=== PATIENT | female | born 1940 | race Caucasian/White ===

== ENCOUNTER → 2016-08-09 | Outpatient (CLI) | payer MEDICARE ==
--- NOTE | 2016-08-09 16:27 | PN ---
DATE OF SERVICE: 08/09/2016 A 76-year-old lady who has been [facility] for treatment of obstructive sleep apnea-hypopnea syndrome. Patient is using her machine every night for the whole night without significant problems. I read her reading from the machine for last 3 months. She used it 100% of the time and 98.9% of the time for more than 4 hours. Average pressure is now 6.1 and peak average pressure around 7.4. She is on automatic regimen between 5 and 11. With that, reading for apnea-hypopnea index is 6.9. No significant sleepiness during the day. Berwind sleepiness scale is 6. Sometimes patient may feel sleepiness in the afternoon. MEDICATIONS: Imdur, Norvasc, Lopressor. PHYSICAL EXAMINATION: GENERAL: During physical exam, the patient is in no distress. VITAL SIGNS: BP 157/65, HR 67, RR 14, height 62, weight 152.8. BMI 27.8. Temperature 97.5. HEENT: PERRLA, EOMI. Evaluation of the oropharynx shows low position of the soft palate. NECK: Supple. No JVD, Thyroid is not palpable. LUNGS: Clear to percussion and to auscultation. Good air exchange. No wheezing or rhonchi. HEART: S1, S2 regular. No murmurs, gallops, or rubs. ABDOMEN: Slightly obese. Soft and nontender. Bowel sounds are present. No organomegaly appreciated. BEAUTY SALES ADVISOR: Awake, alert, and oriented x3. Cranial nerves 2 to 7 intact. There is no fasciculation or atrophy noted. No focal deficits observed. IMPRESSION: 1. Central and obstructive sleep apnea/hypopnea syndrome, mostly on control with auto PAP with pressure in the range between 5 and 11. Most of the time pressure is in the range of 6.1 cm of water. Patient demonstrated about 100% compliance with treatment, benefiting from treatment. 2. Hypertension. 3. Hyperlipidemia. 4. History of allergies. 5. Status post cholecystectomy. PLAN: 1. Continue treatment with the present regimen every night for the whole night. 2. Watching and losing weight. 3. Sleep hygiene with regular time in bed for at least 7-1/2 hours. 4. No driving if feeling any sleepiness. 5. Prescription for all necessary CPAP supplies. Thank you very much for allowing me to participate in the management your patient. Sincerely, Micah Castañeda MD, PhD, FAASM Diplomat of [place] [employer], Sleep Medicine Board by [place] [employer] [place] [employer] Structural Technician of [facility]
== END | disposition home or self-care (01) ==
LOC: SLEEP 13:30
PROVIDERS: ATTEND Internal Medicine
DX: G47.33 Obstructive sleep apnea (adult) (pediatric) (principal); G47.31 Primary central sleep apnea; I10 Essential (primary) hypertension; E78.5 Hyperlipidemia, unspecified; Z91.09 Other allergy status, other than to drugs and biological substances; Z98.890 Other specified postprocedural states; Z79.899 Other long term (current) drug therapy

== ENCOUNTER → 2017-01-16 | Outpatient (CLI) | payer MEDICARE ==
--- NOTE | 2017-01-16 19:48 | WWHP ---
[facility] - HISTORY AND PHYSICAL DATE OF SERVICE: 01/16/2017 CHIEF COMPLAINT: The patient is here for her routine gynecologic exam and mammogram. HPI: This is a 77-year-old, G5, P5, with an LMP of 1991. She is status post vaginal hysterectomy for benign reasons. The patient is without gynecologic complaints. PAST MEDICAL HISTORY: Chronic hypertension, sleep apnea, coronary artery disease. Osteopenia, asthma and irritable bowel syndrome. MEDICATIONS: 1. Imdur 1 daily. 2. Norvasc 1 daily. 3. Lopressor 1 b.i.d. 4. Ventolin inhaler p.r.n. 5. Calcium supplements 1 daily. 6. Magnesium supplement 1 daily. 7. Allergy shots as directed. ALLERGIES: TO CODEINE AND SHELL FISH. ALMONDS AND EGGS. PAST SURGICAL HISTORY: Vaginal hysterectomy in 1991. Mesh sling procedure for urinary incontinence in the past. Cholecystectomy in 1993. Left leg vein stripping in 1990. Laser surgery for varicose veins in 2016, appendectomy in 1994, colonoscopy in 2010 and 2015. 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 She has no history of STDs. SOCIAL HISTORY: She denies tobacco, alcohol, and drug use. She is a and is not sexually active. FAMILY HISTORY: Paternal aunt had colon cancer. Sister had breast cancer. Mother had breast cancer and diabetes and father had leukemia. REVIEW OF SYSTEMS: She has gained about 15 pounds over the last year. She denies respiratory or cardiac problems. GI: Occasional irritable bowel symptoms. She denies maltreatment or falling. : She occasionally has to get up at night to urinate and if she does not get to the bathroom in time she will occasionally leak. She denies any other significant problems with leakage. PHYSICAL EXAM: Blood pressure 135/71, height 5 feet 3 inches, weight 156 pounds. Temperature 97.6, pulse 54, this is a well-developed, well-nourished, white female, who is alert and oriented times three in no acute distress. HEENT: Within normal limits. NECK: Supple without mass or thyromegaly. Chest. LUNGS: Clear to auscultation. HEART: Regular rate, rhythm. Breasts are without mass or discharge. Axillary exam is negative for adenopathy. Back negative for CVA tenderness. ABDOMEN: Soft, nontender, without palpable masses. Pelvic exam external genitalia reveals moderate atrophy without lesions. Vagina reveals moderate atrophy without lesions and there is no evidence of prolapse. Bimanual exam is negative for mass or tenderness. Rectovaginal exam is negative for mass or tenderness and is negative for occult blood. EXTREMITIES: Nontender. IMPRESSION: 1. 77-year-old, menopausal female, status post vaginal hysterectomy with normal gynecologic exam. 2. History of osteopenia. PLAN: 1. Pap smears have been discontinued. 2. Self breast examination was discussed. 3. Mammogram will be done today. 4. The patient will get a flu shot this fall when available. 5. Osteoporosis prevention was discussed. We will plan on repeating bone density testing in 2 years. 6. She will return in one year. MMODL / IJN: [id number] /
--- NOTE | 2017-01-17 08:12 | MM ---
Reason for exam: screening (asymptomatic). Last mammogram was performed 1 year ago. History: Patient is postmenopausal. Family history of breast cancer in sister at age 54 and breast cancer in mother at age 70. Benign excisional biopsy of the left breast, 1989. Physical Findings: A clinical breast exam by your physician is recommended on an annual basis and results should be correlated with mammographic findings. MG 3D Screening Mammo W/Cad Bilateral CC and MLO view(s) were taken. Prior study comparison: January 11, 2016, bilateral MG 3d screening mammo w/cad. January 05, 2015, bilateral MG screening mammo w CAD. There are scattered fibroglandular densities. Benign calcifications. There is no discrete abnormality. No significant changes when compared with prior studies. ASSESSMENT: Benign, BI-RAD 2 RECOMMENDATION: Routine screening mammogram of both breasts in 1 year.
== END ==
LOC: WWCWWP 11:08
PROVIDERS: ATTEND Obstetrics & Gynecology
DX: Z12.31 Encounter for screening mammogram for malignant neoplasm of breast (principal)
CPT/HCPCS: 77063; G0202

== ENCOUNTER 2017-08-16 17:54 | Observation (INO) | payer MEDICARE ==
[2017-08-16] MEDS ORDERED: LABETALOL 5 MG/ML VIAL MDV IVP STA (18:35)
--- NOTE | 2017-08-16 18:37 | ED ---
General Adult HPI - General Chief complaint: Chest Pain Stated complaint: Chest pain Time Seen by Provider: 08/16/17 18:03 Source: patient, RN notes reviewed, old records reviewed Mode of arrival: wheelchair Limitations: no limitations - History of Present Illness Initial comments: 77 yo female presents for evaluation of chest pain. Pain has been intermittent for the past one week, it became constant over the past 3 days. Describes it as a central chest heaviness. She is also had some dyspnea associated with this pain. No vomiting, there was some mild nausea. No diaphoresis. Patient denies any lower extremity pain or swelling. She has no history of heart failure. She does have a history of CAD status post stenting approximately 5 years ago according to her daughter. She has been taking aspirin, Imdur, and beta celeste. She is not currently on any blood thinners. She did take 2 nitroglycerin prior to arrival with minimal relief. She states that with her previous heart attack she had chest tightness and dyspnea as her primary complaint. Denies melena or rectal bleeding. - Related Data Home Medications Medication Instructions Recorded Confirmed Albuterol Inhaler [Ventolin Hfa 1 - 2 puff INHALATION RT-Q6H PRN 04/06/15 Inhaler] Ubidecarenone [Co Q-10] 100 mg PO DAILY 04/06/15 08/16/17 Multivitamins, Thera [Multivitamin 1 tab PO DAILY 01/02/16 08/16/17 (formulary)] Aspirin 325 mg PO ONCE PRN 08/16/17 08/16/17 Metoprolol Tartrate [Lopressor] 25 mg PO BID 08/16/17 08/16/17 Nitroglycerin Sl Tabs [Nitrostat] 0.4 mg SUBLINGUAL Q5M PRN 08/16/17 08/16/17 Olmesartan [Benicar] 5 mg PO DAILY 08/16/17 08/16/17 Previous Rx's Medication Instructions Recorded Aspirin EC [Ecotrin Low Dose] 81 mg PO DAILY #30 tablet. 04/07/15 Isosorbide Mononitrate ER [Imdur] 30 mg PO HS #30 tab.er.24h 01/03/16 Allergies Allergy/AdvReac Type Severity Reaction Status Date / Time codeine Allergy Unknown Verified 08/16/17 19:03 iodine Allergy Rash/Hives Verified 08/16/17 19:03 Iodine and Iodide Containing Allergy Rash/Hives Verified 08/16/17 19:03 Produc shellfish derived Allergy Rash/Hives Verified 08/16/17 19:03 tree nut [Nut] AdvReac Mild Abdominal Verified 08/16/17 19:03 Pain egg AdvReac Nausea & Verified 08/16/17 19:03 Vomiting gluten AdvReac Nausea & Verified 08/16/17 19:03 Vomiting Milk Containing Products AdvReac Nausea & Verified 08/16/17 19:03 [Dairy] Vomiting soy AdvReac Nausea & Verified 08/16/17 19:03 Vomiting Review of Systems ROS Statement: Those systems with pertinent positive or pertinent negative responses have been documented in the HPI. ROS Other: All systems not noted in ROS Statement are negative. 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 HAS A SORE IN MOUTH THAT MAKES IT DIFFICULT TO WEAR BOTTOM DENTURE,GLUTEN ALLERGY,LACTOSE INTOLERANCE AND EGGS CAUSE NAUSEA AND BLOATING BUT ABLE TO TAKE IMMUNIZATIONS. History of Any Multi-Drug Resistant Organisms: None Reported Past Surgical History: Appendectomy, Bladder Surgery, Cholecystectomy, Heart Catheterization With Stent, Hernia Repair, Hysterectomy Additional Past Surgical History / Comment(s): UMBILICAL HERNIA REPAIRE, BLADDER SUSPENSION WITH MESH. JUANJOSE CATARACTS, CYST ON NECK REMOVED, EGD/ COLONOSCOPY HAD FEW SMALL POLYS REMOVED(BENIGN), VEIN STRIPPING, HEMORRHOIDECTOMY Past Anesthesia/Blood Transfusion Reactions: Motion Sickness Date of Last Stent Placement:: 2011 Past Psychological History: No Psychological Hx Reported Smoking Status: Never smoker Past Alcohol Use History: None Reported Past Drug Use History: None Reported - Past Family History Father Family Medical History: Cancer, Osteoarthritis (OA) Additional Family Medical History / Comment(s): LEUKEMIA Mother Family Medical History: Cancer Additional Family Medical History / Comment(s): BREAST CANCER, AND PT'S SISTER AND AUNT HAD BREAST CANCER WELL. General Exam Limitations: no limitations General appearance: alert, in no apparent distress Head exam: Present: atraumatic, normocephalic Eye exam: Present: normal appearance, PERRL, EOMI ENT exam: Present: normal exam Neck exam: Present: normal inspection. Absent: tenderness, meningismus Respiratory exam: Present: normal lung sounds bilaterally. Absent: respiratory distress, wheezes, rales Cardiovascular Exam: Present: regular rate, normal rhythm GI/Abdominal exam: Present: soft. Absent: distended, tenderness, guarding Extremities exam: Present: normal inspection, normal capillary refill. Absent: pedal edema Neurological exam: Present: alert, oriented X3 Psychiatric exam: Present: normal affect, normal mood Skin exam: Present: warm, dry, intact. Absent: cyanosis, diaphoretic Course Vital Signs 08/16/17 08/16/17 08/16/17 17:56 18:44 19:10 Temperature 98.6 F Pulse Rate 101 H 80 Respiratory 20 18 Rate Blood Pressure 208/95 203/97 186/91 O2 Sat by Pulse 92 L 98 Oximetry EKG Findings - EKG Comments: EKG Findings:: EKG shows sinus rhythm with first-degree AV block, and left bundle branch block, ventricular rate of 87, NM interval 224, QRS duration 156, QTC 464, there is no Scarbosa criteria. Medical Decision Making - Medical Decision Making 77 yo female presenting with chest heaviness and dyspnea. Describes symptoms similar to previous heart attack proximally 5 years ago. She did have a stent at that time. I was unable to review these records. EKG shows left bundle branch block with no definitive change compared to previous EKG in December 2015. Chest x-ray shows clearing of previous pulmonary edema, negative for focal pneumonia or acute findings. After studies reveal normal white blood cell count, stable hemoglobin, normal electrolytes. Initial troponin is negative, BNP is negative. Patient is hypertensive, she is given labetalol and hydralazine in the emergency department. She started on heparin for concern of unstable angina. She will be admitted for telemetry, serial cardiac enzymes, and cardiology consultation. Case discussed with Dr. Ryan who will accept admission. - Lab Data Result diagrams: 08/16/17 18:18 08/16/17 18:18 Lab Results 08/16/17 08/16/17 08/16/17 Range/Units 18:18 18:18 18:18 WBC 7.5 (3.8-10.6) k/uL RBC 4.47 (3.80-5.40) m/uL Hgb 13.3 (11.4-16.0) gm/dL Hct 38.8 (34.0-46.0) % MCV 86.9 (80.0-100.0) fL MCH 29.8 (25.0-35.0) pg MCHC 34.3 (31.0-37.0) g/dL RDW 12.7 (11.5-15.5) % Plt Count 345 (150-450) k/uL Neutrophils % 68 % Lymphocytes % 23 % Monocytes % 5 % Eosinophils % 2 % Basophils % 1 % Neutrophils # 5.1 (1.3-7.7) k/uL Lymphocytes # 1.7 (1.0-4.8) k/uL Monocytes # 0.4 (0-1.0) k/uL Eosinophils # 0.2 (0-0.7) k/uL Basophils # 0.1 (0-0.2) k/uL PT (9.0-12.0) sec INR (<1.2) APTT (22.0-30.0) sec Sodium 144 (137-145) mmol/L Potassium 4.0 (3.5-5.1) mmol/L Chloride 106 (98-107) mmol/L Carbon Dioxide 23 (22-30) mmol/L Anion Gap 15 mmol/L BUN 15 (7-17) mg/dL Creatinine 0.80 (0.52-1.04) mg/dL Est GFR (CKD-EPI)AfAm 83 (>60 ml/min/1.73 sqM) Est GFR (CKD-EPI)NonAf 72 (>60 ml/min/1.73 sqM) Glucose 117 H (74-99) mg/dL Calcium 10.1 (8.4-10.2) mg/dL Magnesium 2.0 (1.6-2.3) mg/dL Total Bilirubin 0.4 (0.2-1.3) mg/dL AST 28 (14-36) U/L ALT 26 (9-52) U/L Alkaline Phosphatase 85 (38-126) U/L Total Creatine Kinase 213 H (30-135) U/L CK-MB (CK-2) 2.8 H* (0.0-2.4) ng/mL CK-MB (CK-2) Rel Index 1.3 Troponin I <0.012 (0.000-0.034) ng/mL NT-Pro-B Natriuret Pep pg/mL Total Protein 7.6 (6.3-8.2) g/dL Albumin 4.3 (3.5-5.0) g/dL 08/16/17 08/16/17 Range/Units 18:18 18:18 WBC (3.8-10.6) k/uL RBC (3.80-5.40) m/uL Hgb (11.4-16.0) gm/dL Hct (34.0-46.0) % MCV (80.0-100.0) fL MCH (25.0-35.0) pg MCHC (31.0-37.0) g/dL RDW (11.5-15.5) % Plt Count (150-450) k/uL Neutrophils % % Lymphocytes % % Monocytes % % Eosinophils % % Basophils % % Neutrophils # (1.3-7.7) k/uL Lymphocytes # (1.0-4.8) k/uL Monocytes # (0-1.0) k/uL Eosinophils # (0-0.7) k/uL Basophils # (0-0.2) k/uL PT 9.7 (9.0-12.0) sec INR 1.0 (<1.2) APTT 23.0 (22.0-30.0) sec Sodium (137-145) mmol/L Potassium (3.5-5.1) mmol/L Chloride (98-107) mmol/L Carbon Dioxide (22-30) mmol/L Anion Gap mmol/L BUN (7-17) mg/dL Creatinine (0.52-1.04) mg/dL Est GFR (CKD-EPI)AfAm (>60 ml/min/1.73 sqM) Est GFR (CKD-EPI)NonAf (>60 ml/min/1.73 sqM) Glucose (74-99) mg/dL Calcium (8.4-10.2) mg/dL Magnesium (1.6-2.3) mg/dL Total Bilirubin (0.2-1.3) mg/dL AST (14-36) U/L ALT (9-52) U/L Alkaline Phosphatase (38-126) U/L Total Creatine Kinase (30-135) U/L CK-MB (CK-2) (0.0-2.4) ng/mL CK-MB (CK-2) Rel Index Troponin I (0.000-0.034) ng/mL NT-Pro-B Natriuret Pep 195 pg/mL Total Protein (6.3-8.2) g/dL Albumin (3.5-5.0) g/dL Critical Care Time Critical Care Time: Yes Total Critical Care Time: 35 Disposition Clinical Impression: Unstable angina pectoris Disposition: ADMITTED IP TO THIS [facility] Condition: Stable Referrals: Ryan Pires DO [Primary Care Provider] - 1-2 days Decision to Admit Reason: Admit from EC Decision Date: 08/16/17 Decision Time: 19:46
[2017-08-16 18:44] LABS: Basophils # (A) 0.1 k/uL (0-0.2); Basophils % (A) 1 %; Eosinophils # (A) 0.2 k/uL (0-0.7); Eosinophils % (A) 2 %; HCT 38.8 % (34.0-46.0); HGB 13.3 gm/dL (11.4-16.0); Lymphocytes # (A) 1.7 k/uL (1.0-4.8); Lymphocytes % (A) 23 %; MCH 29.8 pg (25.0-35.0); MCHC 34.3 g/dL (31.0-37.0); MCV 86.9 fL (80.0-100.0); Mean Platelet Volume 6.7; Monocytes # (A) 0.4 k/uL (0-1.0); Monocytes % (A) 5 %; Neutrophils # (A) 5.1 k/uL (1.3-7.7); Neutrophils % (A) 68 %; Platelet Count 345 k/uL (150-450); RBC 4.47 m/uL (3.80-5.40); RDW 12.7 % (11.5-15.5); WBC 7.5 k/uL (3.8-10.6)
[2017-08-16 18:51] LABS: Prothrombin Time 9.7 sec (9.0-12.0)
[2017-08-16 18:58] LABS: Albumin 4.3 g/dL (3.5-5.0); Calcium 10.1 mg/dL (8.4-10.2); Total Bilirubin 0.4 mg/dL (0.2-1.3); Total Protein 7.6 g/dL (6.3-8.2)
--- NOTE | 2017-08-16 19:00 | XR ---
EXAMINATION TYPE: XR chest 2V DATE OF EXAM: 08/16/2017 COMPARISON: 01/02/2016 HISTORY: Chest pain TECHNIQUE: Frontal and lateral views of the chest are obtained. FINDINGS: Heart is normal. Lungs are clear of consolidation. Thoracic aorta is atheromatous. There a re chest leads. There is spurring in the thoracic spine. IMPRESSION: No active cardiopulmonary disease. Atheromatous aorta. There is clearing of the pulmonar y mild congestion compared to old exam.
[2017-08-16 19:10] LABS: Creatine Kinase 213 U/L (30-135)
[2017-08-16 19:24] LABS: Troponin I <0.012 ng/mL (0.000-0.034)
[2017-08-16 19:25] LABS: Creatine Kinase MB 2.8 ng/mL (0.0-2.4)
[2017-08-16] MEDS ORDERED: ASPIRIN 325 MG TAB PO STA (19:40)
[2017-08-16] MEDS ORDERED: HEPARIN SODIUM,PORCINE 5,000 UNIT/ML 1 ML VIAL IV PRN (19:41)
[2017-08-16] MEDS ORDERED: hydrALAZINE HCL 20 MG/ML 1 ML VIAL IVP STA (19:41)
[2017-08-16] MEDS ORDERED: LORazepam 2 MG/ML INJ IV STA (19:41)
[2017-08-16] MEDS ORDERED: HEPARIN SODIUM,PORCINE 5,000 UNIT/ML 1 ML VIAL IV ONE (19:41)
[2017-08-16] MEDS ORDERED: NITROGLYCERIN SL TABS 0.4 MG TAB SUBLINGUAL PRN (19:42)
[2017-08-16] MEDS ORDERED: HEPARIN SOD,PORK IN 0.45% NACL 25,000 UNIT in 0.45% NACL 1 500ML.BAG IV SCH (19:45)
[2017-08-16] MEDS ORDERED: NALOXONE 0.4 MG/ML 1 ML VIAL IV PRN (19:46)
[2017-08-16] MEDS ORDERED: ALBUTEROL NEBULIZED 2.5 MG/3 ML INHALATION PRN (20:39)
[2017-08-16] MEDS ORDERED: ISOSORBIDE MONONITRATE ER 30 MG TAB.ER.24H PO SCH (21:00)
[2017-08-16 21:36] VITALS: BMI 26.4
[2017-08-16] MEDS: METOPROLOL TARTRATE 25 MG TAB PO SCH (21:46)
[2017-08-17 00:39] LABS: Creatine Kinase 167 U/L (30-135)
[2017-08-17 00:52] LABS: Creatine Kinase MB 1.9 ng/mL (0.0-2.4); Troponin I <0.012 ng/mL (0.000-0.034)
[2017-08-17 03:14] VITALS: RESP 16
[2017-08-17 07:52] LABS: ALT 26 U/L (9-52); AST 19 U/L (14-36); Albumin 3.1 g/dL (3.5-5.0); Alkaline Phosphatase 62 U/L (38-126); Anion Gap 12 mmol/L; Blood Urea Nitrogen 14 mg/dL (7-17); Calcium 8.9 mg/dL (8.4-10.2); Carbon Dioxide 23 mmol/L (22-30); Chloride 107 mmol/L (98-107); Glucose 90 mg/dL (74-99); Potassium 3.9 mmol/L (3.5-5.1); Sodium 142 mmol/L (137-145); Total Bilirubin 0.5 mg/dL (0.2-1.3); Total Protein 5.7 g/dL (6.3-8.2)
[2017-08-17 07:59] LABS: Creatine Kinase 131 U/L (30-135)
[2017-08-17 08:05] LABS: Basophils % (A) 0 %; Eosinophils # (A) 0.3 k/uL (0-0.7); Eosinophils % (A) 5 %; HCT 33.9 % (34.0-46.0); HGB 11.4 gm/dL (11.4-16.0); Lymphocytes # (A) 2.7 k/uL (1.0-4.8); Lymphocytes % (A) 42 %; MCH 29.9 pg (25.0-35.0); MCHC 33.5 g/dL (31.0-37.0); Mean Platelet Volume 7.4; Monocytes # (A) 0.4 k/uL (0-1.0); Monocytes % (A) 7 %; Neutrophils # (A) 2.8 k/uL (1.3-7.7); Neutrophils % (A) 44 %; Platelet Count 266 k/uL (150-450); RBC 3.81 m/uL (3.80-5.40); RDW 12.7 % (11.5-15.5); WBC 6.3 k/uL (3.8-10.6)
[2017-08-17 08:13] LABS: Creatine Kinase MB 1.1 ng/mL (0.0-2.4); Troponin I <0.012 ng/mL (0.000-0.034)
[2017-08-17] MEDS ORDERED: ASPIRIN 81 MG PO SCH (09:00)
[2017-08-17] MEDS ORDERED: LOSARTAN 25 MG TAB PO SCH (09:00)
--- NOTE | 2017-08-17 09:32 | CONS ---
CONSULTATION Mrs. Tellez is a 77-year-old female, known history of hypertension, hyperlipidemia, intolerant to statin, history of coronary disease, has been followed by Dr. Elias and underwent prior percutaneous revascularization, who presented with symptoms of chest discomfort. The discomfort has been constant for the last week, has been worse with mental stress. She is not very active physically, but her breathing has been stable. She has no clear exertion pattern. She has no dizziness, palpitation, or syncope. No PND, orthopnea, or peripheral edema. She has underwent myocardial perfusion imaging in the past and there was no evidence of stress-induced ischemia. She has been admitted in the past with symptoms of chest pain and no evidence of myocardial infarction. Her coronary risk factors are remarkable for hypertension hyperlipidemia and intolerant to statins. She is nondiabetic, nonsmoker. MEDICATION: Include aspirin, Imdur 30 mg daily, Lopressor 25 mg twice a day, and Benicar 5 mg daily, CO-enzyme Q10. REVIEW OF SYSTEMS: Respiratory system: She has mild dyspnea on exertion. No recent wheezing or cough. GI system: No recent GI bleeding. No peptic ulcer disease. system no dysuria or hematuria. Nervous system: No stroke or seizure. PHYSICAL EXAMINATION: 77-year-old female, alert, oriented, in no apparent distress. Blood pressure 126/56 with a heart rate in 60s. HEAD: Normocephalic. Eyes: Sclerae anicteric. Neck: Good carotid upstroke. No bruit. No jugular venous distention. LUNGS: Clear to auscultation. HEART: Regular rate and rhythm, S1, S2. No S3. No rub. Chest wall with chest wall tenderness reproducing the pain. ABDOMEN: Soft, nontender. Positive bowel sounds. No megaly. EXTREMITIES: No edema. Intact pulses. LAB DATA: Lab data revealed a BUN and creatinine 14 and 0.7, potassium 3.9. Troponin less than 0.012. Hemoglobin of 11.4. EKG revealed sinus mechanism with left bundle branch block. Chest x-ray, no acute infiltrate. IMPRESSION: 1. Chest discomfort, atypical for ischemic heart disease, appears to be musculoskeletal in etiology. 2. History of coronary artery disease. 3. Hypertension. 4. Hyperlipidemia, intolerant to statin. RECOMMENDATION: I will stop the heparin. Increase her level of activity. If she remains stable, she should be able to be discharged home today and follow up as an outpatient with Dr. Elias as scheduled. Thank you for this consult. We will follow with you. MMODL / IJN: [id number] /
[2017-08-17] MEDS: METOPROLOL TARTRATE 25 MG TAB PO SCH (10:07)
[2017-08-17 13:09] VITALS: TEMP 97.8
[2017-08-17 16:02] VITALS: BP 170/76; PULSE 62
--- NOTE | 2017-08-17 16:34 | P.HPIM ---
History of Present Illness 77 yo female presents for evaluation of chest pain. Pain has been intermittent for the past one week, it became constant over the past 3 days. Describes it as a central chest sharp in nature 7/10 in severity.She is also had some dyspnea associated with this pain. No vomiting, there was some mild nausea. No diaphoresis. Patient denies any lower extremity pain or swelling. She does have a history of CAD status post stenting approximately 5 years ago She is not currently on any blood thinners. She did take 2 nitroglycerin prior to arrival with minimal relief. She states that with her previous heart attack she had chest tightness and dyspnea as her primary complaint. Denies melena or rectal bleeding. was admitted to rule out acute coronary syndromes acute coronary syndromes was ruled out patient has reproducible chest pain was evaluated by cardiology patient chest pain is nonpleuritic in nature nature not associated with food. Review of Systems REVIEW OF SYSTEMS: CONSTITUTIONAL: No fever, no malaise, no fatigue. HEENT: No recent visual problems or hearing problems. Denied any sore throat. CARDIOVASCULAR: No orthopnea, PND, no palpitations, no syncope. PULMONARY: No shortness of breath, no cough, no hemoptysis. GASTROINTESTINAL: No diarrhea, no nausea, no vomiting, no abdominal pain. Normoactive bowel sounds. NEUROLOGICAL: No headaches, no weakness, no numbness. HEMATOLOGICAL: Denies any bleeding or petechiae. GENITOURINARY: Denies any burning micturition, frequency, or urgency. MUSCULOSKELETAL/RHEUMATOLOGICAL: Denies any joint pain, swelling, or any muscle pain. ENDOCRINE: Denies any polyuria or polydipsia. The rest of the 14-point review of systems is negative. 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 GLUTEN ALLERGY, LACTOSE INTOLERANCE AND EGGS CAUSE NAUSEA AND BLOATING BUT ABLE TO TAKE IMMUNIZATIONS. History of Any Multi-Drug Resistant Organisms: None Reported Past Surgical History: Appendectomy, Bladder Surgery, Cholecystectomy, Heart Catheterization With Stent, Hernia Repair, Hysterectomy Additional Past Surgical History / Comment(s): UMBILICAL HERNIA REPAIRE, BLADDER SUSPENSION WITH MESH. JAUNJOSE CATARACTS, CYST ON NECK REMOVED, EGD/ COLONOSCOPY HAD FEW SMALL POLYS REMOVED(BENIGN), VEIN STRIPPING, HEMORRHOIDECTOMY, NASAL SURGERY Past Anesthesia/Blood Transfusion Reactions: Motion Sickness Date of Last Stent Placement:: 2011 Past Psychological History: No Psychological Hx Reported Additional Psychological History / Comment(s): PT LIVES IN OWN HOME WITH HER FAMILY. 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 NO OUTSIDE SERVICES. Smoking Status: Never smoker Past Alcohol Use History: None Reported Past Drug Use History: None Reported - Past Family History Father Family Medical History: Cancer, Osteoarthritis (OA) Additional Family Medical History / Comment(s): LEUKEMIA Mother Family Medical History: Cancer Additional Family Medical History / Comment(s): BREAST CANCER, AND PT'S SISTER AND AUNT HAD BREAST CANCER WELL. Medications and Allergies Home Medications Medication Instructions Recorded Confirmed Type Albuterol Inhaler [Ventolin Hfa 1 - 2 puff INHALATION RT-Q6H PRN 04/06/15 History Inhaler] Ubidecarenone [Co Q-10] 100 mg PO DAILY 04/06/15 08/16/17 History Aspirin EC [Ecotrin Low Dose] 81 mg PO DAILY #30 tablet. 04/07/15 08/16/17 Rx Multivitamins, Thera [Multivitamin 1 tab PO DAILY 01/02/16 08/16/17 History (formulary)] Isosorbide Mononitrate ER [Imdur] 30 mg PO HS #30 tab.er.24h 01/03/16 08/16/17 Rx Aspirin 325 mg PO ONCE PRN 08/16/17 08/16/17 History Metoprolol Tartrate [Lopressor] 25 mg PO BID 08/16/17 08/16/17 History Nitroglycerin Sl Tabs [Nitrostat] 0.4 mg SUBLINGUAL Q5M PRN 08/16/17 08/16/17 History Olmesartan [Benicar] 5 mg PO DAILY 08/16/17 08/16/17 History Allergies Allergy/AdvReac Type Severity Reaction Status Date / Time codeine Allergy Unknown Verified 08/16/17 21:43 iodine Allergy Rash/Hives Verified 08/16/17 21:43 Iodine and Iodide Containing Allergy Rash/Hives Verified 08/16/17 21:43 Produc shellfish derived Allergy Rash/Hives Verified 08/16/17 21:43 tree nut [Nut] AdvReac Mild Abdominal Verified 08/16/17 21:43 Pain egg AdvReac Nausea & Verified 08/16/17 21:43 Vomiting gluten AdvReac Nausea & Verified 08/16/17 21:43 Vomiting Milk Containing Products AdvReac Nausea & Verified 08/16/17 21:43 [Dairy] Vomiting soy AdvReac Nausea & Verified 08/16/17 21:43 Vomiting Sulfa (Sulfonamide AdvReac Rash/Hives Verified 08/16/17 21:43 Antibiotics) Physical Exam Vitals: Vital Signs Temp Pulse Pulse Resp BP BP Pulse Ox 08/17/17 16:00 97.8 F 62 16 170/76 94 L 08/17/17 12:00 97.8 F 65 16 147/67 95 08/17/17 08:00 97.7 F 61 16 131/70 95 08/17/17 07:46 94 L 08/17/17 04:00 64 16 08/17/17 03:14 97.8 F 64 16 126/56 96 08/17/17 00:00 98.1 F 80 18 136/70 96 08/16/17 20:36 93 L 08/16/17 20:29 98 F 86 18 163/77 97 08/16/17 19:10 80 18 186/91 98 08/16/17 18:44 203/97 08/16/17 17:56 98.6 F 101 H 20 208/95 92 L Intake and Output 08/17/17 08/17/17 08/17/17 06:59 14:59 22:59 Intake Total 283 Balance 283 Intake: IV 160 0.9 NS @ KVO 160 Intake, IV Titration 123 Amount Heparin Sod,Pork in 0.45% 123 NaCl 25,000 unit In 0.45 % NaCl 1 500ml.bag @ 12 UNITS/KG/HR 16.32 mls/hr IV .Q24H [facility] Rx#: [id number] Other: Voiding Method Toilet Toilet # Voids 2 PHYSICAL EXAMINATION: GENERAL: The patient is alert and oriented x3, not in any acute distress. Well developed, well nourished. HEENT: Pupils are round and equally reacting to light. EOMI. No scleral icterus. No conjunctival pallor. Normocephalic, atraumatic. No pharyngeal erythema. No thyromegaly. CARDIOVASCULAR: S1 and S2 present. No murmurs, rubs, or gallops. reproducible chest pain PULMONARY: Chest is clear to auscultation, no wheezing or crackles. ABDOMEN: Soft, nontender, nondistended, normoactive bowel sounds. No palpable organomegaly. MUSCULOSKELETAL: No joint swelling or deformity. EXTREMITIES: No cyanosis, clubbing, or pedal edema. NEUROLOGICAL: Gross neurological examination did not reveal any focal deficits. SKIN: No rashes. Results CBC & Chem 7: 08/17/17 06:16 08/17/17 06:16 Labs: Abnormal Lab Results - Last 24 Hours (Table) 08/16/17 08/16/17 08/16/17 Range/Units 18:18 18:18 23:52 Hct (34.0-46.0) % APTT (22.0-30.0) sec Glucose 117 H (74-99) mg/dL Total Creatine Kinase 213 H 167 H (30-135) U/L CK-MB (CK-2) 2.8 H* (0.0-2.4) ng/mL Total Protein (6.3-8.2) g/dL Albumin (3.5-5.0) g/dL 08/17/17 08/17/17 08/17/17 Range/Units 06:16 06:16 06:16 Hct 33.9 L (34.0-46.0) % APTT 60.0 H (22.0-30.0) sec Glucose (74-99) mg/dL Total Creatine Kinase (30-135) U/L CK-MB (CK-2) (0.0-2.4) ng/mL Total Protein 5.7 L (6.3-8.2) g/dL Albumin 3.1 L (3.5-5.0) g/dL Thrombosis Risk Factor Assmnt - Choose All That Apply Each Risk Factor Represents 3 Points: Age 75 years or older Thrombosis Risk Factor Assessment Total Risk Factor Score: 3 Thrombosis Risk Factor Assessment Level: Moderate Risk Assessment and Plan Plan: -Chest pain: Rule out acute medicine syndromes patient's chest pain is reproducible and musculoskeletal in nature patient is cleared for discharge from cardiology perspective patient will be discharged today. -Hypertension patient blood pressure is elevated patient is to be resumed on her home medications. -Coronary artery disease -Gastroesophageal reflux disease patient is not taking any medications for reflux disease patient does have a little hernia is not requiring any medications at this point of time. -Hyperlipidemia -Sleep apnea patient will continue her medications.
--- NOTE | 2017-08-17 16:35 | P.DS ---
Providers Date of admission: 08/16/17 19:46 Attending physician: Carolynn Almanzar Consults: 08/16/17 19:47 Consult Physician Routine Consulting Provider: Maninder Elias Consult Reason/Comments: UA Do you want consulting provider notified?: Yes [facility] Course: refer to my HPI Patient Condition at Discharge: Stable Plan - Discharge Summary Discharge Rx Participant: No New Discharge Prescriptions: No Action Albuterol Inhaler [Ventolin Hfa Inhaler] 1 - 2 puff INHALATION RT-Q6H PRN PRN Reason: Shortness Of Breath Ubidecarenone [Co Q-10] 100 mg PO DAILY Aspirin EC [Ecotrin Low Dose] 81 mg PO DAILY #30 tablet. Multivlenard Thera [Multivitamin (formulary)] 1 tab PO DAILY Isosorbide Mononitrate ER [Imdur] 30 mg PO HS #30 tab.er.24h Nitroglycerin Sl Tabs [Nitrostat] 0.4 mg SUBLINGUAL Q5M PRN PRN Reason: Chest Pain Olmesartan [Benicar] 5 mg PO DAILY Metoprolol Tartrate [Lopressor] 25 mg PO BID Aspirin 325 mg PO ONCE PRN PRN Reason: Chest Pain Discharge Medication List Albuterol Inhaler [Ventolin Hfa Inhaler] 1 - 2 puff INHALATION RT-Q6H PRN [History] Ubidecarenone [Co Q-10] 100 mg PO DAILY 04/06/15 [History] Aspirin EC [Ecotrin Low Dose] 81 mg PO DAILY #30 tablet. 04/07/15 [Rx] Multivitaminlandon, Thera [Multivitamin (formulary)] 1 tab PO DAILY 01/02/16 [History ] Isosorbide Mononitrate ER [Imdur] 30 mg PO HS #30 tab.er.24h 01/03/16 [Rx] Aspirin 325 mg PO ONCE PRN 08/16/17 [History] Metoprolol Tartrate [Lopressor] 25 mg PO BID 08/16/17 [History] Nitroglycerin Sl Tabs [Nitrostat] 0.4 mg SUBLINGUAL Q5M PRN 08/16/17 [History] Olmesartan [Benicar] 5 mg PO DAILY 08/16/17 [History] Follow up Appointment(s)/Referral(s): Maninder Elias MD [STAFF PHYSICIAN] - 1 Week (keep already scheduled appt) Ryan Pires DO [Primary Care Provider] - 3 Days Discharge Disposition: HOME SELF-CARE
== END 2017-08-17 16:48 | disposition home or self-care (01) ==
LOC: EC 17:54 → 3OBS 19:46
PROVIDERS: ADMIT Internal Medicine; ATTEND Internal Medicine
DX: R07.89 Other chest pain (principal); R06.00 Dyspnea, unspecified; R11.0 Nausea; I10 Essential (primary) hypertension; I25.10 Atherosclerotic heart disease of native coronary artery without angina pectoris; K21.9 Gastro-esophageal reflux disease without esophagitis; E78.5 Hyperlipidemia, unspecified; K46.9 Unspecified abdominal hernia without obstruction or gangrene; G47.30 Sleep apnea, unspecified; Z99.89 Dependence on other enabling machines and devices; J45.909 Unspecified asthma, uncomplicated; I25.2 Old myocardial infarction; E73.9 Lactose intolerance, unspecified; Z95.5 Presence of coronary angioplasty implant and graft; Z91.012 Allergy to eggs; Z88.5 Allergy status to narcotic agent; Z91.018 Allergy to other foods; Z91.013 Allergy to seafood; Z88.2 Allergy status to sulfonamides; Z91.048 Other nonmedicinal substance allergy status; Z79.899 Other long term (current) drug therapy; Z79.82 Long term (current) use of aspirin; Z80.3 Family history of malignant neoplasm of breast; Z80.6 Family history of leukemia; Z82.61 Family history of arthritis
CPT/HCPCS: 99291 ×2; 96365 ×2; 96375 ×4; 96376 ×2; 96366 ×2; 36415; 94760 ×2; 93005; 83880; 80053 ×2; 82550 ×2; 82553 ×2; 83735; 84484 ×2; 85025 ×2; 85610; 85730 ×2; 71046; G0378 ×2; J2060; J0360; J1644 ×2

== ENCOUNTER 2017-10-06 11:27 | Observation (INO) | payer MEDICARE ==
[2017-10-06] MEDS ORDERED: ASPIRIN 81 MG PO STA (11:48)
[2017-10-06] MEDS ORDERED: NITROGLYCERIN OINT 1 INCH/GM PACKET TOPICAL STA (11:49)
--- NOTE | 2017-10-06 11:55 | ED ---
General Adult HPI - General Chief complaint: Chest Pain Stated complaint: Chest pain Time Seen by Provider: 10/06/17 11:35 Source: patient, RN notes reviewed Mode of arrival: ambulatory Limitations: no limitations - History of Present Illness Initial comments: This is a 71 citral female who presents emergency Department with a past medical history significant for stents high blood pressure high cholesterol. Patient states she had a stress test on because she was having some chest pain on and off. Patient states ever since a stress test she's had intermittent chest pain which radiates to her jaw on occasion she's also been short of breath diaphoretic and complains of some nausea. Since it is been going on and off and it again happened today in mormonism except she also felt lightheaded and thought she might pass out. Patient's daughter brought her to the emergency department. Patient denies any recent fever chills or cough. Patient denies any abdominal pain patient denies any vomiting or diarrhea. Patient denies any headache patient denies numbness weakness. Patient denies any swelling to her legs or calf tenderness. - Related Data Home Medications Medication Instructions Recorded Confirmed Albuterol Inhaler [Ventolin Hfa 1 - 2 puff INHALATION RT-Q6H PRN 04/06/15 Inhaler] Ubidecarenone [Co Q-10] 100 mg PO DAILY 04/06/15 08/16/17 Multivitamins, Thera [Multivitamin 1 tab PO DAILY 01/02/16 08/16/17 (formulary)] Aspirin 325 mg PO ONCE PRN 08/16/17 08/16/17 Metoprolol Tartrate [Lopressor] 25 mg PO BID 08/16/17 08/16/17 Nitroglycerin Sl Tabs [Nitrostat] 0.4 mg SUBLINGUAL Q5M PRN 08/16/17 08/16/17 Olmesartan [Benicar] 5 mg PO DAILY 08/16/17 08/16/17 Previous Rx's Medication Instructions Recorded Aspirin EC [Ecotrin Low Dose] 81 mg PO DAILY #30 tablet.dr 04/07/15 Isosorbide Mononitrate ER [Imdur] 30 mg PO HS #30 tab.er.24h 01/03/16 Allergies Allergy/AdvReac Type Severity Reaction Status Date / Time codeine Allergy Unknown Verified 10/06/17 11:50 iodine Allergy Rash/Hives Verified 10/06/17 11:50 Iodine and Iodide Containing Allergy Rash/Hives Verified 10/06/17 11:50 Produc shellfish derived Allergy Rash/Hives Verified 10/06/17 11:50 tree nut [Nut] AdvReac Mild Abdominal Verified 10/06/17 11:50 Pain egg AdvReac Nausea & Verified 10/06/17 11:50 Vomiting gluten AdvReac Nausea & Verified 10/06/17 11:50 Vomiting Milk Containing Products AdvReac Nausea & Verified 10/06/17 11:50 [Dairy] Vomiting soy AdvReac Nausea & Verified 10/06/17 11:50 Vomiting Sulfa (Sulfonamide AdvReac Rash/Hives Verified 10/06/17 11:50 Antibiotics) Review of Systems ROS Statement: Those systems with pertinent positive or pertinent negative responses have been documented in the HPI. ROS Other: All systems not noted in ROS Statement are negative. 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 GLUTEN ALLERGY, LACTOSE INTOLERANCE AND EGGS CAUSE NAUSEA AND BLOATING BUT ABLE TO TAKE IMMUNIZATIONS. History of Any Multi-Drug Resistant Organisms: None Reported Past Surgical History: Appendectomy, Bladder Surgery, Cholecystectomy, Heart Catheterization With Stent, Hernia Repair, Hysterectomy Additional Past Surgical History / Comment(s): UMBILICAL HERNIA REPAIRE, BLADDER SUSPENSION WITH MESH. JUANJOSE CATARACTS, CYST ON NECK REMOVED, EGD/ COLONOSCOPY HAD FEW SMALL POLYS REMOVED(BENIGN), VEIN STRIPPING, HEMORRHOIDECTOMY, NASAL SURGERY Past Anesthesia/Blood Transfusion Reactions: Motion Sickness Date of Last Stent Placement:: 2011 Past Psychological History: No Psychological Hx Reported Smoking Status: Never smoker Past Alcohol Use History: None Reported Past Drug Use History: None Reported - Past Family History Father Family Medical History: Cancer, Osteoarthritis (OA) Additional Family Medical History / Comment(s): LEUKEMIA Mother Family Medical History: Cancer Additional Family Medical History / Comment(s): BREAST CANCER, AND PT'S SISTER AND AUNT HAD BREAST CANCER WELL. General Exam - General Exam Comments Initial Comments: GENERAL: Patient is well-developed and well-nourished. Patient is nontoxic and well- hydrated and is in mild distress. ENT: Neck is soft and supple. No significant lymphadenopathy is noted. Oropharynx is clear. Moist mucous membranes. Neck has full range of motion without eliciting any pain. EYES: The sclera were anicteric and conjunctiva were pink and moist. Extraocular movements were intact and pupils were equal round and reactive to light. Eyelids were unremarkable. PULMONARY: Unlabored respirations. Good breath sounds bilaterally. No audible rales rhonchi or wheezing was noted. CARDIOVASCULAR: There is a regular rate and rhythm without any murmurs gallops or rubs. ABDOMEN: Soft and nontender with normal bowel sounds. No palpable organomegaly was noted. There is no palpable pulsatile mass. SKIN: Skin is clear with no lesions or rashes and otherwise unremarkable. NEUROLOGIC: Patient is alert and oriented x3. Cranial nerves II through XII are grossly intact. Motor and sensory are also intact. Normal speech, volume and content. Symmetrical smile. MUSCULOSKELETAL: Normal extremities with adequate strength and full range of motion. LYMPHATICS: No significant lymphadenopathy is noted PSYCHIATRIC: Normal psychiatric evaluation. Normal interpersonal interactions appears functionally intact in deals appropriately with others. No signs of depression. No signs of anxiety. Limitations: no limitations Course Vital Signs 10/06/17 10/06/17 10/06/17 11:40 12:05 12:10 Temperature 98.2 F Pulse Rate 85 75 84 Respiratory 18 18 18 Rate Blood Pressure 223/108 211/88 157/72 O2 Sat by Pulse 99 99 99 Oximetry 10/06/17 12:17 Temperature Pulse Rate 88 Respiratory 18 Rate Blood Pressure 166/70 O2 Sat by Pulse 98 Oximetry Medical Decision Making - Medical Decision Making EKG shows sinus rhythm at 80 bpm NM interval is 210 QRS is 140 QT interval 388 QTC is 469. Patient's EKG shows left bundle branch block which she has had in the past. Patient's chest x-ray showed no acute abnormality. Patient's pain is been intermittent and had associated cardiac like symptoms. Because of this I diagnosed the patient unstable angina started the patient on heparin I called Dr. Ryan he agreed to admit the patient admitted the patient I wrote admitting orders to continue the heparin Nitropaste and aspirin on the floor. And I consult to cardiology. - Lab Data Result diagrams: 10/06/17 12:00 10/06/17 12:00 Lab Results 10/06/17 10/06/17 10/06/17 Range/Units 12:00 12:00 12:00 WBC 7.5 (3.8-10.6) k/uL RBC 4.61 (3.80-5.40) m/uL Hgb 13.8 (11.4-16.0) gm/dL Hct 40.9 (34.0-46.0) % MCV 88.7 (80.0-100.0) fL MCH 29.9 (25.0-35.0) pg MCHC 33.7 (31.0-37.0) g/dL RDW 13.1 (11.5-15.5) % Plt Count 282 (150-450) k/uL Neutrophils % 71 % Lymphocytes % 17 % Monocytes % 5 % Eosinophils % 4 % Basophils % 1 % Neutrophils # 5.4 (1.3-7.7) k/uL Lymphocytes # 1.3 (1.0-4.8) k/uL Monocytes # 0.4 (0-1.0) k/uL Eosinophils # 0.3 (0-0.7) k/uL Basophils # 0.0 (0-0.2) k/uL PT (9.0-12.0) sec INR (<1.2) APTT (22.0-30.0) sec Sodium 143 (137-145) mmol/L Potassium 4.2 (3.5-5.1) mmol/L Chloride 107 (98-107) mmol/L Carbon Dioxide 24 (22-30) mmol/L Anion Gap 12 mmol/L BUN 15 (7-17) mg/dL Creatinine 0.74 (0.52-1.04) mg/dL Est GFR (CKD-EPI)AfAm >90 (>60 ml/min/1.73 sqM) Est GFR (CKD-EPI)NonAf 80 (>60 ml/min/1.73 sqM) Glucose 115 H (74-99) mg/dL Calcium 9.8 (8.4-10.2) mg/dL Magnesium 1.8 (1.6-2.3) mg/dL Total Bilirubin 0.6 (0.2-1.3) mg/dL AST 27 (14-36) U/L ALT 36 (9-52) U/L Alkaline Phosphatase 74 (38-126) U/L Total Creatine Kinase 192 H (30-135) U/L CK-MB (CK-2) 2.6 H* (0.0-2.4) ng/mL CK-MB (CK-2) Rel Index 1.4 Troponin I <0.012 (0.000-0.034) ng/mL Total Protein 7.1 (6.3-8.2) g/dL Albumin 4.2 (3.5-5.0) g/dL 10/06/17 Range/Units 12:00 WBC (3.8-10.6) k/uL RBC (3.80-5.40) m/uL Hgb (11.4-16.0) gm/dL Hct (34.0-46.0) % MCV (80.0-100.0) fL MCH (25.0-35.0) pg MCHC (31.0-37.0) g/dL RDW (11.5-15.5) % Plt Count (150-450) k/uL Neutrophils % % Lymphocytes % % Monocytes % % Eosinophils % % Basophils % % Neutrophils # (1.3-7.7) k/uL Lymphocytes # (1.0-4.8) k/uL Monocytes # (0-1.0) k/uL Eosinophils # (0-0.7) k/uL Basophils # (0-0.2) k/uL PT 9.8 (9.0-12.0) sec INR 1.0 (<1.2) APTT 23.5 (22.0-30.0) sec Sodium (137-145) mmol/L Potassium (3.5-5.1) mmol/L Chloride (98-107) mmol/L Carbon Dioxide (22-30) mmol/L Anion Gap mmol/L BUN (7-17) mg/dL Creatinine (0.52-1.04) mg/dL Est GFR (CKD-EPI)AfAm (>60 ml/min/1.73 sqM) Est GFR (CKD-EPI)NonAf (>60 ml/min/1.73 sqM) Glucose (74-99) mg/dL Calcium (8.4-10.2) mg/dL Magnesium (1.6-2.3) mg/dL Total Bilirubin (0.2-1.3) mg/dL AST (14-36) U/L ALT (9-52) U/L Alkaline Phosphatase (38-126) U/L Total Creatine Kinase (30-135) U/L CK-MB (CK-2) (0.0-2.4) ng/mL CK-MB (CK-2) Rel Index Troponin I (0.000-0.034) ng/mL Total Protein (6.3-8.2) g/dL Albumin (3.5-5.0) g/dL Critical Care Time Critical Care Time: Yes Total Critical Care Time: 35 Disposition Clinical Impression: Unstable angina pectoris Disposition: ADMITTED IP TO THIS HOSP Referrals: Ryan Pires DO [Primary Care Provider] - 1-2 days Time of Disposition: 13:07
[2017-10-06] MEDS: NITROGLYCERIN SL TABS 0.4 MG TAB SUBLINGUAL STA ×2 (12:06→12:12)
[2017-10-06 12:16] LABS: Basophils % (A) 1 %; Eosinophils # (A) 0.3 k/uL (0-0.7); Eosinophils % (A) 4 %; HCT 40.9 % (34.0-46.0); HGB 13.8 gm/dL (11.4-16.0); Lymphocytes # (A) 1.3 k/uL (1.0-4.8); Lymphocytes % (A) 17 %; MCH 29.9 pg (25.0-35.0); MCHC 33.7 g/dL (31.0-37.0); MCV 88.7 fL (80.0-100.0); Mean Platelet Volume 6.9; Monocytes # (A) 0.4 k/uL (0-1.0); Monocytes % (A) 5 %; Neutrophils # (A) 5.4 k/uL (1.3-7.7); Neutrophils % (A) 71 %; Platelet Count 282 k/uL (150-450); RBC 4.61 m/uL (3.80-5.40); RDW 13.1 % (11.5-15.5); WBC 7.5 k/uL (3.8-10.6)
[2017-10-06 12:26] LABS: Creatine Kinase 192 U/L (30-135)
[2017-10-06 12:27] LABS: Partial Thromboplastin Time 23.5 sec (22.0-30.0); Prothrombin Time 9.8 sec (9.0-12.0)
[2017-10-06 12:28] LABS: ALT 36 U/L (9-52); AST 27 U/L (14-36); Albumin 4.2 g/dL (3.5-5.0); Alkaline Phosphatase 74 U/L (38-126); Anion Gap 12 mmol/L; Blood Urea Nitrogen 15 mg/dL (7-17); Calcium 9.8 mg/dL (8.4-10.2); Carbon Dioxide 24 mmol/L (22-30); Chloride 107 mmol/L (98-107); Glucose 115 mg/dL (74-99); Magnesium 1.8 mg/dL (1.6-2.3); Potassium 4.2 mmol/L (3.5-5.1); Sodium 143 mmol/L (137-145); Total Bilirubin 0.6 mg/dL (0.2-1.3); Total Protein 7.1 g/dL (6.3-8.2)
--- NOTE | 2017-10-06 12:35 | XR ---
EXAMINATION TYPE: XR chest 2V DATE OF EXAM: 10/06/2017 COMPARISON: Chest x-ray August 16, 2017 HISTORY: Chest pain TECHNIQUE: Frontal and lateral views of the chest are obtained. FINDINGS: There is background chronic emphysematous change There is no focal air space opacity, pleu ral effusion, or pneumothorax seen. The cardiac silhouette size is upper limits of normal with ather osclerotic aorta. Multilevel spurring in the spine is redemonstrated. Cholecystectomy clips are noted IMPRESSION: Chronic changes without acute pulmonary process.
[2017-10-06 12:40] LABS: Troponin I <0.012 ng/mL (0.000-0.034)
[2017-10-06 12:42] LABS: Creatine Kinase MB 2.6 ng/mL (0.0-2.4)
[2017-10-06] MEDS ORDERED: HEPARIN SODIUM,PORCINE 5,000 UNIT/ML 1 ML VIAL IV ONE (13:04)
[2017-10-06] MEDS ORDERED: NITROGLYCERIN SL TABS 0.4 MG TAB SUBLINGUAL PRN ×2 (13:04→14:07)
[2017-10-06] MEDS ORDERED: METOPROLOL TARTRATE 5 MG/5 ML VIAL IVP STA (13:13)
[2017-10-06] MEDS: HEPARIN SODIUM,PORCINE/D5W PMX 25,000 UNIT in DEXTROSE/WATER 1 500ML.BAG IV SCH (13:19)
[2017-10-06] MEDS: METOPROLOL TARTRATE 5 MG/5 ML VIAL IVP SCH ×3 (13:54→13:56)
[2017-10-06 14:06] VITALS: BMI 26.9
[2017-10-06] MEDS ORDERED: ALBUTEROL NEBULIZED 2.5 MG/3 ML INHALATION PRN (14:07)
[2017-10-06] MEDS: ISOSORBIDE MONONITRATE ER 30 MG TAB.ER.24H PO SCH (15:22)
[2017-10-06] MEDS: LOSARTAN 25 MG TAB PO SCH (15:22)
[2017-10-06] MEDS ORDERED: hydrALAZINE HCL 50 MG TAB PO STA (17:17)
[2017-10-06] MEDS ORDERED: NITROGLYCERIN OINT 1 INCH/GM PACKET TOPICAL SCH (18:00)
[2017-10-06] MEDS: METOPROLOL TARTRATE 25 MG TAB PO SCH (20:26)
[2017-10-06 20:27] LABS: Creatine Kinase 148 U/L (30-135)
[2017-10-06 20:37] LABS: Creatine Kinase MB 1.8 ng/mL (0.0-2.4); Troponin I <0.012 ng/mL (0.000-0.034)
[2017-10-07] MEDS ORDERED: hydrALAZINE HCL 20 MG/ML 1 ML VIAL IVP STA (00:16)
[2017-10-07] MEDS ORDERED: MELATONIN 5 MG TABLET PO PRN (00:16)
[2017-10-07] MEDS: DOCUSATE 100 MG CAP PO SCH ×2 (00:31→09:17)
[2017-10-07 00:32] LABS: Creatine Kinase 146 U/L (30-135)
[2017-10-07 00:44] LABS: Creatine Kinase MB 1.9 ng/mL (0.0-2.4); Troponin I <0.012 ng/mL (0.000-0.034)
[2017-10-07 02:41] LABS: Cholesterol 219 mg/dL (<200); HDL Cholesterol 46 mg/dL (40-60); LDL Cholesterol,Calculated 149 mg/dL (0-99); Triglycerides 119 mg/dL (<150)
[2017-10-07] MEDS ORDERED: ALPRAZolam 0.25 MG TAB PO PRN (06:32)
[2017-10-07] MEDS ORDERED: BISMUTH SUBSALICYLATE 4,192 MG/240 ML BOTTLE PO PRN (06:35)
[2017-10-07] MEDS ORDERED: SODIUM CHLORIDE 0.9% 1,000 ML IV SCH (08:15)
[2017-10-07] MEDS ORDERED: ISOSORBIDE MONONITRATE ER 30 MG TAB.ER.24H PO SCH (09:00)
[2017-10-07] MEDS ORDERED: LOSARTAN 25 MG TAB PO SCH (09:00)
[2017-10-07] MEDS ORDERED: ASPIRIN 325 MG TAB PO SCH (09:00)
[2017-10-07] MEDS: LOSARTAN 25 MG TAB PO SCH (09:17)
[2017-10-07] MEDS: METOPROLOL TARTRATE 25 MG TAB PO SCH (09:17)
[2017-10-07] MEDS: ISOSORBIDE MONONITRATE ER 30 MG TAB.ER.24H PO SCH (09:17)
[2017-10-07 10:06] VITALS: TEMP 97.7
--- NOTE | 2017-10-07 10:33 | P.HPIM ---
History of Present Illness 77-year-old pleasant female came in with the chest pain constant on and off 5/ insulin 10 severity reproducible in the retrosternal area nonradiating. Patient denied any short of breath diaphoresis patient was recently evaluated in the hospital for chest pain at that time patient was discharged home for outpatient stress test patient ended up getting an outpatient stress test on results of which are unknown at this time. Cardiology was consulted will rule out a concurrent syndromes patient still appears to have musculoskeletal chest pain. Review of Systems REVIEW OF SYSTEMS: CONSTITUTIONAL: No fever, no malaise, no fatigue. HEENT: No recent visual problems or hearing problems. Denied any sore throat. CARDIOVASCULAR: No orthopnea, PND, no palpitations, no syncope. PULMONARY: No shortness of breath, no cough, no hemoptysis. GASTROINTESTINAL: No diarrhea, no nausea, no vomiting, no abdominal pain. Normoactive bowel sounds. NEUROLOGICAL: No headaches, no weakness, no numbness. HEMATOLOGICAL: Denies any bleeding or petechiae. GENITOURINARY: Denies any burning micturition, frequency, or urgency. MUSCULOSKELETAL/RHEUMATOLOGICAL: Denies any joint pain, swelling, or any muscle pain. ENDOCRINE: Denies any polyuria or polydipsia. The rest of the 14-point review of systems is negative. 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 GLUTEN ALLERGY, LACTOSE INTOLERANCE AND EGGS CAUSE NAUSEA AND BLOATING BUT ABLE TO TAKE IMMUNIZATIONS. History of Any Multi-Drug Resistant Organisms: None Reported Past Surgical History: Appendectomy, Bladder Surgery, Cholecystectomy, Heart Catheterization With Stent, Hernia Repair, Hysterectomy Additional Past Surgical History / Comment(s): UMBILICAL HERNIA REPAIRE, BLADDER SUSPENSION WITH MESH. JUANJOSE CATARACTS, CYST ON NECK REMOVED, EGD/ COLONOSCOPY HAD FEW SMALL POLYS REMOVED(BENIGN), VEIN STRIPPING, HEMORRHOIDECTOMY, NASAL SURGERY Past Anesthesia/Blood Transfusion Reactions: Motion Sickness Date of Last Stent Placement:: 2011 Past Psychological History: No Psychological Hx Reported Additional Psychological History / Comment(s): PT LIVES IN OWN HOME WITH HER FAMILY. 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 NO OUTSIDE SERVICES. Smoking Status: Never smoker Past Alcohol Use History: None Reported Past Drug Use History: None Reported - Past Family History Father Family Medical History: Cancer, Osteoarthritis (OA) Additional Family Medical History / Comment(s): LEUKEMIA Mother Family Medical History: Cancer Additional Family Medical History / Comment(s): BREAST CANCER, AND PT'S SISTER AND AUNT HAD BREAST CANCER WELL. Medications and Allergies Home Medications Medication Instructions Recorded Confirmed Type Albuterol Inhaler [Ventolin Hfa 1 - 2 puff INHALATION RT-Q6H PRN 04/06/15 History Inhaler] Ubidecarenone [Co Q-10] 100 mg PO DAILY 04/06/15 10/06/17 History Multivitamins, Thera [Multivitamin 1 tab PO DAILY 01/02/16 10/06/17 History (formulary)] Metoprolol Tartrate [Lopressor] 25 mg PO BID 08/16/17 10/06/17 History Nitroglycerin Sl Tabs [Nitrostat] 0.4 mg SUBLINGUAL Q5M PRN 08/16/17 10/06/17 History Olmesartan [Benicar] 5 mg PO DAILY 08/16/17 10/06/17 History Aspirin EC [Ecotrin Low Dose] 81 mg PO Q48H 10/06/17 10/06/17 History Isosorbide Mononitrate ER [Imdur] 30 mg PO DAILY 10/06/17 10/06/17 History Omeprazole [PriLOSEC] 40 mg PO AC-DMITRIYKFST #14 capsule. 10/07/17 Rx Allergies Allergy/AdvReac Type Severity Reaction Status Date / Time codeine Allergy Unknown Verified 10/06/17 14:04 iodine Allergy Rash/Hives Verified 10/06/17 14:04 Iodine and Iodide Containing Allergy Rash/Hives Verified 10/06/17 14:04 Produc shellfish derived Allergy Rash/Hives Verified 10/06/17 14:04 tree nut [Nut] AdvReac Mild Abdominal Verified 10/06/17 14:04 Pain cephalexin [From Keflex] AdvReac Rash/Hives Verified 10/06/17 18:09 egg AdvReac Nausea & Verified 10/06/17 14:04 Vomiting gluten AdvReac Nausea & Verified 10/06/17 14:04 Vomiting Milk Containing Products AdvReac Nausea & Verified 10/06/17 14:04 [Dairy] Vomiting prednisone AdvReac Rash/Hives Verified 10/06/17 18:09 soy AdvReac Nausea & Verified 10/06/17 14:04 Vomiting Sulfa (Sulfonamide AdvReac Rash/Hives Verified 10/06/17 14:04 Antibiotics) sulfamethoxazole AdvReac Rash/Hives Verified 10/06/17 18:09 [From Bactrim] trimethoprim [From Bactrim] AdvReac Rash/Hives Verified 10/06/17 18:09 Physical Exam Vitals: Vital Signs Temp Pulse Pulse Resp BP BP Pulse Ox 10/07/17 08:00 97.7 F 99 18 140/74 97 10/07/17 04:00 79 18 155/67 92 L 10/07/17 00:45 186/83 10/07/17 00:32 188/79 10/07/17 00:00 97.8 F 58 L 18 177/78 92 L 10/06/17 20:00 97.5 F L 67 18 166/72 95 10/06/17 17:17 181/87 10/06/17 16:00 97.0 F L 67 18 194/81 97 10/06/17 13:28 183/81 10/06/17 13:17 83 18 192/88 99 10/06/17 12:17 88 18 166/70 98 10/06/17 12:10 84 18 157/72 99 10/06/17 12:05 75 18 211/88 99 10/06/17 11:40 98.2 F 85 18 223/108 99 Intake and Output 10/06/17 10/07/17 10/07/17 22:59 06:59 14:59 Intake Total 120 0 Balance 120 0 Intake: Oral 120 0 Other: Voiding Method Toilet Toilet Toilet # Voids 2 1 # Bowel Movements 1 Weight 67.1 kg PHYSICAL EXAMINATION: GENERAL: The patient is alert and oriented x3, not in any acute distress. Well developed, well nourished. HEENT: Pupils are round and equally reacting to light. EOMI. No scleral icterus. No conjunctival pallor. Normocephalic, atraumatic. No pharyngeal erythema. No thyromegaly. CARDIOVASCULAR: S1 and S2 present. No murmurs, rubs, or gallops. Reproducible chest pain PULMONARY: Chest is clear to auscultation, no wheezing or crackles. ABDOMEN: Soft, nontender, nondistended, normoactive bowel sounds. No palpable organomegaly. MUSCULOSKELETAL: No joint swelling or deformity. EXTREMITIES: No cyanosis, clubbing, or pedal edema. NEUROLOGICAL: Gross neurological examination did not reveal any focal deficits. SKIN: No rashes. Results CBC & Chem 7: 10/06/17 12:00 10/06/17 12:00 Labs: Abnormal Lab Results - Last 24 Hours (Table) 10/06/17 10/06/17 10/06/17 Range/Units 12:00 12:00 19:06 APTT (22.0-30.0) sec Glucose 115 H (74-99) mg/dL Total Creatine Kinase 192 H 148 H (30-135) U/L CK-MB (CK-2) 2.6 H* (0.0-2.4) ng/mL Cholesterol (<200) mg/dL LDL Cholesterol, Calc (0-99) mg/dL 10/06/17 10/06/17 10/07/17 Range/Units 19:37 23:31 01:30 APTT 49.7 H (22.0-30.0) sec Glucose (74-99) mg/dL Total Creatine Kinase 146 H (30-135) U/L CK-MB (CK-2) (0.0-2.4) ng/mL Cholesterol 219 H (<200) mg/dL LDL Cholesterol, Calc 149 H (0-99) mg/dL Thrombosis Risk Factor Assmnt - Choose All That Apply Each Risk Factor Represents 3 Points: Age 75 years or older Thrombosis Risk Factor Assessment Total Risk Factor Score: 3 Thrombosis Risk Factor Assessment Level: Moderate Risk Assessment and Plan Plan: -Chest pain: We will rule out acute medicine syndromes patient chest pain is atypical in nature and the patient will be evaluated by cardiology will obtain medical records from cardiology clinic about her stress test. -Hypertension -Gastroesophageal reflux disease patient will be discharged on Prilosec upon discharge - hyperlipidemia -Coronary artery disease with previous stents in the past follows up with Dr. Elias as an outpatient -Asthma without any acute exacerbation
--- NOTE | 2017-10-07 11:03 | P.CRDCN ---
History of Present Illness Consult date: 10/07/17 Requesting physician: Chris Ryan Consult reason: chest pain Chief complaint: Chest pain History of present illness: This is a 77-year-old female who follows regularly with Dr. Lou in the office. She has a known history of coronary artery disease with prior LAD stent in 2011, subsequent to that she did have a heart cath performed in 2013 which revealed a patent stented site in the LAD, history also of hyperlipidemia , hypertension, family history of coronary artery disease. Most recently the patient was in the office and underwent a stress test on of last week, this was reviewed by Dr. Henderson in the office and reported to have no evidence of any reversible ischemia. She presents to the hospital on this occasion with symptoms of midsternal chest discomfort which she states started immediately after her stress test. Her troponins have come back to be negative 3. CBC is normal, sodium 143, potassium 4.2, BUN 15, creatinine 0.4, magnesium 1.8. Cholesterol 219, LDL 149, triglycerides 119, HDL 46. EKG shows normal sinus rhythm left bundle branch block pattern with no acute changes. Chest x-ray shows chronic changes without any acute pulmonary process. At the time of my examination this morning patient complains of feeling mild nausea. Denies chest pain. 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 GLUTEN ALLERGY, LACTOSE INTOLERANCE AND EGGS CAUSE NAUSEA AND BLOATING BUT ABLE TO TAKE IMMUNIZATIONS. History of Any Multi-Drug Resistant Organisms: None Reported Past Surgical History: Appendectomy, Bladder Surgery, Cholecystectomy, Heart Catheterization With Stent, Hernia Repair, Hysterectomy Additional Past Surgical History / Comment(s): UMBILICAL HERNIA REPAIRE, BLADDER SUSPENSION WITH MESH. JUANJOSE CATARACTS, CYST ON NECK REMOVED, EGD/ COLONOSCOPY HAD FEW SMALL POLYS REMOVED(BENIGN), VEIN STRIPPING, HEMORRHOIDECTOMY, NASAL SURGERY Past Anesthesia/Blood Transfusion Reactions: Motion Sickness Date of Last Stent Placement:: 2011 Past Psychological History: No Psychological Hx Reported Additional Psychological History / Comment(s): PT LIVES IN OWN HOME WITH HER FAMILY. 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 NO OUTSIDE SERVICES. Smoking Status: Never smoker Past Alcohol Use History: None Reported Past Drug Use History: None Reported - Past Family History Father Family Medical History: Cancer, Osteoarthritis (OA) Additional Family Medical History / Comment(s): LEUKEMIA Mother Family Medical History: Cancer Additional Family Medical History / Comment(s): BREAST CANCER, AND PT'S SISTER AND AUNT HAD BREAST CANCER WELL. Medications and Allergies Home Medications Medication Instructions Recorded Confirmed Type Albuterol Inhaler [Ventolin Hfa 1 - 2 puff INHALATION RT-Q6H PRN 04/06/15 History Inhaler] Ubidecarenone [Co Q-10] 100 mg PO DAILY 04/06/15 10/06/17 History Multivitamins, Thera [Multivitamin 1 tab PO DAILY 01/02/16 10/06/17 History (formulary)] Metoprolol Tartrate [Lopressor] 25 mg PO BID 08/16/17 10/06/17 History Nitroglycerin Sl Tabs [Nitrostat] 0.4 mg SUBLINGUAL Q5M PRN 08/16/17 10/06/17 History Olmesartan [Benicar] 5 mg PO DAILY 08/16/17 10/06/17 History Aspirin EC [Ecotrin Low Dose] 81 mg PO Q48H 10/06/17 10/06/17 History Isosorbide Mononitrate ER [Imdur] 30 mg PO DAILY 10/06/17 10/06/17 History Omeprazole [PriLOSEC] 40 mg PO AC-DMITRIYKFST #14 capsule. 10/07/17 Rx Allergies Allergy/AdvReac Type Severity Reaction Status Date / Time codeine Allergy Unknown Verified 10/06/17 14:04 iodine Allergy Rash/Hives Verified 10/06/17 14:04 Iodine and Iodide Containing Allergy Rash/Hives Verified 10/06/17 14:04 Produc shellfish derived Allergy Rash/Hives Verified 10/06/17 14:04 tree nut [Nut] AdvReac Mild Abdominal Verified 10/06/17 14:04 Pain cephalexin [From Keflex] AdvReac Rash/Hives Verified 10/06/17 18:09 egg AdvReac Nausea & Verified 10/06/17 14:04 Vomiting gluten AdvReac Nausea & Verified 10/06/17 14:04 Vomiting Milk Containing Products AdvReac Nausea & Verified 10/06/17 14:04 [Dairy] Vomiting prednisone AdvReac Rash/Hives Verified 10/06/17 18:09 soy AdvReac Nausea & Verified 10/06/17 14:04 Vomiting Sulfa (Sulfonamide AdvReac Rash/Hives Verified 10/06/17 14:04 Antibiotics) sulfamethoxazole AdvReac Rash/Hives Verified 10/06/17 18:09 [From Bactrim] trimethoprim [From Bactrim] AdvReac Rash/Hives Verified 10/06/17 18:09 Physical Exam Vitals: Vital Signs Temp Pulse Pulse Resp BP BP Pulse Ox 10/07/17 08:00 97.7 F 99 18 140/74 97 10/07/17 04:00 79 18 155/67 92 L 10/07/17 00:45 186/83 10/07/17 00:32 188/79 10/07/17 00:00 97.8 F 58 L 18 177/78 92 L 10/06/17 20:00 97.5 F L 67 18 166/72 95 10/06/17 17:17 181/87 10/06/17 16:00 97.0 F L 67 18 194/81 97 10/06/17 13:28 183/81 10/06/17 13:17 83 18 192/88 99 10/06/17 12:17 88 18 166/70 98 10/06/17 12:10 84 18 157/72 99 10/06/17 12:05 75 18 211/88 99 10/06/17 11:40 98.2 F 85 18 223/108 99 Intake and Output 10/06/17 10/07/17 10/07/17 22:59 06:59 14:59 Intake Total 120 0 Balance 120 0 Intake: Oral 120 0 Other: Voiding Method Toilet Toilet Toilet # Voids 2 1 # Bowel Movements 1 Weight 67.1 kg PHYSICAL EXAMINATION: GENERAL: 77-year-old female complaining of mild nausea at the time of my examination HEENT: Head is atraumatic, normocephalic. Pupils equal, round. Sclera anicteric. Conjunctiva are clear. Mucous membranes of the mouth are moist. Neck is supple. There is no elevated jugular venous pressure.] bruit is heard. HEART EXAMINATION: Heart S1 S2 1 systolic murmur is heard. CHEST EXAMINATION: Lungs are clear to auscultation and precussion. No chest wall tenderness is noted on palpation or with deep breathing. ABDOMEN: Soft, nontender. Bowel sounds are heard. No organomegaly noted. EXTREMITIES: 2+ peripheral pulses with no evidence of peripheral edema and no calf tenderness noted. NEUROLOGIC patient is awake, alert and oriented -3. . Results 10/06/17 12:00 10/06/17 12:00 Cardiac Enzymes 10/06/17 10/06/17 10/06/17 Range/Units 12:00 12:00 19:06 AST 27 (14-36) U/L CK-MB (CK-2) 2.6 H* 1.8 (0.0-2.4) ng/mL Troponin I <0.012 <0.012 (0.000-0.034) ng/mL 10/06/17 Range/Units 23:31 AST (14-36) U/L CK-MB (CK-2) 1.9 (0.0-2.4) ng/mL Troponin I <0.012 (0.000-0.034) ng/mL Coagulation 10/06/17 10/06/17 Range/Units 12:00 19:37 PT 9.8 (9.0-12.0) sec APTT 23.5 49.7 H (22.0-30.0) sec Lipids 10/07/17 Range/Units 01:30 Triglycerides 119 (<150) mg/dL Cholesterol 219 H (<200) mg/dL HDL Cholesterol 46 (40-60) mg/dL CBC 10/06/17 Range/Units 12:00 WBC 7.5 (3.8-10.6) k/uL RBC 4.61 (3.80-5.40) m/uL Hgb 13.8 (11.4-16.0) gm/dL Hct 40.9 (34.0-46.0) % Plt Count 282 (150-450) k/uL Comprehensive Metabolic Panel 10/06/17 Range/Units 12:00 Sodium 143 (137-145) mmol/L Potassium 4.2 (3.5-5.1) mmol/L Chloride 107 (98-107) mmol/L Carbon Dioxide 24 (22-30) mmol/L BUN 15 (7-17) mg/dL Creatinine 0.74 (0.52-1.04) mg/dL Glucose 115 H (74-99) mg/dL Calcium 9.8 (8.4-10.2) mg/dL AST 27 (14-36) U/L ALT 36 (9-52) U/L Alkaline Phosphatase 74 (38-126) U/L Total Protein 7.1 (6.3-8.2) g/dL Albumin 4.2 (3.5-5.0) g/dL Current Medications Generic Name Dose Route Start Last Admin Trade Name Freq PRN Reason Stop Dose Admin Albuterol Sulfate 2.5 mg 10/06/17 14:07 Ventolin Nebulized INHALATION RT-Q6H PRN Shortness Of Breath Alprazolam 0.25 mg 10/07/17 06:32 10/07/17 06:41 Xanax PO 0.125 mg Q8HR PRN Administration Anxiety Aspirin 81 mg 10/08/17 09:00 Aspirin PO Q48H TANIKA Bismuth Subsalicylate 524 mg 10/07/17 06:35 Bismatrol PO Q1HR PRN Diarrhea Docusate Sodium 100 mg 10/07/17 00:30 10/07/17 09:17 Colace PO Not Given BID [facility] Heparin Sodium/Dextrose 25,000 500 mls @ 16.56 mls/hr 10/06/17 13:15 13:19 unit/ IV Solution IV 12 units/kg/hr .Q24H TANIKA 16.56 mls/hr Protocol Administration 12 UNITS/KG/HR Isosorbide Mononitrate 30 mg 10/06/17 15:00 10/07/17 09:17 Imdur PO 30 mg DAILY TANIKA Administration Losartan Potassium 25 mg 10/06/17 14:48 10/07/17 09:17 Cozaar PO 25 mg DAILY TANIKA Administration Melatonin 5 mg 10/07/17 00:16 10/07/17 00:39 Melatonin PO 5 mg HS PRN Administration Insomnia Metoprolol Tartrate 25 mg 10/06/17 21:00 10/07/17 09:17 Lopressor PO 25 mg BID TANIKA Administration Nitroglycerin 0.4 mg 10/06/17 14:07 Nitrostat SUBLINGUAL Q5M PRN Chest Pain Intake and Output 10/06/17 10/07/17 10/07/17 22:59 06:59 14:59 Intake Total 120 0 Balance 120 0 Intake: Oral 120 0 Other: Voiding Method Toilet Toilet Toilet # Voids 2 1 # Bowel Movements 1 Weight 67.1 kg 10/06/17 12:00 10/06/17 12:00 EKG Interpretations (text) EKG shows a normal sinus rhythm with a left bundle-branch block pattern, no acute changes noted Assessment and Plan Plan: Assessment and plan #1 chest pain, atypical for acute coronary syndrome. Troponins negative 3. EKG shows a normal sinus rhythm with a left bundle-branch block pattern no acute changes noted. Stress test performed in the office on negative for any evidence of reversible ischemia. #2 hypertension #3 hyperlipidemia #4 coronary artery disease with history of prior LAD stents #5 family history of premature coronary artery disease Plan We will discontinue the IV heparin, discontinue Nitropaste. From cardiology's perspective, the patient has been advised to be up ambulating in the hallway, plan for possible discharge home around 3 or 4 PM this evening and follow-up with Dr. Lou in the office. DNP note has been reviewed, I agree with a documented findings and plan of care. Patient was seen and examined.
[2017-10-07] MEDS: HEPARIN SODIUM,PORCINE/D5W PMX 25,000 UNIT in DEXTROSE/WATER 1 500ML.BAG IV SCH (11:40)
[2017-10-07 12:32] VITALS: BP 137/64; PULSE 64; RESP 16
[2017-10-08] MEDS ORDERED: ASPIRIN 81 MG PO SCH (09:00)
== END 2017-10-07 13:46 | disposition home or self-care (01) ==
LOC: EC 11:27 → 6SEL 13:04
PROVIDERS: ADMIT Internal Medicine; ATTEND Internal Medicine
DX: R07.89 Other chest pain (principal); I10 Essential (primary) hypertension; E78.5 Hyperlipidemia, unspecified; I25.110 Atherosclerotic heart disease of native coronary artery with unstable angina pectoris; I44.7 Left bundle-branch block, unspecified; Z95.5 Presence of coronary angioplasty implant and graft; K21.9 Gastro-esophageal reflux disease without esophagitis; E73.9 Lactose intolerance, unspecified; K57.90 Diverticulosis of intestine, part unspecified, without perforation or abscess without bleeding; H35.30 Unspecified macular degeneration; G47.30 Sleep apnea, unspecified; Z99.89 Dependence on other enabling machines and devices; M48.00 Spinal stenosis, site unspecified; K44.9 Diaphragmatic hernia without obstruction or gangrene; J45.909 Unspecified asthma, uncomplicated; Z79.82 Long term (current) use of aspirin; Z79.899 Other long term (current) drug therapy; R11.0 Nausea; Z88.1 Allergy status to other antibiotic agents; Z91.012 Allergy to eggs; Z88.5 Allergy status to narcotic agent; Z91.018 Allergy to other foods; Z88.2 Allergy status to sulfonamides; Z88.8 Allergy status to other drugs, medicaments and biological substances; Z91.048 Other nonmedicinal substance allergy status; Z90.49 Acquired absence of other specified parts of digestive tract; Z90.710 Acquired absence of both cervix and uterus; Z86.010 Personal history of colon polyps; Z82.49 Family history of ischemic heart disease and other diseases of the circulatory system; Z80.6 Family history of leukemia; Z80.3 Family history of malignant neoplasm of breast; Z82.61 Family history of arthritis
CPT/HCPCS: 99291 ×2; 96365 ×2; 96375 ×3; 96376 ×2; 96366 ×2; 36415; 93005; 80061; 80053; 82550; 82553; 83735; 84484; 85025; 85610; 85730; 71046; G0378 ×2; J0360; J1644 ×2

== ENCOUNTER 2017-12-31 06:17 | Day surgery (SDC) | payer MEDICARE ==
[2017-12-30 09:48] VITALS: BMI 26.5
[2017-12-31] MEDS ORDERED: ASPIRIN 325 MG TAB PO STA (06:42)
[2017-12-31] MEDS ORDERED: ATORVASTATIN 80 MG TAB PO STA (06:42)
[2017-12-31] MEDS ORDERED: ALPRAZolam 0.25 MG TAB PO PRN (06:42)
[2017-12-31] MEDS ORDERED: NITROGLYCERIN SL TABS 0.4 MG TAB SUBLINGUAL PRN (06:42)
[2017-12-31] MEDS ORDERED: ALPRAZolam 0.5 MG TAB PO PRN (06:42)
[2017-12-31] MEDS ORDERED: SODIUM CHLORIDE 0.9% 1,000 ML in EMPTY BAG 1 BAG IV ONE (06:42)
[2017-12-31 07:11] VITALS: PULSE 70; TEMP 97.8
[2017-12-31] MEDS ORDERED: hydrALAZINE HCL 20 MG/ML 1 ML VIAL IVP STA (07:13)
[2017-12-31] MEDS ORDERED: LIDOCAINE 1% INJ 10MG/ML (20 ML MDV) ONE (07:17)
[2017-12-31] MEDS ORDERED: VERAPAMIL 2.5 MG/ML 2 ML AMP ONE (07:17)
[2017-12-31 07:19] VITALS: RESP 20
[2017-12-31] MEDS ORDERED: SODIUM CHLORIDE 0.9% 1,000 ML IV ONE (07:19)
[2017-12-31] MEDS ORDERED: MIDAZOLAM 2 MG/2 ML VIAL ONE (07:30)
[2017-12-31] MEDS ORDERED: HEPARIN SODIUM 1,000 UN/ML (10ML VL) ONE (07:30)
[2017-12-31] MEDS ORDERED: diphenhydrAMINE 50 MG/ML 1 ML VIAL ONE (07:34)
[2017-12-31] MEDS ORDERED: methylPREDNISolone SOD SUCCI 125 MG/2 ML VIAL ONE (07:34)
[2017-12-31] MEDS ORDERED: methylPREDNISolone SOD SUCCI 125 MG/2 ML VIAL IV ONE (07:40)
[2017-12-31] MEDS ORDERED: diphenhydrAMINE 50 MG/ML 1 ML VIAL IVP ONE (07:40)
[2017-12-31] MEDS ORDERED: MIDAZOLAM 2 MG/2 ML VIAL IVP ONE (07:44)
[2017-12-31] MEDS ORDERED: LIDOCAINE 1% (PF) 10MG/ML VIAL SQ ONE (07:44)
[2017-12-31] MEDS: VERAPAMIL SYRINGE (5 MG/10 ML) INTRAARTER ONE ×2 (07:47→08:02)
[2017-12-31] MEDS ORDERED: IOPAMIDOL-370 125ML BTL INJ ONE (08:01)
[2017-12-31] MEDS ORDERED: RX INFO: IV CONTRAST WAS GIVEN 1 EACH MISC MISCELLANE PRN (08:06)
[2017-12-31] MEDS ORDERED: SODIUM CHLORIDE 0.9% 1,000 ML IV SCH (08:15)
--- NOTE | 2017-12-31 09:17 | CC ---
CARDIAC CATHETERIZATION REPORT DATE OF SERVICE: December 31, 2017 PERFORMING PHYSICIAN: Maninder Elias MD. PROCEDURE PERFORMED: Selective right and left coronary angiogram. INDICATION: This is a pleasant 77-year-old female patient with known history of coronary artery disease and prior stenting of the LAD, was experiencing symptoms of chest discomfort concerning for angina. A heart catheterization was recommended. APPROACH: Right radial artery. COMPLICATION: None. LEVEL OF SEDATION: Moderate with sedation length of 19 minutes. PROCEDURE DESCRIPTION: After obtaining an informed consent, the patient was brought to the cardiac helper animal laboratory. The right radial artery was cannulated using micropuncture technique, the micropuncture wire passed easily then I placed a 6-Monegasque sheath in the right radial artery. I gave the patient 2 mg of verapamil IA and 6000 units of heparin IV. After that, I did perform right and left coronary angiogram using JR4 and JL3.5 catheters. The procedure was completed without any complication. SELECTIVE CORONARY ANGIOGRAM: 1. The right coronary artery is a large caliber vessel and it is a dominant vessel. The RCA has mild disease only in the midportion. Distally, it bifurcates into PDA and PLV branches, both are angiographically normal. 2. The left main is angiographically normal. It bifurcates into left circumflex and left anterior descending artery. 3. The left circumflex is a medium caliber vessel. It is a nondominant vessel. The proximal circumflex gives rise into a large OM branch which appeared to be angiographically normal and the left circumflex continues after that as a medium caliber vessel in the AV groove. 4. The LAD: The proximal LAD is stented and the stent is patent. The mid LAD appeared to have mild disease only. The LAD distally appeared to be angiographically normal. The LAD gives rise into 2 diagonal branches. One originating from the midportion appeared to be angiographically normal and one originating from the mid to distal portion appeared to be angiographically normal as well. CONCLUSION: 1. Mild nonobstructive coronary artery disease. 2. Patent stent in the proximal left anterior descending artery. POSTPROCEDURE MANAGEMENT: 1. Maximize medical treatment. 2. Follow up with the patient. MMODL / IJN: [id number] /
--- NOTE | 2017-12-31 09:17 | LTR ---
December 31, 2017 Re: Bozena Tellez Dear Dr. Pires: Ms. Bozena Tellez underwent a heart catheterization today and that revealed mild nonobstructive coronary artery disease with patent stents in the proximal left anterior descending artery. I want to thank you for allowing me to participate in her care and please do not hesitate to call if you have any question or concern. Sincerely, MD GLENN Hernandez / TIAGO: [id number] /
[2017-12-31 13:02] VITALS: BP 156/74
== END 2017-12-31 13:19 | disposition home or self-care (01) ==
LOC: CATHCVL 06:17
PROVIDERS: ATTEND Internal Medicine Interventional Cardiology
DX: I25.110 Atherosclerotic heart disease of native coronary artery with unstable angina pectoris (principal); I10 Essential (primary) hypertension; E78.5 Hyperlipidemia, unspecified; Z82.49 Family history of ischemic heart disease and other diseases of the circulatory system; Z95.5 Presence of coronary angioplasty implant and graft; Z88.8 Allergy status to other drugs, medicaments and biological substances; Z88.5 Allergy status to narcotic agent; Z91.013 Allergy to seafood; Z79.82 Long term (current) use of aspirin; Z79.899 Other long term (current) drug therapy
CPT/HCPCS: 93454; C1769; J2250; J1200; J2930; J2001; J1644; Q9967

== ENCOUNTER → 2018-02-04 | Outpatient (CLI) | payer MEDICARE ==
[2018-02-04 13:04] VITALS: BP 133/76; PULSE 64; TEMP 97.7
--- NOTE | 2018-02-04 13:34 | P.HPOB ---
History of Present Illness H&P Date: 02/04/18 Chief Complaint: The patient is here for her routine gynecologic exam and mammogram. This is a 78-year-old with an LMP of 1991. The patient is status post vaginal hysterectomy for benign reasons. The patient is without gynecologic complaints. Review of Systems She is lost about 10 pounds over the last year. She denies respiratory, cardiac and G.I. problems. She denies maltreatment or problems with falling. : she denies any significant problems with urinary leakage. 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 GLUTEN ALLERGY, LACTOSE INTOLERANCE AND EGGS CAUSE NAUSEA AND BLOATING BUT ABLE TO TAKE IMMUNIZATIONS. 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 History of Any Multi-Drug Resistant Organisms: None Reported Past Surgical History: Appendectomy, Bladder Surgery, Cholecystectomy, Heart Catheterization With Stent, Hernia Repair (Umbilical), Hysterectomy (Vaginal hysterectomy) Additional Past Surgical History / Comment(s): BLADDER SUSPENSION WITH MESH. JUANJOSE CATARACTS, CYST ON NECK REMOVED, EGD, VEIN STRIPPING, HEMORRHOIDECTOMY, NASAL SURGERY. Colonoscopy 2015. Past Anesthesia/Blood Transfusion Reactions: Motion Sickness Date of Last Stent Placement:: 2011 Past Psychological History: No Psychological Hx Reported Smoking Status: Never smoker Past Alcohol Use History: None Reported Past Drug Use History: None Reported Additional History: She is a and is not sexually active. - Past Family History Father Family Medical History: Cancer, Osteoarthritis (OA) Additional Family Medical History / Comment(s): LEUKEMIA. PaternalAunt had breast cancer Mother Family Medical History: Cancer (Breast) Sister(s) Family Medical History: Cancer (Breast) Medications and Allergies Home Medications Medication Instructions Recorded Confirmed Type Albuterol Inhaler [Ventolin Hfa 1 - 2 puff INHALATION RT-Q6H PRN 04/06/15 History Inhaler] Ubidecarenone [Co Q-10] 100 mg PO DAILY 04/06/15 02/04/18 History Multivitamins, Thera [Multivitamin 1 tab PO DAILY 01/02/16 02/04/18 History (formulary)] Metoprolol Tartrate [Lopressor] 25 mg PO BID 08/16/17 02/04/18 History Nitroglycerin Sl Tabs [Nitrostat] 0.4 mg SUBLINGUAL Q5M PRN 08/16/17 02/04/18 History Aspirin EC [Ecotrin Low Dose] 81 mg PO Q48H 10/06/17 02/04/18 History Isosorbide Mononitrate ER [Imdur] 30 mg PO DAILY 10/06/17 02/04/18 History Lisinopril [Zestril] 5 mg PO HS 12/30/17 02/04/18 History Allergies Allergy/AdvReac Type Severity Reaction Status Date / Time codeine Allergy Unknown Verified 02/04/18 12:57 iodine Allergy Rash/Hives Verified 02/04/18 12:57 Iodine and Iodide Containing Allergy Rash/Hives Verified 02/04/18 12:57 Produc shellfish derived Allergy Rash/Hives Verified 02/04/18 12:57 tree nut [Nut] AdvReac Mild Abdominal Verified 02/04/18 12:57 Pain cephalexin [From Keflex] AdvReac Rash/Hives Verified 02/04/18 12:57 egg AdvReac Nausea & Verified 02/04/18 12:57 Vomiting gluten AdvReac Nausea & Verified 02/04/18 12:57 Vomiting Milk Containing Products AdvReac Nausea & Verified 02/04/18 12:57 [Dairy] Vomiting soy AdvReac Nausea & Verified 02/04/18 12:57 Vomiting Sulfa (Sulfonamide AdvReac Rash/Hives Verified 02/04/18 12:57 Antibiotics) sulfamethoxazole AdvReac Rash/Hives Verified 02/04/18 12:57 [From Bactrim] trimethoprim [From Bactrim] AdvReac Rash/Hives Verified 02/04/18 12:57 Exam Vital Signs Temp Pulse BP 02/04/18 13:00 97.7 F 64 133/76 Height 5'3", weight 146 pounds, BMI 26. This is a well-developed well-nourished white female who is alert and oriented times 3 in no acute distress. HEENT: Within normal limits. NECK: Supple without mass or thyromegaly. CHEST AND LUNGS: Clear to auscultation. HEART: Regular rate and rhythm. BREASTS: Are without mass or discharge. There is minimal left breast tenderness in the area of her previous biopsy site. AXILLARY EXAM: Negative for adenopathy. BACK: Negative for CVA tenderness. ABDOMEN: Soft, nontender, without palpable masses. PELVIC EXAM: External genitalia appears normal with moderate atrophy. Vagina appears normal with mild to moderate atrophy. There is no evidence of prolapse. Bimanual examination is negative for mass or tenderness. RECTAL EXAM: Rectovaginal exam is negative for mass or tenderness and is negative for occult blood. EXTREMITIES: Nontender. IMPRESSION: 1. 78-year-old menopausal female who is status post vaginal hysterectomy for benign reasons with a normal gynecologic exam. 2. History of osteopenia. PLAN: 1. Pap smears have been discontinued. 2. Self breast awareness was discussed with the patient. 3. Screening mammogram will be done today. 4. Osteoporosis prevention was discussed. Bone density screening will be done today. 5. The patient plans on getting her flu shot in the near future. 6. She will return in one year.
--- NOTE | 2018-02-04 15:02 | BD ---
EXAMINATION TYPE: Axial Bone Density DATE OF EXAM: 02/04/2018 COMPARISON: 12.01.2015 CLINICAL HISTORY: 78 YR OLD FEMALE...ICD-10 CODE: Z78.0 POST MENOPAUSAL W/O HRT Height: 61.3 Weight: 143 FRAX RISK QUESTIONS: NOTHING TO NOTE HERE RISK FACTORS HISTORY OF: Diet low in dairy products/other sources of calcium: YES...NO DAIRY Postmenopausal woman: YES, TOTAL HYST. 53 YRS OLD MEDICATIONS: Additional Medications: CALCIUM AND VIT D, BP MEDS, XANAX, REFLUX MEDS Additional History: HYPERTENSION EXAM MEASUREMENTS: Bone mineral densitometry was performed using the [employer] System. Bone mineral density as measured about the Lumbar spine is: ----- L1-L4(G/cm2): 1.218 T Score Values are as follows: ----- L1: 0.8 ----- L2: -0.5 ----- L3: 0.3 ----- L4: 0.4 ----- L1-L4: 0.3 Bone mineral density has: Increased 8.1% since study of: 12.01.2015 Bone mineral density about the R hip (g/cm2): 0.906 Bone mineral density about the L hip (g/cm2): 0.972 T Score values are as follows: -----R Neck: -1.1 -----L Neck: -1.3 -----R Total: -0.8 -----L Total: -0.3 Bone mineral density has: Increased 1.4% since study of: 12.01.2015 FRAX%s: THERE IS A 11.7% CHANCE FOR A MAJOR OSTEOPOROTIC FX AND 2.3% FOR A HIP FX.....PROBABILITY OF FX IN 10 YRS TIME IMPRESSION: Normal (Values between +1 and -1 indicate normal bone mass). Consider repeating this study in 5 year s or sooner if there is some new clinical indication. NOTE: T-SCORE=SD OF THE YOUNG ADULT MEAN.
--- NOTE | 2018-02-06 08:26 | MM ---
Reason for exam: screening (asymptomatic). Last mammogram was performed 1 year and 1 month ago. History: Patient is postmenopausal. Family history of breast cancer in sister at age 54 and breast cancer in mother at age 70. Benign excisional biopsy of the left breast, 1989. Physical Findings: A clinical breast exam by your physician is recommended on an annual basis and results should be correlated with mammographic findings. MG Screening Mammo w CAD Bilateral CC and MLO view(s) were taken. Prior study comparison: January 16, 2017, bilateral MG 3d screening mammo w/cad. January 11, 2016, bilateral MG 3d screening mammo w/cad. There are scattered fibroglandular densities. Medial asymmetric density right breast slightly more defined. Asymmetric density posteriorly and superiorly left MLO view also appear more defined. ASSESSMENT: Incomplete: need additional imaging evaluation, BI-RAD 0 RECOMMENDATION: Special view mammogram of both breasts. If lesion persists on supplemental views, image directed ultrasound is recommended. [facility] will attempt to contact patient to return for supplemental views and ultrasound if indicated.
--- NOTE | 2018-02-12 13:46 | P.PN ---
Progress Note - Text Progress Note Date: 02/12/18 OUTPATIENT FOLLOW-UP NOTE TEST(S)/RESULTS: bone density test done on 02/04/18 shows mild osteopenia T scores of -1.1 and -1.3 in the left femur necks. METHOD OF NOTIFICATION: a message with this result was left on the patient's voicemail. PATIENT COMMENTS: [] DIAGNOSIS: osteopenia DISCUSSION: there is been slight improvement from her previous bone density test done in 2016. The patient also had an abnormal mammogram and left core biopsy was recommended. The patient does have an appointment with Dr. Scott Kirkland for this. PLAN: adequate calcium, vitamin D and regular exercise. We plan a repeating the bone density test in 3 years. She will follow-up with Dr. Scott Kirkland for the abnormal mammogram findings.
== END ==
LOC: WWCWWP 12:35
PROVIDERS: ATTEND Obstetrics & Gynecology
DX: Z12.31 Encounter for screening mammogram for malignant neoplasm of breast (principal); Z78.0 Asymptomatic menopausal state
CPT/HCPCS: 77067; 77080

== ENCOUNTER → 2018-02-07 | Outpatient (CLI) | payer MEDICARE ==
--- NOTE | 2018-02-10 08:26 | MM ---
Reason for exam: additional evaluation requested from abnormal screening. Last mammogram was performed less than 1 month ago. History: Patient is postmenopausal. Family history of breast cancer in sister at age 54 and breast cancer in mother at age 70. Benign excisional biopsy of the left breast, 1989. Physical Findings: Nurse did not find any significant physical abnormalities on exam. MG 3D Work Up W/Cad JUANJOSE Bilateral LM view(s) were taken. Spot compression CC view(s) were taken of the right breast. Spot compression MLO view(s) were taken of the left breast. Prior study comparison: February 04, 2018, bilateral MG screening mammo w CAD. January 16, 2017, bilateral MG 3d screening mammo w/cad. The breast tissue is heterogeneously dense. This may lower the sensitivity of mammography. Persistent irregular 8mm density left upper breast. These results were verbally communicated with the patient and result sheet given to the patient on 02/07/18. ASSESSMENT: Incomplete: need additional imaging evaluation, BI-RAD 0 RECOMMENDATION: Ultrasound of the left breast.
--- NOTE | 2018-02-10 08:29 | USB ---
Reason for exam: additional evaluation requested from abnormal screening. History: Patient is postmenopausal. Family history of breast cancer in sister at age 54 and breast cancer in mother at age 70. Benign excisional biopsy of the left breast, 1989. US Breast Workup Limited LT Left limited breast ultrasound including focal area of concern, retroareolar and axilla demonstrates a 0.5 x 0.4 x 0.5cm oval, hypoechoic lesion at 2 o'clock. These results were verbally communicated with the patient and result sheet given to the patient on 02/07/18. ASSESSMENT: Highly suggestive of malignancy, BI-RAD 5 RECOMMENDATION: Ultrasound core biopsy of the left breast. Called Dr. Walters with mammographic findings and has scheduled an appointment for the patient for 03/07/18 at 12:[address] Ignacio. Biopsy scheduled for 03/10/18 at 12:20. PRELIMINARY REPORT CALLED AND FAXED TO DR. IGNACIO ON 02/10/18.
== END | disposition home or self-care (01) ==
LOC: RADMAMWWP 14:53
PROVIDERS: ATTEND Obstetrics & Gynecology
DX: R92.8 Other abnormal and inconclusive findings on diagnostic imaging of breast (principal)
CPT/HCPCS: 77066; 76642; G0279; 77062

== ENCOUNTER 2018-03-02 00:38 | Emergency (ER) | payer MEDICARE ==
[2018-03-02 00:52] VITALS: TEMP 98.1
--- NOTE | 2018-03-02 00:54 | ED ---
General Adult HPI - General Chief complaint: Weakness Stated complaint: Weakness Time Seen by Provider: 03/02/18 00:43 Source: patient, EMS Limitations: no limitations - History of Present Illness Initial comments: This patient is a 78-year-old woman who presents to be evaluated for 2 complaints that started up today. The patient states she has been having some "dizziness," and on her description gives vertigo feeling, like things are spinning. She states that it had started earlier in the day but really was manifesting this tonight as she was trying sleep. She states that when she would turn in bed she did feel like things are spinning. Finally when she tried to get up tonight to use the bathroom she had more severe symptoms and she was also feeling some generalized weakness. She denies focality to the weakness. Onset/Timin -: days(s) Location: head Consistency: intermittent Improves with: none Worsens with: movement Associated Symptoms: weakness - Related Data Home Medications Medication Instructions Recorded Confirmed Albuterol Inhaler [Ventolin Hfa 1 - 2 puff INHALATION RT-Q6H PRN 04/06/15 Inhaler] Ubidecarenone [Co Q-10] 100 mg PO DAILY 04/06/15 02/21/18 Multivitamins, Thera [Multivitamin 1 tab PO DAILY 01/02/16 02/21/18 (formulary)] Metoprolol Tartrate [Lopressor] 25 mg PO BID 08/16/17 02/21/18 Nitroglycerin Sl Tabs [Nitrostat] 0.4 mg SUBLINGUAL Q5M PRN 08/16/17 02/21/18 Aspirin EC [Ecotrin Low Dose] 81 mg PO Q48H 10/06/17 02/21/18 Lisinopril [Zestril] 5 mg PO HS 12/30/17 02/21/18 Previous Rx's Medication Instructions Recorded Meclizine [Antivert] 25 mg PO TID PRN #15 tab 03/02/18 Allergies Allergy/AdvReac Type Severity Reaction Status Date / Time codeine Allergy Unknown Verified 02/21/18 12:52 iodine Allergy Rash/Hives Verified 02/21/18 12:52 Iodine and Iodide Containing Allergy Rash/Hives Verified 02/21/18 12:52 Produc shellfish derived Allergy Rash/Hives Verified 02/21/18 12:52 tree nut [Nut] AdvReac Mild Abdominal Verified 02/21/18 12:52 Pain cephalexin [From Keflex] AdvReac Rash/Hives Verified 02/21/18 12:52 egg AdvReac Nausea & Verified 02/21/18 12:52 Vomiting gluten AdvReac Nausea & Verified 02/21/18 12:52 Vomiting Milk Containing Products AdvReac Nausea & Verified 02/21/18 12:52 [Dairy] Vomiting soy AdvReac Nausea & Verified 02/21/18 12:52 Vomiting Sulfa (Sulfonamide AdvReac Rash/Hives Verified 02/21/18 12:52 Antibiotics) sulfamethoxazole AdvReac Rash/Hives Verified 02/21/18 12:52 [From Bactrim] trimethoprim [From Bactrim] AdvReac Rash/Hives Verified 02/21/18 12:52 Review of Systems ROS Statement: Those systems with pertinent positive or pertinent negative responses have been documented in the HPI. ROS Other: All systems not noted in ROS Statement are negative. Constitutional: Reports: weakness (Generalized). Denies: fever, chills Eyes: Denies: vision change Respiratory: Denies: cough, dyspnea Cardiovascular: Denies: chest pain, palpitations, orthopnea, syncope Gastrointestinal: Denies: abdominal pain, vomiting, diarrhea Genitourinary: Denies: dysuria, hematuria Musculoskeletal: Denies: back pain Skin: Denies: rash Neurological: Denies: headache, weakness, numbness, paresthesias Past Medical History Past Medical History: Asthma, Coronary Artery Disease (CAD), Chest Pain / Angina , GERD/Reflux, Hyperlipidemia, Hypertension, Sleep Apnea/CPAP/BIPAP Additional Past Medical History / Comment(s): DIVERTICULITS,SINUSITIS,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 GLUTEN ALLERGY, LACTOSE INTOLERANCE AND EGGS CAUSE NAUSEA AND BLOATING BUT ABLE TO TAKE IMMUNIZATIONS. 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 History of Any Multi-Drug Resistant Organisms: None Reported Past Surgical History: Appendectomy, Bladder Surgery, Cholecystectomy, Heart Catheterization With Stent, Hernia Repair, Hysterectomy Additional Past Surgical History / Comment(s): BLADDER SUSPENSION WITH MESH. JUANJOSE CATARACTS, CYST ON NECK REMOVED, EGD, VEIN STRIPPING, HEMORRHOIDECTOMY, NASAL SURGERY. Colonoscopy 2016. Past Anesthesia/Blood Transfusion Reactions: Motion Sickness Date of Last Stent Placement:: 2011 Past Psychological History: No Psychological Hx Reported Smoking Status: Never smoker Past Alcohol Use History: None Reported Past Drug Use History: None Reported - Past Family History Sister(s) Family Medical History: Cancer Father Family Medical History: Cancer, Osteoarthritis (OA) Additional Family Medical History / Comment(s): LEUKEMIA. PaternalAunt had breast cancer Mother Family Medical History: Cancer Additional Family Medical History / Comment(s): BREAST CANCER, AND PT'S SISTER AND AUNT HAD BREAST CANCER WELL. General Exam Limitations: no limitations General appearance: alert, in no apparent distress Head exam: Present: atraumatic, normocephalic Eye exam: Present: normal appearance, PERRL, EOMI, nystagmus. Absent: scleral icterus, conjunctival injection ENT exam: Present: normal oropharynx Neck exam: Present: normal inspection, other (No bruit) Respiratory exam: Present: normal lung sounds bilaterally. Absent: respiratory distress, wheezes, rales, rhonchi, stridor Cardiovascular Exam: Present: regular rate, normal rhythm, normal heart sounds. Absent: systolic murmur, diastolic murmur, rubs, gallop GI/Abdominal exam: Present: soft. Absent: distended, tenderness, guarding, rebound, mass Extremities exam: Present: normal inspection, normal capillary refill. Absent: pedal edema, calf tenderness Neurological exam: Present: alert, oriented X3, CN II-XII intact. Absent: motor sensory deficit Skin exam: Present: warm, dry, intact, normal color. Absent: rash Course Vital Signs 03/02/18 03/02/18 03/02/18 00:45 00:50 01:10 Temperature 98.1 F Pulse Rate 91 87 82 Respiratory 16 15 15 Rate Blood Pressure 170/115 170/115 91/76 O2 Sat by Pulse 98 94 L 96 Oximetry 03/02/18 01:40 Temperature Pulse Rate 80 Respiratory 14 Rate Blood Pressure 188/73 O2 Sat by Pulse 95 Oximetry EKG Findings - EKG Results: EKG: interpreted by ERMD, sinus rhythm (Rate 89 bpm), normal axis - Blocks, [place], Hypertrophy, ST Abn: AV and intraventricular conduction: 1 AV block, left bundle branch block (fixed/ intermittent, complete/incomplete) Medical Decision Making - Lab Data Result diagrams: 03/02/18 01:10 03/02/18 01:10 Lab Results 03/02/18 03/02/18 03/02/18 Range/Units 01:10 01:10 01:10 WBC 8.9 (3.8-10.6) k/uL RBC 4.59 (3.80-5.40) m/uL Hgb 13.5 (11.4-16.0) gm/dL Hct 41.3 (34.0-46.0) % MCV 90.1 (80.0-100.0) fL MCH 29.5 (25.0-35.0) pg MCHC 32.8 (31.0-37.0) g/dL RDW 12.8 (11.5-15.5) % Plt Count 314 (150-450) k/uL Neutrophils % 77 % Lymphocytes % 15 % Monocytes % 4 % Eosinophils % 3 % Basophils % 1 % Neutrophils # 6.8 (1.3-7.7) k/uL Lymphocytes # 1.3 (1.0-4.8) k/uL Monocytes # 0.3 (0-1.0) k/uL Eosinophils # 0.2 (0-0.7) k/uL Basophils # 0.0 (0-0.2) k/uL PT (9.0-12.0) sec INR (<1.2) APTT (22.0-30.0) sec Sodium 139 (137-145) mmol/L Potassium 4.4 (3.5-5.1) mmol/L Chloride 106 (98-107) mmol/L Carbon Dioxide 21 L (22-30) mmol/L Anion Gap 12 mmol/L BUN 13 (7-17) mg/dL Creatinine 0.74 (0.52-1.04) mg/dL Est GFR (CKD-EPI)AfAm >90 (>60 ml/min/1.73 sqM) Est GFR (CKD-EPI)NonAf 79 (>60 ml/min/1.73 sqM) Glucose 151 H (74-99) mg/dL Plasma Lactic Acid Travis (0.7-2.0) mmol/L Calcium 9.5 (8.4-10.2) mg/dL Total Bilirubin 0.5 (0.2-1.3) mg/dL AST 28 (14-36) U/L ALT 30 (9-52) U/L Alkaline Phosphatase 76 (38-126) U/L Total Creatine Kinase 193 H (30-135) U/L CK-MB (CK-2) 2.7 H (0.0-2.4) ng/mL CK-MB (CK-2) Rel Index 1.4 Troponin I <0.012 (0.000-0.034) ng/mL Total Protein 7.6 (6.3-8.2) g/dL Albumin 4.3 (3.5-5.0) g/dL Urine Color Urine Appearance (Clear) Urine pH (5.0-8.0) Ur Specific [place] (1.001-1.035) Urine Protein (Negative) Urine Glucose (UA) (Negative) Urine Ketones (Negative) Urine Blood (Negative) Urine Nitrite (Negative) Urine Bilirubin (Negative) Urine Urobilinogen (<2.0) mg/dL Ur Leukocyte Esterase (Negative) 03/02/18 03/02/18 03/02/18 Range/Units 01:10 01:10 01:10 WBC (3.8-10.6) k/uL RBC (3.80-5.40) m/uL Hgb (11.4-16.0) gm/dL Hct (34.0-46.0) % MCV (80.0-100.0) fL MCH (25.0-35.0) pg MCHC (31.0-37.0) g/dL RDW (11.5-15.5) % Plt Count (150-450) k/uL Neutrophils % % Lymphocytes % % Monocytes % % Eosinophils % % Basophils % % Neutrophils # (1.3-7.7) k/uL Lymphocytes # (1.0-4.8) k/uL Monocytes # (0-1.0) k/uL Eosinophils # (0-0.7) k/uL Basophils # (0-0.2) k/uL PT 9.8 (9.0-12.0) sec INR 1.0 (<1.2) APTT 22.1 (22.0-30.0) sec Sodium (137-145) mmol/L Potassium (3.5-5.1) mmol/L Chloride (98-107) mmol/L Carbon Dioxide (22-30) mmol/L Anion Gap mmol/L BUN (7-17) mg/dL Creatinine (0.52-1.04) mg/dL Est GFR (CKD-EPI)AfAm (>60 ml/min/1.73 sqM) Est GFR (CKD-EPI)NonAf (>60 ml/min/1.73 sqM) Glucose (74-99) mg/dL Plasma Lactic Acid Travis 1.6 (0.7-2.0) mmol/L Calcium (8.4-10.2) mg/dL Total Bilirubin (0.2-1.3) mg/dL AST (14-36) U/L ALT (9-52) U/L Alkaline Phosphatase (38-126) U/L Total Creatine Kinase (30-135) U/L CK-MB (CK-2) (0.0-2.4) ng/mL CK-MB (CK-2) Rel Index Troponin I (0.000-0.034) ng/mL Total Protein (6.3-8.2) g/dL Albumin (3.5-5.0) g/dL Urine Color Colorless Urine Appearance Clear (Clear) Urine pH 7.0 (5.0-8.0) Ur Specific [place] 1.006 (1.001-1.035) Urine Protein Negative (Negative) Urine Glucose (UA) Negative (Negative) Urine Ketones Negative (Negative) Urine Blood Negative (Negative) Urine Nitrite Negative (Negative) Urine Bilirubin Negative (Negative) Urine Urobilinogen <2.0 (<2.0) mg/dL Ur Leukocyte Esterase Negative (Negative) Disposition Clinical Impression: Vertigo Disposition: HOME SELF-CARE Condition: Good Instructions: Vertigo (ED) Prescriptions: Meclizine [Antivert] 25 mg PO TID PRN #15 tab PRN Reason: Vertigo Is patient prescribed a controlled substance at d/c from ED?: No Referrals: Ryan Pires DO [Primary Care Provider] - 1-2 days
--- NOTE | 2018-03-02 01:27 | XR ---
EXAMINATION TYPE: XR chest 1V portable DATE OF EXAM: 03/02/2018 COMPARISON: 10/06/2017 HISTORY: Dizziness TECHNIQUE: Single frontal view of the chest is obtained. FINDINGS: There is no heart failure nor confluent pneumonic infiltrate. Costophrenic angles are elana r. There are chest leads. Bony thorax is intact. IMPRESSION: No active cardiopulmonary disease. Atheromatous aorta. No change.
[2018-03-02 01:28] LABS: Basophils % (A) 1 %; Eosinophils # (A) 0.2 k/uL (0-0.7); Eosinophils % (A) 3 %; HCT 41.3 % (34.0-46.0); HGB 13.5 gm/dL (11.4-16.0); Lymphocytes # (A) 1.3 k/uL (1.0-4.8); Lymphocytes % (A) 15 %; MCH 29.5 pg (25.0-35.0); MCHC 32.8 g/dL (31.0-37.0); MCV 90.1 fL (80.0-100.0); Mean Platelet Volume 6.6; Monocytes # (A) 0.3 k/uL (0-1.0); Monocytes % (A) 4 %; Neutrophils # (A) 6.8 k/uL (1.3-7.7); Neutrophils % (A) 77 %; Platelet Count 314 k/uL (150-450); RBC 4.59 m/uL (3.80-5.40); RDW 12.8 % (11.5-15.5); WBC 8.9 k/uL (3.8-10.6)
[2018-03-02] MEDS ORDERED: MECLIZINE 12.5 MG TAB PO STA (01:28)
[2018-03-02 01:29] LABS: Appearance,Urine Clear (Clear); Bilirubin,Urine Negative (Negative); Blood,Urine Negative (Negative); Color,Urine Colorless; Glucose,Urine (UA) Negative (Negative); Ketones,Urine Negative (Negative); Leukocyte Esterase,Urine Negative (Negative); Nitrite,Urine Negative (Negative); Protein,Urine Negative (Negative); Specific Gravity,Urine 1.006 (1.001-1.035); Urobilinogen,Urine <2.0 mg/dL (<2.0)
[2018-03-02 01:36] LABS: Partial Thromboplastin Time 22.1 sec (22.0-30.0); Prothrombin Time 9.8 sec (9.0-12.0)
[2018-03-02 01:38] LABS: ALT 30 U/L (9-52); AST 28 U/L (14-36); Albumin 4.3 g/dL (3.5-5.0); Alkaline Phosphatase 76 U/L (38-126); Anion Gap 12 mmol/L; Blood Urea Nitrogen 13 mg/dL (7-17); Calcium 9.5 mg/dL (8.4-10.2); Carbon Dioxide 21 mmol/L (22-30); Chloride 106 mmol/L (98-107); Glucose 151 mg/dL (74-99); Potassium 4.4 mmol/L (3.5-5.1); Sodium 139 mmol/L (137-145); Total Bilirubin 0.5 mg/dL (0.2-1.3); Total Protein 7.6 g/dL (6.3-8.2)
[2018-03-02 01:45] VITALS: BP 188/73
[2018-03-02 01:48] LABS: Creatine Kinase 193 U/L (30-135)
--- NOTE | 2018-03-02 01:59 | CT ---
EXAMINATION TYPE: CT brain wo con DATE OF EXAM: 03/02/2018 COMPARISON: 09/03/2011 HISTORY: weakness, dizziness CT DLP: 1364.40 mGycm Automated exposure control for dose reduction was used. FINDINGS: Ventricles of normal size. There is some white matter hypodensity in the left parietal and right post erior frontal lobes. There is no midline shift. There is no sign of intracranial hemorrhage. The calv arium is intact. IMPRESSION: BILATERAL CHRONIC SMALL VESSEL ISCHEMIA. NO ACUTE INTRACRANIAL ABNORMALITY. NO CHANGE.
[2018-03-02 02:01] LABS: Creatine Kinase MB 2.7 ng/mL (0.0-2.4); Troponin I <0.012 ng/mL (0.000-0.034)
[2018-03-02] MEDS ORDERED: ONDANSETRON 4 MG/2 ML VIAL IVP STA (02:20)
[2018-03-02 04:23] VITALS: PULSE 71; RESP 16
== END 2018-03-02 04:19 | disposition home or self-care (01) ==
LOC: EC 00:38
DX: R42 Dizziness and giddiness (principal); R53.1 Weakness; J45.909 Unspecified asthma, uncomplicated; I10 Essential (primary) hypertension; I25.10 Atherosclerotic heart disease of native coronary artery without angina pectoris; G47.30 Sleep apnea, unspecified; Z88.1 Allergy status to other antibiotic agents; Z88.2 Allergy status to sulfonamides; Z88.5 Allergy status to narcotic agent; Z91.011 Allergy to milk products; Z91.012 Allergy to eggs; Z91.013 Allergy to seafood; Z91.018 Allergy to other foods; Z91.048 Other nonmedicinal substance allergy status; Z79.82 Long term (current) use of aspirin; Z79.899 Other long term (current) drug therapy; Z86.79 Personal history of other diseases of the circulatory system; Z87.39 Personal history of other diseases of the musculoskeletal system and connective tissue; Z95.5 Presence of coronary angioplasty implant and graft; Z99.89 Dependence on other enabling machines and devices
CPT/HCPCS: 36415; 80053; 82550; 82553; 83605; 84484; 85025; 85610; 85730; 81003; 71045; 70450; 99285; 96374; J2405

== ENCOUNTER → 2018-03-07 | Outpatient (CLI) | payer MEDICARE ==
[2018-03-07 12:45] VITALS: BP 186/78; PULSE 53; RESP 16; TEMP 97.6; BMI 26.2
--- NOTE | 2018-03-07 13:08 | P.GSHP ---
History of Present Illness H&P Date: 03/07/18 Chief Complaint: abnormal mammogram The patient is a 78-year-old white female who on a routine mammogram was noted to have an 8 mm irregular density in the left breast in the upper outer quadrant area. She subsequently had a ultrasound performed which revealed a 0.5 cm x 0.5 cm lesion at the 2 o'clock position in the left breast. An ultrasound core biopsy of this area was recommended. The patient does not feel anything of concern in her breast. She has no nipple discharge or skin changes of concern. She has not had any recent trauma or infection of the breast. Family history: 1. mother: breast cancer at 70, recurred in chest wall 2. sister: breast cancer at 55 of metastatic disease diagnosed at 50 3. father: leukemia 4. maternal cousin: breast ? age of diagnosis, had a recurrence Hormonal History: menarche: 13 : 5, children 5, first at 27, breast fed: no mneopause: hysterectomy at 40's, fibroids, bleeding left ovaries BCP: no hormones: none Past surgical history: 1. hysterctomy 2. appy 3. varicose veins left side 89 4. laser on varicose veins 5. gallbaldder 6. hernia 7. bladder sling 8. Hemorrhoids 9. Cardiac stent 10. Cataracts 11. Nasal surgery 12. foot bunyon Past Medical History: 1. HTN 2. high cholesterol 3. CPAP/asthma/narrow airway Social History: smoke: none alcohol: none drugs: none - Constitutional Constitutional: Denies chills, Denies fever - EENT Comment: cataract surgery bilateral narrow airway uses CPAP nasal surgery Eyes: denies blurred vision, denies pain Ears: left: tinnitus, deny: decreased hearing Ears, nose, mouth and throat: Denies headache, Denies sore throat - Breasts Breasts: bilateral: as per HPI - Cardiovascular Comment: cardiac stint Cardiovascular: Reports high blood pressure - Respiratory Comment: CPAP - Gastrointestinal Comment: had colonsocopy 3 years ago benign polyp removed Gastrointestinal: Reports constipation, Denies abdominal pain, Denies diarrhea, Denies nausea, Denies vomiting - Genitourinary (Female) Genitourinary: Denies dysuria, Denies hematuria - Musculoskeletal Comment: arthritis back pain - Integumentary Integumentary: Denies pruritus, Denies rash - Neurological Comment: leg right numb/sciatica Neurological: Reports weakness, Denies numbness - Psychiatric Psychiatric: Reports anxiety - Endocrine Endocrine: Denies fatigue, Denies weight change - Hematologic/Lymphatic Comment: aspirin - Allergic/Immunologic Comment: takes allergy shots Allergic/Immunologic: Reports seasonal allergies Past Medical History Past Medical History: Asthma, Coronary Artery Disease (CAD), Chest Pain / Angina , GERD/Reflux, Hyperlipidemia, Hypertension, Sleep Apnea/CPAP/BIPAP Additional Past Medical History / Comment(s): DIVERTICULITS,SINUSITIS,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 GLUTEN ALLERGY, LACTOSE INTOLERANCE AND EGGS CAUSE NAUSEA AND BLOATING BUT ABLE TO TAKE IMMUNIZATIONS. PAST [employer]PER[employer]OR [employer] HISTORY: She has no history of STDs. History of Any Multi-Drug Resistant Organisms: None Reported Past Surgical History: Appendectomy, Bladder Surgery, Cholecystectomy, Heart Catheterization With Stent, Hernia Repair, Hysterectomy Additional Past Surgical History / Comment(s): BLADDER SUSPENSION WITH MESH. JUANJOSE CATARACTS, CYST ON NECK REMOVED, EGD, VEIN STRIPPING, HEMORRHOIDECTOMY, NASAL SURGERY. Colonoscopy 2016. Past Anesthesia/Blood Transfusion Reactions: Motion Sickness Date of Last Stent Placement:: 2011 Past Psychological History: No Psychological Hx Reported Smoking Status: Never smoker Past Alcohol Use History: None Reported Past Drug Use History: None Reported - Past Family History Sister(s) Family Medical History: Cancer Father Family Medical History: Cancer, Osteoarthritis (OA) Additional Family Medical History / Comment(s): LEUKEMIA. PaternalAunt had breast cancer Mother Family Medical History: Cancer Additional Family Medical History / Comment(s): BREAST CANCER, AND PT'S SISTER AND AUNT HAD BREAST CANCER WELL. Medications and Allergies Home Medications Medication Instructions Recorded Confirmed Type Albuterol Inhaler [Ventolin Hfa 1 - 2 puff INHALATION RT-Q6H PRN 04/06/15 History Inhaler] Ubidecarenone [Co Q-10] 100 mg PO QAM 04/06/15 03/07/18 History Multivitamins, Thera [Multivitamin 1 tab PO QAM 01/02/16 03/07/18 History (formulary)] Metoprolol Tartrate [Lopressor] 25 mg PO BID 08/16/17 03/07/18 History Nitroglycerin Sl Tabs [Nitrostat] 0.4 mg SUBLINGUAL Q5M PRN 08/16/17 03/07/18 History Aspirin EC [Ecotrin Low Dose] 81 mg PO Q48H 10/06/17 03/07/18 History Lisinopril [Zestril] 5 mg PO HS 12/30/17 03/07/18 History Meclizine [Antivert] 25 mg PO TID PRN #15 tab 03/02/18 03/07/18 Rx Allergies Allergy/AdvReac Type Severity Reaction Status Date / Time codeine Allergy Unknown Verified 03/07/18 12:30 iodine Allergy Rash/Hives Verified 03/07/18 12:30 Iodine and Iodide Containing Allergy Rash/Hives Verified 03/07/18 12:30 Produc shellfish derived Allergy Rash/Hives Verified 03/07/18 12:30 tree nut [Nut] AdvReac Mild Abdominal Verified 03/07/18 12:30 Pain cat dander AdvReac Wheezing Unverified 03/07/18 12:30 cephalexin [From Keflex] AdvReac Rash/Hives Verified 03/07/18 12:30 dog dander AdvReac Wheezing Unverified 03/07/18 12:30 egg AdvReac Nausea & Verified 03/07/18 12:30 Vomiting gluten AdvReac Nausea & Verified 03/07/18 12:30 Vomiting house dust mite AdvReac Wheezing Unverified 03/07/18 12:30 Milk Containing Products AdvReac Nausea & Verified 03/07/18 12:30 [Dairy] Vomiting soy AdvReac Nausea & Verified 03/07/18 12:30 Vomiting Sulfa (Sulfonamide AdvReac Rash/Hives Verified 03/07/18 12:30 Antibiotics) sulfamethoxazole AdvReac Rash/Hives Verified 03/07/18 12:30 [From Bactrim] trimethoprim [From Bactrim] AdvReac Rash/Hives Verified 03/07/18 12:30 Surgical - Exam - General well developed, well nourished, no distress - Eyes normal ocular movement - ENT no hearing loss, no congestion - Neck no masses, trachea midline - Respiratory normal respiratory effort, clear to auscultation - Cardiovascular Rhythm: regular Heart Sounds: normal: S1, S2 - Abdomen Abdomen: soft - Integumentary no rash, no abnormal pigmentation - Neurologic no disoriented, no combative - Musculoskeletal normal gait - Psychiatric oriented to time, oriented to person, oriented to place, speech is normal, memory intact breast exam: right breast: no dominate masses or nodules of concern on multipositional exam Axilla: No adenopathy of concern Left breast: No dominant masses or nodules of concern on multiple position of exam Left axilla: No adenopathy of concern Results Mammogram and ultrasound reviewed Assessment and Plan Assessment: Impression: 1. Mammographic and ultrasound abnormality left breast upper outer quadrant 2. Hypertension/cardiac stint 3. Back pain 4. Narrowed airway uses CPAP 5. status post hysterectomy 6. Family history of breast cancer mother, sister Plan: 1. Ultrasound-guided core biopsy left breast 2. Consider genetic evaluation secondary to family history 3. follow up 1 week after biopsy In benefits of ultrasound-guided core biopsy been discussed with the patient and she wishes to proceed.
== END | disposition home or self-care (01) ==
LOC: WWCWWP 12:20
PROVIDERS: ATTEND Surgery
DX: Z53.9 Procedure and treatment not carried out, unspecified reason (principal)

== ENCOUNTER → 2018-03-10 | Day surgery (SDC) | payer MEDICARE ==
[2018-03-10 11:29] VITALS: RESP 12
[2018-03-10 13:08] VITALS: BP 156/69; PULSE 53; TEMP 97.8
--- NOTE | 2018-03-10 13:40 | USB ---
EXAMINATION TYPE: US biopsy breast VAD LT, MG diagnostic mammo LT wo CAD DATE OF EXAM: 03/10/2018 CLINICAL HISTORY: R92.8 Abnormal mammogram. TECHNIQUE: Ultrasound guided core biopsy of left 2:00 breast. COMPARISON: NONE FINDINGS: The procedure of ultrasound guided core biopsy was explained to the patient. Benefits, alternatives, and risks were discussed. An informed consent was then obtained. The patient was placed in supine positioning for imaging and for the procedure. The overlying skin was prepped and draped in usual sterile fashion. Lidocaine buffered with bicarbonate was used as anesthetic into the skin and subcutaneous tissue up to area of concern in the left 2:00 breast. A silva was made with surgical scalpel. Under ultrasound guidance, a 12-gauge vacuum assisted biopsy gun device was used to obtain 4 core samples. Following this, a biopsy clip was left in lesion. Postprocedural mammogram demonstrates appropriate clip placement. The patient tolerated the procedure well without any immediate complication. The patient was kept in the radiology department for short stay after the procedure and then discharged home in stable condition. IMPRESSION: Successful, uncomplicated ultrasound guided core biopsy of area of concern in the left 2:00 breast, full pathology results to follow. Pathology Results: Malignant LEFT BREAST, NEEDLE CORE BIOPSIES: Ductal adenocarcinoma, low grade, in association with duct carcinoma in situ. See Surgical Pathology Cancer Case Summary. Recommendation Surgical consult of the left breast. SLOAN
== END | disposition home or self-care (01) ==
LOC: RADUSWWP 11:03
PROVIDERS: ATTEND Surgery
DX: C50.412 Malignant neoplasm of upper-outer quadrant of left female breast (principal); Z88.5 Allergy status to narcotic agent; Z91.013 Allergy to seafood; Z91.018 Allergy to other foods; Z91.048 Other nonmedicinal substance allergy status; Z91.09 Other allergy status, other than to drugs and biological substances
CPT/HCPCS: 88305; 77065; 19083; A4648; J2001; 88341; 88342

== ENCOUNTER → 2018-03-20 | Outpatient (CLI) | payer MEDICARE ==
[2018-03-20 12:34] VITALS: BP 184/82; PULSE 54; RESP 18; TEMP 96.4; BMI 26.2
--- NOTE | 2018-03-20 13:25 | P.GSHP ---
History of Present Illness H&P Date: 03/20/18 Chief Complaint: left breast ultrasound biopsy positive for cancer The patient is a 78-year-old white female who is status post ultrasound-guided core biopsy of the left breast on . The patient's pathology reveals a grade 1 ductal adenocarcinoma with DCIS. This is ER/KS positive and HER-2 negative. The patient has no complaints related to the procedure. She denies any masses in her breasts. No evidence of any infection. The patient has a strong family history of cancer with a sister of metastatic breast cancer at the age of 55 diagnosed at up proximally 50, and a mother diagnosed with breast cancer at approximately 70 had recurrent disease. Additionally she has a maternal cousin that had breast cancer uncertain of the age who developed recurrent disease. The patient is concerned as to whether she should have genetic testing related to her family history. I discussed the case with Dr. Goldsmith and with the patient and after discussion she has chosen not to have genetic testing performed. We have discussed treatment options which would include lumpectomy plus radiation therapy, sentinel node biopsy, possible axillary node dissection versus a mastectomy plus or minus reconstruction. At this time the patient is opting for a needle localization lumpectomy and sentinel node biopsy, possible axillary node dissection. 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 GLUTEN ALLERGY, LACTOSE INTOLERANCE AND EGGS CAUSE NAUSEA AND BLOATING BUT ABLE TO TAKE IMMUNIZATIONS. 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 History of Any Multi-Drug Resistant Organisms: None Reported Past Surgical History: Appendectomy, Bladder Surgery, Cholecystectomy, Heart Catheterization With Stent, Hernia Repair, Hysterectomy Additional Past Surgical History / Comment(s): BLADDER SUSPENSION WITH MESH. JUANJOSE CATARACTS, CYST ON NECK REMOVED, EGD, VEIN STRIPPING, HEMORRHOIDECTOMY, NASAL SURGERY. Colonoscopy 2016. Past Anesthesia/Blood Transfusion Reactions: Motion Sickness Date of Last Stent Placement:: 2011 Past Psychological History: No Psychological Hx Reported Additional Psychological History / Comment(s): PT LIVES IN OWN HOME WITH HER FAMILY. 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 NO OUTSIDE SERVICES. Smoking Status: Never smoker Past Alcohol Use History: None Reported Past Drug Use History: None Reported - Past Family History Sister(s) Family Medical History: Cancer Additional Family Medical History / Comment(s): breast cancer Father Family Medical History: Cancer, Osteoarthritis (OA) Additional Family Medical History / Comment(s): LEUKEMIA. PaternalAunt had breast cancer Mother Family Medical History: Cancer Additional Family Medical History / Comment(s): BREAST CANCER, AND PT'S SISTER AND AUNT HAD BREAST CANCER WELL. Medications and Allergies Home Medications Medication Instructions Recorded Confirmed Type RX: Albuterol Inhaler [Ventolin 1 - 2 puff INHALATION RT-Q6H PRN 04/06/15 History Hfa Inhaler] RX: Ubidecarenone [Co Q-10] 100 mg PO QAM 04/06/15 03/20/18 History RX: Multivitamins, Thera 1 tab PO QAM 01/02/16 03/20/18 History [Multivitamin (formulary)] RX: Metoprolol Tartrate [Lopressor] 25 mg PO BID 08/16/17 03/20/18 History RX: Nitroglycerin Sl Tabs 0.4 mg SUBLINGUAL Q5M PRN 08/16/17 03/20/18 History [Nitrostat] RX: Aspirin EC [Ecotrin Low Dose] 81 mg PO Q48H 10/06/17 03/20/18 History RX: Lisinopril [Zestril] 5 mg PO HS 12/30/17 03/20/18 History Isosorbide Mononitrate ER [Imdur] 30 mg PO DAILY 03/10/18 03/20/18 History Allergies Allergy/AdvReac Type Severity Reaction Status Date / Time codeine Allergy Unknown Verified 03/07/18 12:30 iodine Allergy Rash/Hives Verified 03/07/18 12:30 shellfish derived Allergy Rash/Hives Verified 03/07/18 12:30 tree nut [Nut] AdvReac Mild Abdominal Verified 03/20/18 12:23 Pain cat dander AdvReac Wheezing Unverified 03/20/18 12:23 cephalexin [From Keflex] AdvReac Rash/Hives Verified 03/20/18 12:23 dog dander AdvReac Wheezing Unverified 03/20/18 12:23 egg AdvReac Nausea & Verified 03/20/18 12:23 Vomiting gluten AdvReac Nausea & Verified 03/20/18 12:23 Vomiting house dust mite AdvReac Wheezing Unverified 03/20/18 12:23 Milk Containing Products AdvReac Nausea & Verified 03/20/18 12:23 [Dairy] Vomiting soy AdvReac Nausea & Verified 03/20/18 12:23 Vomiting Sulfa (Sulfonamide AdvReac Rash/Hives Verified 03/20/18 12:23 Antibiotics) sulfamethoxazole AdvReac Rash/Hives Verified 03/20/18 12:23 [From Bactrim] trimethoprim [From Bactrim] AdvReac Rash/Hives Verified 03/20/18 12:23 Surgical - Exam Vital Signs Temp Pulse Resp BP Pulse Ox 96.4 F L 54 L 18 184/82 96 03/20/18 12:30 03/20/18 12:30 03/20/18 12:30 03/20/18 12:30 03/20/18 12:30 BMI 26.2 - General well developed, no distress - Eyes normal ocular movement - ENT no hearing loss, no congestion - Neck no masses, trachea midline - Respiratory normal respiratory effort, clear to auscultation - Cardiovascular Rhythm: regular Heart Sounds: normal: S1, S2 - Abdomen Abdomen: soft - Integumentary Left breast examination at biopsy site: No ecchymosis or hematoma of concern No evidence of any infection - Neurologic no disoriented, no combative - Musculoskeletal normal gait - Psychiatric oriented to time, oriented to person, oriented to place, speech is normal, memory intact Results Pathology results reviewed: Ductal adenocarcinoma low-grade, with ductal carcinoma in situ, grade 1, ER/KS positive, HER-2 negative Assessment and Plan Assessment: Impression: 1. Clinical stage I left breast cancer 2. History of coronary artery disease 3. Family history of breast cancer Plan: 1. Left breast lumpectomy with sentinel node biopsy 2. Cardiac clearance from Dr. Lou, medical clearance from Dr. Pires 3. We have discussed BRCA1 testing at length, the patient wishes to forego this at the present time. Risk and benefits of the procedure were discussed with the patient. She is given the option of BRCA1 testing. She wishes not to have this done at the present time. She was given the option and recommended to undergo needle local with lumpectomy, sentinel node biopsy possible axillary node dissection. She was also given the option of a mastectomy plus or minus reconstruction. The patient has chosen for a NL lumpectomy with sentinel node biopsy and possible axillary node dissection, this will be scheduled in the near future. The patient understands the risks and benefits and wishes to proceed. Cc: Dr. Pires
== END | disposition home or self-care (01) ==
LOC: WWCWWP 12:06
PROVIDERS: ATTEND Surgery
DX: Z53.9 Procedure and treatment not carried out, unspecified reason (principal)

== ENCOUNTER 2018-04-15 10:14 | Day surgery (SDC) | payer MEDICARE ==
[2018-04-11 16:32] VITALS: BMI 26.2
[~2018-04-15 10:14] MED LIST: DEXAMETHASONE SOD PHOSPHATE 10 MG/ML 1 ML VIAL IV ONE; HEPARIN SODIUM,PORCINE 5,000 UNIT/ML 1 ML VIAL SQ ONE; HYDROmorphone 1 MG/ML 1 ML SYRINGE IVP PRN; LACTATED RINGERS 1,000 ML IV SCH; LIDOCAINE 1% 20 ML VIAL (10MG/ML) FOR IV START INTRADERMA PRN; ONDANSETRON 4 MG/2 ML VIAL IVP ONE; Pre Op ABX Message 1 EACH MISC MISCELLANE ONE; fentaNYL (PF) 50 MCG/ML 2 ML AMP IV PRN
[2018-04-15] MEDS ORDERED: ALPRAZolam 0.25 MG TAB PO ONE (11:06)
[2018-04-15 11:40] VITALS: RESP 16
[2018-04-15] MEDS ORDERED: SODIUM BICARB 4% 5 ML VIAL (0.48 MEQ/ML) MISCELLANE ONE (12:08)
[2018-04-15] MEDS ORDERED: LIDOCAINE 1% INJ 10MG/ML (20 ML MDV) SQ ONE (12:08)
--- NOTE | 2018-04-15 13:29 | NM ---
EXAMINATION TYPE: NM sentinel node injection DATE OF EXAM: 04/15/2018 COMPARISON: NONE HISTORY: Left-sided breast cancer TECHNIQUE AND FINDINGS: The procedure of sentinel lymph node injection was explained to the patient. The benefits, alternatives, and risks were discussed. An informed consent was then obtained. Overlying skin is cleaned with sterile alcohol. Following this, 544 uCi [id number] Tilmanocept was inject ed in the upper outer aspect of the left nipple intradermally. The patient tolerated the procedure well without any immediate complication. The patient was kept in the radiology department for short stay after the procedure and then taken to surgery for surgical p rocedure what is presumed intraoperative gamma probe will be used for sentinel lymph node detection. IMPRESSION: Left breast radiotracer injection for sentinel node localization as above.
[2018-04-15] MEDS ORDERED: HEPARIN SODIUM,PORCINE 5,000 UNIT/ML 1 ML VIAL SQ ONE (13:38)
--- NOTE | 2018-04-15 13:39 | P.NAPBC ---
NAPBC Queries - [facility] Queries Was patient's case review presented at [facility] tumor board? If no, comment.: Yes Was patient's pathology reviewed at [facility]? If no, comment.: Yes Was breast conservation surgery offered? If no, comment.: Yes Was sentinel node biopsy offered? If no, comment.: Yes Was diagnosis confirmed by percutaneous core biopsy? If no, comment.: Yes If mastectomy patient, was a preop referral to a reconstructive surgeon offered? : Yes (Patient for a lumpectomy.)
[2018-04-15] MEDS ORDERED: LIDOCAINE 1% INJ 10MG/ML (20 ML MDV) ONE (13:58)
[2018-04-15] MEDS ORDERED: fentaNYL (PF) 50 MCG/ML 2 ML AMP ONE (13:58)
[2018-04-15] MEDS ORDERED: PROPOFOL 10 MG/ML 20 ML VIAL IV ONE (13:58)
[2018-04-15] MEDS ORDERED: ePHEDrine SULFATE/0.9% NACL/PF 50 MG/5 ML SYRINGE IV ONE (13:58)
[2018-04-15] MEDS ORDERED: SUCCINYLCHOLINE CHLORIDE 100 MG/5 ML SYR IV ONE (13:58)
[2018-04-15] MEDS ORDERED: MIDAZOLAM 2 MG/2 ML VIAL ONE (13:58)
--- NOTE | 2018-04-15 16:13 | P.OP ---
Date of Procedure: 04/15/18 Preoperative Diagnosis: Left breast cancer Postoperative Diagnosis: Same Procedure(s) Performed: Left breast needle localization with lumpectomy, titanium clip placement, tissue rearrangement, left sentinel node biopsy Anesthesia: KUNAL Surgeon: Tasia Ignacio Estimated Blood Loss (ml): 10 IV fluids (ml): 550 Pathology: other (Left sentinel node, left breast lumpectomy) Condition: stable Disposition: PACU Indications for Procedure: Left breast cancer Operative Findings: Fatty breast tissue Description of Procedure: The patient was taken to the operating room and following induction of general anesthesia the left breast and axilla were prepped and draped in a sterile fashion. Utilizing the neoprobe the area of greatest radioactivity was identified. An incision was made and carried to the skin and subcutaneous tissue to the axillary contents. Using the neoprobe a sentinel node was identified. The 10 second count on the 1004. Continue surveillance revealed a second sentinel node which had a 10 second count of 5469. Further evaluation and interrogation of the axilla did not reveal any other adenopathy of concern. The 10 second background count was 36. The sentinel nodes removed as well as some fatty tissue were very soft and small in size and non-suspicious for malignancy. No frozen section was obtained. The area of the breast was approached. An incision was made and carried down to the area of the shaft of the needle. This was followed medially to the hook of the needle. The surrounding tissue was excised. The breast tissue was somewhat fatty in this area. Dissection was carried down to the muscles of the chest wall. Wide excision was performed utilizing the electrocautery device as well as the Harmonic scalpel. The specimen was removed and painted for orientation. Following this radiograph the specimen revealed the area of concern had been removed. After assured that hemostasis was attained the tissue was freed to allow it to be brought together using the electrocautery device. Titanium clips were placed to hunter the area where the tumor had been removed. The deep tissues were then closed using a 3-0 Vicryl suture. The subcutaneous tissues were closed using 4-0 Vicryl suture. The skin was closed using 4-0 Monocryl. Steri-Strips were applied. The patient tolerated the procedure in stable condition. All instrument and sponge counts were correct at the end of the case.
--- NOTE | 2018-04-15 16:14 | MM ---
EXAMINATION TYPE: MG pre op needle loc LT, MG surgical specimen LT DATE OF EXAM: 04/15/2018 COMPARISON: Left breast mammogram March 10, 2018 CLINICAL HISTORY: Biopsy-proven ductal adenocarcinoma left breast March 10, 2018 TECHNIQUE: Needle localization with wire placement and surgical excision of area of concern in the le ft breast. Specimen mammogram. FINDINGS: The procedure of needle localization with wire placement and than surgical excision was exp lained to the patient. Benefits, alternatives, and risks were discussed. An informed consent was th en obtained. The shortest pathway for procedure was chosen. Shortest pathway was lateral approach. The overlying skin was prepped and draped in usual sterile fashion. Lidocaine buffered with bicarbonate was used a s anesthetic into the skin and subcutaneous tissue up to the level of area of concern. A 7 cm needle was used. It was placed via a lateral approach under mammographic guidance. Subsequent 90 degrees mammogram show the needle to be in satisfactory position relative to the targeted area. At this poin t, wire was placed and the needle was withdrawn. The wire was fixed to patient's skin. Images were marked for surgeon. The patient tolerated the procedure well without any immediate complication. The patient was kept in the radiology department for short stay after the procedure and then taken to surgery for surgical e xcision. Targeted biopsy clip and wire are identified in specimen mammogram. The patient was kept in hospital for short stay after the procedure and then discharged home in stable condition. IMPRESSION: Successful, uncomplicated needle localization with wire placement and surgical excision o f targeted biopsy clip and wire in the left breast, full pathology results to follow.
--- NOTE | 2018-04-15 16:16 | P.DS ---
Providers Attending physician: Tasia Ignacio Primary care physician: Ryan Pires Plan - Discharge Summary New Discharge Prescriptions: No Action Albuterol Inhaler [Ventolin Hfa Inhaler] 1 - 2 puff INHALATION RT-Q6H PRN PRN Reason: Shortness Of Breath Ubidecarenone [Co Q-10] 100 mg PO QAM Multivitamins, Thera [Multivitamin (formulary)] 1 tab PO QAM Nitroglycerin Sl Tabs [Nitrostat] 0.4 mg SUBLINGUAL Q5M PRN PRN Reason: Chest Pain Metoprolol Tartrate [Lopressor] 25 mg PO BID Aspirin EC [Ecotrin Low Dose] 81 mg PO Q48H Lisinopril [Zestril] 5 mg PO HS Isosorbide Mononitrate ER [Imdur] 30 mg PO DAILY Discharge Medication List Albuterol Inhaler [Ventolin Hfa Inhaler] 1 - 2 puff INHALATION RT-Q6H PRN [History] Ubidecarenone [Co Q-10] 100 mg PO QAM 04/06/15 [History] Multivitamins, Thera [Multivitamin (formulary)] 1 tab PO QAM 01/02/16 [History] Metoprolol Tartrate [Lopressor] 25 mg PO BID 08/16/17 [History] Nitroglycerin Sl Tabs [Nitrostat] 0.4 mg SUBLINGUAL Q5M PRN 08/16/17 [History] Aspirin EC [Ecotrin Low Dose] 81 mg PO Q48H 10/06/17 [History] Lisinopril [Zestril] 5 mg PO HS 12/30/17 [History] Isosorbide Mononitrate ER [Imdur] 30 mg PO DAILY 03/10/18 [History] Follow up Appointment(s)/Referral(s): Tasia Ignacio MD [STAFF PHYSICIAN] - 1 Week Activity/Diet/Wound Care/Special Instructions: may shower after 48 hours teach drain care/drain and record BID and as needed do not drive until seen by Discharge Disposition: HOME SELF-CARE
[2018-04-15 16:25] VITALS: TEMP 97.4
[2018-04-15 17:18] VITALS: BP 170/81; PULSE 84
== END 2018-04-15 17:45 | disposition home or self-care (01) ==
LOC: OR 10:14
PROVIDERS: ATTEND Surgery
DX: C50.912 Malignant neoplasm of unspecified site of left female breast (principal); N60.92 Unspecified benign mammary dysplasia of left breast; Z80.3 Family history of malignant neoplasm of breast; I10 Essential (primary) hypertension; E78.00 Pure hypercholesterolemia, unspecified; J45.909 Unspecified asthma, uncomplicated; I25.119 Atherosclerotic heart disease of native coronary artery with unspecified angina pectoris; K21.9 Gastro-esophageal reflux disease without esophagitis; E78.5 Hyperlipidemia, unspecified; H35.30 Unspecified macular degeneration; I77.1 Stricture of artery; G47.33 Obstructive sleep apnea (adult) (pediatric); K57.92 Diverticulitis of intestine, part unspecified, without perforation or abscess without bleeding; Z95.5 Presence of coronary angioplasty implant and graft; Z99.89 Dependence on other enabling machines and devices; Z79.82 Long term (current) use of aspirin; Z79.899 Other long term (current) drug therapy; Z88.5 Allergy status to narcotic agent; Z91.013 Allergy to seafood; Z91.09 Other allergy status, other than to drugs and biological substances; Z91.018 Allergy to other foods; E73.9 Lactose intolerance, unspecified; Z90.710 Acquired absence of both cervix and uterus
CPT/HCPCS: 76098; 19281; 38792; 38525; 19301; A9520; J2250; J1644; J1100; J2405; J2001; J3010; J0330; J2704; 88307; 88341; 88342

== ENCOUNTER → 2018-04-25 | Outpatient (CLI) | payer MEDICARE ==
[2018-04-25 12:07] VITALS: BP 173/78; PULSE 57; RESP 18; TEMP 97.4; BMI 25.0
--- NOTE | 2018-04-25 12:18 | P.PN ---
Progress Note - Text Progress Note Date: 04/25/18 Bozena is a 78-year-old white female status post left breast lumpectomy and sentinel node biopsy in [id number]. Her pathology revealed a 7 x 5 x 6 mm low- grade adenocarcinoma with negative margins. She did have DCIS closest margin was 4 mm. She had 2 sentinel nodes removed which were negative for cancer. She has no complaints related to the surgery at this time. Physical exam: Incisions clean and dry YOSSI serous drainage minimal output Impression/plan: 1. Stage I T1 N0 M0 left breast cancer 2. Follow-up with medical oncology 3. Follow-up with radiation oncology 4. Follow up here in 4 months CC: Dr. Pires
== END ==
LOC: WWCWWP 11:49
PROVIDERS: ATTEND Surgery
DX: Z53.9 Procedure and treatment not carried out, unspecified reason (principal)

== ENCOUNTER 2018-04-27 12:22 | Emergency (ER) | payer MEDICARE ==
[2018-04-27 12:53] VITALS: RESP 18
[2018-04-27] MEDS ORDERED: CLINDAMYCIN 150 MG CAP PO STA (13:36)
--- NOTE | 2018-04-27 13:38 | ED ---
Skin/Abscess/FB HPI - General Chief complaint: Skin/Abscess/Foreign Body Stated complaint: Infection- Ca Pt Time Seen by Provider: 04/27/18 13:14 Source: patient, family Mode of arrival: ambulatory Limitations: no limitations - History of Present Illness Initial comments: 78-year-old female patient presents to the emergency department today for evaluation of redness and drainage from a drain site. Patient had a lumpectomy from the left breast on April 15. Patient states she did have a YOSSI drain in place which was removed yesterday. Patient states that redness surrounding the insertion site has increased today and she is having some drainage. Patient states she is unable to contact her surgeon for further instructions that she presented here for further evaluation. She denies any fevers or chills with this. She denies any drainage of pus. Denies any nausea or vomiting. Patient denies any recent rash, shortness breath, chest pain, abdominal pain, nausea, vomiting, diarrhea, constipation, back pain, numbness, tingling, dizziness, weakness, hematuria, dysuria, urinary urgency, urinary frequency, headache, visual changes, or any other complaints. - Related Data Home Medications Medication Instructions Recorded Confirmed Albuterol Inhaler [Ventolin Hfa 1 - 2 puff INHALATION RT-Q6H PRN 04/06/15 Inhaler] Ubidecarenone [Co Q-10] 100 mg PO QAM 04/06/15 04/27/18 Multivitamins, Thera [Multivitamin 1 tab PO QAM 01/02/16 04/27/18 (formulary)] Metoprolol Tartrate [Lopressor] 25 mg PO BID 08/16/17 04/27/18 Aspirin EC [Ecotrin Low Dose] 81 mg PO Q48H 10/06/17 04/27/18 Lisinopril [Zestril] 5 mg PO HS 12/30/17 04/27/18 Isosorbide Mononitrate ER [Imdur] 30 mg PO DAILY 03/10/18 04/27/18 Previous Rx's Medication Instructions Recorded Clindamycin HCl 300 mg PO Q6H #40 cap 04/27/18 Allergies Allergy/AdvReac Type Severity Reaction Status Date / Time codeine Allergy Unknown Verified 04/27/18 13:34 iodine Allergy Rash/Hives Verified 04/27/18 13:34 shellfish derived Allergy Rash/Hives Verified 04/27/18 13:34 tree nut [Nut] AdvReac Mild Abdominal Verified 04/27/18 13:34 Pain cat dander AdvReac Wheezing Verified 04/27/18 13:34 cephalexin [From Keflex] AdvReac Rash/Hives Verified 04/27/18 13:34 dog dander AdvReac Wheezing Verified 04/27/18 13:34 egg AdvReac Nausea & Verified 04/27/18 13:34 Vomiting gluten AdvReac Nausea & Verified 04/27/18 13:34 Vomiting house dust mite AdvReac Wheezing Verified 04/27/18 13:34 Milk Containing Products AdvReac Nausea & Verified 04/27/18 13:34 [Dairy] Vomiting soy AdvReac Nausea & Verified 04/27/18 13:34 Vomiting Sulfa (Sulfonamide AdvReac Rash/Hives Verified 04/27/18 13:34 Antibiotics) sulfamethoxazole AdvReac Rash/Hives Verified 04/27/18 13:34 [From Bactrim] trimethoprim [From Bactrim] AdvReac Rash/Hives Verified 04/27/18 13:34 Review of Systems ROS Statement: Those systems with pertinent positive or pertinent negative responses have been documented in the HPI. ROS Other: All systems not noted in ROS Statement are negative. Past Medical History Past Medical History: Asthma, Coronary Artery Disease (CAD), Cancer, Chest Pain / Angina, Eye Disorder, GERD/Reflux, Hyperlipidemia, Hypertension, Sleep Apnea/ CPAP/BIPAP Additional Past Medical History / Comment(s): DIVERTICULITS,SINUSITIS,LT EYE MAC DEGENERATION,SMALL HIATAL HERNIA,DDD,SPINAL STENOSIS,SLEEP APNEA USES A CPAP MACHINE, HAS NARROW ARTERY DISEASE. GLUTEN ALLERGY,LACTOSE INTOLERANCE AND EGGS CAUSE NAUSEA AND BLOATING BUT ABLE TO TAKE IMMUNIZATIONS. LT BREAST CANCER History of Any Multi-Drug Resistant Organisms: None Reported Past Surgical History: Appendectomy, Bladder Surgery, Breast Surgery, Cholecystectomy, Heart Catheterization With Stent, Hernia Repair, Hysterectomy Additional Past Surgical History / Comment(s): BLADDER SUSPENSION WITH MESH. JUANJOSE CATARACTS, CYST ON NECK REMOVED, EGD, VEIN STRIPPING, HEMORRHOIDECTOMY, NASAL SURGERY. Colonoscopy 2016. LT BREAST BIOPSY and lumpectomy Past Anesthesia/Blood Transfusion Reactions: Motion Sickness Date of Last Stent Placement:: 2011 Past Psychological History: No Psychological Hx Reported Smoking Status: Never smoker Past Alcohol Use History: None Reported Past Drug Use History: None Reported - Past Family History Sister(s) Family Medical History: Cancer Additional Family Medical History / Comment(s): breast cancer Father Family Medical History: Cancer, Osteoarthritis (OA) Additional Family Medical History / Comment(s): LEUKEMIA. PaternalAunt had breast cancer Mother Family Medical History: Cancer Additional Family Medical History / Comment(s): BREAST CANCER, AND PT'S SISTER AND AUNT HAD BREAST CANCER WELL. General Exam Limitations: no limitations General appearance: alert, in no apparent distress, other (This is a well- developed, well-nourished elderly female patient in no acute distress. Vital signs upon presentation are temperature 97.7F, pulse 58, respirations 18, blood pressure 161/81, pulse ox 99% on room air.) Eye exam: Present: normal appearance, PERRL, EOMI. Absent: scleral icterus, conjunctival injection, periorbital swelling ENT exam: Present: normal exam, normal oropharynx, mucous membranes moist Respiratory exam: Present: normal lung sounds bilaterally. Absent: respiratory distress, wheezes, rales, rhonchi, stridor Cardiovascular Exam: Present: regular rate, normal rhythm, normal heart sounds. Absent: systolic murmur, diastolic murmur, rubs, gallop, clicks Neurological exam: Present: alert, oriented X3, CN II-XII intact Psychiatric exam: Present: normal affect, normal mood Skin exam: Present: warm, dry, intact, normal color, other (Patient has wound from YOSSI drain site to the left lateral chest beneath the axilla. There is central scabbed area. Surrounding erythema. Warm to touch. ). Absent: rash Course Vital Signs 04/27/18 04/27/18 12:47 14:09 Temperature 97.7 F 97.8 F Pulse Rate 58 L 60 Respiratory 18 18 Rate Blood Pressure 161/81 158/78 O2 Sat by Pulse 99 98 Oximetry Medical Decision Making - Medical Decision Making 78-year-old female patient presents to the emergency department today for evaluation of redness and drainage from a YOSSI drain site. Drain was removed yesterday. Patient is afebrile, vital signs stable. She is reporting mild discomfort only. Given appearance of redness we will treat with clindamycin that she is ALLERGIC to first choice antibiotics. She is instructed to follow- up with her surgeon for recheck as soon as possible. Return parameters were discussed in detail. She verbalizes understanding and agrees with this plan Disposition Clinical Impression: Cellulitis Disposition: HOME SELF-CARE Condition: Good Instructions: Cellulitis (ED) Additional Instructions: Complete antibiotic prescription in full. Follow-up with your surgeon for recheck as soon as possible. Return immediately if he develops any fever or spreading of the redness. Return immediately for any other new, worsening, or concerning symptoms. Prescriptions: Clindamycin HCl 300 mg PO Q6H #40 cap Is patient prescribed a controlled substance at d/c from ED?: No Referrals: Ryan Pires DO [Primary Care Provider] - 1-2 days Time of Disposition: 13:38
[2018-04-27 14:09] VITALS: BP 158/78; PULSE 60; TEMP 97.8
== END 2018-04-27 14:09 | disposition home or self-care (01) ==
LOC: EC 12:22
DX: L03.313 Cellulitis of chest wall (principal); J45.909 Unspecified asthma, uncomplicated; I25.119 Atherosclerotic heart disease of native coronary artery with unspecified angina pectoris; I10 Essential (primary) hypertension; G47.30 Sleep apnea, unspecified; Z88.1 Allergy status to other antibiotic agents; Z88.2 Allergy status to sulfonamides; Z88.5 Allergy status to narcotic agent; Z91.011 Allergy to milk products; Z91.012 Allergy to eggs; Z91.013 Allergy to seafood; Z91.018 Allergy to other foods; Z91.048 Other nonmedicinal substance allergy status; Z79.82 Long term (current) use of aspirin; Z79.899 Other long term (current) drug therapy; Z85.3 Personal history of malignant neoplasm of breast; Z98.890 Other specified postprocedural states; Z95.5 Presence of coronary angioplasty implant and graft; Z99.89 Dependence on other enabling machines and devices
CPT/HCPCS: 99283

== ENCOUNTER → 2018-05-08 | Outpatient (CLI) | payer MEDICARE ==
--- NOTE | 2018-05-08 16:17 | P.PN ---
Subjective Progress Note Date: 05/08/18 Principal diagnosis: Left breast cancer 78-year-old white female status post left breast lumpectomy and sentinel node biopsy on April 15. Following removal of the YOSSI drain she had some mild erythema at the site and was concerned there may be an infection. She denied any fever or chills. She denied any drainage of purulent material at the site. She was seen in the emergency room and started on clindamycin. Since that time there is been complete resolution of any erythema. The patient is no complaints at this time. She is scheduled to follow-up with medical and radiation oncology. Her tumor was a T1 N0 M0 left breast cancer. Objective - Constitutional General appearance: Present: no acute distress - EENT Eyes: Present: EOMI ENT: Present: hearing grossly normal - Respiratory Respiratory: bilateral: CTA - Integumentary Integumentary Comment(s): Left Axillary Drain site clean and dry no evidence of infection - Psychiatric Psychiatric: Present: A&O x's 3, appropriate affect, intact judgment & insight Assessment and Plan Assessment: Impression: 1. Patient status post lumpectomy and sentinel node biopsy for T1 N0 M0 left breast cancer Plan: 1. Follow-up here in 3 months unless any concerns in the follow-up sooner 2. Follow up with medical oncology 3. Follow up with radiation oncology CC: Dr. Pires
[2018-05-08 16:18] VITALS: BP 183/84; PULSE 66; RESP 18; TEMP 97.7; BMI 25.7
== END ==
LOC: WWCWWP 15:44
PROVIDERS: ATTEND Surgery
DX: Z53.9 Procedure and treatment not carried out, unspecified reason (principal)

== ENCOUNTER → 2018-09-18 | Outpatient (CLI) | payer MEDICARE ==
[2018-09-18 14:33] VITALS: BP 197/67; PULSE 61; RESP 18; TEMP 97.4; BMI 24.7
--- NOTE | 2018-09-18 14:50 | P.PN ---
Subjective Progress Note Date: 09/18/18 Principal diagnosis: left breast cancer Bozena is a 78 year old white female status post a left breast lumpectomy and sentinel node biopsy in April 2018. She was seen by radiation oncology and she opted for no radiation therapy. She was also seen by medical oncology and is on Aromasin. The patient had a stage I a T1 the N0 M0 grade1 ER /NC positive and HER-2 negative tumor. She is somewhat concerned that the Aromasin is affecting her blood pressure. She had genetic testing performed and this was negative for BRCA1 and BRCA2. Family history: 1. Mother: Breast cancer 7 daily 2. Sister: Breast cancer at 55 of metastatic disease 3. Father: Leukemia For: Maternal cousin: Breast cancer Hormonal history: Menarche: 13 Pregnancies: 5, 5 children, first born at 27, did not breast-feed Menopause: Hysterectomy in 4 days for fibroids control pills: Negative Hormones: Negative Past surgical history: 1. Hysterectomy 2. Appendectomy 3. Varicose veins left side 4. Laser varicose veins 5. Cholecystectomy 6. Hernia repair 7. Bladder sling 8. Hemorrhoids 9. Cardiac stents 10. Cataracts surgery 11. Nasal surgery 12. Bunion Medical history: 1. Hypertension 2. High cholesterol 3. CPAP/asthma/narrow airway Social history: Smoke: Negative Alcohol: Negative Drugs: Negative Review of systems: Constitutional: Negative HEENT: Cataracts surgery narrow airway and nasal surgery tinnitus decreased hearing Breasts: As per HPI, left breast cancer stage IA Cardiovascular: Cardiac stent Respiratory: CPAP GI: Colonoscopy 3 years ago benign polyp removed : Negative Musculoskeletal: Arthritis in her back Integument: Negative Neurologic: Right leg numbness/sciatica Psychiatric: Anxiety Endocrine: Negative Hematologic: Uses aspirin ALLERGY: Uses aspirin shots Objective - Vital Signs Vital signs: Vital Signs Temp 97.4 F L 09/18/18 14:25 Pulse 61 09/18/18 14:25 Resp 18 09/18/18 14:25 BP 197/67 09/18/18 14:25 Pulse Ox 98 09/18/18 14:25 - Exam BMI 26.2 - Constitutional General appearance: Present: average body habitus, cooperative - EENT Eyes: Present: EOMI ENT: Present: hearing grossly normal - Neck Neck: Present: normal ROM - Respiratory Respiratory: bilateral: CTA - Cardiovascular Rhythm: regular Heart sounds: normal: S1, S2 - Gastrointestinal General gastrointestinal: Present: soft - Integumentary Integumentary: Present: normal turgor - Musculoskeletal Musculoskeletal: Present: gait normal - Psychiatric Psychiatric: Present: A&O x's 3, appropriate affect, intact judgment & insight - Allied health notes Allied Health Notes Comment(s): Breast Exam: right breast: Multi-positional exam no dominant masses or nodules of concern Right axilla: No adenopathy of concern Left breast: Well-healed scar from prior lumpectomy, multiple positional exam no dominant masses or nodules of concern Left axilla: No adenopathy of concern Assessment and Plan Assessment: Impression: 1. Prior history of left breast cancer 2. Fibrocystic breast changes 3. Family history of breast cancer 4. Family history of cancer 5. Arthritis 6. HTN ? Aggravated by Aromasin Plan: 1. Continue surveillance related to breast cancer 2. Continue follow-up with medical oncology, question if Aromasin can be changed 3. medical managment of medical problems 4. Follow-up here in 4 months with a elft breast mammogram CC: Dr. Llanes, [place] Savannah Degroot PAC, [place] Gutierrez [facility]
== END | disposition home or self-care (01) ==
LOC: WWCWWP 14:20
PROVIDERS: ATTEND Surgery
DX: Z53.9 Procedure and treatment not carried out, unspecified reason (principal)

== ENCOUNTER → 2019-01-21 | Outpatient (CLI) | payer MEDICARE ==
--- NOTE | 2019-01-21 14:10 | MM ---
Reason for exam: follow-up at short interval from prior study. Last mammogram was performed 10 months ago. History: Patient is postmenopausal and has history of breast cancer at age 78. Family history of breast cancer in sister at age 54 and breast cancer in mother at age 70. Malignant MG pre op needle loc LT of the left breast, April 15, 2018. Lumpectomy of the left breast, April 15, 2018. Malignant US biopsy breast VAD LT of the left breast, March 10, 2018. Benign excisional biopsy of the left breast, 1989. Physical Findings: Nurse did not find any significant physical abnormalities on exam. MG 3D Diag Mammo W/Cad LT CC and MLO view(s) were taken of the left breast. Prior study comparison: March 10, 2018, left breast MG diagnostic mammo LT wo CAD. February 07, 2018, bilateral MG 3d work up w/cad JUANJOSE. There are scattered fibroglandular densities. Post surgical changes on the left breast. No significant new findings when compared with previous films. These results were verbally communicated with the patient and result sheet given to the patient on 01/21/19. ASSESSMENT: Probably benign, BI-RAD 3 RECOMMENDATION: Return to routine screening mammogram schedule for both breasts. Back on schedule for February 2019.
== END | disposition home or self-care (01) ==
LOC: RADMAMWWP 12:43
PROVIDERS: ATTEND Surgery
DX: Z08 Encounter for follow-up examination after completed treatment for malignant neoplasm (principal); Z85.3 Personal history of malignant neoplasm of breast
CPT/HCPCS: 77065; G0279; 77061

== ENCOUNTER → 2019-01-29 | Outpatient (CLI) | payer MEDICARE ==
[2019-01-29 13:36] VITALS: BP 183/74; PULSE 64; RESP 18; TEMP 98.5; BMI 24.7
--- NOTE | 2019-01-29 13:50 | P.PN ---
Subjective Progress Note Date: 01/29/19 Principal diagnosis: history of breast cancer Bozena is a 79 year old white female status post a left breast lumpectomy and sentinel node biopsy in April 2018. She was seen by radiation oncology and she opted for no radiation therapy. She was also seen by medical oncology and is on Aromasin. The patient had a stage I a T1 the N0 M0 grade1 ER /MO positive and HER-2 negative tumor. She is not concerned about the Aromasin causing any side effects at this time. She had a left breast mammogram on . This was felt to be benign BIRADS 3. She is due for a right breast mammogram in February. She had genetic testing performed and this was negative for BRCA1 and BRCA2. Family history: 1. Mother: Breast cancer 70 years old, this recurred at approximately 74, and she as a result of treatment 2. Sister: Breast cancer at 55 of metastatic disease 3. Father: Leukemia 4. Maternal cousin: Breast cancer Hormonal history: Menarche: 13 Pregnancies: 5, 5 children, first born at 27, did not breast-feed Menopause: Hysterectomy in 4 days for fibroids control pills: Negative Hormones: Negative Past surgical history: 1. Hysterectomy 2. Appendectomy 3. Varicose veins left side 4. Laser varicose veins 5. Cholecystectomy 6. Hernia repair 7. Bladder sling 8. Hemorrhoids 9. Cardiac stents 10. Cataracts surgery 11. Nasal surgery 12. Bunion 13. left breast lumpectomy and sentinel node biopsy Medical history: 1. Hypertension 2. High cholesterol 3. CPAP/asthma/narrow airway Social history: Smoke: Negative Alcohol: Negative Drugs: Negative Review of systems: Constitutional: Negative HEENT: Cataracts surgery narrow airway and nasal surgery tinnitus decreased hearing Breasts: As per HPI, left breast cancer stage IA Cardiovascular: Cardiac stent Respiratory: CPAP GI: Colonoscopy 4 years ago benign polyp removed : Negative Musculoskeletal: Arthritis in her back Integument: Negative Neurologic: Right leg numbness/sciatica Psychiatric: Anxiety Endocrine: Negative Hematologic: Uses aspirin ALLERGY: stopped allergy shots Objective - Vital Signs Vital signs: Vital Signs Temp 98.5 F 01/29/19 13:34 Pulse 64 01/29/19 13:34 Resp 18 01/29/19 13:34 BP 183/74 01/29/19 13:34 Pulse Ox 97 01/29/19 13:34 Intake & Output 01/28/19 01/29/19 01/29/19 18:59 06:59 18:59 Weight 63.503 kg - Exam BMI 24.8 - Constitutional General appearance: Present: average body habitus - EENT Eyes: Present: EOMI ENT: Present: hearing grossly normal - Neck Neck: Present: normal ROM - Respiratory Respiratory: bilateral: CTA - Cardiovascular Rhythm: regular Heart sounds: normal: S1, S2 - Gastrointestinal General gastrointestinal: Present: soft - Integumentary Integumentary: Present: normal turgor - Musculoskeletal Musculoskeletal: Present: gait normal - Psychiatric Psychiatric: Present: A&O x's 3, appropriate affect, intact judgment & insight - Additional findings Additional findings: Breast exam: right breast: Multi-positional exam no dominant masses or nodules of concern, fibrocystic changes Right axilla: No adenopathy of concern Left breast: Well-healed scar from prior surgery, multiple positional exam a dominant masses or nodules of concern Left axilla: No adenopathy of concern Assessment and Plan Assessment: Impression: 1. Left breast stage IA breast cancer treated with lumpectomy patient opted not to have radiation therapy and is presently on aromatase 2. Fibrocystic breast changes 3. Family history of breast cancer 4. Patient had genetic testing done and was negative for BRCA1 and BRCA2 genes 5. Hypertension 6. High cholesterol 7. Asthma/narrow airway uses CPAP 8. Recent left breast mammogram benign BIRADS 3 Plan: 1. Patient has a right breast mammogram in February 04. Secondary to BIRADS 3 status repeat left breast mammogram in 6 months 3. Follow-up. In 6 months after left breast mammogram follow up sooner if any areas of concern in the right breast mammogram 4. Continue Aromasin 5. Continue follow-up with medical oncology 6. Medical management of medical conditions CC: Dr. Llanes
== END | disposition home or self-care (01) ==
LOC: WWCWWP 13:08
PROVIDERS: ATTEND Surgery
DX: Z53.9 Procedure and treatment not carried out, unspecified reason (principal)

== ENCOUNTER 2019-02-05 20:29 | Observation (INO) | payer MEDICARE ==
[2019-02-05 21:09] LABS: Basophils # (A) 0.1 k/uL (0-0.2); Basophils % (A) 1 %; Eosinophils # (A) 0.6 k/uL (0-0.7); Eosinophils % (A) 8 %; HCT 37.6 % (34.0-46.0); HGB 12.4 gm/dL (11.4-16.0); Lymphocytes # (A) 1.4 k/uL (1.0-4.8); Lymphocytes % (A) 19 %; MCH 30.6 pg (25.0-35.0); MCHC 32.9 g/dL (31.0-37.0); MCV 92.9 fL (80.0-100.0); Mean Platelet Volume 6.4; Monocytes # (A) 0.4 k/uL (0-1.0); Monocytes % (A) 5 %; Neutrophils # (A) 4.8 k/uL (1.3-7.7); Neutrophils % (A) 65 %; Platelet Count 280 k/uL (150-450); RBC 4.05 m/uL (3.80-5.40); RDW 12.8 % (11.5-15.5); WBC 7.4 k/uL (3.8-10.6)
[2019-02-05 21:25] LABS: INR 0.9 (<1.2); Prothrombin Time 9.8 sec (9.0-12.0)
[2019-02-05 21:30] LABS: Calcium 9.3 mg/dL (8.4-10.2); Magnesium 1.9 mg/dL (1.6-2.3); Potassium 4.3 mmol/L (3.5-5.1); Total Bilirubin 0.3 mg/dL (0.2-1.3); Total Protein 7.2 g/dL (6.3-8.2)
--- NOTE | 2019-02-05 21:40 | ED ---
Chest Pain HPI - General Chief Complaint: Chest Pain Stated Complaint: Chest Pressure Time Seen by Provider: 02/05/19 20:50 Source: EMS Mode of arrival: EMS Limitations: no limitations - History of Present Illness Initial Comments: Patient is a 79-year-old female presenting to emergency Department with a chief complaint of chest pain. Patient reports she woke up this morning and noticed her blood pressure was elevated. Patient also reports gradual onset of left- sided chest pain without any radiation to her arm, neck or back. Patient denies nausea or diaphoresis. Patient denies shortness of breath or dyspnea on exertion. Patient reports she took 2 sublingual nitro tablets and called the EMS. She was given another dose of nitro on the ambulance. Currently patient reports no chest pain. Patient denies any headaches, lightheadedness, dizziness or visual changes. Patient denies focal neuro deficits. - Related Data Home Medications Medication Instructions Recorded Confirmed Albuterol Inhaler [Ventolin Hfa 2 puff INHALATION RT-Q6H PRN 04/06/15 02/05/19 Inhaler] Ubidecarenone [Co Q-10] 100 mg PO QAM 04/06/15 02/05/19 Multivitamins, Thera [Multivitamin 1 tab PO QAM 01/02/16 02/05/19 (formulary)] Metoprolol Tartrate [Lopressor] 25 mg PO BID 08/16/17 02/05/19 Aspirin EC [Ecotrin Low Dose] 81 mg PO Q48H 10/06/17 02/05/19 Exemestane [Aromasin] 25 mg PO DAILY 09/18/18 02/05/19 Calcium Carbonate [Calcium] 600 mg PO DAILY 02/05/19 02/05/19 Lisinopril [Zestril] 10 mg PO DAILY 02/05/19 02/05/19 Magnesium 200 mg PO DAILY 02/05/19 02/05/19 [place]-3 Fatty Acids/Fish Oil [Fish 1 cap PO DAILY 02/05/19 02/05/19 Oil 1,000 mg Softgel] Allergies Allergy/AdvReac Type Severity Reaction Status Date / Time cephalexin [From Keflex] Allergy Rash/Hives Verified 02/05/19 23:07 codeine Allergy Unknown Verified 02/05/19 23:07 iodine Allergy Rash/Hives Verified 02/05/19 23:07 shellfish derived Allergy Rash/Hives Verified 02/05/19 23:07 Sulfa (Sulfonamide Allergy Rash/Hives Verified 02/05/19 23:07 Antibiotics) sulfamethoxazole Allergy Rash/Hives Verified 02/05/19 23:07 [From Bactrim] trimethoprim [From Bactrim] Allergy Rash/Hives Verified 02/05/19 23:07 tree nut [Nut] AdvReac Mild Abdominal Verified 02/05/19 23:07 Pain cat dander AdvReac Wheezing Verified 02/05/19 23:07 dog dander AdvReac Wheezing Verified 02/05/19 23:07 egg AdvReac Nausea & Verified 02/05/19 23:07 Vomiting gluten AdvReac Nausea & Verified 02/05/19 23:07 Vomiting house dust mite AdvReac Wheezing Verified 02/05/19 23:07 Milk Containing Products AdvReac Nausea & Verified 02/05/19 23:07 [Dairy] Vomiting soy AdvReac Nausea & Verified 02/05/19 23:07 Vomiting Review of Systems ROS Statement: Those systems with pertinent positive or pertinent negative responses have been documented in the HPI. ROS Other: All systems not noted in ROS Statement are negative. EKG Findings - EKG Comments: EKG Findings:: Sinus rhythm with first-degree AV block. Left axis deviation. Ventricular rate 65, CT interval 210, QRS duration 150, QT/QTc 430/455 Past Medical History Past Medical History: Asthma, Coronary Artery Disease (CAD), Cancer, Chest Pain / Angina, Eye Disorder, GERD/Reflux, Hyperlipidemia, Hypertension, Sleep Apnea/ CPAP/BIPAP Additional Past Medical History / Comment(s): DIVERTICULITS,SINUSITIS,LT EYE MAC DEGENERATION,SMALL HIATAL HERNIA,DDD,SPINAL STENOSIS,SLEEP APNEA USES A CPAP MACHINE, HAS NARROW ARTERY DISEASE. GLUTEN ALLERGY,LACTOSE INTOLERANCE AND EGGS CAUSE NAUSEA AND BLOATING BUT ABLE TO TAKE IMMUNIZATIONS. LT BREAST CANCER History of Any Multi-Drug Resistant Organisms: None Reported Past Surgical History: Appendectomy, Bladder Surgery, Breast Surgery, Cholecystectomy, Heart Catheterization With Stent, Hernia Repair, Hysterectomy Additional Past Surgical History / Comment(s): BLADDER SUSPENSION WITH MESH. JUANJOSE CATARACTS, CYST ON NECK REMOVED, EGD, VEIN STRIPPING, HEMORRHOIDECTOMY, NASAL SURGERY. Colonoscopy 2016. LT BREAST BIOPSY and lumpectomy Past Anesthesia/Blood Transfusion Reactions: Motion Sickness Date of Last Stent Placement:: 2011 Past Psychological History: No Psychological Hx Reported Smoking Status: Never smoker Past Alcohol Use History: None Reported Past Drug Use History: None Reported - Past Family History Sister(s) Family Medical History: Cancer Additional Family Medical History / Comment(s): breast cancer Father Family Medical History: Cancer, Osteoarthritis (OA) Additional Family Medical History / Comment(s): LEUKEMIA. PaternalAunt had breast cancer Mother Family Medical History: Cancer Additional Family Medical History / Comment(s): BREAST CANCER, AND PT'S SISTER AND AUNT HAD BREAST CANCER WELL. General Exam Limitations: no limitations General appearance: alert, in no apparent distress Head exam: Present: atraumatic, normocephalic, normal inspection Eye exam: Present: normal appearance, PERRL, EOMI Pupils: Present: normal accommodation ENT exam: Present: normal exam, mucous membranes moist, normal external ear exam Neck exam: Present: normal inspection, full ROM Respiratory exam: Present: normal lung sounds bilaterally. Absent: chest wall tenderness Cardiovascular Exam: Present: regular rate, normal rhythm, normal heart sounds Extremities exam: Present: normal inspection, full ROM, normal capillary refill, other (+2 dorsalis pedis and posterior tibialis bilaterally. +2 ulnar and radial pulses bilaterally.). Absent: tenderness, pedal edema, joint swelling, calf tenderness Back exam: Present: normal inspection. Absent: CVA tenderness (R), CVA tenderness (L) Neurological exam: Present: alert, oriented X3, CN II-XII intact Psychiatric exam: Present: normal affect, normal mood Skin exam: Present: warm, intact, normal color Course Vital Signs 02/05/19 02/05/19 02/06/19 20:45 23:58 00:17 Temperature 98.7 F Pulse Rate 67 62 78 Respiratory 18 16 18 Rate Blood Pressure 198/89 191/90 189/90 O2 Sat by Pulse 98 98 100 Oximetry Chest Pain MDM - Differential Diagnosis ACS - MDM Patient is 79-year-old female presenting to emergency Department with chief complaint of chest pain. Patient woke up this morning with elevated blood pressure. Patient also reports she gradually developed left-sided chest pain without any radiation. Patient has no focal deficits. Patient denies shortness of breath or dyspnea on exertion. Patient has no visual changes. Patient has equilateral pulses in upper and lower extremities. Patient does have a cardiac stent. Patient is currently on 2 antihypertensive medications And states that her blood pressure is typically high. Initial troponins are negative. EKG shows a first-degree AV block with left axis deviation. Chest x-ray is negativ e. Patient will be admitted for serial troponins and observation. Case discussed with Dr. Knight. Admitting physician is Dr. Marlow. Cardiology consulted. Prior to her transfer to the observation unit. Patient did have elevated pressure. Patient was given 10 mg of hydralazine. Her blood pressure decreased and she was transferred. Disposition Clinical Impression: Chest pain Disposition: ADMITTED IP TO THIS HOSP Condition: Good Is patient prescribed a controlled substance at d/c from ED?: No Time of Disposition: 01:07
[2019-02-05] MEDS ORDERED: NALOXONE 0.4 MG/ML 1 ML VIAL IV PRN (23:32)
[2019-02-06] MEDS ORDERED: hydrALAZINE HCL 20 MG/ML 1 ML VIAL IVP STA (00:05)
[2019-02-06 04:17] VITALS: RESP 16
[2019-02-06 07:53] VITALS: BP 173/70; PULSE 64; TEMP 97.6
[2019-02-06 08:39] LABS: HCT 41.1 % (34.0-46.0); HGB 13.4 gm/dL (11.4-16.0); MCH 30.8 pg (25.0-35.0); MCHC 32.5 g/dL (31.0-37.0); MCV 94.5 fL (80.0-100.0); Mean Platelet Volume 6.2; Platelet Count 271 k/uL (150-450); RBC 4.34 m/uL (3.80-5.40); RDW 12.8 % (11.5-15.5); WBC 6.9 k/uL (3.8-10.6)
[2019-02-06 09:01] LABS: Calcium 9.5 mg/dL (8.4-10.2); Potassium 4.1 mmol/L (3.5-5.1)
--- NOTE | 2019-02-06 10:53 | P.HPIM ---
History of Present Illness 73-year-old present female came in with the chest pressure-like sensation started yesterday radiating to the left arm neck and back along with without diaphoresis or nausea. Denied any short of breath associated with that. Patient apparently was anxious has been largely been going on in with her life patient episode appears to be anxiety upon my lengthy discussion with the patient. Patient was a valid by cardiology patient had a stress test 2 years ago they cleared for discharge patient troponins are negative EKG did not show any ST-T wave changes. Patient doesn't have any fever chills cough. She takes her benzodiazepines as needed for anxiety. Patient blood pressure went up during that episode as well. I'm adding the SSRIs for anxiety and patient will be discharged today. No further workup is being recommended by cardiology. Review of Systems REVIEW OF SYSTEMS: CONSTITUTIONAL: No fever, no malaise, no fatigue. HEENT: No recent visual problems or hearing problems. Denied any sore throat. CARDIOVASCULAR: As mentioned in HPI PULMONARY: No shortness of breath, no cough, no hemoptysis. GASTROINTESTINAL: No diarrhea, no nausea, no vomiting, no abdominal pain. NEUROLOGICAL: No headaches, no weakness, no numbness. HEMATOLOGICAL: Denies any bleeding or petechiae. GENITOURINARY: Denies any burning micturition, frequency, or urgency. MUSCULOSKELETAL/RHEUMATOLOGICAL: Denies any joint pain, swelling, or any muscle pain. ENDOCRINE: Denies any polyuria or polydipsia. The rest of the 14-point review of systems is negative. Past Medical History Past Medical History: Asthma, Coronary Artery Disease (CAD), Cancer, Chest Pain / Angina, Eye Disorder, GERD/Reflux, Hyperlipidemia, Hypertension, Sleep Apnea/CPAP/BIPAP Additional Past Medical History / Comment(s): DIVERTICULITS,SINUSITIS,LT EYE MAC DEGENERATION,SMALL HIATAL HERNIA,DDD,SPINAL STENOSIS,SLEEP APNEA USES A CPAP MACHINE, HAS NARROW ARTERY DISEASE. GLUTEN ALLERGY,LACTOSE INTOLERANCE AND EGGS CAUSE NAUSEA AND BLOATING BUT ABLE TO TAKE IMMUNIZATIONS. LT BREAST CANCER History of Any Multi-Drug Resistant Organisms: None Reported Past Surgical History: Appendectomy, Bladder Surgery, Breast Surgery, Cholecystectomy, Heart Catheterization With Stent, Hernia Repair, Hysterectomy Additional Past Surgical History / Comment(s): BLADDER SUSPENSION WITH MESH. JUANJOSE CATARACTS, CYST ON NECK REMOVED, EGD, VEIN STRIPPING, HEMORRHOIDECTOMY, NASAL SURGERY. Colonoscopy 2016. LT BREAST BIOPSY and lumpectomy Past Anesthesia/Blood Transfusion Reactions: Motion Sickness Date of Last Stent Placement:: 2011 Past Psychological History: No Psychological Hx Reported Smoking Status: Never smoker Past Alcohol Use History: None Reported Past Drug Use History: None Reported - Past Family History Sister(s) Family Medical History: Cancer Additional Family Medical History / Comment(s): breast cancer Father Family Medical History: Cancer, Osteoarthritis (OA) Additional Family Medical History / Comment(s): LEUKEMIA. PaternalAunt had breast cancer Mother Family Medical History: Cancer Additional Family Medical History / Comment(s): BREAST CANCER, AND PT'S SISTER AND AUNT HAD BREAST CANCER WELL. Medications and Allergies Home Medications Medication Instructions Recorded Confirmed Type Albuterol Inhaler [Ventolin Hfa 2 puff INHALATION RT-Q6H PRN 04/06/15 02/05/19 History Inhaler] Ubidecarenone [Co Q-10] 100 mg PO QAM 04/06/15 02/05/19 History Multivitamins, Thera [Multivitamin 1 tab PO QAM 01/02/16 02/05/19 History (formulary)] Metoprolol Tartrate [Lopressor] 25 mg PO BID 08/16/17 02/05/19 History Aspirin EC [Ecotrin Low Dose] 81 mg PO Q48H 10/06/17 02/05/19 History Exemestane [Aromasin] 25 mg PO DAILY 09/18/18 02/05/19 History Calcium Carbonate [Calcium] 600 mg PO DAILY 02/05/19 02/05/19 History Lisinopril [Zestril] 10 mg PO DAILY 02/05/19 02/05/19 History Magnesium 200 mg PO DAILY 02/05/19 02/05/19 History [place]-3 Fatty Acids/Fish Oil [Fish 1 cap PO DAILY 02/05/19 02/05/19 History Oil 1,000 mg Softgel] ALPRAZolam [Xanax] 0.5 mg PO HS PRN 02/06/19 02/06/19 History Atorvastatin Calcium [Lipitor] 20 mg PO HS #30 tab 02/06/19 Rx Bismuth Subsalicylate 262 PO PRN 02/06/19 History [Pepto-Bismol] FLUoxetine HCL 10 mg PO DAILY #30 tablet 02/06/19 Rx clonazePAM [KlonoPIN] 0.5 mg PO DAILY PRN #0 02/06/19 02/06/19 Rx Allergies Allergy/AdvReac Type Severity Reaction Status Date / Time cephalexin [From Keflex] Allergy Rash/Hives Verified 02/05/19 23:07 codeine Allergy Unknown Verified 02/05/19 23:07 iodine Allergy Rash/Hives Verified 02/05/19 23:07 shellfish derived Allergy Rash/Hives Verified 02/05/19 23:07 Sulfa (Sulfonamide Allergy Rash/Hives Verified 02/05/19 23:07 Antibiotics) sulfamethoxazole Allergy Rash/Hives Verified 02/05/19 23:07 [From Bactrim] trimethoprim [From Bactrim] Allergy Rash/Hives Verified 02/05/19 23:07 tree nut [Nut] AdvReac Mild Abdominal Verified 02/05/19 23:07 Pain cat dander AdvReac Wheezing Verified 02/05/19 23:07 dog dander AdvReac Wheezing Verified 02/05/19 23:07 egg AdvReac Nausea & Verified 02/05/19 23:07 Vomiting gluten AdvReac Nausea & Verified 02/05/19 23:07 Vomiting house dust mite AdvReac Wheezing Verified 02/05/19 23:07 Milk Containing Products AdvReac Nausea & Verified 02/05/19 23:07 [Dairy] Vomiting soy AdvReac Nausea & Verified 02/05/19 23:07 Vomiting Physical Exam Vitals: Vital Signs Temp Pulse Pulse Resp BP BP Pulse Ox 02/06/19 07:46 97.6 F 64 16 173/70 02/06/19 04:14 16 02/06/19 04:00 98.3 F 78 18 147/78 96 02/06/19 01:07 98.1 F 84 18 204/84 97 02/06/19 00:17 98.4 F 78 18 189/90 100 02/05/19 23:58 62 16 191/90 98 02/05/19 20:45 98.7 F 67 18 198/89 98 Intake and Output 02/05/19 02/06/19 02/06/19 22:59 06:59 14:59 Intake Total 360 Balance 360 Intake: Oral 360 Other: Voiding Method Toilet Toilet # Voids 1 Weight 63.503 kg 62.9 kg PHYSICAL EXAMINATION: GENERAL: The patient is alert and oriented x3, not in any acute distress. Well developed, well nourished. HEENT: Pupils are round and equally reacting to light. EOMI. No scleral icterus. No conjunctival pallor. Normocephalic, atraumatic. No pharyngeal erythema. No thyromegaly. CARDIOVASCULAR: S1 and S2 present. No murmurs, rubs, or gallops. PULMONARY: Chest is clear to auscultation, no wheezing or crackles. ABDOMEN: Soft, nontender, nondistended, normoactive bowel sounds. No palpable organomegaly. MUSCULOSKELETAL: No joint swelling or deformity. EXTREMITIES: No cyanosis, clubbing, or pedal edema. NEUROLOGICAL: Gross neurological examination did not reveal any focal deficits. SKIN: No rashes. Results CBC & Chem 7: 02/06/19 08:16 02/06/19 08:16 Labs: Abnormal Lab Results - Last 24 Hours (Table) 02/05/19 02/06/19 Range/Units 20:55 08:16 BUN 20 H (7-17) mg/dL Glucose 159 H 119 H (74-99) mg/dL Thrombosis Risk Factor Assmnt - Choose All That Apply Each Risk Factor Represents 3 Points: Age 75 years or older Thrombosis Risk Factor Assessment Total Risk Factor Score: 3 Thrombosis Risk Factor Assessment Level: Moderate Risk Assessment and Plan Plan: -chest pain: Atypical appears to be secondary to anxiety episode, we ruled out acute coronary syndromes patient was cleared by cardiology patient will be discharged today was with an SSRI and as needed benzodiazepine and I counseled her at length regarding long-term use of benzodiazepines -Asthma without any acute exacerbation -Coronary artery disease with previous stents in the past -Gastric surgery reflux disease -Hyperlipidemia hypertension
--- NOTE | 2019-02-06 10:54 | P.DS ---
Providers Date of admission: 02/05/19 23:26 Attending physician: Obed Santos Consults: 02/05/19 23:32 Consult Physician Stat Consulting Provider: Isaiah Henderson Consult Reason/Comments: Chest pain Do you want consulting provider notified?: Yes [facility] Course: As mentioned in HPI Patient Condition at Discharge: Good Plan - Discharge Summary Discharge Rx Participant: No New Discharge Prescriptions: New FLUoxetine HCL 10 mg PO DAILY #30 tablet Atorvastatin Calcium [Lipitor] 20 mg PO HS #30 tab Continue Albuterol Inhaler [Ventolin Hfa Inhaler] 2 puff INHALATION RT-Q6H PRN PRN Reason: Shortness Of Breath Ubidecarenone [Co Q-10] 100 mg PO QAM Multivitamins, Thera [Multivitamin (formulary)] 1 tab PO QAM Metoprolol Tartrate [Lopressor] 25 mg PO BID Aspirin EC [Ecotrin Low Dose] 81 mg PO Q48H Exemestane [Aromasin] 25 mg PO DAILY Magnesium 200 mg PO DAILY Lisinopril [Zestril] 10 mg PO DAILY Calcium Carbonate [Calcium] 600 mg PO DAILY [place]-3 Fatty Acids/Fish Oil [Fish Oil 1,000 mg Softgel] 1 cap PO DAILY ALPRAZolam [Xanax] 0.5 mg PO HS PRN PRN Reason: Anxiety Bismuth Subsalicylate [Pepto-Bismol] 262 PO PRN PRN Reason: Indigestion Changed clonazePAM [KlonoPIN] 0.5 mg PO DAILY PRN #0 PRN Reason: Anxiety Discharge Medication List Albuterol Inhaler [Ventolin Hfa Inhaler] 2 puff INHALATION RT-Q6H PRN 04/06/15 [History] Ubidecarenone [Co Q-10] 100 mg PO QAM 04/06/15 [History] Multivitamins, Thera [Multivitamin (formulary)] 1 tab PO QAM 01/02/16 [History] Metoprolol Tartrate [Lopressor] 25 mg PO BID 08/16/17 [History] Aspirin EC [Ecotrin Low Dose] 81 mg PO Q48H 10/06/17 [History] Exemestane [Aromasin] 25 mg PO DAILY 09/18/18 [History] Calcium Carbonate [Calcium] 600 mg PO DAILY 02/05/19 [History] Lisinopril [Zestril] 10 mg PO DAILY 02/05/19 [History] Magnesium 200 mg PO DAILY 02/05/19 [History] [place]-3 Fatty Acids/Fish Oil [Fish Oil 1,000 mg Softgel] 1 cap PO DAILY 02/05/19 [History] ALPRAZolam [Xanax] 0.5 mg PO HS PRN 02/06/19 [History] Atorvastatin Calcium [Lipitor] 20 mg PO HS #30 tab 02/06/19 [Rx] Bismuth Subsalicylate [Pepto-Bismol] 262 PO PRN 02/06/19 [History] FLUoxetine HCL 10 mg PO DAILY #30 tablet 02/06/19 [Rx] clonazePAM [KlonoPIN] 0.5 mg PO DAILY PRN #0 02/06/19 [Rx] Follow up Appointment(s)/Referral(s): Maninder Elias MD [STAFF PHYSICIAN] - 02/17/19 2:45 pm (Saturday with AMBULANCE DISPATCHER) Ryan Pires DO [Primary Care Provider] - 02/11/19 1:20 pm (Saturday at the [facility]) Patient Instructions/Handouts: Chest Pain (DC) Discharge Disposition: HOME SELF-CARE
--- NOTE | 2019-02-06 12:34 | XR ---
EXAMINATION TYPE: XR chest 2V DATE OF EXAM: 02/05/2019 COMPARISON: 02/22/2018 TECHNIQUE: PA and lateral views submitted. HISTORY: Chest pain. Preliminary report provided by radiologist interventional radiology tech. FINDINGS: The lungs are clear and there is no pneumothorax, pleural effusion, or focal pneumonia. Atheroscler otic change aorta. Biapical pleural thickening. Diffuse osteopenia. Hyperinflation noted. Hypertrophi c and degenerative change of the spine. Surgical clips in the upper abdomen. Metallic clips overlying the left breast. IMPRESSION: 1. No acute process. Correlate for COPD.
--- NOTE | 2019-02-06 22:43 | CONS ---
CONSULTATION DATE OF SERVICE: This is a 79-year-old lady with a known history of CAD and LAD stenting performed several years ago. She sees Dr. Elias in the outpatient setting. She came into the hospital because of an episode of sharp pain in the chest that lasted about 15 to 20 seconds. She felt it was an ache but lasted very briefly, felt concerned, and came into the hospital. She has no further chest pain. She wishes to go home. Apparently she had a stress test within the last one year and this was unremarkable. No further discomfort in the chest. The quality of the pain seems atypical. She actually has some tenderness over her chest wall. She is resting comfortably without symptoms at the time of my evaluation. PAST MEDICAL HISTORY: Past medical history is remarkable for: 1. CAD with previous LAD stenting; stable since then. No further angina. Stress test negative about a year ago per patient, not verified. 2. Hypertension. 3. Hyperlipidemia. 4. Gastroesophageal reflux disease. 5. History of sleep apnea syndrome. The patient is status post bladder suspension surgery and also has had some hemorrhoidectomy and left breast biopsy and lumpectomy. MEDICATIONS: Medications at home include: 1. Lisinopril 10 mg daily. 2. Magnesium supplements. 3. Calcium carbonate. 4. Metoprolol tartrate 25 mg b.i.d. 5. Aspirin 81 mg daily. She is not taking any statin medications; indicates to me that she cannot tolerate them. PHYSICAL EXAMINATION: Upon arrival her blood pressure was elevated, but the pressure has stabilized nicely. She is resting comfortably without symptoms. Her last blood pressure here was 147/78, pulse rate 78 per minute. HEENT unremarkable. Fundus was not examined by me. Neck is supple. There is no JVD. I do not hear a carotid bruit. Heart exam reveals S1, S2 heard normally. No significant murmurs. Lungs reveal diminished air entry. Abdomen is soft, nontender. Lower extremities reveal normal pulses. No edema. Central nervous system is normal. EKG revealed sinus mechanism, IVCD, no acute changes, leftward axis. LABORATORY DATA: Laboratory data revealed unremarkable troponins. IMPRESSION: 1. atypical chest pain in a patient with known stable coronary artery disease. 2. Hypertension. 3. Hyperlipidemia. 4. History of previous percutaneous coronary intervention of left anterior descending artery 4 to 5 years ago. RECOMMENDATIONS: I am recommending that we increase activity, and if she has no further symptoms she can be discharged and follow up with Dr. Elias in the office in about 2 weeks or so. I discussed my thoughts in detail with the patient. Thank you very much for the consult. GLENN / TIAGO: [id number] /
== END 2019-02-06 11:00 | disposition home or self-care (01) ==
LOC: EC 20:29 → 3SCARD 23:26
PROVIDERS: ADMIT Hospitalist; ATTEND Hospitalist
DX: R07.89 Other chest pain (principal); I25.10 Atherosclerotic heart disease of native coronary artery without angina pectoris; F41.9 Anxiety disorder, unspecified; I10 Essential (primary) hypertension; J45.909 Unspecified asthma, uncomplicated; K21.9 Gastro-esophageal reflux disease without esophagitis; Z95.5 Presence of coronary angioplasty implant and graft; E78.5 Hyperlipidemia, unspecified; H35.30 Unspecified macular degeneration; E73.9 Lactose intolerance, unspecified; M48.00 Spinal stenosis, site unspecified; K44.9 Diaphragmatic hernia without obstruction or gangrene; K57.90 Diverticulosis of intestine, part unspecified, without perforation or abscess without bleeding; G47.30 Sleep apnea, unspecified; Z79.811 Long term (current) use of aromatase inhibitors; Z79.82 Long term (current) use of aspirin; Z79.899 Other long term (current) drug therapy; Z88.1 Allergy status to other antibiotic agents; Z91.011 Allergy to milk products; Z88.5 Allergy status to narcotic agent; Z91.018 Allergy to other foods; Z91.013 Allergy to seafood; Z88.2 Allergy status to sulfonamides; Z88.8 Allergy status to other drugs, medicaments and biological substances; Z91.048 Other nonmedicinal substance allergy status; Z99.89 Dependence on other enabling machines and devices; Z90.710 Acquired absence of both cervix and uterus; Z85.3 Personal history of malignant neoplasm of breast; Z98.42 Cataract extraction status, left eye; Z98.41 Cataract extraction status, right eye; Z80.3 Family history of malignant neoplasm of breast; Z80.6 Family history of leukemia; Z82.61 Family history of arthritis
CPT/HCPCS: 96374; 99285; 36415; 93005; 80053; 80048; 83735; 84484 ×2; 85025; 85027; 85610; 85730; 71046; G0378 ×2; J0360

== ENCOUNTER → 2019-02-10 | Outpatient (CLI) | payer MEDICARE ==
[2019-02-10 13:17] VITALS: BP 175/73; PULSE 61; RESP 16; TEMP 97.6; BMI 25.1
--- NOTE | 2019-02-10 14:04 | P.HPOB ---
History of Present Illness H&P Date: 02/10/19 Chief Complaint: The patient is here for her routine gynecologic exam and ma mmogram. This is a 79-year-old with an LMP of 1991. The patient is status post vaginal hysterectomy for benign reasons. The patient is without gynecologic complaints. Review of Systems She has lost about 4 pounds over the last year. She denies respiratory, cardiac and G.I. problems. She denies maltreatment or problems with falling. : she denies any significant problems with urinary leakage. Past Medical History Past Medical History: Asthma, Coronary Artery Disease (CAD), Cancer, Chest Pain / Angina, Eye Disorder, GERD/Reflux, Hyperlipidemia, Hypertension, Sleep Apnea/CPAP/BIPAP Additional Past Medical History / Comment(s): DIVERTICULITS,SINUSITIS,LT EYE MAC DEGENERATION,SMALL HIATAL HERNIA,DDD,SPINAL STENOSIS,SLEEP APNEA USES A CPAP MACHINE, HAS NARROW ARTERY DISEASE. GLUTEN ALLERGY,LACTOSE INTOLERANCE AND EGGS CAUSE NAUSEA AND BLOATING BUT ABLE TO TAKE IMMUNIZATIONS. 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 History of Any Multi-Drug Resistant Organisms: None Reported Past Surgical History: Appendectomy, Bladder Surgery, Breast Surgery, Cholecystectomy, Heart Catheterization With Stent, Hernia Repair, Hysterectomy Additional Past Surgical History / Comment(s): Vaginal hysterectomy 1991. BLADDER SUSPENSION WITH MESH. JUANJOSE CATARACTS, CYST ON NECK REMOVED, EGD, VEIN STRIPPING, HEMORRHOIDECTOMY, NASAL SURGERY. Colonoscopy 2016. LT BREAST BIOPSY and lumpectomy 2018. Past Anesthesia/Blood Transfusion Reactions: Motion Sickness Date of Last Stent Placement:: 2011 Past Psychological History: No Psychological Hx Reported Additional Psychological History / Comment(s): PT LIVES IN OWN HOME WITH HER FAMILY. 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 NO OUTSIDE SERVICES. Smoking Status: Never smoker Past Alcohol Use History: None Reported Past Drug Use History: None Reported Additional History: The patient is a and is not sexually active. - Past Family History Sister(s) Family Medical History: Cancer Additional Family Medical History / Comment(s): breast cancer Father Family Medical History: Cancer, Osteoarthritis (OA) Additional Family Medical History / Comment(s): LEUKEMIA. PaternalAunt had breast cancer Mother Family Medical History: Cancer Additional Family Medical History / Comment(s): BREAST CANCER, AND PT'S SISTER AND AUNT HAD BREAST CANCER WELL. Medications and Allergies Home Medications Medication Instructions Recorded Confirmed Type Albuterol Inhaler [Ventolin Hfa 2 puff INHALATION RT-Q6H PRN 04/06/15 02/10/19 History Inhaler] Ubidecarenone [Co Q-10] 100 mg PO QAM 04/06/15 02/10/19 History Multivitamins, Thera [Multivitamin 1 tab PO QAM 01/02/16 02/10/19 History (formulary)] Metoprolol Tartrate [Lopressor] 25 mg PO BID 08/16/17 02/10/19 History Aspirin EC [Ecotrin Low Dose] 81 mg PO Q48H 10/06/17 02/10/19 History Exemestane [Aromasin] 25 mg PO DAILY 09/18/18 02/10/19 History Calcium Carbonate [Calcium] 600 mg PO DAILY 02/05/19 02/10/19 History Lisinopril [Zestril] 10 mg PO DAILY 02/05/19 02/10/19 History Magnesium 200 mg PO DAILY 02/05/19 02/10/19 History [place]-3 Fatty Acids/Fish Oil [Fish 1 cap PO DAILY 02/05/19 02/10/19 History Oil 1,000 mg Softgel] ALPRAZolam [Xanax] 0.5 mg PO HS PRN 02/06/19 02/10/19 History Bismuth Subsalicylate 262 dose PO DIRECTED PRN 02/06/19 02/10/19 History [Pepto-Bismol] Allergies Allergy/AdvReac Type Severity Reaction Status Date / Time cephalexin [From Keflex] Allergy Rash/Hives Verified 02/05/19 23:07 codeine Allergy Unknown Verified 02/05/19 23:07 iodine Allergy Rash/Hives Verified 02/05/19 23:07 shellfish derived Allergy Rash/Hives Verified 02/05/19 23:07 Sulfa (Sulfonamide Allergy Rash/Hives Verified 02/05/19 23:07 Antibiotics) sulfamethoxazole Allergy Rash/Hives Verified 02/05/19 23:07 [From Bactrim] trimethoprim [From Bactrim] Allergy Rash/Hives Verified 02/05/19 23:07 tree nut [Nut] AdvReac Mild Abdominal Verified 02/05/19 23:07 Pain cat dander AdvReac Wheezing Verified 02/05/19 23:07 dog dander AdvReac Wheezing Verified 02/05/19 23:07 egg AdvReac Nausea & Verified 02/05/19 23:07 Vomiting gluten AdvReac Nausea & Verified 02/05/19 23:07 Vomiting house dust mite AdvReac Wheezing Verified 02/05/19 23:07 Milk Containing Products AdvReac Nausea & Verified 02/05/19 23:07 [Dairy] Vomiting soy AdvReac Nausea & Verified 02/05/19 23:07 Vomiting Exam Vital Signs Temp Pulse Resp BP Pulse Ox 02/10/19 13:09 97.6 F 61 16 175/73 98 Intake and Output 02/09/19 02/10/19 02/10/19 22:59 06:59 14:59 Other: Weight 64.41 kg Height 5 feet 3 inches, weight 142 pounds, BMI 25.2. This is a well-developed well-nourished white female who is alert and oriented times 3 in no acute distress. HEENT: Within normal limits. NECK: Supple without mass or thyromegaly. CHEST AND LUNGS: Clear to auscultation. HEART: Regular rate and rhythm. BREASTS: Are without mass or discharge. AXILLARY EXAM: Negative for adenopathy. BACK: Negative for CVA tenderness. ABDOMEN: Soft, nontender, without palpable masses. PELVIC EXAM: External genitalia appears normal with mild to moderate atrophy. Vagina appears normal with mild to moderate atrophy. There is no evidence of prolapse. Bimanual examination is negative for mass or tenderness. RECTAL EXAM: Rectovaginal exam is negative for mass or tenderness and is negative for occult blood. EXTREMITIES: Nontender. IMPRESSION: 1. 79-year-old menopausal female status post vaginal hysterectomy for benign reasons with normal gynecologic exam. 2. History of left breast cancer with no evidence of recurrence on exam. 3. History of osteopenia. PLAN: 1. Pap smears have been discontinued. 2. Self breast awareness was discussed with the patient. She will continue to follow up with Dr. Scott Kirkland on a regular basis. 3. Right Diagnostic mammogram will be done today. Left mammogram was recently done on 01/21/2019. 4. Osteoporosis prevention was discussed. I have stressed the importance of adequate calcium, vitamin D and regular exercise. Recommended amounts of calcium and vitamin D were also discussed. 5. She did receive her flu shot this fall. 6. The patient was advised to return in 1-2 years for her well woman zulma watts
--- NOTE | 2019-02-11 09:17 | MM ---
Reason for exam: follow-up at short interval from prior study. Last mammogram was performed 1 month ago. History: Patient is postmenopausal and has history of breast cancer at age 78. Family history of breast cancer in sister at age 54 and breast cancer in mother at age 70. Malignant MG pre op needle loc LT of the left breast, April 15, 2018. Lumpectomy of the left breast, April 15, 2018. Malignant US biopsy breast VAD LT of the left breast, March 10, 2018. Benign excisional biopsy of the left breast, 1989. Physical Findings: Dr. Walters did breast exam. MG 3D Diag Mammo W/Cad RT CC with magnification, LM with magnification, LM, MLO, and CC view(s) were taken of the right breast. Prior study comparison: January 21, 2019, left breast MG 3d diag mammo w/cad LT. March 10, 2018, left breast MG diagnostic mammo LT wo CAD. The breast tissue is heterogeneously dense. This may lower the sensitivity of mammography. There is a group of 2.4cm calcifications upper outer quadrant on the right at posterior depth. On magnification views these are heterogeneous and have increased from 2017. These measure 3.8cm on magnification views. These results were verbally communicated with the patient and result sheet given to the patient on 02/10/19. ASSESSMENT: Suspicious, BI-RAD 4 RECOMMENDATION: Stereotactic core biopsy of the right breast. Called Dr. Walters with mammographic findings and has scheduled an appointment for the patient for 03/20/19 at 4:[address] Ignacio. Biopsy scheduled for 03/13/19 at 8:00. PRELIMINARY REPORT CALLED AND FAXED TO DR. IGNACIO ON 02/11/19.
== END | disposition home or self-care (01) ==
LOC: WWCWWP 12:44
PROVIDERS: ATTEND Obstetrics & Gynecology
DX: Z08 Encounter for follow-up examination after completed treatment for malignant neoplasm (principal); Z85.3 Personal history of malignant neoplasm of breast
CPT/HCPCS: 77065; G0279; 77061

== ENCOUNTER → 2019-03-13 | Day surgery (SDC) | payer MEDICARE ==
[2019-03-13 07:22] VITALS: RESP 16; TEMP 97.6; BMI 24.7
--- NOTE | 2019-03-13 09:01 | P.PCN ---
Date of Procedure: 03/13/19 Preoperative Diagnosis: Calcifications of concern upper outer quadrant in the right breast Postoperative Diagnosis: same Procedure(s) Performed: Stereotactic core biopsy right breast Anesthesia: local Surgeon: Tasia Ignacio Estimated Blood Loss (ml): 2 Pathology: other (Breast tissue) Condition: stable Disposition: same day Indications for Procedure: Calcifications of concern upper outer quadrant right breast Operative Findings: Calcifications of concern noted in specimen Description of Procedure: The patient is a 79-year-old white female who had a mammogram revealing a group calcifications upper outer quadrant on the right of concern. Stereotactic core biopsy was recommended. Patient understood risks and benefits and wished to proceed. Patient was taken to stay [facility] core biopsy room and positioned on the radiographic table. A scouts film was obtained. The calcifications of concern were identified. A cc from a Kathy was utilized. The area of concern was targeted. The skin was prepped using Betadine. 20 mL of 1% lidocaine half of which had epinephrine were used to anesthetize the area of concern. History of into the correct coordinates. The needle was a 9-gauge rectum assisted core rotating biopsy needle. Post fire films were obtained to assure the needle was in the correct location. 12 core biopsies were obtained. Radiograph of the specimen revealed the calcifications of concern were removed. The biopsy site was lavaged. A Toupet sterile marking clip was left behind. Review of this was in the correct location. The patient tolerated the procedure in stable condition. Specimen was sent to pathology. The patient will follow- up Dr. Chavez next week.
[2019-03-13 09:38] VITALS: BP 167/78; PULSE 50
--- NOTE | 2019-03-13 10:02 | MM ---
EXAMINATION TYPE: MG stereo VAD BX RT DATE OF EXAM: 03/13/2019 COMPARISON: Diagnostic right breast mammogram dated 02/10/2019 CLINICAL HISTORY: Right breast calcifications for which dedicated guided biopsy was recommended. TECHNIQUE: Stereotactic guided core biopsy of right breast. FINDINGS: The procedure of stereotactic guided core biopsy was explained to the patient. Benefits, alternatives, and risks were discussed. An informed consent was then obtained. Preprocedural timeout was performed. The shortness pathway for biopsy was chosen to proximal a region of 3.8 cm loosely grouped calcifications in the upper outer quadrant at posterior depth. Shortness pathway was CC from above approach. I performed the localization, then surgeon, Dr. Scott Kirkalnd performed the remainder of the procedure. A vacuum assisted biopsy gun was used to obtain multiple core samples. The patient tolerated the procedure well without any immediate complication. The patient was kept in the radiology department for short stay after the procedure and then discharged home in stable condition. Targeted calcifications are identified in specimen mammogram. Post biopsy mammogram shows the clip to appear in satisfactory position relative to the targeted area of concern on the preprocedure images. IMPRESSION: SUCCESSFUL, UNCOMPLICATED STEREOTACTIC GUIDED CORE BIOPSY OF LOOSELY GROUPED CALCIFICATIONS IN THE UPPER OUTER QUADRANT OF THE RIGHT BREAST SPANNING 3.8 CM, FULL PATHOLOGY RESULTS TO FOLLOW. 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 Recommendation Follow up mammogram of the right breast in 6 months. DYAND
== END ==
LOC: RADMAMWWP 07:02
PROVIDERS: ATTEND Surgery
DX: D24.1 Benign neoplasm of right breast (principal); N60.11 Diffuse cystic mastopathy of right breast; N62 Hypertrophy of breast; Z85.3 Personal history of malignant neoplasm of breast; Z88.2 Allergy status to sulfonamides; Z88.5 Allergy status to narcotic agent; Z91.048 Other nonmedicinal substance allergy status; Z88.1 Allergy status to other antibiotic agents
CPT/HCPCS: 88305; 19081; A4648; J2001

== ENCOUNTER → 2019-03-20 | Outpatient (CLI) | payer MEDICARE ==
[2019-03-20 13:48] VITALS: BP 179/83; PULSE 60; RESP 18; TEMP 97.5; BMI 25.0
--- NOTE | 2019-03-20 14:44 | P.PN ---
Subjective history of breast cancer Bozena is a 79 year old white female status post a left breast lumpectomy and sentinel node biopsy in April 2018. She was seen by radiation oncology and she opted for no radiation therapy. She was also seen by medical oncology and is on Aromasin. The patient had a stage I a T1 the N0 M0 grade1 ER /AK positive and HER-2 negative tumor. She is not concerned about the Aromasin causing any side effects at this time. She had a left breast mammogram on . This was felt to be benign BIRADS 3. She is due for a right breast mammogram in February. She had genetic testing performed and this was negative for BRCA1 and BRCA2. Right breast mammogram was performed on . This revealed an area which shows suspicious calcifications and she was recommended to undergo stereotactic core biopsy of this area. This was performed on 03-13-19. Her pathology revealed fibroadenoma/fibroadenomatoid hyperplasia with calcifications and the background of fibrocystic changes. Postprocedure the patient developed some mild ecchymosis but has no complaints otherwise related to the procedure. Family history: 1. Mother: Breast cancer 70 years old, this recurred at approximately 74, and she as a result of treatment 2. Sister: Breast cancer at 55 of metastatic disease 3. Father: Leukemia 4. Maternal cousin: Breast cancer Hormonal history: Menarche: 13 Pregnancies: 5, 5 children, first born at 27, did not breast-feed Menopause: Hysterectomy in 4 days for fibroids control pills: Negative Hormones: Negative Past surgical history: 1. Hysterectomy 2. Appendectomy 3. Varicose veins left side 4. Laser varicose veins 5. Cholecystectomy 6. Hernia repair 7. Bladder sling 8. Hemorrhoids 9. Cardiac stents 10. Cataracts surgery 11. Nasal surgery 12. Bunion 13. left breast lumpectomy and sentinel node biopsy Medical history: 1. Hypertension 2. High cholesterol 3. CPAP/asthma/narrow airway Social history: Smoke: Negative Alcohol: Negative Drugs: Negative Review of systems: Constitutional: Negative HEENT: Cataracts surgery narrow airway and nasal surgery tinnitus decreased he aring Breasts: As per HPI, left breast cancer stage IA Cardiovascular: Cardiac stent Respiratory: CPAP GI: Colonoscopy 4 years ago benign polyp removed : Negative Musculoskeletal: Arthritis in her back Integument: Negative Neurologic: Right leg numbness/sciatica Psychiatric: Anxiety Endocrine: Negative Hematologic: Uses aspirin ALLERGY: stopped allergy shots Objective - Vital Signs Vital signs: Vital Signs Temp 97.5 F L 03/20/19 13:45 Pulse 60 03/20/19 13:45 Resp 18 03/20/19 13:45 BP 179/83 03/20/19 13:45 Pulse Ox 96 03/20/19 13:45 Intake & Output 03/19/19 03/20/19 03/20/19 18:59 06:59 18:59 Weight 63.957 kg - Exam BMI 25 - Constitutional General appearance: Present: average body habitus - EENT Eyes: Present: EOMI ENT: Present: hearing grossly normal - Neck Neck: Present: normal ROM - Respiratory Respiratory: bilateral: CTA - Cardiovascular Rhythm: regular Heart sounds: normal: S1, S2 - Genitourinary Genitourinary Comment(s): Mild ecchymosis right breast at core biopsy site, no evidence of infection - Integumentary Integumentary: Present: normal turgor - Musculoskeletal Musculoskeletal: Present: gait normal - Psychiatric Psychiatric: Present: A&O x's 3, appropriate affect - Additional findings Additional findings: Core biopsy site right breast mild ecchymosis, no evidence of infection Assessment and Plan Assessment: Impression: 1. Status post core biopsy right breast, mild ecchymosis, no evidence of infection pathology benign 2. Left breast stage IA breast cancer treated with lumpectomy patient opted not to have radiation is presently on aromatase 3. Fibrocystic breast changes 4. Family history of breast cancer 5. Patient had genetic testing done was negative for BRCA1 and BRCA2 genes 6. High cholesterol 7. Asthma 8. Patient's last left breast mammogram was in January 2019 benign BIRADS 3 Plan: 1. bilateral mammogram in 6 months 2. continue aromisin 3. medical managment of medical conditions 4. continue to follow with medical oncology Results discussed in detail with the patient. Discussed her increased risk secondary to the fact that she had a previous breast cancer and her positive family history of breast cancer. The patient however at this time is not at increased risk related to the pathologic findings in the right breast. We will continue to monitor closely. If she notes anything of concern she will follow up sooner. DR. Llanes
== END ==
LOC: WWCWWP 13:34
PROVIDERS: ATTEND Surgery
DX: Z53.9 Procedure and treatment not carried out, unspecified reason (principal)

== ENCOUNTER → 2020-01-08 | Outpatient (CLI) | payer MEDICARE ==
--- NOTE | 2020-01-12 10:01 | MM ---
Reason for exam: additional evaluation requested from prior study. Last mammogram was performed 11 months ago. History: Patient is postmenopausal and has history of breast cancer at age 78. Family history of breast cancer in sister at age 54 and breast cancer in mother at age 70. Benign MG stereo VAD BX RT of the right breast, March 13, 2019. Malignant MG pre op needle loc LT of the left breast, April 15, 2018. Lumpectomy of the left breast, April 15, 2018. Malignant US biopsy breast VAD LT of the left breast, March 10, 2018. Benign excisional biopsy of the left breast, 1989. Physical Findings: Nurse did not find any significant physical abnormalities on exam. MG 3D Diag Mammo W/Cad JUANJOSE Bilateral CC and MLO view(s) were taken. Prior study comparison: February 10, 2019, right breast MG 3d diag mammo w/cad RT. January 21, 2019, left breast MG 3d diag mammo w/cad LT. There are scattered fibroglandular densities. Previous mammotome biopsy in the right breast. Post surgical and post therapy change left breast. Stable calcifications posterior upper outer quadrant right breast. No significant new findings when compared with previous films. These results were verbally communicated with the patient and result sheet given to the patient on 01/08/20. ASSESSMENT: Benign, BI-RAD 2 RECOMMENDATION: Follow-up diagnostic mammogram of both breasts in 1 year.
== END | disposition home or self-care (01) ==
LOC: RADMAMWWP 14:11
PROVIDERS: ATTEND Surgery
DX: R92.8 Other abnormal and inconclusive findings on diagnostic imaging of breast (principal)
CPT/HCPCS: 77066; G0279; 77062

== ENCOUNTER → 2020-02-04 | Outpatient (CLI) | payer MEDICARE ==
[2020-02-04 15:39] VITALS: BP 146/71; PULSE 61; RESP 18; TEMP 97.9
--- NOTE | 2020-02-04 15:58 | P.PN ---
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 She was seen by radiation oncology and she opted for no radiation therapy. She was also seen by medical oncology and is was on Aromasin. The patient had a stage IA T1N0 M0 G1 ER /NE positive and HER-2 negative tumor. She is not concerned about the Aromasin causing any side effects at this time. She had a left breast mammogram on . This was felt to be benign BIRADS 3. She is due for a right breast mammogram in February. She had genetic testing performed and this was negative for BRCA1 and BRCA2. A right breast mammogram was performed on . This revealed an area which shows suspicious calcifications and she was recommended to undergo stereotactic core biopsy of this area. This was performed on 03-13-19. Her pathology revealed fibroadenoma/fibroadenomatoid hyperplasia with calcifications and the background of fibrocystic changes. She underwent a bilateral mammogram and [id number]. This was felt to be benign BIRADS 2 and bilateral mammogram in 1 year was recommended. She is not complaining of any lumps masses or nodules in either breast. She is not compl aining of any nipple discharge or skin changes. She is currently on Letrazole secondary to hypertension which she was noted to have on Aromasin. Family history: 1. Mother: Breast cancer 70 years old, this recurred at approximately 74, and she as a result of treatment 2. Sister: Breast cancer at 55 of metastatic disease 3. Father: Leukemia 4. Maternal cousin: Breast cancer Hormonal history: Menarche: 13 Pregnancies: 5, 5 children, first born at 27, did not breast-feed Menopause: Hysterectomy in 4 days for fibroids control pills: Negative Hormones: Negative Past surgical history: 1. Hysterectomy 2. Appendectomy 3. Varicose veins left side 4. Laser varicose veins 5. Cholecystectomy 6. Hernia repair 7. Bladder sling 8. Hemorrhoids 9. Cardiac stents 10. Cataracts surgery 11. Nasal surgery 12. Bunion 13. left breast lumpectomy and sentinel node biopsy Medical history: 1. Hypertension 2. High cholesterol 3. CPAP/asthma/narrow airway Social history: Smoke: Negative Alcohol: Negative Drugs: Negative Review of systems: Constitutional: Negative HEENT: Cataracts surgery narrow airway and nasal surgery tinnitus decreased hearing Breasts: As per HPI, left breast cancer stage IA Cardiovascular: Cardiac stent Respiratory: CPAP GI: Colonoscopy 4 years ago benign polyp removed : Negative Musculoskeletal: Arthritis in her back Integument: Negative Neurologic: Right leg numbness/sciatica Psychiatric: Anxiety Endocrine: Negative Hematologic: Uses aspirin ALLERGY: stopped allergy shots Objective - Vital Signs Vital signs: Vital Signs Temp 97.9 F 02/04/20 15:36 Pulse 61 02/04/20 15:36 Resp 18 02/04/20 15:36 BP 146/71 02/04/20 15:36 Pulse Ox 99 02/04/20 15:36 Intake & Output 02/03/20 02/04/20 02/04/20 18:59 06:59 18:59 Weight 63.957 kg - Exam BMI 25.8 - Constitutional General appearance: Present: average body habitus - EENT Eyes: Present: EOMI ENT: Present: hearing grossly normal - Neck Neck: Present: normal ROM - Respiratory Respiratory: bilateral: CTA - Cardiovascular Rhythm: regular Heart sounds: normal: S1, S2 - Gastrointestinal General gastrointestinal: Present: normal bowel sounds, soft - Integumentary Integumentary: Present: normal turgor - Musculoskeletal Musculoskeletal: Present: gait normal - Psychiatric Psychiatric: Present: A&O x's 3, appropriate affect, intact judgment & insight - Additional findings Additional findings: breast exam: BRA 44C inspection: bilateral grade 3 ptosis Palpation: Right breast: Multi-positional exam no dominant masses or nodules of concern, fibrocystic changes, under the right breast there appeared to be some changes of fungal infection Right axilla: No adenopathy of concern Left breast: Multi-positional exam no dominant masses or nodules of concern, well-healed scar from prior lumpectomy fibrocystic changes Left axilla: No adenopathy of concern Assessment and Plan Assessment: Impression: 1. Patient status post left breast lumpectomy sentinel node biopsy for stage I a left breast cancer, patient presently on the left resolve no evidence of recurrent cancer 2. Fungal infection and a right breast 3. Recent bilateral mammogram benign Plan: 1. Continue at resolved 2. Nystatin for fungal infection under right breast 3. Continue follow-up with medical oncology 4. Bilateral mammogram in 1 year 5. Follow-up here in 6 months Cc: encounter 20 minutes, > 50% of time in planning and counselling
== END | disposition home or self-care (01) ==
LOC: WWCWWP 15:23
PROVIDERS: ATTEND Surgery
DX: Z53.9 Procedure and treatment not carried out, unspecified reason (principal)

== ENCOUNTER → 2020-02-23 | Outpatient (CLI) | payer MEDICARE ==
[2020-02-23 12:53] VITALS: BP 165/68; PULSE 55; RESP 18; TEMP 97.8
--- NOTE | 2020-02-23 13:28 | P.HPOB ---
History of Present Illness H&P Date: 02/23/20 Chief Complaint: The patient is here for her routine gynecologic exam. This is a 80-year-old with an LMP of 1991. The patient is without gynecologic complaints. She is status post vaginal hysterectomy for benign reasons. Review of Systems Her weight has been stable. She denies respiratory, cardiac and G.I. problems. She denies maltreatment or problems with falling. : she denies any significant problems with urinary leakage. Past Medical History Past Medical History: Asthma, Coronary Artery Disease (CAD), Cancer, Chest Pain / Angina, Eye Disorder, GERD/Reflux, Hyperlipidemia, Hypertension, Sleep Apnea/CPAP/BIPAP Additional Past Medical History / Comment(s): DIVERTICULITS,SINUSITIS,LT EYE MAC DEGENERATION,SMALL HIATAL HERNIA,DDD,SPINAL STENOSIS,SLEEP APNEA USES A CPAP MACHINE, HAS NARROW ARTERY DISEASE. GLUTEN ALLERGY,LACTOSE INTOLERANCE AND EGGS CAUSE NAUSEA AND BLOATING BUT ABLE TO TAKE IMMUNIZATIONS. 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 History of Any Multi-Drug Resistant Organisms: None Reported Past Surgical History: Appendectomy, Bladder Surgery, Breast Surgery, Cholecystectomy, Heart Catheterization With Stent, Hernia Repair, Hysterectomy Additional Past Surgical History / Comment(s): Vaginal hysterectomy 1991. BL ADDER SUSPENSION WITH MESH. JUANJOSE CATARACTS, CYST ON NECK REMOVED, EGD, VEIN STRIPPING, HEMORRHOIDECTOMY, NASAL SURGERY. Colonoscopy 2016. LT BREAST BIOPSY and lumpectomy 2018. bunionectomy left foot Past Anesthesia/Blood Transfusion Reactions: Motion Sickness Date of Last Stent Placement:: 2011 Past Psychological History: Anxiety Additional Psychological History / Comment(s): PT LIVES IN OWN HOME WITH HER FAMILY. 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 NO OUTSIDE SERVICES. Smoking Status: Never smoker Past Alcohol Use History: None Reported Past Drug Use History: None Reported - Past Family History Sister(s) Family Medical History: Cancer Additional Family Medical History / Comment(s): breast cancer Father Family Medical History: Cancer, Osteoarthritis (OA) Additional Family Medical History / Comment(s): LEUKEMIA. PaternalAunt had breast cancer Mother Family Medical History: Cancer Additional Family Medical History / Comment(s): BREAST CANCER, AND PT'S SISTER AND AUNT HAD BREAST CANCER WELL. Medications and Allergies Home Medications Medication Instructions Recorded Confirmed Type Albuterol Inhaler (Mhu) [Ventolin 2 puff INHALATION RT-Q6H PRN 04/06/15 02/23/20 History Hfa Inhaler (Mhu)] Ubidecarenone [Co Q-10] 100 mg PO QAM 04/06/15 02/23/20 History Multivitamins, Thera [Multivitamin 1 tab PO QAM 01/02/16 02/23/20 History (formulary)] Metoprolol Tartrate [Lopressor] 25 mg PO BID 08/16/17 02/23/20 History Aspirin EC [Ecotrin Low Dose] 81 mg PO Q48H 10/06/17 02/23/20 History Calcium Carbonate [Calcium] 600 mg PO DAILY 02/05/19 02/23/20 History Magnesium 200 mg PO DAILY 02/05/19 02/23/20 History Outlook-3 Fatty Acids/Fish Oil [Fish 1 cap PO DAILY 02/05/19 02/23/20 History Oil 1,000 mg Softgel] lisinopriL [Zestril] 10 mg PO DAILY 02/05/19 02/23/20 History ALPRAZolam [Xanax] 0.5 mg PO HS PRN 02/06/19 02/23/20 History Bismuth Subsalicylate 262 dose PO DIRECTED PRN 02/06/19 02/23/20 History [Pepto-Bismol] Isosorbide Mononitrate ER [Imdur] 15 mg PO DAILY 02/27/19 02/23/20 History Letrozole 2.5 mg PO DAILY 02/27/19 02/23/20 History amLODIPine [Norvasc] 5 mg PO DAILY 02/04/20 02/23/20 History Allergies Allergy/AdvReac Type Severity Reaction Status Date / Time cephalexin [From Keflex] Allergy Rash/Hives Verified 02/23/20 12:46 codeine Allergy Unknown Verified 02/23/20 12:46 iodine Allergy Rash/Hives Verified 02/23/20 12:46 shellfish derived Allergy Rash/Hives Verified 02/23/20 12:46 Sulfa (Sulfonamide Allergy Rash/Hives Verified 02/23/20 12:46 Antibiotics) sulfamethoxazole Allergy Rash/Hives Verified 02/23/20 12:46 [From Bactrim] trimethoprim [From Bactrim] Allergy Rash/Hives Verified 02/23/20 12:46 tree nut [Nut] AdvReac Mild Abdominal Verified 02/23/20 12:46 Pain cat dander AdvReac Wheezing Verified 02/23/20 12:46 dog dander AdvReac Wheezing Verified 02/23/20 12:46 egg AdvReac Nausea & Verified 02/23/20 12:46 Vomiting gluten AdvReac Nausea & Verified 02/23/20 12:46 Vomiting house dust mite AdvReac Wheezing Verified 02/23/20 12:46 Milk Containing Products AdvReac Nausea & Verified 02/23/20 12:46 [Dairy] Vomiting peanut AdvReac Nausea & Verified 02/23/20 12:46 Vomiting soy AdvReac Nausea & Verified 02/23/20 12:46 Vomiting Exam Vital Signs Temp Pulse Resp BP Pulse Ox 02/23/20 12:47 97.8 F 55 L 18 165/68 99 Intake and Output 02/22/20 02/23/20 02/23/20 22:59 06:59 14:59 Other: Weight 64.41 kg Height 5 feet 2 inches, weight 142 pounds, BMI 26.0. This is a well-developed well-nourished white female who is alert and oriented times 3 in no acute distress. HEENT: Within normal limits. NECK: Supple without mass or thyromegaly. CHEST AND LUNGS: Clear to auscultation. HEART: Regular rate and rhythm. BREASTS: Are without mass or discharge. AXILLARY EXAM: Negative for adenopathy. BACK: Negative for CVA tenderness. ABDOMEN: Soft, nontender, without palpable masses. PELVIC EXAM: External genitalia appears normal with mild to moderate atrophy. Vagina appears normal mild to moderate atrophy. There is no evidence of prolapse. Bimanual examination is negative for mass or tenderness. RECTAL EXAM: Rectovaginal exam is negative for mass or tenderness and is negati ve for occult blood. EXTREMITIES: Nontender. IMPRESSION: 1. 80-year-old menopausal female status post vaginal hysterectomy with normal gynecologic exam. 2. History of left breast cancer with no evidence of recurrence on today's exam. 3. History of osteopenia. PLAN: 1. Pap smears have been discontinued. 2. Self breast awareness was discussed with the patient. 3. She will continue to follow up with Dr. Scott Kirkland because of her history of breast cancer. Diagnostic mammogram done on 01/08/2020 was benign. She is to repeat the diagnostic bilateral mammogram in 1 year. 4. Osteoporosis prevention was discussed. I have stressed the importance of adequate calcium, vitamin D and regular exercise. Recommended amounts of calcium and vitamin D were also discussed. Bone density testing will be due in 1 year. 5. She plans to get a flu shot in the near future. 6. The patient was advised to return in 1-2 years for her well woman examination.
== END | disposition home or self-care (01) ==
LOC: WWCWWP 12:37
PROVIDERS: ATTEND Obstetrics & Gynecology
DX: Z53.9 Procedure and treatment not carried out, unspecified reason (principal)

== ENCOUNTER 2020-05-20 13:33 | Observation (INO) | payer MEDICARE ==
[2020-05-20 14:42] LABS: Basophils # (A) 0.1 k/uL (0-0.2); Basophils % (A) 1 %; Eosinophils # (A) 0.2 k/uL (0-0.7); Eosinophils % (A) 3 %; HCT 37.7 % (34.0-46.0); HGB 13.1 gm/dL (11.4-16.0); Lymphocytes # (A) 1.6 k/uL (1.0-4.8); Lymphocytes % (A) 24 %; MCHC 34.7 g/dL (31.0-37.0); MCV 89.2 fL (80.0-100.0); Mean Platelet Volume 6.8; Monocytes # (A) 0.4 k/uL (0-1.0); Monocytes % (A) 6 %; Neutrophils # (A) 4.2 k/uL (1.3-7.7); Neutrophils % (A) 65 %; Platelet Count 312 k/uL (150-450); RBC 4.23 m/uL (3.80-5.40); RDW 12.3 % (11.5-15.5); WBC 6.4 k/uL (3.8-10.6)
[2020-05-20 14:44] LABS: Albumin 4.3 g/dL (3.5-5.0); Calcium 9.8 mg/dL (8.4-10.2); Potassium 4.5 mmol/L (3.5-5.1); Total Bilirubin 0.7 mg/dL (0.2-1.3); Total Protein 7.6 g/dL (6.3-8.2)
[2020-05-20 14:50] LABS: Partial Thromboplastin Time 22.8 sec (22.0-30.0); Prothrombin Time 10.3 sec (9.0-12.0)
--- NOTE | 2020-05-20 15:13 | XR ---
EXAMINATION TYPE: XR chest 2V DATE OF EXAM: 05/20/2020 COMPARISON: 02/05/2019 HISTORY: 80-year-old female with pain and chest tightness TECHNIQUE: PA and lateral views FINDINGS: Heart normal size. Atherosclerotic arch calcifications. Slight increased retrosternal clear space sug gesting underlying emphysema. No consolidation or pleural effusion. Surgical clips projecting of the left breast. IMPRESSION: There may be underlying COPD. No acute process seen.
[2020-05-20] MEDS ORDERED: TEMAZEPAM 15 MG CAP PO PRN (17:52)
[2020-05-20] MEDS ORDERED: NALOXONE 0.4 MG/ML 1 ML VIAL IV PRN (17:52)
[2020-05-20] MEDS ORDERED: HYDROcodone/APAP 5-325MG 1 EACH TAB PO PRN (17:52)
[2020-05-20] MEDS ORDERED: MORPHINE SULFATE 4 MG/ML SYRINGE IV PRN (17:52)
[2020-05-20] MEDS ORDERED: MAG HYDROX/AL HYDROX/SIMETH 30 ML CUP PO PRN (17:52)
[2020-05-20] MEDS ORDERED: traMADol 50 MG TAB PO PRN (17:52)
[2020-05-20] MEDS ORDERED: ONDANSETRON 4 MG/2 ML VIAL IVP PRN (17:52)
--- NOTE | 2020-05-20 17:52 | ED ---
Chest Pain HPI - General Chief Complaint: Chest Pain Stated Complaint: Chest Pain Time Seen by Provider: 05/20/20 14:14 Source: patient Mode of arrival: wheelchair Limitations: no limitations - History of Present Illness Initial Comments: Patient complains of chest pain. Pain is in the middle of the chest. The pain doesn't radiate anywhere. Nothing really makes it better or worse. She has no nausea or vomiting or diaphoresis. She has no focal weakness. She has no light headedness. She has no dizziness. She has no swelling in the arms or legs. She has no palpitations. She has no headache. She wasn't doing anything when the pain began. She took no medicine for this. - Related Data Home Medications Medication Instructions Recorded Confirmed Ubidecarenone [Co Q-10] 100 mg PO QAM 04/06/15 05/20/20 Multivitamins, Thera [Multivitamin 1 tab PO QAM 01/02/16 05/20/20 (formulary)] Metoprolol Tartrate [Lopressor] 25 mg PO BID 08/16/17 05/20/20 Aspirin EC [Ecotrin Low Dose] 81 mg PO Q48H 10/06/17 05/20/20 Calcium Carbonate [Calcium] 600 mg PO DAILY 02/05/19 05/20/20 Letrozole 2.5 mg PO HS 02/27/19 05/20/20 amLODIPine [Norvasc] 5 mg PO DAILY 02/04/20 05/20/20 ALPRAZolam [Xanax] 0.25 mg PO DAILY PRN 05/20/20 05/20/20 Albuterol Sulfate [Ventolin HFA] 2 puff INHALATION RT-Q6H PRN 05/20/20 05/20/20 Aspirin EC [Ecotrin] 325 mg PO DAILY PRN 05/20/20 05/20/20 Azithromycin [Zithromax Z-pack (6 See Taper PO DIRECTED 05/20/20 05/20/20 tabs)] Fluticasone Nasal [place] [Flonase 1 spray EA NOSTRIL DAILY PRN 05/20/20 05/20/20 Nasal [place]] Isosorbide Mononitrate ER [Imdur] 30 mg PO DAILY 05/20/20 05/20/20 Magnesium Oxide 400 mg PO DAILY 05/20/20 05/20/20 Nitroglycerin Sl Tabs [Nitrostat] 0.4 mg PO Q5M PRN 05/20/20 05/20/20 lisinopriL 20 mg PO HS 05/20/20 05/20/20 Allergies Allergy/AdvReac Type Severity Reaction Status Date / Time cephalexin [From Keflex] Allergy Rash/Hives Verified 05/20/20 15:17 codeine Allergy Unknown Verified 05/20/20 15:17 iodine Allergy Rash/Hives Verified 05/20/20 15:17 shellfish derived Allergy Rash/Hives Verified 05/20/20 15:17 Sulfa (Sulfonamide Allergy Rash/Hives Verified 05/20/20 15:17 Antibiotics) sulfamethoxazole Allergy Rash/Hives Verified 05/20/20 15:17 [From Bactrim] trimethoprim [From Bactrim] Allergy Rash/Hives Verified 05/20/20 15:17 tree nut [Nut] AdvReac Mild Abdominal Verified 05/20/20 15:17 Pain cat dander AdvReac Wheezing Verified 05/20/20 15:17 dog dander AdvReac Wheezing Verified 05/20/20 15:17 egg AdvReac Nausea & Verified 05/20/20 15:17 Vomiting gluten AdvReac Nausea & Verified 05/20/20 15:17 Vomiting house dust mite AdvReac Wheezing Verified 05/20/20 15:17 Milk Containing Products AdvReac Nausea & Verified 05/20/20 15:17 [Dairy] Vomiting peanut AdvReac Nausea & Verified 05/20/20 15:17 Vomiting soy AdvReac Nausea & Verified 05/20/20 15:17 Vomiting Review of Systems ROS Statement: Those systems with pertinent positive or pertinent negative responses have been documented in the HPI. ROS Other: All systems not noted in ROS Statement are negative. EKG Findings - EKG Comments: EKG Findings:: Twelve-lead EKG shows normal ventricular rate, no ST elevation or depression, normal ND interval Joel complexes, interpreted by me as normal s inus rhythm. Past Medical History Past Medical History: Asthma, Coronary Artery Disease (CAD), Cancer, Chest Pain / Angina, Eye Disorder, GERD/Reflux, Hyperlipidemia, Hypertension, Sleep Apnea/CPAP/BIPAP Additional Past Medical History / Comment(s): DIVERTICULITS,SINUSITIS,LT EYE MAC DEGENERATION,SMALL HIATAL HERNIA,DDD,SPINAL STENOSIS,SLEEP APNEA USES A CPAP MACHINE, HAS NARROW ARTERY DISEASE. GLUTEN ALLERGY,LACTOSE INTOLERANCE AND EGGS CAUSE NAUSEA AND BLOATING BUT ABLE TO TAKE IMMUNIZATIONS. 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 History of Any Multi-Drug Resistant Organisms: None Reported Past Surgical History: Appendectomy, Bladder Surgery, Breast Surgery, Cholecystectomy, Heart Catheterization With Stent, Hernia Repair, Hysterectomy Additional Past Surgical History / Comment(s): Vaginal hysterectomy 1991. BLADDER SUSPENSION WITH MESH. JUANJOSE CATARACTS, CYST ON NECK REMOVED, EGD, VEIN STRIPPING, HEMORRHOIDECTOMY, NASAL SURGERY. Colonoscopy 2016. LT BREAST BIOPSY and lumpectomy 2018. bunionectomy left foot Past Anesthesia/Blood Transfusion Reactions: Motion Sickness Date of Last Stent Placement:: 2011 Past Psychological History: Anxiety Smoking Status: Never smoker Past Alcohol Use History: None Reported Past Drug Use History: None Reported - Past Family History Sister(s) Family Medical History: Cancer Additional Family Medical History / Comment(s): breast cancer Father Family Medical History: Cancer, Osteoarthritis (OA) Additional Family Medical History / Comment(s): LEUKEMIA. PaternalAunt had breast cancer Mother Family Medical History: Cancer Additional Family Medical History / Comment(s): BREAST CANCER, AND PT'S SISTER AND AUNT HAD BREAST CANCER WELL. General Exam Limitations: no limitations General appearance: alert, in no apparent distress Head exam: Present: atraumatic, normocephalic, normal inspection Eye exam: Present: normal appearance, PERRL, EOMI. Absent: scleral icterus, conjunctival injection, periorbital swelling ENT exam: Present: normal exam, mucous membranes moist Neck exam: Present: normal inspection. Absent: tenderness, meningismus, lymphadenopathy Respiratory exam: Present: normal lung sounds bilaterally. Absent: respiratory distress, wheezes, rales, rhonchi, stridor Cardiovascular Exam: Present: regular rate, normal rhythm, normal heart sounds. Absent: systolic murmur, diastolic murmur, rubs, gallop, clicks GI/Abdominal exam: Present: soft, normal bowel sounds. Absent: distended, tenderness, guarding, rebound, rigid Extremities exam: Present: normal inspection, full ROM, normal capillary refill. Absent: tenderness, pedal edema, joint swelling, calf tenderness Back exam: Present: normal inspection Neurological exam: Present: alert, oriented X3, CN II-XII intact Psychiatric exam: Present: normal affect, normal mood Skin exam: Present: warm, dry, intact, normal color. Absent: rash Course Vital Signs 05/20/20 05/20/20 05/20/20 13:39 15:16 16:36 Temperature 98.6 F Pulse Rate 81 71 78 Respiratory 16 18 18 Rate Blood Pressure 184/81 156/81 169/77 O2 Sat by Pulse 99 98 98 Oximetry Chest Pain MDM - MDM Patient presents with chest pain. She has a significant past medical history. She will be admitted to the hospital. Disposition Clinical Impression: Chest pain Disposition: ADMITTED IP TO THIS HOSP Condition: Fair Is patient prescribed a controlled substance at d/c from ED?: No Referrals: Ryan Pires DO [Primary Care Provider] - 1-2 days
[2020-05-20] MEDS ORDERED: ALBUTEROL NEBULIZED 2.5 MG/3 ML INHALATION PRN (17:55)
[2020-05-20] MEDS ORDERED: FLUTICASONE 50MCG/SPRAY NASAL 16GM EA NOSTRIL PRN (17:55)
[2020-05-20] MEDS ORDERED: ASPIRIN 325 MG TAB PO PRN (17:55)
[2020-05-20] MEDS ORDERED: ALPRAZolam 0.25 MG TAB PO PRN (17:55)
--- NOTE | 2020-05-20 18:02 | P.HPIM ---
History of Present Illness 71-year-old female came in with complaints of retrosternal chest pain and she is unable to characterize the pain unable to explain the severity of her chest pain either patient denied the chest pain radiates patient was also comparing of shortness of breath denied any orthopnea proximal nocturnal dyspnea patient denied any nausea vomiting diaphoresis patient does have history of coronary artery disease patient had a stent about 8 years ago and the patient had a cardiac catheterization 4 years ago which did not show any occlusive disease at that time. Patient denied any lightheadedness patient chest pain is not associated with the food nonpleuritic in nature. Patient took blood pressure medication after her chest pain without any significant adjustment lasted for few hours. Review of Systems REVIEW OF SYSTEMS: CONSTITUTIONAL: No fever, no malaise, no fatigue. HEENT: No recent visual problems or hearing problems. Denied any sore throat. CARDIOVASCULAR: No orthopnea, PND, no palpitations, no syncope. PULMONARY: no cough, no hemoptysis. GASTROINTESTINAL: No diarrhea, no nausea, no vomiting, no abdominal pain. NEUROLOGICAL: No headaches, no weakness, no numbness. HEMATOLOGICAL: Denies any bleeding or petechiae. GENITOURINARY: Denies any burning micturition, frequency, or urgency. MUSCULOSKELETAL/RHEUMATOLOGICAL: Denies any joint pain, swelling, or any muscle pain. ENDOCRINE: Denies any polyuria or polydipsia. The rest of the 14-point review of systems is negative. Past Medical History Past Medical History: Asthma, Coronary Artery Disease (CAD), Cancer, Chest Pain / Angina, Eye Disorder, GERD/Reflux, Hyperlipidemia, Hypertension, Sleep Apnea/CPAP/BIPAP Additional Past Medical History / Comment(s): DIVERTICULITS,SINUSITIS,LT EYE MAC DEGENERATION,SMALL HIATAL HERNIA,DDD,SPINAL STENOSIS,SLEEP APNEA USES A CPAP MACHINE, HAS NARROW ARTERY DISEASE. GLUTEN ALLERGY,LACTOSE INTOLERANCE AND EGGS CAUSE NAUSEA AND BLOATING BUT ABLE TO TAKE IMMUNIZATIONS. 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 History of Any Multi-Drug Resistant Organisms: None Reported Past Surgical History: Appendectomy, Bladder Surgery, Breast Surgery, Cholecystectomy, Heart Catheterization With Stent, Hernia Repair, Hysterectomy Additional Past Surgical History / Comment(s): Vaginal hysterectomy 1991. BLADDER SUSPENSION WITH MESH. JUANJOSE CATARACTS, CYST ON NECK REMOVED, EGD, VEIN STRIPPING, HEMORRHOIDECTOMY, NASAL SURGERY. Colonoscopy 2016. LT BREAST BIOPSY and lumpectomy 2018. bunionectomy left foot Past Anesthesia/Blood Transfusion Reactions: Motion Sickness Date of Last Stent Placement:: 2011 Past Psychological History: Anxiety Smoking Status: Never smoker Past Alcohol Use History: None Reported Past Drug Use History: None Reported - Past Family History Sister(s) Family Medical History: Cancer Additional Family Medical History / Comment(s): breast cancer Father Family Medical History: Cancer, Osteoarthritis (OA) Additional Family Medical History / Comment(s): LEUKEMIA. PaternalAunt had breast cancer Mother Family Medical History: Cancer Additional Family Medical History / Comment(s): BREAST CANCER, AND PT'S SISTER AND AUNT HAD BREAST CANCER WELL. Medications and Allergies Home Medications Medication Instructions Recorded Confirmed Type Ubidecarenone [Co Q-10] 100 mg PO QAM 04/06/15 05/20/20 History Multivitamins, Thera [Multivitamin 1 tab PO QAM 01/02/16 05/20/20 History (formulary)] Metoprolol Tartrate [Lopressor] 25 mg PO BID 08/16/17 05/20/20 History Aspirin EC [Ecotrin Low Dose] 81 mg PO Q48H 10/06/17 05/20/20 History Calcium Carbonate [Calcium] 600 mg PO DAILY 02/05/19 05/20/20 History Letrozole 2.5 mg PO HS 02/27/19 05/20/20 History amLODIPine [Norvasc] 5 mg PO DAILY 02/04/20 05/20/20 History ALPRAZolam [Xanax] 0.25 mg PO DAILY PRN 05/20/20 05/20/20 History Albuterol Sulfate [Ventolin HFA] 2 puff INHALATION RT-Q6H PRN 05/20/20 05/20/20 History Aspirin EC [Ecotrin] 325 mg PO DAILY PRN 05/20/20 05/20/20 History Azithromycin [Zithromax Z-pack (6 See Taper PO DIRECTED 05/20/20 05/20/20 History tabs)] Fluticasone Nasal [place] [Flonase 1 spray EA NOSTRIL DAILY PRN 05/20/20 05/20/20 History Nasal [place]] Isosorbide Mononitrate ER [Imdur] 30 mg PO DAILY 05/20/20 05/20/20 History Magnesium Oxide 400 mg PO DAILY 05/20/20 05/20/20 History Nitroglycerin Sl Tabs [Nitrostat] 0.4 mg PO Q5M PRN 05/20/20 05/20/20 History lisinopriL 20 mg PO HS 05/20/20 05/20/20 History Allergies Allergy/AdvReac Type Severity Reaction Status Date / Time cephalexin [From Keflex] Allergy Rash/Hives Verified 05/20/20 15:17 codeine Allergy Unknown Verified 05/20/20 15:17 iodine Allergy Rash/Hives Verified 05/20/20 15:17 shellfish derived Allergy Rash/Hives Verified 05/20/20 15:17 Sulfa (Sulfonamide Allergy Rash/Hives Verified 05/20/20 15:17 Antibiotics) sulfamethoxazole Allergy Rash/Hives Verified 05/20/20 15:17 [From Bactrim] trimethoprim [From Bactrim] Allergy Rash/Hives Verified 05/20/20 15:17 tree nut [Nut] AdvReac Mild Abdominal Verified 05/20/20 15:17 Pain cat dander AdvReac Wheezing Verified 05/20/20 15:17 dog dander AdvReac Wheezing Verified 05/20/20 15:17 egg AdvReac Nausea & Verified 05/20/20 15:17 Vomiting gluten AdvReac Nausea & Verified 05/20/20 15:17 Vomiting house dust mite AdvReac Wheezing Verified 05/20/20 15:17 Milk Containing Products AdvReac Nausea & Verified 05/20/20 15:17 [Dairy] Vomiting peanut AdvReac Nausea & Verified 05/20/20 15:17 Vomiting soy AdvReac Nausea & Verified 05/20/20 15:17 Vomiting Physical Exam Vitals: Vital Signs Temp Pulse Resp BP Pulse Ox 05/20/20 16:36 78 18 169/77 98 05/20/20 15:16 71 18 156/81 98 05/20/20 13:39 98.6 F 81 16 184/81 99 Intake and Output 05/20/20 05/20/20 05/20/20 06:59 14:59 22:59 Other: Weight 63.503 kg PHYSICAL EXAMINATION: GENERAL: The patient is alert and oriented x3, not in any acute distress. Well developed, well nourished. HEENT: Pupils are round and equally reacting to light. EOMI. No scleral icterus. No conjunctival pallor. Normocephalic, atraumatic. No pharyngeal erythema. No thyromegaly. CARDIOVASCULAR: S1 and S2 present. No murmurs, rubs, or gallops. PULMONARY: Chest is clear to auscultation, no wheezing or crackles. ABDOMEN: Soft, nontender, nondistended, normoactive bowel sounds. No palpable organomegaly. MUSCULOSKELETAL: No joint swelling or deformity. EXTREMITIES: No cyanosis, clubbing, or pedal edema. NEUROLOGICAL: Gross neurological examination did not reveal any focal deficits. SKIN: No rashes. Results CBC & Chem 7: 05/20/20 14:03 05/20/20 14:03 Labs: Abnormal Lab Results - Last 24 Hours (Table) 05/20/20 Range/Units 14:03 BUN 18 H (7-17) mg/dL Glucose 111 H (74-99) mg/dL Assessment and Plan Plan: 1 chest pain: We will rule out acute coronary syndromes, cardiology will evaluate the patient. EKG is not available in the MRI at EKG will be reviewed chest x-ray did not show any pneumonia -History of coronary artery disease stents in the past -History of COPD without any acute exacerbation -History of anxiety disorder -Gastroesophageal reflux disease -Hyperlipidemia -Hypertension -Sleep apnea
[2020-05-20] MEDS: lisinopriL 20 MG TAB PO SCH (21:13)
[2020-05-20] MEDS: METOPROLOL TARTRATE 25 MG TAB PO SCH (21:13)
[2020-05-20] MEDS: LETROZOLE 2.5 MG TAB PO SCH (21:14)
[2020-05-21] MEDS ORDERED: ASPIRIN 81 MG PO SCH (09:00)
[2020-05-21] MEDS: MAGNESIUM OXIDE 400 MG TAB PO SCH (09:43)
[2020-05-21] MEDS: ISOSORBIDE MONONITRATE ER 30 MG TAB.ER.24H PO SCH (09:43)
[2020-05-21] MEDS: amLODIPine 5 MG TAB PO SCH (09:43)
[2020-05-21] MEDS: CALCIUM CARBONATE 500 MG CHEWABLE PO SCH (09:43)
[2020-05-21] MEDS: METOPROLOL TARTRATE 25 MG TAB PO SCH ×2 (09:43→21:40)
[2020-05-21] MEDS ORDERED: HEPARIN SODIUM,PORCINE 5,000 UNIT/ML 1 ML VIAL IV ONE (14:51)
[2020-05-21] MEDS ORDERED: HEPARIN SODIUM,PORCINE 5,000 UNIT/ML 1 ML VIAL IV PRN (14:51)
--- NOTE | 2020-05-21 14:53 | P.CRDCN ---
History of Present Illness History of present illness: HISTORY OF PRESENTING ILLNESS This is a pleasant 80-year-old female past medical history significant for coronary artery disease status post PCI to the LAD, hypertension, dyslipide effie, mitral regurgitation and history of breast cancer status post lumpectomy. She follows in the office with Dr. Elias. We have been asked to see in consultation for chest pain. She states for the previous one week she has been experiencing shortness of breath and chest tightness. The symptoms happen at rest and with activity. She states at times that the simple is doing her dishes and she feels increasingly short of breath. The discomfort is more at rest. There is no radiation to the arm, back, neck or jaw. She denies nausea, vomiting, diaphoresis or palpitations. Her symptoms feels similar to how she felt in 2010 when she got her stent placed. She underwent cardiac catheterization first in 2010 revealing moderate disease in the LAD requiring PCI. She had a repeat catheterization in 2013 revealing a patent stent. Most recent echocardiogram obtained in 2018 revealed preserved LV systolic function with ejection fraction 55%, moderately dilated left atrium, mild to moderate mitral regurgitation. Most recent stress test performed in the office in 2018 was a Lexiscan stress test that was negative for stress-induced ischemia with hyperdynamic LV. DIAGNOSTICS EKG reveals left bundle branch block. Telemetry tracings indicate persistent sinus mechanism with no acute arrhythmia. Chest xray underlying COPD with no acute cardiopulmonary process. Laboratory reviewed, CBC unremarkable, sodium 139, potassium 4.5, creatinine 0.87, troponin negative 3, and T proBNP 259. Current cardiac medications include aspirin 81 mg every other day, amlodipine 5 mg daily, Lopressor 25 mg twice a day, lisinopril 20 mg daily and Imdur 30 mg daily. REVIEW OF SYSTEMS At the time of my exam: CONSTITUTIONAL: Denies fever or chills. CARDIOVASCULAR: Denies chest pain, shortness of breath, orthopnea, PND or palpitations. RESPIRATORY: Denies cough. GASTROINTESTINAL: Denies abdominal pain, diarrhea, constipation, nausea or vomiting. MUSCULOSKELETAL: Denies myalgias. NEUROLOGIC: Denies numbness, tingling, headacbe or weakness. ENDOCRINE: Denies fatigue, weight change, polydipsia or polyurina. GENITOURINARY: Denies burning, hematuria or urgency with micturation. HEMATOLOGIC: Denies history of anemia or bleeding. PHYSICAL EXAMINATION Blood pressure 140/69 heart rate 65 afebrile and maintaining oxygen saturation on room air. CONSTITUTIONAL: No apparent distress. HEENT: Head is normocephalic. Pupils are equal, round. Sclerae anicteric. Mucous membranes of the mouth are moist. No JVD. No carotid bruit. CHEST EXAMINATION: Lungs are clear to auscultation. No chest wall tenderness is noted on palpation or with deep breathing. HEART EXAMINATION: Regular rate and rhythm. S1, S2 heard. Systolic ejection murmur at the left sternal border, no gallops or rub. ABDOMEN: Soft, nontender. Positive bowel sounds. EXTREMITIES: 2+ peripheral pulses, no lower extremity edema and no calf te nderness. NEUROLOGIC EXAMINATION: Patient is awake, alert and oriented x3. ASSESSMENT Chest pain and shortness of breath Unstable angina History of coronary artery disease status post PCI of the LAD Hypertension Dyslipidemia Mitral regurgitation History of breast cancer status post lumpectomy PLAN An acute coronary event has been ruled out. Obtain 2-D echocardiogram and Doppler study to assess cardiac structure and function. Clinically the patient is euvolemic and not in acute heart failure. Recommend cardiac catheterization Saturday with Dr. Elias. Initiate low intensity heparin infusion. Add atorvastatin to her daily regimen and increase aspirin to daily dosing. Thank you kindly for this consultation. Nurse Practitioner note has been reviewed, I agree with a documented findings and plan of care. Patient was seen and examined. Past Medical History Past Medical History: Asthma, Coronary Artery Disease (CAD), Cancer, Chest Pain / Angina, Eye Disorder, GERD/Reflux, Hyperlipidemia, Hypertension, Sleep Apnea/CPAP/BIPAP Additional Past Medical History / Comment(s): DIVERTICULITS,SINUSITIS,LT EYE MAC DEGENERATION,SMALL HIATAL HERNIA,DDD,SPINAL STENOSIS,SLEEP APNEA USES A CPAP MACHINE, HAS NARROW ARTERY DISEASE. GLUTEN ALLERGY,LACTOSE INTOLERANCE AND EGGS CAUSE NAUSEA AND BLOATING BUT ABLE TO TAKE IMMUNIZATIONS. 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 History of Any Multi-Drug Resistant Organisms: None Reported Past Surgical History: Appendectomy, Bladder Surgery, Breast Surgery, Cholecystectomy, Heart Catheterization With Stent, Hernia Repair, Hysterectomy Additional Past Surgical History / Comment(s): Vaginal hysterectomy 1991. BLADDER SUSPENSION WITH MESH. JUANJOSE CATARACTS, CYST ON NECK REMOVED, EGD, VEIN STRIPPING, HEMORRHOIDECTOMY, NASAL SURGERY. Colonoscopy 2016. LT BREAST BIOPSY and lumpectomy 2018. bunionectomy left foot Past Anesthesia/Blood Transfusion Reactions: Motion Sickness Date of Last Stent Placement:: 2011 Past Psychological History: Anxiety Additional Psychological History / Comment(s): PT LIVES IN OWN HOME WITH HER FAMILY. 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 NO OUTSIDE SERVICES. Smoking Status: Never smoker Past Alcohol Use History: None Reported Past Drug Use History: None Reported - Past Family History Sister(s) Family Medical History: Cancer Additional Family Medical History / Comment(s): breast cancer Father Family Medical History: Cancer, Osteoarthritis (OA) Additional Family Medical History / Comment(s): LEUKEMIA. PaternalAunt had mignon ast cancer Mother Family Medical History: Cancer Additional Family Medical History / Comment(s): BREAST CANCER, AND PT'S SISTER AND AUNT HAD BREAST CANCER WELL. Medications and Allergies Home Medications Medication Instructions Recorded Confirmed Type Ubidecarenone [Co Q-10] 100 mg PO QAM 04/06/15 05/20/20 History Multivitamins, Thera [Multivitamin 1 tab PO QAM 01/02/16 05/20/20 History (formulary)] Metoprolol Tartrate [Lopressor] 25 mg PO BID 08/16/17 05/20/20 History Aspirin EC [Ecotrin Low Dose] 81 mg PO Q48H 10/06/17 05/20/20 History Calcium Carbonate [Calcium] 600 mg PO DAILY 02/05/19 05/20/20 History Letrozole 2.5 mg PO HS 02/27/19 05/20/20 History amLODIPine [Norvasc] 5 mg PO DAILY 02/04/20 05/20/20 History ALPRAZolam [Xanax] 0.25 mg PO DAILY PRN 05/20/20 05/20/20 History Albuterol Sulfate [Ventolin HFA] 2 puff INHALATION RT-Q6H PRN 05/20/20 05/20/20 History Aspirin EC [Ecotrin] 325 mg PO DAILY PRN 05/20/20 05/20/20 History Azithromycin [Zithromax Z-pack (6 See Taper PO DIRECTED 05/20/20 05/20/20 History tabs)] Fluticasone Nasal [place] [Flonase 1 spray EA NOSTRIL DAILY PRN 05/20/20 05/20/20 History Nasal [place]] Isosorbide Mononitrate ER [Imdur] 30 mg PO DAILY 05/20/20 05/20/20 History Magnesium Oxide 400 mg PO DAILY 05/20/20 05/20/20 History Nitroglycerin Sl Tabs [Nitrostat] 0.4 mg PO Q5M PRN 05/20/20 05/20/20 History lisinopriL 20 mg PO HS 05/20/20 05/20/20 History Allergies Allergy/AdvReac Type Severity Reaction Status Date / Time cephalexin [From Keflex] Allergy Rash/Hives Verified 05/20/20 15:17 codeine Allergy Unknown Verified 05/20/20 15:17 iodine Allergy Rash/Hives Verified 05/20/20 15:17 shellfish derived Allergy Rash/Hives Verified 05/20/20 15:17 Sulfa (Sulfonamide Allergy Rash/Hives Verified 05/20/20 15:17 Antibiotics) sulfamethoxazole Allergy Rash/Hives Verified 05/20/20 15:17 [From Bactrim] trimethoprim [From Bactrim] Allergy Rash/Hives Verified 05/20/20 15:17 tree nut [Nut] AdvReac Mild Abdominal Verified 05/20/20 15:17 Pain cat dander AdvReac Wheezing Verified 05/20/20 15:17 dog dander AdvReac Wheezing Verified 05/20/20 15:17 egg AdvReac Nausea & Verified 05/20/20 15:17 Vomiting gluten AdvReac Nausea & Verified 05/20/20 15:17 Vomiting house dust mite AdvReac Wheezing Verified 05/20/20 15:17 Milk Containing Products AdvReac Nausea & Verified 05/20/20 15:17 [Dairy] Vomiting peanut AdvReac Nausea & Verified 05/20/20 15:17 Vomiting soy AdvReac Nausea & Verified 05/20/20 15:17 Vomiting Physical Exam Vitals: Vital Signs Temp Pulse Pulse Resp BP BP Pulse Ox 05/21/20 09:00 98.1 F 65 16 140/69 97 05/21/20 07:35 60 05/21/20 07:26 54 L 05/21/20 03:35 98.1 F 56 L 138/72 97 05/20/20 23:23 98.2 F 61 162/74 96 05/20/20 22:45 67 17 146/85 97 05/20/20 21:29 98.1 F 83 16 158/74 99 05/20/20 19:55 16 05/20/20 19:13 71 18 153/76 98 05/20/20 16:36 78 18 169/77 98 05/20/20 15:16 71 18 156/81 98 05/20/20 13:39 98.6 F 81 16 184/81 99 Intake and Output 05/20/20 05/21/20 05/21/20 22:59 06:59 14:59 Intake Total 50 Balance 50 Intake: Oral 50 Other: Voiding Method Toilet Toilet Weight 63.503 kg Results 05/20/20 14:03 05/20/20 14:03 Cardiac Enzymes 05/20/20 05/20/20 05/20/20 Range/Units 14:03 14:03 18:19 AST 27 (14-36) U/L Troponin I <0.012 <0.012 (0.000-0.034) ng/mL 05/20/20 Range/Units 21:26 AST (14-36) U/L Troponin I <0.012 (0.000-0.034) ng/mL Coagulation 05/20/20 Range/Units 14:03 PT 10.3 (9.0-12.0) sec APTT 22.8 (22.0-30.0) sec CBC 05/20/20 Range/Units 14:03 WBC 6.4 (3.8-10.6) k/uL RBC 4.23 (3.80-5.40) m/uL Hgb 13.1 (11.4-16.0) gm/dL Hct 37.7 (34.0-46.0) % Plt Count 312 (150-450) k/uL Comprehensive Metabolic Panel 05/20/20 Range/Units 14:03 Sodium 139 (137-145) mmol/L Potassium 4.5 (3.5-5.1) mmol/L Chloride 106 (98-107) mmol/L Carbon Dioxide 24 (22-30) mmol/L BUN 18 H (7-17) mg/dL Creatinine 0.87 (0.52-1.04) mg/dL Glucose 111 H (74-99) mg/dL Calcium 9.8 (8.4-10.2) mg/dL AST 27 (14-36) U/L ALT 21 (4-34) U/L Alkaline Phosphatase 78 (38-126) U/L Total Protein 7.6 (6.3-8.2) g/dL Albumin 4.3 (3.5-5.0) g/dL Current Medications Generic Name Dose Route Start Last Admin Trade Name Freq PRN Reason Stop Dose Admin Hydrocodone Bitart/Acetaminophen 1 each 05/20/20 17:52 Hydrocodone/Apap 5-325mg 1 Each Tab PO Q4HR PRN Moderate Pain Al Hydroxide/Mg Hydroxide 15 ml 05/20/20 17:52 05/20/20 19:17 Mag Hydrox/Al Hydrox/Simeth 30 Ml Cup PO 15 ml Q6HR PRN Administration Indigestion Albuterol Sulfate 2.5 mg 05/20/20 17:55 05/21/20 07:25 Albuterol Nebulized 2.5 Mg/3 Ml INHALATION 2.5 mg RT-Q6H PRN Administration Shortness Of Breath Alprazolam 0.25 mg 05/20/20 17:55 05/20/20 23:20 Alprazolam 0.25 Mg Tab PO 0.25 mg DAILY PRN Administration Anxiety Amlodipine Besylate 5 mg 05/21/20 09:00 05/21/20 09:43 Amlodipine 5 Mg Tab PO 5 mg DAILY TANIKA Administration Aspirin 81 mg 05/21/20 09:00 05/21/20 09:43 Aspirin 81 Mg PO 81 mg Q48H TANIKA Administration Aspirin 325 mg 05/20/20 17:55 Aspirin 325 Mg Tab PO DAILY PRN Mild Pain Calcium Carbonate/Glycine 500 mg 05/21/20 09:00 05/21/20 09:43 Calcium Carbonate 500 Mg Chewable PO 500 mg DAILY TANIKA Administration Fluticasone Propionate 1 spray 05/20/20 17:55 Fluticasone 50mcg/[place] Nasal 16gm EA NOSTRIL DAILY PRN Allergy Symptoms Isosorbide Mononitrate 30 mg 05/21/20 09:00 05/21/20 09:43 Isosorbide Mononitrate Er 30 Mg Tab.Er.24h PO 30 mg DAILY TANIKA Administration Letrozole 2.5 mg 05/20/20 21:00 05/20/20 21:14 Letrozole 2.5 Mg Tab PO 2.5 mg HS TANIKA Administration Lisinopril 20 mg 05/20/20 21:00 05/20/20 21:13 Lisinopril 20 Mg Tab PO 20 mg HS TANIKA Administration Magnesium Oxide 400 mg 05/21/20 09:00 05/21/20 09:43 Magnesium Oxide 400 Mg Tab PO 400 mg DAILY TANIKA Administration Metoprolol Tartrate 25 mg 05/20/20 21:00 05/21/20 09:43 Metoprolol Tartrate 25 Mg Tab PO 25 mg BID TANIKA Administration Naloxone HCl 0.2 mg 05/20/20 17:52 Naloxone 0.4 Mg/Ml 1 Ml Vial IV Q2M PRN Opioid Reversal Ondansetron HCl 4 mg 05/20/20 17:52 Ondansetron 4 Mg/2 Ml Vial IVP Q8HR PRN Nausea And Vomiting Temazepam 15 mg 05/20/20 17:52 Temazepam 15 Mg Cap PO HS PRN Insomnia Tramadol HCl 50 mg 05/20/20 17:52 Tramadol 50 Mg Tab PO Q6H PRN Moderate Pain Intake and Output 05/20/20 05/21/20 05/21/20 22:59 06:59 14:59 Intake Total 50 Balance 50 Intake: Oral 50 Other: Voiding Method Toilet Toilet Weight 63.503 kg 05/20/20 14:03 05/20/20 14:03
--- NOTE | 2020-05-21 15:33 | P.PN ---
Subjective Patient given a chest pain still having some shortness of breath exertional. Patient's troponins were negative cardiology evaluated the patient and they're recommending cardiac catheterization on Saturday. Constitutional: Denied any fatigue denied any fever. Cardio vascular: denied any chest pain, palpitations Gastrointestinal denied any nausea vomiting Pulmonary: Was still complaining of exertional shortness of breath Neurologic denied any new focal deficits All inpatient medications were reviewed and appropriate changes in these medications as dictated in the interval history and assessment and plan. Objective - Vital Signs Vital signs: Vital Signs Temp 98.1 F 05/21/20 09:00 Pulse 65 05/21/20 09:00 Resp 16 05/21/20 09:00 BP 140/69 05/21/20 09:00 Pulse Ox 97 05/21/20 09:00 Intake & Output 05/20/20 05/21/20 05/21/20 18:59 06:59 18:59 Intake Total 50 Balance 50 Weight 63.503 kg 63.503 kg Intake: Oral 50 Other: Voiding Method Toilet Toilet - Exam PHYSICAL EXAMINATION: GENERAL: The patient is alert and oriented x3, not in any acute distress. Well developed, well nourished. HEENT: Pupils are round and equally reacting to light. EOMI. No scleral icterus. No conjunctival pallor. Normocephalic, atraumatic. No pharyngeal erythema. No thyromegaly. CARDIOVASCULAR: S1 and S2 present. No murmurs, rubs, or gallops. PULMONARY: Chest is clear to auscultation, no wheezing or crackles. ABDOMEN: Soft, nontender, nondistended, normoactive bowel sounds. No palpable organomegaly. MUSCULOSKELETAL: No joint swelling or deformity. EXTREMITIES: No cyanosis, clubbing, or pedal edema. NEUROLOGICAL: Gross neurological examination did not reveal any focal deficits. SKIN: No rashes. - Labs CBC & Chem 7: 05/20/20 14:03 05/20/20 14:03 Assessment and Plan Plan: 1 chest pain: Rule out acute coronary syndromes patient is a having continued exertional shortness of breath because of which daily analgesia recommending cardiac catheterization on Saturday -History of coronary artery disease stents in the past -History of COPD without any acute exacerbation -History of anxiety disorder -Gastroesophageal reflux disease -Hyperlipidemia -Hypertension -Sleep apnea
[2020-05-21 15:59] LABS: Prothrombin Time 10.7 sec (9.0-12.0)
--- NOTE | 2020-05-21 16:33 | ECHOF ---
Referral Reason:cp, sob MEASUREMENTS -------- HEIGHT: 160.0 cm WEIGHT: 63.5 kg BP: 140/69 RVIDd: 3.0 cm (< 3.3) IVSd: 1.1 cm (0.6 - 1.1) LVIDd: 4.5 cm (3.9 - 5.3) LVPWd: 1.0 cm (0.6 - 1.1) IVSs: 1.6 cm LVIDs: 3.0 cm LVPWs: 1.6 cm LA Diam: 3.2 cm (2.7 - 3.8) LAESV Index (A-L): 27.34 ml/m Ao Diam: 3.1 cm (2.0 - 3.7) AV Cusp: 2.0 cm (1.5 - 2.6) MV EXCURSION: 10.933 mm (> 18.000) MV EF SLOPE: 47 mm/s (70 - 150) EPSS: 0.9 cm MV E Amauri: 0.87 m/s MV DecT: 246 ms MV A Amauri: 0.95 m/s MV E/A Ratio: 0.91 RAP: 5.00 mmHg RVSP: 29.38 mmHg FINDINGS -------- Resting bradycardia (HR<60bpm). This was a technically adequate study. The left ventricular size is normal. Left ventricular wall thickness is normal. Overall left vent ricular systolic function is low-normal with, an EF between 50 - 55 %. The right ventricle is normal in size. Normal LA size by volume 22+/-6 ml/m2. The right atrium is normal in size. There is mild aortic valve sclerosis. The mitral valve leaflets are mildly thickened. Mild mitral annular calcification present. Mild tricuspid regurgitation present. Right ventricular systolic pressure is normal at < 35 mmHg. The pulmonic valve was not well visualized. The aortic root size is normal. IVC Not well visulized. There is no pericardial effusion. CONCLUSIONS -------- 1. The left ventricular size is normal. 2. Left ventricular wall thickness is normal. 3. Overall left ventricular systolic function is low-normal with, an EF between 50 - 55 %. 4. There is mild aortic valve sclerosis. 5. The mitral valve leaflets are mildly thickened. 6. Mild mitral annular calcification present. 7. Mild tricuspid regurgitation present. 8. There is no pericardial effusion. LIFE CLAIMS EXAMINER: Anayeli Arango RDCS
[2020-05-21] MEDS: HEPARIN SOD,PORK IN 0.45% NACL 25,000 UNIT in 0.45% NACL 1 250ML.BAG IV SCH (17:24)
[2020-05-21] MEDS ORDERED: SENNOSIDES 8.6 MG TAB PO PRN (21:11)
[2020-05-21] MEDS: LETROZOLE 2.5 MG TAB PO SCH (21:40)
[2020-05-21] MEDS: ATORVASTATIN 40 MG TAB PO SCH (21:40)
[2020-05-21] MEDS: lisinopriL 20 MG TAB PO SCH (21:40)
[2020-05-22 09:53] LABS: Basophils # (A) 0.1 k/uL (0-0.2); Basophils % (A) 1 %; Eosinophils # (A) 0.5 k/uL (0-0.7); Eosinophils % (A) 7 %; HCT 38.4 % (34.0-46.0); HGB 13.4 gm/dL (11.4-16.0); Lymphocytes # (A) 2.5 k/uL (1.0-4.8); Lymphocytes % (A) 35 %; MCHC 34.8 g/dL (31.0-37.0); Mean Platelet Volume 6.6; Monocytes # (A) 0.5 k/uL (0-1.0); Monocytes % (A) 7 %; Neutrophils # (A) 3.4 k/uL (1.3-7.7); Neutrophils % (A) 48 %; Platelet Count 284 k/uL (150-450); RBC 4.32 m/uL (3.80-5.40); RDW 12.1 % (11.5-15.5); WBC 7.1 k/uL (3.8-10.6)
[2020-05-22] MEDS: amLODIPine 5 MG TAB PO SCH (10:19)
[2020-05-22] MEDS: METOPROLOL TARTRATE 25 MG TAB PO SCH ×2 (10:20→22:08)
[2020-05-22] MEDS: ISOSORBIDE MONONITRATE ER 30 MG TAB.ER.24H PO SCH (10:20)
[2020-05-22] MEDS: CALCIUM CARBONATE 500 MG CHEWABLE PO SCH (10:20)
[2020-05-22] MEDS: MAGNESIUM OXIDE 400 MG TAB PO SCH (10:20)
[2020-05-22] MEDS: ASPIRIN 81 MG PO SCH (10:20)
--- NOTE | 2020-05-22 14:28 | P.PN ---
Subjective Patient given a chest pain still having some shortness of breath exertional. Patient's troponins were negative cardiology evaluated the patient and they're recommending cardiac catheterization on Saturday. 05/22/2020 Patient was having episodes of chest pain last night. Constitutional: Denied any fatigue denied any fever. Cardio vascular: As mentioned in HPI Gastrointestinal denied any nausea vomiting Pulmonary: Was still complaining of exertional shortness of breath Neurologic denied any new focal deficits All inpatient medications were reviewed and appropriate changes in these medications as dictated in the interval history and assessment and plan. Objective - Vital Signs Vital signs: Vital Signs Temp 97.6 F 05/22/20 09:00 Pulse 69 05/22/20 09:00 Resp 16 05/22/20 09:00 BP 128/65 05/22/20 09:00 Pulse Ox 98 05/22/20 09:00 Intake & Output 05/21/20 05/22/20 05/22/20 18:59 06:59 18:59 Intake Total 53.975 Balance 53.975 Intake: Intake, IV Titration 53.975 Amount Heparin Sod,Pork in 0.45% 53.975 NaCl 25,000 unit In 0.45 % NaCl 1 250ml.bag @ 12 UNITS/KG/HR 7.62 mls/hr IV .Q24H [facility] Rx#: [id number] Other: Voiding Method Toilet Toilet Toilet # Voids 2 1 1 - Exam PHYSICAL EXAMINATION: GENERAL: The patient is alert and oriented x3, not in any acute distress. Well developed, well nourished. HEENT: Pupils are round and equally reacting to light. EOMI. No scleral icterus. No conjunctival pallor. Normocephalic, atraumatic. No pharyngeal erythema. No thyromegaly. CARDIOVASCULAR: S1 and S2 present. No murmurs, rubs, or gallops. PULMONARY: Chest is clear to auscultation, no wheezing or crackles. ABDOMEN: Soft, nontender, nondistended, normoactive bowel sounds. No palpable organomegaly. MUSCULOSKELETAL: No joint swelling or deformity. EXTREMITIES: No cyanosis, clubbing, or pedal edema. NEUROLOGICAL: Gross neurological examination did not reveal any focal deficits. SKIN: No rashes. - Labs CBC & Chem 7: 05/22/20 09:33 05/20/20 14:03 Labs: Abnormal Lab Results - Last 24 Hours (Table) 05/21/20 05/22/20 Range/Units 23:33 09:33 APTT 39.2 H 89.0 H (22.0-30.0) sec Assessment and Plan Plan: 1 chest pain: Rule out acute coronary syndromes patient is a having continued exertional shortness of breath because of which daily analgesia recommending cardiac catheterization on Saturday -History of coronary artery disease stents in the past -History of COPD without any acute exacerbation -History of anxiety disorder -Gastroesophageal reflux disease -Hyperlipidemia -Hypertension -Sleep apnea
--- NOTE | 2020-05-22 16:48 | P.PN ---
Subjective HISTORY OF PRESENTING ILLNESS This is a pleasant 80-year-old female past medical history significant for coronary artery disease status post PCI to the LAD, hypertension, dyslipidemia, mitral regurgitation and history of breast cancer status post lumpectomy. She follows in the office with Dr. Elias. We have been asked to see in consultation for chest pain. She states for the previous one week she has been experiencing shortness of breath and chest tightness. The symptoms happen at rest and with activity. She states at times that the simple is doing her dishes and she feels increasingly short of breath. The discomfort is more at rest. There is no radiation to the arm, back, neck or jaw. She denies nausea, vomiting, diaphoresis or palpitations. Her symptoms feels similar to how she felt in 2010 when she got her stent placed. She underwent cardiac catheterization first in 2010 revealing moderate disease in the LAD requiring PCI. She had a repeat catheterization in 2013 revealing a patent stent. Most recent echocardiogram obtained in 2018 revealed preserved LV systolic function with ejection fraction 55%, moderately dilated left atrium, mild to moderate mitral regurgitation. Most recent stress test performed in the office in 2018 was a Lexiscan stress test that was negative for stress-induced ischemia with hyperdynamic LV. 05/22/20 Patient seen and examined. Patient still has some chest discomfort when she g ets up to walk. No persistent chest pain at rest however. Denies any shortness breath. Patient remains on heparin drip for likely heart catheterization tomorrow. REVIEW OF SYSTEMS At the time of my exam: CONSTITUTIONAL: Denies fever or chills. CARDIOVASCULAR: Denies chest pain, shortness of breath, orthopnea, PND or palpitations. RESPIRATORY: Denies cough. GASTROINTESTINAL: Denies abdominal pain, diarrhea, constipation, nausea or vomiting. MUSCULOSKELETAL: Denies myalgias. NEUROLOGIC: Denies numbness, tingling, headacbe or weakness. ENDOCRINE: Denies fatigue, weight change, polydipsia or polyurina. GENITOURINARY: Denies burning, hematuria or urgency with micturation. HEMATOLOGIC: Denies history of anemia or bleeding. PHYSICAL EXAMINATION Blood pressure 128/65 heart rate 69 afebrile and maintaining oxygen saturation on room air. CONSTITUTIONAL: No apparent distress. HEENT: Head is normocephalic. Pupils are equal, round. Sclerae anicteric. Mucous membranes of the mouth are moist. No JVD. No carotid bruit. CHEST EXAMINATION: Lungs are clear to auscultation. No chest wall tenderness is noted on palpation or with deep breathing. HEART EXAMINATION: Regular rate and rhythm. S1, S2 heard. Systolic ejection murmur at the left sternal border, no gallops or rub. ABDOMEN: Soft, nontender. Positive bowel sounds. EXTREMITIES: 2+ peripheral pulses, no lower extremity edema and no calf tenderness. NEUROLOGIC EXAMINATION: Patient is awake, alert and oriented x3. ASSESSMENT Chest pain and shortness of breath Unstable angina History of coronary artery disease status post PCI of the LAD Hypertension Dyslipidemia Mitral regurgitation History of breast cancer status post lumpectomy PLAN Echocardiogram reviewed and shows ejection fraction 50-55%. Patient's chest pain appears similar to her prior PCI and concerning for unstable angina. Chest pain is worse with exertion. Therefore patient is agreeable to left heart catheterization to be performed tomorrow. Keep patient nothing by mouth after midnight. Continue aspirin, heparin drip. Objective - Vital Signs Vital signs: Vital Signs Temp 97.6 F 05/22/20 09:00 Pulse 69 05/22/20 09:00 Resp 16 05/22/20 09:00 BP 128/65 05/22/20 09:00 Pulse Ox 98 05/22/20 09:00 Intake & Output 05/21/20 05/22/20 05/22/20 18:59 06:59 18:59 Intake Total 53.975 124.164 Balance 53.975 124.164 Intake: Intake, IV Titration 53.975 124.164 Amount Heparin Sod,Pork in 0.45% 53.975 124.164 NaCl 25,000 unit In 0.45 % NaCl 1 250ml.bag @ 12 UNITS/KG/HR 7.62 mls/hr IV .Q24H [facility] Rx#: [id number] Other: Voiding Method Toilet Toilet Toilet # Voids 2 1 1 - Labs CBC & Chem 7: 05/22/20 09:33 05/20/20 14:03 Labs: Abnormal Lab Results - Last 24 Hours (Table) 05/21/20 05/22/20 Range/Units 23:33 09:33 APTT 39.2 H 89.0 H (22.0-30.0) sec
[2020-05-22] MEDS: HEPARIN SOD,PORK IN 0.45% NACL 25,000 UNIT in 0.45% NACL 1 250ML.BAG IV SCH (21:45)
[2020-05-22] MEDS: lisinopriL 20 MG TAB PO SCH (22:08)
[2020-05-22] MEDS: ATORVASTATIN 40 MG TAB PO SCH (22:08)
[2020-05-22] MEDS: LETROZOLE 2.5 MG TAB PO SCH (22:09)
[2020-05-23] MEDS ORDERED: ALPRAZolam 0.25 MG TAB PO PRN (01:47)
[2020-05-23] MEDS ORDERED: ATORVASTATIN 80 MG TAB PO STA (01:47)
[2020-05-23] MEDS ORDERED: NITROGLYCERIN SL TABS 0.4 MG TAB SUBLINGUAL PRN (01:47)
[2020-05-23] MEDS ORDERED: SODIUM CHLORIDE 0.9% 1,000 ML in EMPTY BAG 1 BAG IV ONE (01:47)
[2020-05-23] MEDS ORDERED: ASPIRIN 325 MG TAB PO STA (01:47)
[2020-05-23] MEDS ORDERED: ALPRAZolam 0.5 MG TAB PO PRN (01:47)
[2020-05-23 05:32] LABS: Basophils # (A) 0.1 k/uL (0-0.2); Basophils % (A) 1 %; Eosinophils # (A) 0.4 k/uL (0-0.7); Eosinophils % (A) 6 %; HCT 37.1 % (34.0-46.0); HGB 12.2 gm/dL (11.4-16.0); Lymphocytes # (A) 2.7 k/uL (1.0-4.8); Lymphocytes % (A) 38 %; MCH 29.8 pg (25.0-35.0); MCHC 32.9 g/dL (31.0-37.0); MCV 90.6 fL (80.0-100.0); Mean Platelet Volume 7.2; Monocytes # (A) 0.4 k/uL (0-1.0); Monocytes % (A) 6 %; Neutrophils # (A) 3.5 k/uL (1.3-7.7); Neutrophils % (A) 49 %; Platelet Count 285 k/uL (150-450); RDW 12.5 % (11.5-15.5); WBC 7.2 k/uL (3.8-10.6)
[2020-05-23 06:30] LABS: Glucose,Whole Blood 96 mg/dL (75-99)
[2020-05-23] MEDS: amLODIPine 5 MG TAB PO SCH (06:46)
[2020-05-23] MEDS: METOPROLOL TARTRATE 25 MG TAB PO SCH (06:46)
[2020-05-23] MEDS: MAGNESIUM OXIDE 400 MG TAB PO SCH (06:46)
[2020-05-23] MEDS: CALCIUM CARBONATE 500 MG CHEWABLE PO SCH (06:46)
[2020-05-23] MEDS: ISOSORBIDE MONONITRATE ER 30 MG TAB.ER.24H PO SCH (06:46)
[2020-05-23] MEDS: ASPIRIN 81 MG PO SCH (08:12)
[2020-05-23] MEDS ORDERED: MIDAZOLAM 2 MG/2 ML VIAL IVP ONE (08:46)
[2020-05-23] MEDS ORDERED: diphenhydrAMINE 50 MG/ML 1 ML VIAL IVP ONE (08:47)
[2020-05-23] MEDS ORDERED: LIDOCAINE 1% INJ 10MG/ML (20 ML MDV) SQ ONE (08:47)
[2020-05-23] MEDS: VERAPAMIL SYRINGE (5 MG/10 ML) INTRAARTER ONE ×2 (08:48→08:58)
[2020-05-23] MEDS ORDERED: IV FLUID CONTINUATION 1,000 ML IV ONE (08:52)
[2020-05-23] MEDS ORDERED: HEPARIN SODIUM 1,000 UN/ML (10ML VL) IV ONE (08:57)
[2020-05-23] MEDS ORDERED: IOPAMIDOL-370 125ML BTL INJ ONE (08:58)
[2020-05-23] MEDS ORDERED: RX INFO: IV CONTRAST WAS GIVEN 1 EACH MISC MISCELLANE PRN (09:05)
[2020-05-23] MEDS ORDERED: SODIUM CHLORIDE 0.9% 1,000 ML IV SCH (09:15)
[2020-05-23 09:25] VITALS: TEMP 98.1
--- NOTE | 2020-05-23 10:02 | CC ---
CARDIAC CATHETERIZATION REPORT DATE OF SERVICE: May 23, 2020. PERFORMING PHYSICIAN: Maninder Elias MD. PROCEDURE PERFORMED: Selective right and left coronary angiogram. INDICATION: This is a 80-year-old female patient with coronary artery disease and prior stenting of the LAD as well as hypertension and dyslipidemia who was admitted to the hospital with chest discomfort concerning for angina. She was seen by Dr. Vu who recommended proceeding with coronary angiogram. APPROACH: Right radial artery. COMPLICATION: None. LEVEL OF SEDATION: Moderate with a sedation length of 13 minutes. PROCEDURE DESCRIPTION: After obtaining an informed consent, the patient was brought to the cardiac laboratory geneticist. The right radial artery was cannulated using micropuncture technique, the micropuncture wire passed easily then I placed a 6-Kazakh sheath at the right radial artery. There were 2 mg of verapamil IA and 5000 units of heparin IV given. Selective right and left coronary angiogram performed with JR4 and JL3.5 catheters. The procedure was completed without any complication. SELECTIVE CORONARY ANGIOGRAM: 1. The RCA is a large caliber vessel and it is a dominant vessel. The RCA has mild disease in the midportion. Distally, it bifurcates into PDA and PLV branches, both appeared to have mild disease only. 2. The left main is angiographically normal. It bifurcates into LCX and LAD. 3. The LCX is a medium caliber vessel. It is a nondominant vessel. The LCX proximally gives rise into a very high takeoff first obtuse marginal branch which appeared to be angiographically normal. The circumflex distally gives rise into a second obtuse marginal branch which appeared to be angiographically normal as well. 4. The LAD: The proximal LAD is stented and the stent is patent. The mid LAD just by the takeoff of a large diagonal branch has a lesion appeared to be in the range of 60% to 70%. was most appreciated on the HEBREW cranial view. Otherwise, the proximal LAD gives rise into a first diagonal branch which appeared to be angiographically normal. CONCLUSION: 1. Mild disease involving the right coronary artery which is a dominant system. 2. Patent stent in the proximal LAD. Intermediate to severe disease involving the mid LAD just by the takeoff of a large diagonal branch. That was most appreciated in the HEBREW cranial view. 3. Mild disease involving the left circumflex coronary system. POSTPROCEDURE MANAGEMENT: 1. I would advise maximized medical treatment at this point of time. 2. Follow up with the patient. MMJUAN R / IJN: [id number] /
--- NOTE | 2020-05-23 10:08 | LTR ---
May 23, 2020 RE: Bozena Tellez Dear Dr. Pires: Ms. Bozena Tellez was admitted to [facility] with chest discomfort and underwent a heart catheterization and that revealed intermediate to severe disease involving the mid LAD which I would advise maximized medical treatment at this point of time given the location of the disease which is by the takeoff of a large diagonal branch. Thank you for allowing us to participate in her care and please do not hesitate to call if any question or concern. Sincerely, Maninder Elias MD MMELEL / IJN: [id number] /
[2020-05-23 10:51] VITALS: PULSE 54
[2020-05-23 12:30] VITALS: BP 94/55; RESP 18
--- NOTE | 2020-05-23 15:02 | P.DS ---
Providers Date of admission: 05/20/20 17:55 Attending physician: Chris Ryan Consults: 05/20/20 17:54 Consult Physician Routine Consulting Provider: Maninder Elias Consult Reason/Comments: chest pain Do you want consulting provider notified?: Yes Primary care physician: [facility] Course: Patient came in with chest pain still having some shortness of breath exertional. Patient's troponins were negative cardiology evaluated the patient and they're recommending cardiac catheterization on Saturday. 05/22/2020 Patient was having episodes of chest pain last night. 05/23/2020 Patient had a cardiac catheterization which showed mild disease in RCA and circumflex, patent stent in LAD but severe disease in mid LAD and audiology is recommending maximization of medical therapy and patient will be discharged after that. PHYSICAL EXAMINATION: GENERAL: The patient is alert and oriented x3, not in any acute distress. Well developed, well nourished. HEENT: Pupils are round and equally reacting to light. EOMI. No scleral icterus. No conjunctival pallor. Normocephalic, atraumatic. No pharyngeal erythema. No thyromegaly. CARDIOVASCULAR: S1 and S2 present. No murmurs, rubs, or gallops. PULMONARY: Chest is clear to auscultation, no wheezing or crackles. ABDOMEN: Soft, nontender, nondistended, normoactive bowel sounds. No palpable organomegaly. MUSCULOSKELETAL: No joint swelling or deformity. EXTREMITIES: No cyanosis, clubbing, or pedal edema. NEUROLOGICAL: Gross neurological examination did not reveal any focal deficits. SKIN: No rashes. Assessment and Plan Plan: 1 chest pain: Patient underwent cardiac catheterization and results of cardiac catheterization as mentioned above medical to be was recommended by cardiology -History of coronary artery disease stents in the past -History of COPD without any acute exacerbation -History of anxiety disorder -Gastroesophageal reflux disease -Hyperlipidemia -Hypertension -Sleep apnea Patient Condition at Discharge: Fair Plan - Discharge Summary New Discharge Prescriptions: New Isosorbide Mononitrate ER [Imdur] 60 mg PO DAILY #90 tab.er.24h Continue Ubidecarenone [Co Q-10] 100 mg PO QAM Multivitamins, Thera [Multivitamin (formulary)] 1 tab PO QAM Metoprolol Tartrate [Lopressor] 25 mg PO BID Aspirin EC [Ecotrin Low Dose] 81 mg PO Q48H Calcium Carbonate [Calcium] 600 mg PO DAILY Letrozole 2.5 mg PO HS Fluticasone Nasal [place] [Flonase Nasal [place]] 1 spray EA NOSTRIL DAILY PRN PRN Reason: Allergy Symptoms Azithromycin [Zithromax Z-pack (6 tabs)] See Taper PO DIRECTED Nitroglycerin Sl Tabs [Nitrostat] 0.4 mg PO Q5M PRN PRN Reason: Chest Pain lisinopriL 20 mg PO HS Magnesium Oxide 400 mg PO DAILY Aspirin EC [Ecotrin] 325 mg PO DAILY PRN PRN Reason: Pain ALPRAZolam [Xanax] 0.25 mg PO DAILY PRN PRN Reason: Anxiety Albuterol Sulfate [Ventolin HFA] 2 puff INHALATION RT-Q6H PRN PRN Reason: Shortness Of Breath Discontinued amLODIPine [Norvasc] 5 mg PO DAILY Isosorbide Mononitrate ER [Imdur] 30 mg PO DAILY Discharge Medication List Ubidecarenone [Co Q-10] 100 mg PO QAM 04/06/15 [History] Multivitamins, Thera [Multivitamin (formulary)] 1 tab PO QAM 01/02/16 [History] Metoprolol Tartrate [Lopressor] 25 mg PO BID 08/16/17 [History] Aspirin EC [Ecotrin Low Dose] 81 mg PO Q48H 10/06/17 [History] Calcium Carbonate [Calcium] 600 mg PO DAILY 02/05/19 [History] Letrozole 2.5 mg PO HS 02/27/19 [History] ALPRAZolam [Xanax] 0.25 mg PO DAILY PRN 05/20/20 [History] Albuterol Sulfate [Ventolin HFA] 2 puff INHALATION RT-Q6H PRN 05/20/20 [History] Aspirin EC [Ecotrin] 325 mg PO DAILY PRN 05/20/20 [History] Azithromycin [Zithromax Z-pack (6 tabs)] See Taper PO DIRECTED 05/20/20 [History] Fluticasone Nasal [place] [Flonase Nasal [place]] 1 spray EA NOSTRIL DAILY PRN 05/20/20 [History] Magnesium Oxide 400 mg PO DAILY 05/20/20 [History] Nitroglycerin Sl Tabs [Nitrostat] 0.4 mg PO Q5M PRN 05/20/20 [History] lisinopriL 20 mg PO HS 05/20/20 [History] Isosorbide Mononitrate ER [Imdur] 60 mg PO DAILY #90 tab.er.24h 05/23/20 [Rx] Follow up Appointment(s)/Referral(s): Maninder Elias MD [STAFF PHYSICIAN] - 05/30/20 9:45 am (will see ALFREDA Michaud) Ryan Pires DO [Primary Care Provider] - 05/27/20 10:00 am (to be seen by Johanna GANT at [facility]) Patient Instructions/Handouts: Coronary Artery Disease (GEN), Heart Catheterization (DC) Discharge Disposition: HOME SELF-CARE
[2020-05-24] MEDS ORDERED: HEPARIN SODIUM,PORCINE 10,000 UNIT in SODIUM CHLORIDE 0.9% 1,000 ML IRRIGATION PRN (07:00)
[2020-05-24] MEDS ORDERED: HEPARIN SODIUM,PORCINE 2,500 UNIT in SODIUM CHLORIDE 0.9% 250 ML IRRIGATION PRN (07:00)
[2020-05-24] MEDS ORDERED: ISOSORBIDE MONONITRATE ER 60 MG TAB.ER.24H PO SCH (09:00)
== END 2020-05-23 15:00 | disposition home or self-care (01) ==
LOC: EC 13:33 → 1SOBS 17:55
PROVIDERS: ADMIT Internal Medicine; ATTEND Internal Medicine
DX: I25.110 Atherosclerotic heart disease of native coronary artery with unstable angina pectoris (principal); R07.89 Other chest pain; R06.02 Shortness of breath; J44.9 Chronic obstructive pulmonary disease, unspecified; F41.9 Anxiety disorder, unspecified; K21.9 Gastro-esophageal reflux disease without esophagitis; E78.5 Hyperlipidemia, unspecified; I10 Essential (primary) hypertension; G47.30 Sleep apnea, unspecified; C50.912 Malignant neoplasm of unspecified site of left female breast; H35.30 Unspecified macular degeneration; K57.90 Diverticulosis of intestine, part unspecified, without perforation or abscess without bleeding; M51.9 Unspecified thoracic, thoracolumbar and lumbosacral intervertebral disc disorder; M48.00 Spinal stenosis, site unspecified; I77.1 Stricture of artery; E73.9 Lactose intolerance, unspecified; I34.0 Nonrheumatic mitral (valve) insufficiency; I44.7 Left bundle-branch block, unspecified; E78.00 Pure hypercholesterolemia, unspecified; Z79.899 Other long term (current) drug therapy; Z79.82 Long term (current) use of aspirin; Z79.811 Long term (current) use of aromatase inhibitors; Z88.1 Allergy status to other antibiotic agents; Z88.5 Allergy status to narcotic agent; Z91.048 Other nonmedicinal substance allergy status; Z91.013 Allergy to seafood; Z88.2 Allergy status to sulfonamides; Z91.018 Allergy to other foods; Z91.09 Other allergy status, other than to drugs and biological substances; Z91.012 Allergy to eggs; Z91.011 Allergy to milk products; Z91.010 Allergy to peanuts; Z99.89 Dependence on other enabling machines and devices; Z87.09 Personal history of other diseases of the respiratory system; Z87.19 Personal history of other diseases of the digestive system; Z90.49 Acquired absence of other specified parts of digestive tract; Z98.890 Other specified postprocedural states; Z95.5 Presence of coronary angioplasty implant and graft; Z90.710 Acquired absence of both cervix and uterus; Z98.41 Cataract extraction status, right eye; Z98.42 Cataract extraction status, left eye; Z87.898 Personal history of other specified conditions; Z80.3 Family history of malignant neoplasm of breast; Z80.6 Family history of leukemia; Z82.61 Family history of arthritis
CPT/HCPCS: 93005 ×2; 96365; 96366 ×3; 96376 ×2; 99285; 36415; 94640; 93306; 93454; 83880; 80053; 84484; 85025 ×3; 85610 ×2; 85730 ×4; 71046; G0378 ×4; C1769; C1894; J2250; J1200; J1644 ×4; J2001; Q9967

== ENCOUNTER → 2020-08-08 | Outpatient (CLI) | payer MEDICARE ==
--- NOTE | 2020-08-08 14:36 | BD ---
EXAMINATION TYPE: Axial Bone Density DATE OF EXAM: 08/08/2020 COMPARISON: 02/04/2018 CLINICAL HISTORY: 80-year-old female postmenopausal screening Height: 5 FT 2 IN Weight: 138 FRAX RISK QUESTIONS: Alcohol (3 or more units per day): NO Family History (Parent hip fracture): NO Glucocorticoids (More than 3mos): NO (Ex: prednisone, prednisolone, methylprednisolone, dexamethasone, and hydrocortisone). History of Fracture in Adulthood: NO Secondary Osteoporosis: 1. Type 1 Diabetes: NO 2. Hyperthyroidism: NO 3. Menopause before 45: NO 4. Malnutrition: NO 5. Chronic liver disease: NO Rheumatoid Arthritis: NO Current Tobacco Use: NO RISK FACTORS HISTORY OF: Surgery to Spine/Hip(right/left)/Wrist (right/left): NO Family History of Osteoporosis: NO Active: YES Diet low in dairy products/other sources of calcium: NO Postmenopausal woman: AGE 53 Take estrogen and/or progesterone medications: NO Lost more than 2 inches in height since high school: YES MEDICATIONS: Additional Medications: HORMONE NANDO,CALCIUM, LOPRESSOR, IMDUR, LISINOPRIL, XANAX, Additional History: EXAM MEASUREMENTS: Bone mineral densitometry was performed using the Clipmarks System. Bone mineral density as measured about the Lumbar spine is: ----- L1-L4(G/cm2): 1.129 T Score Values are as follows: ----- L2: -0.7 ----- L3: -0.8 ----- L4: 0.1 ----- L1-L4: -0.4 Bone mineral density has: DECREASED -5.7 % since study of: 2017 Bone mineral density about the R hip (g/cm2): 0.770 Bone mineral density about the L hip (g/cm2): 0.823 T Score values are as follows: -----R Neck: -1.9 -----L Neck: -1.5 -----R Total: -1.5 -----L Total: -0.8 Bone mineral density has: DECREASED -8.3 % since study of: 2017 IMPRESSION: Osteopenia (T Score between -2.5 and -1). There is slightly increased risk of fracture and the patient may be considered for treatment. Re-Screen 2-5 years. NOTE: T-SCORE=SD OF THE YOUNG ADULT MEAN.
== END | disposition home or self-care (01) ==
LOC: RADBDWWP 13:42
PROVIDERS: ATTEND Internal Medicine Hematology & Oncology
DX: M85.89 Other specified disorders of bone density and structure, multiple sites (principal); Z78.0 Asymptomatic menopausal state
CPT/HCPCS: 77080

== ENCOUNTER → 2020-08-18 | Outpatient (CLI) | payer MEDICARE ==
[2020-08-18 14:38] VITALS: BP 155/73; PULSE 60; RESP 16; TEMP 97.4
--- NOTE | 2020-08-18 14:43 | P.PN ---
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 She was seen by radiation oncology and she opted for no radiation therapy. She was also seen by medical oncology and is was on letrazole. The patient had a stage IA T1N0 M0 G1 ER /NJ positive and HER-2 negative tumor. She is not concerned about the letrazole causing any side effects at this time. She had genetic testing performed and this was negative for BRCA1 and BRCA2. [place] [address]. This revealed an area which shows suspicious calcifications and she was recommended to undergo stereotactic core biopsy of this area. This was performed on 03-13-19. Her pathology revealed fibroadenoma/fibroadenomatoid hyperplasia with calcifications and the background of fibrocystic changes. She underwent a bilateral mammogram on 9420. This was felt to be benign BIRADS 2 and bilateral mammogram in 1 year was recommended. She is not complaining of any lumps masses or nodules in either breast. She is not complaining of any nipple discharge or skin changes. She is currently on Letrazole secondary to hypertension which she was noted to have on Aromasin. [place] Dr[place]án[place] [id number]. His note is reviewed and at this time she appears to be stable from a medical oncology standpoint. She had a bone density study performed on 4521, she is following with medical oncology regarding this. Family history: 1. Mother: Breast cancer 70 years old, this recurred at approximately 74, and she as a result of treatment 2. Sister: Breast cancer at 55 of metastatic disease 3. Father: Leukemia 4. Maternal cousin: Breast cancer Hormonal history: Menarche: 13 Pregnancies: 5, 5 children, first born at 27, did not breast-feed Menopause: Hysterectomy in 4 days for fibroids control pills: Negative Hormones: Negative Past surgical history: 1. Hysterectomy 2. Appendectomy 3. Varicose veins left side 4. Laser varicose veins 5. Cholecystectomy 6. Hernia repair 7. Bladder sling 8. Hemorrhoids 9. Cardiac stents 10. Cataracts surgery 11. Nasal surgery 12. Bunion 13. left breast lumpectomy and sentinel node biopsy Medical history: 1. Hypertension 2. High cholesterol 3. CPAP/asthma/narrow airway Social history: Smoke: Negative Alcohol: Negative Drugs: Negative Review of systems: Constitutional: Negative HEENT: Cataracts surgery narrow airway and nasal surgery tinnitus decreased hearing Breasts: As per HPI, left breast cancer stage IA Cardiovascular: Cardiac stent Respiratory: CPAP GI: Colonoscopy 4 years ago benign polyp removed : Negative Musculoskeletal: Arthritis in her back Integument: Negative Neurologic: Right leg numbness/sciatica Psychiatric: Anxiety Endocrine: Negative Hematologic: Uses aspirin ALLERGY: stopped allergy shots Objective - Exam BMI 25.6 - Constitutional General appearance: Present: average body habitus, cooperative - EENT Eyes: Present: EOMI ENT: Present: hearing grossly normal - Neck Neck: Present: normal ROM - Respiratory Respiratory: bilateral: CTA - Cardiovascular Rhythm: regular Heart sounds: normal: S1, S2 - Gastrointestinal General gastrointestinal: Present: soft - Integumentary Integumentary: Present: normal turgor - Musculoskeletal Musculoskeletal: Present: gait normal - Psychiatric Psychiatric: Present: A&O x's 3, appropriate affect, intact judgment & insight - Additional findings Additional findings: Breast exam: BRA: 44C inspection: Bilateral grade 3 ptosis, right breast larger than left breast Palpation: Right breast: Multi-positional exam fibrocystic changes no dominant masses or no dules of concern Right axilla: No adenopathy of concern Left breast: Positional exam well-healed scar from prior surgery, fibrocystic changes, no dominant masses or nodules of concern Left axilla: No adenopathy of concern Assessment and Plan Assessment: Impression/Plan: 1. Patient status post left breast lumpectomy and sentinel node biopsy 2018 for stage IA left breast cancer no evidence of recurrent cancer 2. Patient is presently on letrazol, she had a recent bone then density performed which did reveal some osteopenia she is following with medical oncology with respect to this 3. Patient's last bilateral mammogram was 01-08-20 and repeat in one year recommended CC: Dr. Rizzo
== END ==
LOC: WWCWWP 14:15
PROVIDERS: ATTEND Surgery
DX: M85.80 Other specified disorders of bone density and structure, unspecified site (principal); Z98.890 Other specified postprocedural states; I10 Essential (primary) hypertension

== ENCOUNTER → 2021-01-11 | Outpatient (CLI) | payer MEDICARE ==
--- NOTE | 2021-01-11 15:03 | MM ---
Reason for exam: additional evaluation requested from prior study. Last mammogram was performed 1 year ago. History: Patient is postmenopausal and has history of breast cancer at age 78. Family history of breast cancer in sister at age 54 and breast cancer in mother at age 70. Benign MG stereo VAD BX RT of the right breast, March 13, 2019. Malignant MG pre op needle loc LT of the left breast, April 15, 2018. Lumpectomy of the left breast, April 15, 2018. Malignant US biopsy breast VAD LT of the left breast, March 10, 2018. Benign excisional biopsy of the left breast, 1989. Taking antineoplastic beginning at age 78. Physical Findings: Nurse did not find any significant physical abnormalities on exam. MG 3D Diag Mammo W/Cad JUANJOSE Bilateral CC and MLO view(s) were taken. Prior study comparison: January 08, 2020, bilateral MG 3d diag mammo w/cad JUANJOSE. February 10, 2019, right breast MG 3d diag mammo w/cad RT. The breast tissue is heterogeneously dense. This may lower the sensitivity of mammography. Stable benign calcifications. Stable post operative changes left breast. No significant new findings when compared with previous films. These results were verbally communicated with the patient and result sheet given to the patient on 01/11/21. ASSESSMENT: Benign, BI-RAD 2 RECOMMENDATION: Routine screening mammogram of both breasts in 1 year.
== END | disposition home or self-care (01) ==
LOC: RADMAMWWP 14:16
PROVIDERS: ATTEND Surgery
DX: Z08 Encounter for follow-up examination after completed treatment for malignant neoplasm (principal); Z85.3 Personal history of malignant neoplasm of breast
CPT/HCPCS: 77066; G0279; 77062

== ENCOUNTER → 2021-01-19 | Outpatient (CLI) | payer MEDICARE ==
[2021-01-19 14:04] VITALS: BP 126/67; PULSE 52; RESP 12; TEMP 97.7
--- NOTE | 2021-01-19 14:09 | P.PN ---
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 She was seen by radiation oncology and she opted for no radiation therapy. She was also seen by medical oncology and is on letrazole. The patient had a stage IA T1N0 M0 G1 ER /HI positive and HER-2 negative tumor. She is not concerned about the letrazole causing any side effects at this time. She had genetic testing performed and this was negative for BRCA1 and BRCA2. A right breast mammogram was performed on . This revealed an area which shows suspicious calcifications and she was recommended to undergo stereotactic core biopsy of this area. This was performed on 03-13-19. Her pathology revealed fibroadenoma/fibroadenomatoid hyperplasia with calcifications and the background of fibrocystic changes. She underwent a bilateral mammogram on 9820. This was felt to be benign BIRADS 2 and bilateral mammogram in 1 year was recommended. She is not complaining of any lumps masses or nodules in either breast. She is not complaining of any nipple discharge or skin changes. She is currently on Letrazole secondary to hypertension which she was noted to have on Aromasin. [place] was seen [place] Dr. [place]án[place] [id number]. His note was reviewed and at this time she appears to be stable from a medical oncology standpoint. She had a bone density study performed on 45, she is following with medical oncology regarding this area revealed osteopenia. He is going to discuss this with Dr. Fernández. She has another appointment with him in February 2021. Family history: 1. Mother: Breast cancer 70 years old, this recurred at approximately 74, and she as a result of treatment 2. Sister: Breast cancer at 55 of metastatic disease 3. Father: Leukemia 4. Maternal cousin: Breast cancer Hormonal history: Menarche: 13 Pregnancies: 5, 5 children, first born at 27, did not breast-feed Menopause: Hysterectomy in 4 days for fibroids control pills: Negative Hormones: Negative Past surgical history: 1. Hysterectomy 2. Appendectomy 3. Varicose veins left side 4. Laser varicose veins 5. Cholecystectomy 6. Hernia repair 7. Bladder sling 8. Hemorrhoids 9. Cardiac stents 10. Cataracts surgery 11. Nasal surgery 12. Bunion 13. left breast lumpectomy and sentinel node biopsy Medical history: 1. Hypertension 2. High cholesterol 3. CPAP/asthma/narrow airway Social history: Smoke: Negative Alcohol: Negative Drugs: Negative Review of systems: Constitutional: Negative HEENT: Cataracts surgery narrow airway and nasal surgery tinnitus decreased hearing Breasts: As per HPI, left breast cancer stage IA Cardiovascular: Cardiac stent Respiratory: CPAP GI: Colonoscopy 4 years ago benign polyp removed : Negative Musculoskeletal: Arthritis in her back Integument: Negative Neurologic: Right leg numbness/sciatica Psychiatric: Anxiety Endocrine: Negative Hematologic: Uses aspirin ALLERGY: stopped allergy shots Objective - Constitutional General appearance: Present: average body habitus - EENT Eyes: Present: EOMI ENT: Present: hearing grossly normal - Respiratory Respiratory: bilateral: CTA - Cardiovascular Heart sounds: normal: S1, S2 - Gastrointestinal General gastrointestinal: Present: soft - Integumentary Integumentary: Present: normal turgor - Musculoskeletal Musculoskeletal: Present: gait normal - Psychiatric Psychiatric: Present: A&O x's 3, appropriate affect, intact judgment & insight - Additional findings Additional findings: Breast exam: BRA: 44C inspection: grade 3 ptosis bilateral palpation: right breast: fibrocystic changes no dominate masses or nodules of concern right axilla: no adenopathy of concern left breast: fibrocystic changes, no dominate masses or nodules of concern left axilla: no adenopathy of concern Assessment and Plan Assessment: Impression: stage Ia left breast cancer 2018, no evidence of recurrence Plan: 1. continue letrazole 2. follow up here in 6 months 3. appointment with Dr. Fernández next week CC: Dr. Llanes
== END | disposition home or self-care (01) ==
LOC: WWCWWP 13:38
PROVIDERS: ATTEND Surgery
DX: Z53.9 Procedure and treatment not carried out, unspecified reason (principal)

== ENCOUNTER 2021-03-18 16:30 | Inpatient (IN) | payer MEDICARE ==
[2021-03-18 17:02] LABS: Basophils # (A) 0.1 k/uL (0-0.2); Basophils % (A) 1 %; Eosinophils # (A) 0.3 k/uL (0-0.7); Eosinophils % (A) 3 %; HCT 38.6 % (34.0-46.0); HGB 12.8 gm/dL (11.4-16.0); Lymphocytes # (A) 2.2 k/uL (1.0-4.8); Lymphocytes % (A) 27 %; MCH 30.3 pg (25.0-35.0); MCHC 33.1 g/dL (31.0-37.0); MCV 91.6 fL (80.0-100.0); Mean Platelet Volume 6.9; Monocytes # (A) 0.5 k/uL (0-1.0); Monocytes % (A) 6 %; Neutrophils # (A) 5.1 k/uL (1.3-7.7); Neutrophils % (A) 61 %; Platelet Count 312 k/uL (150-450); RBC 4.21 m/uL (3.80-5.40); RDW 12.4 % (11.5-15.5); WBC 8.4 k/uL (3.8-10.6)
--- NOTE | 2021-03-18 17:13 | ED ---
General Adult HPI - General Chief complaint: Chest Pain Stated complaint: Chest Pain Time Seen by Provider: 03/18/21 16:41 Source: patient, RN notes reviewed, old records reviewed Mode of arrival: ambulatory Limitations: no limitations - History of Present Illness Initial comments: 81-year-old female presenting for evaluation of chest pain. Patient has known coronary artery disease. She had followed with her professional poker player with planned on doing a heart catheterization in the next month or so. She has had persistent pain which is become more constant, central chest. It is not relieved by nitroglycerin. Her Imdur dose had been doubled without relief. She denies associated diaphoresis. Pain is constant and nonradiating. She is on Eliquis - Related Data Home Medications Medication Instructions Recorded Confirmed Letrozole 2.5 mg PO DAILY 02/27/19 03/18/21 ALPRAZolam [Xanax] 0.25 mg PO DAILY PRN 05/20/20 03/18/21 Nitroglycerin Sl Tabs [Nitrostat] 0.4 mg SL Q5M PRN 05/20/20 03/18/21 Isosorbide Mononitrate ER [Imdur] 120 mg PO DAILY 08/18/20 03/18/21 Apixaban [Eliquis] 5 mg PO BID 03/18/21 03/18/21 Metoprolol Tartrate [Lopressor] 50 mg PO BID 03/18/21 03/18/21 amLODIPine [Norvasc] 5 mg PO DAILY 03/18/21 03/18/21 Allergies Allergy/AdvReac Type Severity Reaction Status Date / Time cephalexin [From Keflex] Allergy Rash/Hives Verified 03/18/21 17:41 codeine Allergy Unknown Verified 03/18/21 17:41 iodine Allergy Rash/Hives Verified 03/18/21 17:41 shellfish derived Allergy Rash/Hives Verified 03/18/21 17:41 Sulfa (Sulfonamide Allergy Rash/Hives Verified 03/18/21 17:41 Antibiotics) sulfamethoxazole Allergy Rash/Hives Verified 03/18/21 17:41 [From Bactrim] trimethoprim [From Bactrim] Allergy Rash/Hives Verified 03/18/21 17:41 tree nut [Nut] AdvReac Mild Abdominal Verified 03/18/21 17:41 Pain cat dander AdvReac Wheezing Verified 03/18/21 17:41 dog dander AdvReac Wheezing Verified 03/18/21 17:41 egg AdvReac Nausea & Verified 03/18/21 17:41 Vomiting gluten AdvReac Nausea & Verified 03/18/21 17:41 Vomiting house dust mite AdvReac Wheezing Verified 03/18/21 17:41 Milk Containing Products AdvReac Nausea & Verified 03/18/21 17:41 [Dairy] Vomiting peanut AdvReac Nausea & Verified 03/18/21 17:41 Vomiting soy AdvReac Nausea & Verified 03/18/21 17:41 Vomiting Review of Systems ROS Statement: Those systems with pertinent positive or pertinent negative responses have been documented in the HPI. ROS Other: All systems not noted in ROS Statement are negative. Past Medical History Past Medical History: Asthma, Coronary Artery Disease (CAD), Cancer, Chest Pain / Angina, Eye Disorder, GERD/Reflux, Hyperlipidemia, Hypertension, Sleep Apnea/CPAP/BIPAP Additional Past Medical History / Comment(s): DIVERTICULITS,SINUSITIS,LT EYE MAC DEGENERATION,SMALL HIATAL HERNIA,DDD,SPINAL STENOSIS,SLEEP APNEA USES A CPAP MACHINE, HAS NARROW ARTERY DISEASE. GLUTEN ALLERGY,LACTOSE INTOLERANCE AND EGGS CAUSE NAUSEA AND BLOATING BUT ABLE TO TAKE IMMUNIZATIONS. 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 PAST [employer] HISTORY: She has no history of STDs. History of Any Multi-Drug Resistant Organisms: None Reported Past Surgical History: Appendectomy, Bladder Surgery, Breast Surgery, Chol ecystectomy, Heart Catheterization With Stent, Hernia Repair, Hysterectomy Additional Past Surgical History / Comment(s): Vaginal hysterectomy 1991. BLADDER SUSPENSION WITH MESH. JUANJOSE CATARACTS, CYST ON NECK REMOVED, EGD, VEIN STRIPPING, HEMORRHOIDECTOMY, NASAL SURGERY. Colonoscopy 2016. LT BREAST BIOPSY and lumpectomy 2018. bunionectomy left foot Past Anesthesia/Blood Transfusion Reactions: Motion Sickness Date of Last Stent Placement:: 2011 Past Psychological History: Anxiety Smoking Status: Never smoker Past Alcohol Use History: None Reported Past Drug Use History: None Reported - Past Family History Sister(s) Family Medical History: Cancer Additional Family Medical History / Comment(s): breast cancer Father Family Medical History: Cancer, Osteoarthritis (OA) Additional Family Medical History / Comment(s): LEUKEMIA. PaternalAunt had breast cancer Mother Family Medical History: Cancer Additional Family Medical History / Comment(s): BREAST CANCER, AND PT'S SISTER AND AUNT HAD BREAST CANCER WELL. General Exam Limitations: no limitations General appearance: alert, in no apparent distress Head exam: Present: atraumatic, normocephalic Eye exam: Present: normal appearance, PERRL ENT exam: Present: normal exam Neck exam: Present: normal inspection. Absent: tenderness, meningismus Respiratory exam: Present: normal lung sounds bilaterally. Absent: respiratory distress, wheezes Cardiovascular Exam: Present: regular rate, normal rhythm GI/Abdominal exam: Present: soft. Absent: distended, tenderness Extremities exam: Present: normal inspection, normal capillary refill. Absent: pedal edema Neurological exam: Present: alert, oriented X3, CN II-XII intact. Absent: motor sensory deficit Psychiatric exam: Present: normal affect, normal mood Course Vital Signs 03/18/21 03/18/21 16:33 17:20 Temperature 97.9 F Pulse Rate 87 68 Respiratory 19 18 Rate Blood Pressure 184/79 147/86 O2 Sat by Pulse 98 99 Oximetry EKG Findings - EKG Comments: EKG Findings:: EKG: Sinus rhythm with PAC, left axis, left bundle branch block, rate of 85, AK interval 202, QRS duration 150, QTC 499, history of left bundle Medical Decision Making - Medical Decision Making 81-year-old female with worsening chest pain. She has been recently evaluated by her professional poker player and was scheduled for heart catheterization. However her pain is worsened and become more persistent. Central chest pain nonradiating. Was some mild dyspnea. No vomiting. EKG showing a left bundle with history of left bundle branch block. Chest x-ray is clear. Normal CBC, normal CMP, negative initial troponin. Patient is anticoagulated and already took nitroglycerin and aspirin at home prior to arrival. She will be admitted to internal medicine with cardiology on consultation. Serial cardiac enzymes will be obtained. Case discussed with Asad smith for [facility] - Lab Data Result diagrams: 03/18/21 16:55 03/18/21 16:55 Lab Results 03/18/21 03/18/21 03/18/21 Range/Units 16:55 16:55 16:55 WBC 8.4 (3.8-10.6) k/uL RBC 4.21 (3.80-5.40) m/uL Hgb 12.8 (11.4-16.0) gm/dL Hct 38.6 (34.0-46.0) % MCV 91.6 (80.0-100.0) fL MCH 30.3 (25.0-35.0) pg MCHC 33.1 (31.0-37.0) g/dL RDW 12.4 (11.5-15.5) % Plt Count 312 (150-450) k/uL MPV 6.9 Neutrophils % 61 % Lymphocytes % 27 % Monocytes % 6 % Eosinophils % 3 % Basophils % 1 % Neutrophils # 5.1 (1.3-7.7) k/uL Lymphocytes # 2.2 (1.0-4.8) k/uL Monocytes # 0.5 (0-1.0) k/uL Eosinophils # 0.3 (0-0.7) k/uL Basophils # 0.1 (0-0.2) k/uL PT 10.1 (9.0-12.0) sec INR 0.9 (<1.2) APTT 25.4 (22.0-30.0) sec Sodium 139 (137-145) mmol/L Potassium 4.1 (3.5-5.1) mmol/L Chloride 105 (98-107) mmol/L Carbon Dioxide 25 (22-30) mmol/L Anion Gap 9 mmol/L BUN 20 H (7-17) mg/dL Creatinine 0.94 (0.52-1.04) mg/dL Est GFR (CKD-EPI)AfAm 66 (>60 ml/min/1.73 sqM) Est GFR (CKD-EPI)NonAf 58 (>60 ml/min/1.73 sqM) Glucose 120 H (74-99) mg/dL Calcium 9.9 (8.4-10.2) mg/dL Magnesium 2.2 (1.6-2.3) mg/dL Total Bilirubin 0.5 (0.2-1.3) mg/dL AST 28 (14-36) U/L ALT 20 (4-34) U/L Alkaline Phosphatase 90 (38-126) U/L Troponin I (0.000-0.034) ng/mL NT-Pro-B Natriuret Pep pg/mL Total Protein 7.9 (6.3-8.2) g/dL Albumin 4.5 (3.5-5.0) g/dL 03/18/21 03/18/21 Range/Units 16:55 16:55 WBC (3.8-10.6) k/uL RBC (3.80-5.40) m/uL Hgb (11.4-16.0) gm/dL Hct (34.0-46.0) % MCV (80.0-100.0) fL MCH (25.0-35.0) pg MCHC (31.0-37.0) g/dL RDW (11.5-15.5) % Plt Count (150-450) k/uL MPV Neutrophils % % Lymphocytes % % Monocytes % % Eosinophils % % Basophils % % Neutrophils # (1.3-7.7) k/uL Lymphocytes # (1.0-4.8) k/uL Monocytes # (0-1.0) k/uL Eosinophils # (0-0.7) k/uL Basophils # (0-0.2) k/uL PT (9.0-12.0) sec INR (<1.2) APTT (22.0-30.0) sec Sodium (137-145) mmol/L Potassium (3.5-5.1) mmol/L Chloride (98-107) mmol/L Carbon Dioxide (22-30) mmol/L Anion Gap mmol/L BUN (7-17) mg/dL Creatinine (0.52-1.04) mg/dL Est GFR (CKD-EPI)AfAm (>60 ml/min/1.73 sqM) Est GFR (CKD-EPI)NonAf (>60 ml/min/1.73 sqM) Glucose (74-99) mg/dL Calcium (8.4-10.2) mg/dL Magnesium (1.6-2.3) mg/dL Total Bilirubin (0.2-1.3) mg/dL AST (14-36) U/L ALT (4-34) U/L Alkaline Phosphatase (38-126) U/L Troponin I <0.012 (0.000-0.034) ng/mL NT-Pro-B Natriuret Pep 383 pg/mL Total Protein (6.3-8.2) g/dL Albumin (3.5-5.0) g/dL Disposition Clinical Impression: Chest pain Disposition: ADMITTED IP TO THIS HOSP Condition: Stable Is patient prescribed a controlled substance at d/c from ED?: No Referrals: Ryan Pires DO [Primary Care Provider] - 1-2 days Decision to Admit Reason: Admit from EC Decision Date: 03/18/21 Decision Time: 18:15
[2021-03-18 17:15] LABS: Albumin 4.5 g/dL (3.5-5.0); Calcium 9.9 mg/dL (8.4-10.2); Magnesium 2.2 mg/dL (1.6-2.3); Potassium 4.1 mmol/L (3.5-5.1); Total Bilirubin 0.5 mg/dL (0.2-1.3); Total Protein 7.9 g/dL (6.3-8.2)
--- NOTE | 2021-03-18 17:39 | XR ---
EXAMINATION TYPE: XR chest 2V DATE OF EXAM: 03/18/2021 COMPARISON: 05/20/2020 HISTORY: Chest pain TECHNIQUE: Frontal and lateral views of the chest are obtained. FINDINGS: There is no focal air space opacity, pleural effusion, or pneumothorax seen. The cardiac silhouette size is within normal limits. The osseous structures are intact. IMPRESSION: No acute cardiopulmonary process.
[2021-03-18 17:53] LABS: INR 0.9 (<1.2); Partial Thromboplastin Time 25.4 sec (22.0-30.0); Prothrombin Time 10.1 sec (9.0-12.0)
[2021-03-18] MEDS ORDERED: HYDROmorphone 0.5 MG/0.5 ML SYRINGE IVP STA (17:56)
[2021-03-18] MEDS ORDERED: ACETAMINOPHEN TAB 325 MG TAB PO PRN (18:11)
[2021-03-18] MEDS ORDERED: NALOXONE 0.4 MG/ML 1 ML VIAL IV PRN (18:11)
[2021-03-18] MEDS ORDERED: HYDROmorphone 0.5 MG/0.5 ML SYRINGE IVP PRN (18:12)
[2021-03-18] MEDS ORDERED: ALPRAZolam 0.25 MG TAB PO PRN (18:13)
[2021-03-18] MEDS ORDERED: NITROGLYCERIN SL TABS 0.4 MG TAB SUBLINGUAL PRN (18:13)
[2021-03-18] MEDS: METOPROLOL TARTRATE 50 MG TAB PO SCH (22:14)
[2021-03-18] MEDS: APIXABAN 5 MG TAB PO SCH (22:14)
[2021-03-19] MEDS: amLODIPine 5 MG TAB PO SCH (09:07)
[2021-03-19] MEDS: METOPROLOL TARTRATE 50 MG TAB PO SCH ×2 (09:07→20:20)
[2021-03-19] MEDS: APIXABAN 5 MG TAB PO SCH (09:07)
[2021-03-19] MEDS ORDERED: ONDANSETRON 4 MG/2 ML VIAL IVP PRN (09:54)
[2021-03-19] MEDS ORDERED: ALPRAZolam 0.25 MG TAB PO PRN (10:01)
[2021-03-19] MEDS ORDERED: ALPRAZolam 0.5 MG TAB PO PRN (10:01)
[2021-03-19] MEDS ORDERED: ATORVASTATIN 80 MG TAB PO STA (10:01)
[2021-03-19] MEDS ORDERED: NITROGLYCERIN SL TABS 0.4 MG TAB SUBLINGUAL PRN (10:01)
[2021-03-19] MEDS ORDERED: ASPIRIN 325 MG TAB PO STA (10:01)
[2021-03-19] MEDS: PANTOPRAZOLE 40 MG/10 ML VIAL IVP SCH (10:13)
--- NOTE | 2021-03-19 14:30 | P.CRDCN ---
History of Present Illness Consult date: 03/19/21 History of present illness: HISTORY OF PRESENTING ILLNESS This is a pleasant 81-year-old female patient of Dr. Elias with past medical history of coronary artery disease status post PCI to the LAD, hypertension, dyslipidemia, mitral regurgitation and history of breast cancer status post lumpectomy. She underwent a heart catheterization in May 2020 that found a mild disease involving the right coronary artery which is a dominant system. Patent stent in the proximal LAD. Intermediate to severe disease involving the mid LAD by the takeoff of the large diagonal branch. Mild disease involving the left circumflex. Patient gives history that she has had chest pain that's been going on for more than 2 weeks. She had appointment with Dr. Elias 2 weeks ago and plan was to undergo heart catheterization in the next month. She states she only had a little chest pain at that time and pressure but it became more severe. She called the office and Imdur was doubled to 120 mg daily which helped her symptoms somewhat but unfortunately chest pain and pressure continued to worsen, increase with activity. EKG sinus rhythm with left bundle branch block Chest x-rayreveals no acute cardiopulmonary process. CBC unremarkable. Electrolytes normal. BUN 20 creatinine 0.94. Blood sugar 120. Troponins negative on 3 draws. Coronavirus PCR not detected. ProBNP 383. Echocardiogram 05/21/2020: EF 50-55%, mild aortic valve sclerosis, mild tricuspid regurgitation. REVIEW OF SYSTEMS At the time of my exam: CONSTITUTIONAL: Denies fever or chills. CARDIOVASCULAR: Reports chest pain, reports exertional dyspnea, reports shortness of breath, reports orthopnea, no PND no palpitations. RESPIRATORY: Denies cough. GASTROINTESTINAL: Denies abdominal pain, diarrhea, constipation, nausea or vomiting. MUSCULOSKELETAL: Denies myalgias. NEUROLOGIC: Denies numbness, tingling, headacbe or weakness. ENDOCRINE: Denies fatigue, weight change, polydipsia or polyurina. GENITOURINARY: Denies burning, hematuria or urgency with micturation. HEMATOLOGIC: Denies history of anemia or bleeding. PHYSICAL EXAMINATION Blood pressure 135/65, heart rate in the 50s, afebrile, pulse ox 98% on room air CONSTITUTIONAL: No apparent distress. HEENT: Head is normocephalic. Pupils are equal, round. Sclerae anicteric. Mucous membranes of the mouth are moist. No JVD. No carotid bruit. CHEST EXAMINATION: Lungs are clear to auscultation. No chest wall tenderness is noted on palpation or with deep breathing. HEART EXAMINATION: Regular rate and rhythm. S1, S2 heard. Systolic ejection murmur at the left sternal border, no gallops or rub. ABDOMEN: Soft, nontender. Positive bowel sounds. EXTREMITIES: 2+ peripheral pulses, no lower extremity edema and no calf tenderness. NEUROLOGIC EXAMINATION: Patient is awake, alert and oriented x3. ASSESSMENT Chest pain and shortness of breath with normal troponins Unstable angina History of coronary artery disease status post PCI of the LAD Hypertension Dyslipidemia Mitral regurgitation History of breast cancer status post lumpectomy PLAN An acute coronary event has been ruled out. No need to repeat echocardiogram. Recommend cardiac catheterization Saturday with Dr. Elias. Initiate low intensity heparin infusion and hold eliquis. Continue Lopressor 50 mg twice daily, amlodipine 5 mg daily, Imdur 120 mg daily. Thank you kindly for this consultation. Nurse Practitioner note has been reviewed, I agree with a documented findings and plan of care. Patient was seen and examined. Past Medical History Past Medical History: Asthma, Coronary Artery Disease (CAD), Cancer, Chest Pain / Angina, Eye Disorder, GERD/Reflux, Hyperlipidemia, Hypertension, Sleep Apnea/CPAP/BIPAP Additional Past Medical History / Comment(s): DIVERTICULITS,SINUSITIS,LT EYE MAC DEGENERATION,SMALL HIATAL HERNIA,DDD,SPINAL STENOSIS,SLEEP APNEA USES A CPAP MACHINE, HAS NARROW ARTERY DISEASE. GLUTEN ALLERGY,LACTOSE INTOLERANCE AND EGGS CAUSE NAUSEA AND BLOATING BUT ABLE TO TAKE IMMUNIZATIONS. 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 PAST [employer] HISTORY: She has no history of STDs. History of Any Multi-Drug Resistant Organisms: None Reported Past Surgical History: Appendectomy, Bladder Surgery, Breast Surgery, Cholecystectomy, Heart Catheterization With Stent, Hernia Repair, Hysterectomy Additional Past Surgical History / Comment(s): Vaginal hysterectomy 1991. BLADDER SUSPENSION WITH MESH. JUANJOSE CATARACTS, CYST ON NECK REMOVED, EGD, VEIN STRIPPING, HEMORRHOIDECTOMY, NASAL SURGERY. Colonoscopy 2016. LT BREAST BIOPSY and lumpectomy 2018. bunionectomy left foot Past Anesthesia/Blood Transfusion Reactions: Motion Sickness Date of Last Stent Placement:: 2011 Past Psychological History: Anxiety Additional Psychological History / Comment(s): PT LIVES IN OWN HOME WITH HER FAMILY. 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 NO OUTSIDE SERVICES. Smoking Status: Never smoker Past Alcohol Use History: None Reported Past Drug Use History: None Reported - Past Family History Sister(s) Family Medical History: Cancer Additional Family Medical History / Comment(s): breast cancer Father Family Medical History: Cancer, Osteoarthritis (OA) Additional Family Medical History / Comment(s): LEUKEMIA. PaternalAunt had br east cancer Mother Family Medical History: Cancer Additional Family Medical History / Comment(s): BREAST CANCER, AND PT'S SISTER AND AUNT HAD BREAST CANCER WELL. Medications and Allergies Home Medications Medication Instructions Recorded Confirmed Type Letrozole 2.5 mg PO DAILY 02/27/19 03/18/21 History ALPRAZolam [Xanax] 0.25 mg PO DAILY PRN 05/20/20 03/18/21 History Nitroglycerin Sl Tabs [Nitrostat] 0.4 mg SL Q5M PRN 05/20/20 03/18/21 History Isosorbide Mononitrate ER [Imdur] 120 mg PO DAILY 08/18/20 03/18/21 History Apixaban [Eliquis] 5 mg PO BID 03/18/21 03/18/21 History Metoprolol Tartrate [Lopressor] 50 mg PO BID 03/18/21 03/18/21 History amLODIPine [Norvasc] 5 mg PO DAILY 03/18/21 03/18/21 History Allergies Allergy/AdvReac Type Severity Reaction Status Date / Time cephalexin [From Keflex] Allergy Rash/Hives Verified 03/18/21 17:41 codeine Allergy Unknown Verified 03/18/21 17:41 iodine Allergy Rash/Hives Verified 03/18/21 17:41 shellfish derived Allergy Rash/Hives Verified 03/18/21 17:41 Sulfa (Sulfonamide Allergy Rash/Hives Verified 03/18/21 17:41 Antibiotics) sulfamethoxazole Allergy Rash/Hives Verified 03/18/21 17:41 [From Bactrim] trimethoprim [From Bactrim] Allergy Rash/Hives Verified 03/18/21 17:41 tree nut [Nut] AdvReac Mild Abdominal Verified 03/18/21 17:41 Pain cat dander AdvReac Wheezing Verified 03/18/21 17:41 dog dander AdvReac Wheezing Verified 03/18/21 17:41 egg AdvReac Nausea & Verified 03/18/21 17:41 Vomiting gluten AdvReac Nausea & Verified 03/18/21 17:41 Vomiting house dust mite AdvReac Wheezing Verified 03/18/21 17:41 Milk Containing Products AdvReac Nausea & Verified 03/18/21 17:41 [Dairy] Vomiting peanut AdvReac Nausea & Verified 03/18/21 17:41 Vomiting soy AdvReac Nausea & Verified 03/18/21 17:41 Vomiting Physical Exam Vitals: Vital Signs Temp Pulse Pulse Resp BP BP BP 03/19/21 07:00 97.5 F L 56 L 16 135/65 03/19/21 02:00 58 L 16 03/19/21 01:56 97.6 F 58 L 16 136/71 03/18/21 23:48 18 03/18/21 23:43 97.5 F L 58 L 16 160/72 03/18/21 23:10 97.4 F L 60 18 128/71 03/18/21 22:07 79 18 152/89 03/18/21 20:00 98.0 F 80 18 150/83 03/18/21 18:30 74 18 159/75 03/18/21 17:20 68 18 147/86 03/18/21 16:33 97.9 F 87 19 184/79 Pulse Ox 03/19/21 07:00 98 03/19/21 02:00 03/19/21 01:56 99 03/18/21 23:48 03/18/21 23:43 99 03/18/21 23:10 96 03/18/21 22:07 96 03/18/21 20:00 94 L 03/18/21 18:30 96 03/18/21 17:20 99 03/18/21 16:33 98 Intake and Output 03/18/21 03/19/21 03/19/21 22:59 06:59 14:59 Intake Total 0 Balance 0 Intake: Oral 0 Other: # Voids 2 Weight 56.699 kg 56.699 kg Results 03/18/21 16:55 03/18/21 16:55 Cardiac Enzymes 03/18/21 03/18/21 03/18/21 Range/Units 16:55 16:55 20:55 AST 28 (14-36) U/L Troponin I <0.012 <0.012 (0.000-0.034) ng/mL 03/19/21 Range/Units 00:30 AST (14-36) U/L Troponin I <0.012 (0.000-0.034) ng/mL Coagulation 03/18/21 Range/Units 16:55 PT 10.1 (9.0-12.0) sec APTT 25.4 (22.0-30.0) sec CBC 03/18/21 Range/Units 16:55 WBC 8.4 (3.8-10.6) k/uL RBC 4.21 (3.80-5.40) m/uL Hgb 12.8 (11.4-16.0) gm/dL Hct 38.6 (34.0-46.0) % Plt Count 312 (150-450) k/uL Comprehensive Metabolic Panel 03/18/21 Range/Units 16:55 Sodium 139 (137-145) mmol/L Potassium 4.1 (3.5-5.1) mmol/L Chloride 105 (98-107) mmol/L Carbon Dioxide 25 (22-30) mmol/L BUN 20 H (7-17) mg/dL Creatinine 0.94 (0.52-1.04) mg/dL Glucose 120 H (74-99) mg/dL Calcium 9.9 (8.4-10.2) mg/dL AST 28 (14-36) U/L ALT 20 (4-34) U/L Alkaline Phosphatase 90 (38-126) U/L Total Protein 7.9 (6.3-8.2) g/dL Albumin 4.5 (3.5-5.0) g/dL Current Medications Generic Name Dose Route Start Last Admin Trade Name Freq PRN Reason Stop Dose Admin Acetaminophen 650 mg 03/18/21 18:11 Acetaminophen Tab 325 Mg Tab PO Q6HR PRN Mild Pain or Fever > 100.5 Alprazolam 0.25 mg 03/18/21 18:13 Alprazolam 0.25 Mg Tab PO DAILY PRN Anxiety Amlodipine Besylate 5 mg 03/19/21 09:00 03/19/21 09:07 Amlodipine 5 Mg Tab PO 5 mg DAILY TANIKA Administration Apixaban 5 mg 03/18/21 21:00 03/19/21 09:07 Apixaban 5 Mg Tab PO 5 mg BID TANIKA Administration Protocol Hydromorphone HCl 0.5 mg 03/18/21 18:12 03/18/21 22:18 Hydromorphone 0.5 Mg/0.5 Ml Syringe IVP 0.5 mg Q3HR PRN Administration Pain Metoprolol Tartrate 50 mg 03/18/21 21:00 03/19/21 09:07 Metoprolol Tartrate 50 Mg Tab PO 50 mg BID TANIKA Administration Naloxone HCl 0.2 mg 03/18/21 18:11 Naloxone 0.4 Mg/Ml 1 Ml Vial IV Q2M PRN Opioid Reversal Nitroglycerin 0.4 mg 03/18/21 18:13 Nitroglycerin Sl Tabs 0.4 Mg Tab SUBLINGUAL Q5M PRN Chest Pain Intake and Output 03/18/21 03/19/21 03/19/21 22:59 06:59 14:59 Intake Total 0 Balance 0 Intake: Oral 0 Other: # Voids 2 Weight 56.699 kg 56.699 kg 03/18/21 16:55 03/18/21 16:55
[2021-03-19 17:21] LABS: Glucose,Whole Blood 97 mg/dL (75-99)
--- NOTE | 2021-03-19 17:51 | P.HPIM ---
History of Present Illness H&P Date: 03/19/21 Chief Complaint: Chest pain 81-year-old female with history of CAD, asthma, hypertension, hyperlipidemia, sleep apnea, presenting for evaluation of chest pain. Patient has known coronary artery disease. 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 She has had persistent pain which is become more constant, central chest. It is not relieved by nitroglycerin. Her Imdur dose had been doubled without relief. She denies associated diaphoresis. Pain is constant and nonradiating. She is on Eliquis She underwent a heart catheterization in May 2020 that found a mild disease involving the right coronary artery which is a dominant system. Patent stent in the proximal LAD. Intermediate to severe disease involving the mid LAD by the takeoff of the large diagonal branch. Mild disease involving the left circumflex. EKG Findings:: EKG: Sinus rhythm with PAC, left axis, left bundle branch block, rate of 85, FL interval 202, QRS duration 150, QTC 499, history of left bundle Chest x-ray is clear. Normal CBC, normal CMP, negative initial troponin. Patient is anticoagulated and already took nitroglycerin and aspirin at home prior to arrival. She will be admitted to internal medicine with cardiology on consultation. Serial cardiac enzymes will be obtained. Review of Systems REVIEW OF SYSTEMS: CONSTITUTIONAL: No fever, no malaise, no fatigue. HEENT: No recent visual problems or hearing problems. Denied any sore throat. CARDIOVASCULAR: Complaints of chest pain, orthopnea, PND, no palpitations, no syncope. PULMONARY: No shortness of breath, no cough, no hemoptysis. GASTROINTESTINAL: No diarrhea, no nausea, no vomiting, no abdominal pain. NEUROLOGICAL: No headaches, no weakness, no numbness. HEMATOLOGICAL: Denies any bleeding or petechiae. GENITOURINARY: Denies any burning micturition, frequency, or urgency. MUSCULOSKELETAL/RHEUMATOLOGICAL: Denies any joint pain, swelling, or any muscle pain. ENDOCRINE: Denies any polyuria or polydipsia. The rest of the 14-point review of systems is negative. Past Medical History Past Medical History: Asthma, Coronary Artery Disease (CAD), Cancer, Chest Pain / Angina, Eye Disorder, GERD/Reflux, Hyperlipidemia, Hypertension, Sleep Apnea/CPAP/BIPAP Additional Past Medical History / Comment(s): DIVERTICULITS,SINUSITIS,LT EYE MAC DEGENERATION,SMALL HIATAL HERNIA,DDD,SPINAL STENOSIS,SLEEP APNEA USES A CPAP MACHINE, HAS NARROW ARTERY DISEASE. GLUTEN ALLERGY,LACTOSE INTOLERANCE AND EGGS CAUSE NAUSEA AND BLOATING BUT ABLE TO TAKE IMMUNIZATIONS. 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 History of Any Multi-Drug Resistant Organisms: None Reported Past Surgical History: Appendectomy, Bladder Surgery, Breast Surgery, Cholecystectomy, Heart Catheterization With Stent, Hernia Repair, Hysterectomy Additional Past Surgical History / Comment(s): Vaginal hysterectomy 1991. BLADDER SUSPENSION WITH MESH. JUANJOSE CATARACTS, CYST ON NECK REMOVED, EGD, VEIN ST RIPPING, HEMORRHOIDECTOMY, NASAL SURGERY. Colonoscopy 2016. LT BREAST BIOPSY and lumpectomy 2018. bunionectomy left foot Past Anesthesia/Blood Transfusion Reactions: Motion Sickness Date of Last Stent Placement:: 2011 Past Psychological History: Anxiety Additional Psychological History / Comment(s): PT LIVES IN OWN HOME WITH HER FAMILY. 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 NO OUTSIDE SERVICES. Smoking Status: Never smoker Past Alcohol Use History: None Reported Past Drug Use History: None Reported - Past Family History Sister(s) Family Medical History: Cancer Additional Family Medical History / Comment(s): breast cancer Father Family Medical History: Cancer, Osteoarthritis (OA) Additional Family Medical History / Comment(s): LEUKEMIA. PaternalAunt had breast cancer Mother Family Medical History: Cancer Additional Family Medical History / Comment(s): BREAST CANCER, AND PT'S SISTER AND AUNT HAD BREAST CANCER WELL. Medications and Allergies Home Medications Medication Instructions Recorded Confirmed Type Letrozole 2.5 mg PO DAILY 02/27/19 03/18/21 History ALPRAZolam [Xanax] 0.25 mg PO DAILY PRN 05/20/20 03/18/21 History Nitroglycerin Sl Tabs [Nitrostat] 0.4 mg SL Q5M PRN 05/20/20 03/18/21 History Isosorbide Mononitrate ER [Imdur] 120 mg PO DAILY 08/18/20 03/18/21 History Apixaban [Eliquis] 5 mg PO BID 03/18/21 03/18/21 History Metoprolol Tartrate [Lopressor] 50 mg PO BID 03/18/21 03/18/21 History amLODIPine [Norvasc] 5 mg PO DAILY 03/18/21 03/18/21 History Allergies Allergy/AdvReac Type Severity Reaction Status Date / Time cephalexin [From Keflex] Allergy Rash/Hives Verified 03/18/21 17:41 codeine Allergy Unknown Verified 03/18/21 17:41 iodine Allergy Rash/Hives Verified 03/18/21 17:41 shellfish derived Allergy Rash/Hives Verified 03/18/21 17:41 Sulfa (Sulfonamide Allergy Rash/Hives Verified 03/18/21 17:41 Antibiotics) sulfamethoxazole Allergy Rash/Hives Verified 03/18/21 17:41 [From Bactrim] trimethoprim [From Bactrim] Allergy Rash/Hives Verified 03/18/21 17:41 tree nut [Nut] AdvReac Mild Abdominal Verified 03/18/21 17:41 Pain cat dander AdvReac Wheezing Verified 03/18/21 17:41 dog dander AdvReac Wheezing Verified 03/18/21 17:41 egg AdvReac Nausea & Verified 03/18/21 17:41 Vomiting gluten AdvReac Nausea & Verified 03/18/21 17:41 Vomiting house dust mite AdvReac Wheezing Verified 03/18/21 17:41 Milk Containing Products AdvReac Nausea & Verified 03/18/21 17:41 [Dairy] Vomiting peanut AdvReac Nausea & Verified 03/18/21 17:41 Vomiting soy AdvReac Nausea & Verified 03/18/21 17:41 Vomiting Physical Exam Vitals: Vital Signs Temp Pulse Pulse Resp BP BP BP 03/19/21 07:00 97.5 F L 56 L 16 135/65 03/19/21 02:00 58 L 16 03/19/21 01:56 97.6 F 58 L 16 136/71 03/18/21 23:48 18 03/18/21 23:43 97.5 F L 58 L 16 160/72 03/18/21 23:10 97.4 F L 60 18 128/71 03/18/21 22:07 79 18 152/89 03/18/21 20:00 98.0 F 80 18 150/83 03/18/21 18:30 74 18 159/75 03/18/21 17:20 68 18 147/86 03/18/21 16:33 97.9 F 87 19 184/79 Pulse Ox 03/19/21 07:00 98 03/19/21 02:00 03/19/21 01:56 99 03/18/21 23:48 03/18/21 23:43 99 03/18/21 23:10 96 03/18/21 22:07 96 03/18/21 20:00 94 L 03/18/21 18:30 96 03/18/21 17:20 99 03/18/21 16:33 98 Intake and Output 03/18/21 03/19/21 03/19/21 22:59 06:59 14:59 Intake Total 0 Balance 0 Intake: Oral 0 Other: # Voids 2 Weight 56.699 kg 56.699 kg - Constitutional General appearance: Present: average body habitus, cooperative, no acute distress - EENT Eyes: Present: anicteric sclerae, EOMI, PERRLA, normal appearance ENT: Present: hearing grossly normal, normal oropharynx Ears: bilateral: normal - Neck Neck: Present: normal ROM. Absent: lymphadenopathy, rigidity, thyromegaly Carotids: negative: bruit present Thyroid: bilateral: normal size, negative: enlarged, nodule - Respiratory Respiratory: bilateral: CTA, negative: rales, rhonchi, wheezing - Cardiovascular Rhythm: regular Heart sounds: normal: S1, S2 Abnormal Heart Sounds: Absent: systolic murmur, diastolic murmur - Gastrointestinal General gastrointestinal: Present: normal bowel sounds, soft. Absent: distended, organomegaly, tenderness - Genitourinary Genitourinary Comment(s): deferred - Integumentary Integumentary: Present: normal turgor. Absent: jaundiced, rash, ulcer - Neurologic Neurologic: Present: CNII-XII intact. Absent: focal deficits - Musculoskeletal Musculoskeletal: Present: gait normal, strength equal bilaterally - Psychiatric Psychiatric: Present: A&O x's 3, appropriate affect, intact judgment & insight Results CBC & Chem 7: 03/18/21 16:55 03/18/21 16:55 Labs: Abnormal Lab Results - Last 24 Hours (Table) 03/18/21 Range/Units 16:55 BUN 20 H (7-17) mg/dL Glucose 120 H (74-99) mg/dL Assessment and Plan Assessment: 1. Chest pain rule out acute coronary syndrome - We will admit patient to telemetry and monitor EKG; trend troponin; recommend 2-D echo; cardiology on consult; likely plan would be heart catheterization - Patient has been placed on aspirin, continue statins and beta blockers; Imdur 120 mg daily 2. Mild renal injury; slowly fluid hydration with normal saline at a rate of 75 mL an hour; monitor renal function and electrolytes; avoid nephrotoxins 3. Hypertension; reorder home dose of Norvasc 5 mg daily, metoprolol 50 mg twice a day 4. Hyperlipidemia; Lipitor 80 mg by mouth daily at bedtime 5. History of CAD; continue with aspirin, statins and beta blockers 6. Gastroesophageal reflux disease; Protonix 40 mg daily DVT prophylaxis; SCDs/systemic anticoagulation CODE STATUS; full code
[2021-03-19] MEDS: SODIUM CHLORIDE 0.9% 1,000 ML in EMPTY BAG 1 BAG IV SCH ×2 (20:21→23:31)
[2021-03-20] MEDS ORDERED: HEPARIN SODIUM,PORCINE 10,000 UNIT in SODIUM CHLORIDE 0.9% 1,000 ML IRRIGATION PRN (07:00)
[2021-03-20] MEDS ORDERED: HEPARIN SODIUM,PORCINE 2,500 UNIT in SODIUM CHLORIDE 0.9% 250 ML IRRIGATION PRN (07:00)
[2021-03-20] MEDS ORDERED: diphenhydrAMINE 50 MG/ML 1 ML VIAL ONE (07:38)
[2021-03-20] MEDS ORDERED: methylPREDNISolone SOD SUCCI 125 MG/2 ML VIAL ONE (07:38)
[2021-03-20] MEDS ORDERED: HEPARIN SODIUM 1,000 UN/ML (10ML VL) ONE (07:38)
[2021-03-20] MEDS ORDERED: ASPIRIN 325 MG TAB ONE (07:39)
[2021-03-20] MEDS ORDERED: methylPREDNISolone SOD SUCCI 125 MG/2 ML VIAL IVP ONE (07:45)
[2021-03-20] MEDS ORDERED: ASPIRIN 325 MG TAB PO ONE (07:45)
[2021-03-20] MEDS ORDERED: diphenhydrAMINE 50 MG/ML 1 ML VIAL IVP ONE (07:45)
[2021-03-20] MEDS ORDERED: IV FLUID CONTINUATION 300 ML IV ONE (07:47)
[2021-03-20] MEDS ORDERED: LIDOCAINE 1% INJ 10MG/ML (20 ML MDV) SQ ONE (07:58)
[2021-03-20] MEDS: VERAPAMIL SYRINGE (5 MG/10 ML) INTRAARTER ONE ×2 (07:59→08:09)
[2021-03-20] MEDS ORDERED: HEPARIN SODIUM 1,000 UN/ML (10ML VL) IV ONE (08:02)
[2021-03-20] MEDS ORDERED: IOPAMIDOL-370 125ML BTL INJ ONE (08:08)
[2021-03-20] MEDS ORDERED: RX INFO: IV CONTRAST WAS GIVEN 1 EACH MISC MISCELLANE PRN (08:16)
[2021-03-20] MEDS ORDERED: SODIUM CHLORIDE 0.9% 1,000 ML IV SCH (08:30)
[2021-03-20] MEDS: amLODIPine 5 MG TAB PO SCH (08:54)
[2021-03-20] MEDS: METOPROLOL TARTRATE 50 MG TAB PO SCH (08:54)
[2021-03-20] MEDS: PANTOPRAZOLE 40 MG/10 ML VIAL IVP SCH (08:54)
--- NOTE | 2021-03-20 08:54 | CC ---
CARDIAC CATHETERIZATION REPORT DATE OF SERVICE: March 20, 2021. PERFORMING PHYSICIAN: Maninder Elias MD. PROCEDURE PERFORMED: 1. Selective right and left coronary angiogram. 2. Left heart catheterization. INDICATION: This is an 81-year-old female patient with CAD and prior stenting of the LAD who was experiencing symptoms of chest discomfort concerning for angina. APPROACH: Right radial artery. COMPLICATION: None. LEVEL OF SEDATION: Moderate with sedation length of 16 minutes. 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 The right radial artery was cannulated using micropuncture technique and a micropuncture wire passed easily. Then I placed a 6-Guatemalan sheath at the right radial artery. I gave the patient 2 mg of verapamil IA and 5000 units of heparin IV. Selective right and left coronary angiogram performed with JR4 and JL3.5 catheters. Left heart catheterization was performed using 5-Guatemalan pigtail catheter. The procedure was completed without any complication. SELECTIVE CORONARY ANGIOGRAM: 1. The right coronary artery is a large caliber vessel. It is a dominant vessel. The RCA has mild disease only. Distally it bifurcates into PDA and PLV branches both appeared to be angiographically normal. 2. The left main is angiographically normal. It bifurcates into left circumflex and left anterior descending artery. 3. The left circumflex is a large caliber vessel. It is a nondominant vessel. The left circumflex system is angiographically normal. It gives rise is proximally into a ramus intermedius which has a high takeoff worked as ramus and seems to be angiographically normal. 4. The LAD: The proximal LAD is stented. The mid LAD appeared to have a lesion by the bifurcation of a large diagonal branch seems to be in the range of 50% and seems to be unchanged compared to before. HEMODYNAMICS: The LVEDP was 12 mmHg without significant gradient across aortic valve. CONCLUSION: 1. Patent stent in the proximal LAD. 2. Intermediate disease involving the mid LAD. 3. Normal left-sided filling pressure. POSTPROCEDURE MANAGEMENT: 1. Medical treatment. 2. Aggressive cholesterol control. 3. Follow up with the patient. MMODL / IJN: [id number] /
[2021-03-20] MEDS ORDERED: ISOSORBIDE MONONITRATE ER 60 MG TAB.ER.24H PO SCH (09:00)
[2021-03-20 14:58] VITALS: BP 149/80; PULSE 65; RESP 18; TEMP 98
--- NOTE | 2021-03-20 22:12 | DS ---
DISCHARGE SUMMARY DATE OF SERVICE: 03/20/2021 FINAL DIAGNOSES: 1. Chest pain, possible unstable angina, status post cardiac catheterization showing patent stent of the proximal LAD, intermediate disease involving the mid LAD and normal left-sided filling pressures. 2. Mild renal injury, which improved. 3. Hypertension. 4. Hyperlipidemia. 5. History of coronary artery disease. 6. History of gastroesophageal reflux disease. DISCHARGE DISPOSITION: The patient will be discharged in stable condition with guarded prognosis. HISTORY OF PRESENT ILLNESS: This 81-year-old woman with a past medical history of multiple medical problems, as mentioned earlier, being followed by Dr. Pires in the outpatient setting, was admitted with chest pain. Troponins were negative. The patient underwent a cardiac catheterization by Dr. Elias with the findings as above. Medical treatment was recommended. On exam, vitals are stable. Cardiovascular: S1, S2 muffled. Abdomen soft. Nervous system: No focal deficit. The patient will be discharged in stable condition with guarded prognosis with the following advice and medications: 1. Cardiac diet. 2. Activity limited until followup. 3. Follow up with Dr. Pires in 2-3 days. 4. Follow up with Dr. Elias as recommended. 5. Eliquis 5 mg p.o. b.i.d. 6. Imdur ER 120 mg p.o. daily. 7. Letrozole 2.5 mg daily. 8. Lopressor 50 mg p.o. b.i.d. 9. Nitrostat 0.4 sublingually p.r.n. 10.Norvasc 5 mg p.o. daily. 11.Xanax 0.25 mg daily. 12.Lipitor 10 mg at bedtime. Once again, the patient will be discharged in stable condition with guarded prognosis. MMODL / IJN: [id number] /
[2021-03-21] MEDS ORDERED: PANTOPRAZOLE 40 MG TABLET PO SCH (07:30)
== END 2021-03-20 16:12 | disposition home or self-care (01) | DRG 287 ==
LOC: EC 16:30 → 6NMEDSUR 18:12 → OBSVTOIN 03-20 08:04
PROVIDERS: ADMIT Hospitalist; ATTEND Hospitalist
PROC: B2111ZZ Fluoroscopy of Multiple Coronary Arteries using Low Osmolar Contrast (ICD-10-PCS; 2021-03-20)
PROC: 4A023N7 Measurement of Cardiac Sampling and Pressure, Left Heart, Percutaneous Approach (ICD-10-PCS; principal; 2021-03-20 07:30)
DX: I25.110 Atherosclerotic heart disease of native coronary artery with unstable angina pectoris (principal); E78.5 Hyperlipidemia, unspecified; F41.9 Anxiety disorder, unspecified; I08.0 Rheumatic disorders of both mitral and aortic valves; I10 Essential (primary) hypertension; I44.7 Left bundle-branch block, unspecified; J45.909 Unspecified asthma, uncomplicated; K21.9 Gastro-esophageal reflux disease without esophagitis; Z20.822 Contact with and (suspected) exposure to COVID-19; Z79.01 Long term (current) use of anticoagulants; Z79.811 Long term (current) use of aromatase inhibitors; Z79.899 Other long term (current) drug therapy; Z80.3 Family history of malignant neoplasm of breast; Z80.6 Family history of leukemia; Z85.3 Personal history of malignant neoplasm of breast; Z90.710 Acquired absence of both cervix and uterus; Z95.5 Presence of coronary angioplasty implant and graft; Z88.2 Allergy status to sulfonamides; Z88.1 Allergy status to other antibiotic agents; Z91.011 Allergy to milk products; Z88.5 Allergy status to narcotic agent; Z91.013 Allergy to seafood; Z88.8 Allergy status to other drugs, medicaments and biological substances
CPT/HCPCS: 36415; 71046; 80053; 83735; 83880; 84484; 85025; 85610; 85730; 87635; 93005; 93458; 96374; 96376; 99285

== ENCOUNTER → 2021-05-04 | Outpatient (CLI) | payer MEDICARE ==
--- NOTE | 2021-05-05 08:40 | XR ---
EXAMINATION TYPE: XR knee complete 3 views RT, XR tibia fibula 2 views RT DATE OF EXAM: 05/04/2021 COMPARISON: NONE HISTORY: 81-year-old female [id number] RT KNEE PAIN, RT LOWER LEG PAIN FINDINGS: Right knee: Degenerative spurring medial and patellofemoral compartments. At least mild joint space n arrowing the medial compartment. Extensor mechanism is intact. Vascular calcifications. No acute frac ture, subluxation, or dislocation seen. Right tibia/fibula: Ankle joint grossly intact. Small posterior and plantar heel spurs. No acute frac ture identified. IMPRESSION: 1. Right knee: Degenerative spurring the medial and patellofemoral compartments. At least mild overal l osteoarthrosis of the medial compartment. No acute osseous abnormality seen. 2. Right tibia/fibula: No acute osseous abnormality seen.
== END | disposition home or self-care (01) ==
LOC: RADXRYALE 16:17
PROVIDERS: ATTEND Physician Assistant
DX: M25.561 Pain in right knee (principal); M79.661 Pain in right lower leg

== ENCOUNTER → 2021-08-18 | Outpatient (CLI) | payer MEDICARE ==
[2021-08-18 12:59] VITALS: BP 148/66; PULSE 50; RESP 18; TEMP 97.7
--- NOTE | 2021-08-18 14:07 | P.PN ---
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 She was seen by radiation oncology and she opted for no radiation therapy. She was also seen by medical oncology and is on letrazole. The patient had a stage IA T1N0 M0 G1 ER /ME positive and HER-2 negative tumor. She is not concerned about the letrazole causing any side effects at this time. She had genetic testing performed and this was negative for BRCA1 and BRCA2. A right breast mammogram was performed on . This revealed an area which shows suspicious calcifications and she was recommended to undergo stereotactic core biopsy of this area. This was performed on 03-13-19. Her pathology reveal ed fibroadenoma/fibroadenomatoid hyperplasia with calcifications and the background of fibrocystic changes. She underwent a bilateral mammogram on 9820. This was felt to be benign BIRADS 2 and bilateral mammogram in 1 year was recommended. She is not complaining of any lumps masses or nodules in either breast. She is not complaining of any nipple discharge or skin changes. She is currently on Letrazole secondary to hypertension which she was noted to have on Aromasin. She was seen by Dr. Fernández on . His note was reviewed and at this time she appears to be stable from a medical oncology standpoint. She had a bone density study performed on 4520, she is following with medical oncology regarding this area revealed osteopenia. She is going to discuss this with Dr. Fernández. She has another appointment with him in February 2021. 08-18-[address] Fernández 07-28-21 reviewed. 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 She is tolerating Femora. She did not have radiation therapy. Last bilateral mammogram on 01-11-21 Benign BIRAD 2 She is not complaining of any lumps masses or nodules in either breast. She is not complaining of any nipple discharge or skin changes. Family history: 1. Mother: Breast cancer 70 years old, this recurred at approximately 74, and she as a result of treatment 2. Sister: Breast cancer at 55 of metastatic disease 3. Father: Leukemia 4. Maternal cousin: Breast cancer Hormonal history: Menarche: 13 Pregnancies: 5, 5 children, first born at 27, did not breast-feed Menopause: Hysterectomy in 4 days for fibroids control pills: Negative Hormones: Negative Past surgical history: 1. Hysterectomy 2. Appendectomy 3. Varicose veins left side 4. Laser varicose veins 5. Cholecystectomy 6. Hernia repair 7. Bladder sling 8. Hemorrhoids 9. Cardiac stents 10. Cataracts surgery 11. Nasal surgery 12. Bunion 13. left breast lumpectomy and sentinel node biopsy Medical history: 1. Hypertension 2. High cholesterol 3. CPAP/asthma/narrow airway Social history: Smoke: Negative Alcohol: Negative Drugs: Negative Review of systems: Constitutional: Negative HEENT: Cataracts surgery narrow airway and nasal surgery tinnitus decreased hearing Breasts: As per HPI, left breast cancer stage IA Cardiovascular: Cardiac stent Respiratory: CPAP GI: Colonoscopy 4 years ago benign polyp removed : Negative Musculoskeletal: Arthritis in her back Integument: Negative Neurologic: Right leg numbness/sciatica Psychiatric: Anxiety Endocrine: Negative Hematologic: Uses aspirin ALLERGY: stopped allergy shots Objective - Vital Signs Vital signs: Vital Signs Temp 97.7 F 08/18/21 12:57 Pulse 50 L 08/18/21 12:57 Resp 18 08/18/21 12:57 BP 148/66 08/18/21 12:57 Pulse Ox 98 08/18/21 12:57 Intake & Output 08/17/21 08/18/21 08/18/21 18:59 06:59 18:59 Weight 61.235 kg - Exam BMI 23.9 - Constitutional General appearance: Present: cooperative - EENT Eyes: Present: EOMI ENT: Present: hearing grossly normal - Neck Neck: Present: normal ROM - Respiratory Respiratory: bilateral: CTA - Cardiovascular Heart sounds: normal: S1, S2 - Integumentary Integumentary: Present: normal turgor - Musculoskeletal Musculoskeletal: Present: gait normal - Psychiatric Psychiatric: Present: A&O x's 3, appropriate affect, intact judgment & insight - Additional findings Additional findings: Breast Exam: Bra: sports bra large or X large inspection: bilateral grade 3 ptosis; right breast larger than left breast palpation: right breast: Ultimate positional exam fibrocystic changes no dominant masses or nodules of concern Right axilla: No adenopathy of concern Left breast: Well-healed scar from prior surgery no dominant mass or notches of concern Left axilla: No adenopathy of concern Assessment and Plan Assessment: Impression: No evidence of recurrent invasive ductal carcinoma left breast Plan: repeat left breast mammogram and Janie physician exam at that time. Continue Femara Continue follow-up with medical oncology CC: Dr. Llanes
== END | disposition home or self-care (01) ==
LOC: WWCWWP 12:27
PROVIDERS: ATTEND Surgery
DX: Z85.3 Personal history of malignant neoplasm of breast (principal)

== ENCOUNTER → 2022-01-12 | Outpatient (CLI) | payer MEDICARE ==
--- NOTE | 2022-01-19 18:05 | MM ---
Reason for Exam: Screening (asymptomatic). Last screening mammogram was performed 12 month(s) ago. Patient History: Menarche at age 13. First Full-Term at age 28. Hysterectomy at age 51. Postmenopausal. Breast cancer, age 78. 04/15/2018, Lumpectomy on the Left side. 1989, Benign Excisional Biopsy on the left side. 03/13/2019, Benign Core Biopsy on the right side. 04/15/2018, Malignant Core Biopsy on the left side. 03/10/2018, Malignant Core Biopsy on the left side. Sister had breast cancer, age 54. Mother had breast cancer, age 70. Prior Study Comparison: 02/10/2019 Right Diagnostic Mammogram, [facility]. 01/08/2020 Bilateral Diagnostic Mammogram, [facility]. 01/11/2021 Bilateral Diagnostic Mammogram, [facility]. Tissue Density: There are scattered fibroglandular densities. Findings: Analyzed By CAD. There is no suspicious group of microcalcifications or new suspicious mass in either breast. Overall Assessment: Negative, BI-RAD 1 Management: Screening Mammogram of both breasts in 1 year. A clinical breast exam by your physician is recommended on an annual basis and results should be correlated with mammographic findings. Electronically signed and approved by: Arnie Newton DO
== END | disposition home or self-care (01) ==
LOC: RADMAMWWP 12:46
PROVIDERS: ATTEND Internal Medicine Hematology & Oncology
DX: Z12.31 Encounter for screening mammogram for malignant neoplasm of breast (principal)
CPT/HCPCS: 77063; 77067

== ENCOUNTER → 2022-01-18 | Outpatient (CLI) | payer MEDICARE ==
[2022-01-18 14:41] VITALS: BP 173/84; PULSE 65; RESP 17; TEMP 97.6
--- NOTE | 2022-01-18 14:54 | P.PN ---
Subjective Progress Note Date: 01/18/22 Principal diagnosis: stage IA left breast cancer [id number]+[id number]-G1; dx. 2018 left breast stage IA cancer [id number]-G1 Bozena is an 81 year old white female status post a left breast lumpectomy and sentinel node biopsy in April 2018. She was seen by radiation oncology and she opted for no radiation therapy. She was also seen by medical oncology and is on Letrazole. The patient had a stage IA T1N0 M0 G1 ER /[place] positive and HER-2 negative tumor. She had genetic testing performed and this was negative for BRCA1 and BRCA2. A right breast mammogram was performed on . This revealed an area which shows suspicious calcifications and she was recommended to undergo stereotactic core biopsy of this area. This was performed on 03-13-19. Her pathology revealed fibroadenoma/fibroadenomatoid hyperplasia with calcifications and the background of fibrocystic changes. Note Dr. Fernández 07-28-21 reviewed She underwent a bilateral mammogram on 01-12-22 results are pending. Has not noted any lumps masses or nodules of concern in either breast. Family history: 1. Mother: Breast cancer 70 years old, this recurred at approximately 74, and she as a result of treatment 2. Sister: Breast cancer at 55 of metastatic disease 3. Father: Leukemia 4. Maternal cousin: Breast cancer Hormonal history: Menarche: 13 Pregnancies: 5, 5 children, first born at 27, did not breast-feed Menopause: Hysterectomy in 4 days for fibroids control pills: Negative Hormones: Negative Past surgical history: 1. Hysterectomy 2. Appendectomy 3. Varicose veins left side 4. Laser varicose veins 5. Cholecystectomy 6. Hernia repair 7. Bladder sling 8. Hemorrhoids 9. Cardiac stents 10. Cataracts surgery 11. Nasal surgery 12. Bunion 13. left breast lumpectomy and sentinel node biopsy Medical history: 1. Hypertension 2. High cholesterol 3. CPAP/asthma/narrow airway Social history: Smoke: Negative Alcohol: Negative Drugs: Negative Review of systems: Constitutional: Negative HEENT: Cataracts surgery narrow airway and nasal surgery tinnitus decreased hearing Breasts: As per HPI, left breast cancer stage IA Cardiovascular: Cardiac stent Respiratory: CPAP GI: Colonoscopy 4 years ago benign polyp removed : Negative Musculoskeletal: Arthritis in her back Integument: Negative Neurologic: Right leg numbness/sciatica Psychiatric: Anxiety Endocrine: Negative Hematologic: Uses aspirin ALLERGY: stopped allergy shots Objective - Vital Signs Vital signs: Vital Signs Temp 97.6 F 01/18/22 14:38 Pulse 65 01/18/22 14:38 Resp 17 01/18/22 14:38 BP 173/84 01/18/22 14:38 Pulse Ox 97 01/18/22 14:38 FiO2 Intake & Output 01/17/22 01/18/22 01/18/22 18:59 06:59 18:59 Weight 99.79 kg - Constitutional General appearance: Present: cooperative - EENT Eyes: Present: EOMI ENT: Present: hearing grossly normal - Neck Neck: Present: normal ROM - Respiratory Respiratory: bilateral: CTA - Cardiovascular Rhythm: regular Heart sounds: normal: S1, S2 - Gastrointestinal General gastrointestinal: Present: soft - Integumentary Integumentary: Present: normal turgor - Musculoskeletal Musculoskeletal: Present: gait normal - Psychiatric Psychiatric: Present: A&O x's 3, appropriate affect, intact judgment & insight - Additional findings Additional findings: Breast Exam: BRA: XL sports inspection: Bilateral grade 3 ptosis, well healed scars left breast from prior surgery Palpation: Right breast: Multi-positional exam fibrocystic changes no dominant masses or nodules of concern Right axilla: No adenopathy of concern Left breast: Well-healed scars from prior surgery, no dominant masses or nodules of concern Left axilla: No adenopathy of concern Assessment and Plan Assessment: Impression: Patient with stage Ia invasive ductal carcinoma left breast status post lumpectomy, patient has not had radiation she is presently on left resolved No evidence of recurrent cancer Hypertension High cholesterol CPAP/asthma/narrow airway Plan: Continue letrazole Bilateral mammogram in 1 year depending on the report of this mammogram Follow-up exam in 6 months CC: Dr. Llanes
== END | disposition home or self-care (01) ==
LOC: WWCWWP 14:23
PROVIDERS: ATTEND Surgery
DX: Z53.9 Procedure and treatment not carried out, unspecified reason (principal)

== ENCOUNTER → 2022-01-23 | Outpatient (CLI) | payer MEDICARE ==
[2022-01-23 14:02] VITALS: BP 147/66; PULSE 57; RESP 17; TEMP 98.4
--- NOTE | 2022-01-23 14:45 | P.HPOB ---
History of Present Illness H&P Date: 01/23/22 Chief Complaint: The patient is here for her routine gynecologic exam. This is an 82-year-old with an LMP of 1991. The patient is without gynecologic complaints and is status post vaginal hysterectomy for benign reasons. Review of Systems She has lost about 14 pounds over the past 2 years. Respiratory: Occasional shortness of breath. She denies cardiac problems. GI: Occasional constipation. Past Medical History Past Medical History: Asthma, Coronary Artery Disease (CAD), Cancer, Chest Pain / Angina, Eye Disorder, GERD/Reflux, Hyperlipidemia, Hypertension, Sleep Apnea/CPAP/BIPAP Additional Past Medical History / Comment(s): DIVERTICULITS,SINUSITIS,LT EYE MAC DEGENERATION,SMALL HIATAL HERNIA,DDD,SPINAL STENOSIS,SLEEP APNEA USES A CPAP MACHINE, HAS NARROW ARTERY DISEASE. GLUTEN ALLERGY,LACTOSE INTOLERANCE AND EGGS CAUSE NAUSEA AND BLOATING BUT ABLE TO TAKE IMMUNIZATIONS. 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 History of Any Multi-Drug Resistant Organisms: None Reported Past Surgical History: Appendectomy, Bladder Surgery, Breast Surgery, Cholecystectomy, Heart Catheterization With Stent, Hernia Repair, Hysterectomy Additional Past Surgical History / Comment(s): Vaginal hysterectomy 1991. BLADDER SUSPENSION WITH MESH. JUANJOSE CATARACTS, CYST ON NECK REMOVED, EGD, VEIN STRIPPING, HEMORRHOIDECTOMY, NASAL SURGERY. Colonoscopy 2020(next after 5yr). LT BREAST BIOPSY and lumpectomy 2018. bunionectomy left foot Past Anesthesia/Blood Transfusion Reactions: Motion Sickness Date of Last Stent Placement:: 2011 Past Psychological History: Anxiety Additional Psychological History / Comment(s): PT LIVES IN OWN HOME WITH HER FAMILY. 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 NO OUTSIDE SERVICES. Smoking Status: Never smoker Past Alcohol Use History: None Reported Past Drug Use History: None Reported Additional History: She is a and is not sexually active. - Past Family History Sister(s) Family Medical History: Cancer Additional Family Medical History / Comment(s): breast cancer Father Family Medical History: Cancer, Osteoarthritis (OA) Additional Family Medical History / Comment(s): LEUKEMIA. PaternalAunt had breast cancer Mother Family Medical History: Cancer Additional Family Medical History / Comment(s): BREAST CANCER, AND PT'S SISTER AND AUNT HAD BREAST CANCER WELL. Medications and Allergies Home Medications Medication Instructions Recorded Confirmed Type Letrozole 2.5 mg PO DAILY 02/27/19 01/23/22 History ALPRAZolam [Xanax] 0.25 mg PO DAILY PRN 05/20/20 01/23/22 History Nitroglycerin Sl Tabs [Nitrostat] 0.4 mg SL Q5M PRN 05/20/20 01/23/22 History Isosorbide Mononitrate ER [Imdur] 120 mg PO DAILY 08/18/20 01/23/22 History Apixaban [Eliquis] 5 mg PO BID 03/18/21 01/23/22 History Metoprolol Tartrate [Lopressor] 50 mg PO BID 03/18/21 01/23/22 History amLODIPine [Norvasc] 5 mg PO DAILY 03/18/21 01/23/22 History Allergies Allergy/AdvReac Type Severity Reaction Status Date / Time cephalexin [From Keflex] Allergy Rash/Hives Verified 01/23/22 13:56 codeine Allergy Unknown Verified 01/23/22 13:56 iodine Allergy Rash/Hives Verified 01/23/22 13:56 shellfish derived Allergy Rash/Hives Verified 01/23/22 13:56 Sulfa (Sulfonamide Allergy Rash/Hives Verified 01/23/22 13:56 Antibiotics) sulfamethoxazole Allergy Rash/Hives Verified 01/23/22 13:56 [From Bactrim] trimethoprim [From Bactrim] Allergy Rash/Hives Verified 01/23/22 13:56 tree nut [Nut] AdvReac Mild Abdominal Verified 01/23/22 13:56 Pain cat dander AdvReac Wheezing Verified 01/23/22 13:56 dog dander AdvReac Wheezing Verified 01/23/22 13:56 egg AdvReac Nausea & Verified 01/23/22 13:56 Vomiting gluten AdvReac Nausea & Verified 01/23/22 13:56 Vomiting house dust mite AdvReac Wheezing Verified 01/23/22 13:56 Milk Containing Products AdvReac Nausea & Verified 01/23/22 13:56 [Dairy] Vomiting peanut AdvReac Nausea & Verified 01/23/22 13:56 Vomiting soy AdvReac Nausea & Verified 01/23/22 13:56 Vomiting Exam Vital Signs Temp Pulse Resp BP Pulse Ox 01/23/22 13:58 98.4 F 57 L 17 147/66 97 Intake and Output 01/22/22 01/23/22 01/23/22 22:59 06:59 14:59 Other: Weight 58.06 kg Height 5 feet 3 inches, weight 128 pounds, BMI 22.7. This is a well-developed well-nourished white female who is alert and oriented times 3 in no acute distress. HEENT: Within normal limits. NECK: Supple without mass or thyromegaly. CHEST AND LUNGS: Clear to auscultation. HEART: Regular rate and rhythm. BREASTS: Are without mass or discharge. AXILLARY EXAM: Negative for adenopathy. BACK: Negative for CVA tenderness. ABDOMEN: Soft, nontender, without palpable masses. PELVIC EXAM: External genitalia appears normal with moderate atrophy. Vagina appears normal moderate atrophy. There is no evidence of prolapse. Bimanual examination is negative for mass or tenderness. RECTAL EXAM: Rectovaginal exam is negative for mass or tenderness and is negative for occult blood. EXTREMITIES: Nontender. IMPRESSION: 1. 82-year-old menopausal female status post vaginal hysterectomy for benign reasons, with normal gynecologic exam. 2. History of left breast cancer status post lumpectomy on Femara, with no evidence of recurrence on the exam today. 3. History of osteopenia. PLAN: 1. Pap smears have been discontinued. 2. Self breast awareness was discussed with the patient. We have also discussed symptoms associated with inflammatory breast cancer. 3. Mammogram was done on 01/12/2022 and this was negative. She she will repeat this after 1 year. She will continue to see Dr. Scott Kirkland because of her history of breast cancer. 4. Osteoporosis prevention was discussed. I have stressed the importance of adequate calcium, vitamin D and regular exercise. Recommended amounts of calcium and vitamin D were also discussed. She did have a bone density test done through Dr. Fernández on 08/08/2020. 5. She has completed her Covid vaccination series and did receive a booster. I have recommended that she look into getting her second booster. 6. The patient was advised to return in 1-2 years for her well woman examination.
== END ==
LOC: WWCWWP 13:41
PROVIDERS: ATTEND Obstetrics & Gynecology
DX: Z01.419 Encounter for gynecological examination (general) (routine) without abnormal findings (principal); Z90.710 Acquired absence of both cervix and uterus; Z78.0 Asymptomatic menopausal state; Z85.3 Personal history of malignant neoplasm of breast; Z79.811 Long term (current) use of aromatase inhibitors; Z87.39 Personal history of other diseases of the musculoskeletal system and connective tissue; J45.909 Unspecified asthma, uncomplicated; I25.10 Atherosclerotic heart disease of native coronary artery without angina pectoris; E78.5 Hyperlipidemia, unspecified; I10 Essential (primary) hypertension; F41.9 Anxiety disorder, unspecified; Z88.1 Allergy status to other antibiotic agents; Z88.5 Allergy status to narcotic agent; Z91.041 Radiographic dye allergy status; Z88.2 Allergy status to sulfonamides; Z91.011 Allergy to milk products; Z91.010 Allergy to peanuts; Z91.018 Allergy to other foods; Z91.09 Other allergy status, other than to drugs and biological substances; Z91.013 Allergy to seafood

== ENCOUNTER 2022-02-02 00:29 | Observation (INO) | payer MEDICARE ==
--- NOTE | 2022-02-02 00:42 | ED ---
Chest Pain HPI - General Stated Complaint: Chest Pain Time Seen by Provider: 02/02/22 00:41 Source: RN notes reviewed, old records reviewed Mode of arrival: EMS Limitations: no limitations - History of Present Illness Initial Comments: This is an 82-year-old female to the emergency department for evaluation of chest pain. Patient has had chest pain lasting for the past week. Patient again has chest pain here today in the emergency department although she is still mildly improved. No shortness of breath. No modifying factors. She does have history of prior stent MD Complaint: chest pain -: hour(s) Onset: during rest, during exertion Pain Location: left chest Pain Radiation: LUE, back Severity: moderate Severity scale (1-10): 6 Quality: sharp Consistency: constant Improves With: nothing Worsens With: nothing Anginal Symptoms: dyspnea Other Symptoms: palpitations Treatments Prior to Arrival: none - Related Data Home Medications Medication Instructions Recorded Confirmed Letrozole 2.5 mg PO HS 02/27/19 02/02/22 ALPRAZolam [Xanax] 0.25 mg PO HS 05/20/20 02/02/22 Nitroglycerin Sl Tabs [Nitrostat] 0.4 mg SL Q5M PRN 05/20/20 02/02/22 Isosorbide Mononitrate ER [Imdur] 60 mg PO DAILY 08/18/20 02/02/22 Apixaban [Eliquis] 2.5 mg PO BID 03/18/21 02/02/22 Metoprolol Tartrate [Lopressor] 25 mg PO BID 03/18/21 02/02/22 amLODIPine [Norvasc] 5 mg PO HS 03/18/21 02/02/22 Allergies Allergy/AdvReac Type Severity Reaction Status Date / Time cephalexin [From Keflex] Allergy Rash/Hives Verified 02/02/22 08:19 codeine Allergy Unknown Verified 02/02/22 08:19 iodine Allergy Rash/Hives Verified 02/02/22 08:19 shellfish derived Allergy Rash/Hives Verified 02/02/22 08:19 Sulfa (Sulfonamide Allergy Rash/Hives Verified 02/02/22 08:19 Antibiotics) sulfamethoxazole Allergy Rash/Hives Verified 02/02/22 08:19 [From Bactrim] trimethoprim [From Bactrim] Allergy Rash/Hives Verified 02/02/22 08:19 tree nut [Nut] AdvReac Mild Abdominal Verified 02/02/22 08:19 Pain cat dander AdvReac Wheezing Verified 02/02/22 08:19 dog dander AdvReac Wheezing Verified 02/02/22 08:19 egg AdvReac Nausea & Verified 02/02/22 08:19 Vomiting house dust mite AdvReac Wheezing Verified 02/02/22 08:19 Milk Containing Products AdvReac Nausea & Verified 02/02/22 08:19 [Dairy] Vomiting peanut AdvReac Nausea & Verified 02/02/22 08:19 Vomiting soy AdvReac Nausea & Verified 02/02/22 08:19 Vomiting Review of Systems ROS Statement: Those systems with pertinent positive or pertinent negative responses have been documented in the HPI. ROS Other: All systems not noted in ROS Statement are negative. EKG Findings - EKG Comments: EKG Findings:: EKG sinus 78. ID [id number] through S1 [id number] QTC 450 Past Medical History Past Medical History: Asthma, Coronary Artery Disease (CAD), Cancer, Chest Pain / Angina, Eye Disorder, GERD/Reflux, Hyperlipidemia, Hypertension, Sleep Apnea/CPAP/BIPAP Additional Past Medical History / Comment(s): DIVERTICULITS,SINUSITIS,LT EYE MAC DEGENERATION,SMALL HIATAL HERNIA,DDD,SPINAL STENOSIS,SLEEP APNEA USES A CPAP MACHINE, HAS NARROW ARTERY DISEASE. GLUTEN ALLERGY,LACTOSE INTOLERANCE AND EGGS CAUSE NAUSEA AND BLOATING BUT ABLE TO TAKE IMMUNIZATIONS. 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 History of Any Multi-Drug Resistant Organisms: None Reported Past Surgical History: Appendectomy, Bladder Surgery, Breast Surgery, Cholecystectomy, Heart Catheterization With Stent, Hernia Repair, Hysterectomy Additional Past Surgical History / Comment(s): Vaginal hysterectomy 1991. BLADDER SUSPENSION WITH MESH. JUANJOSE CATARACTS, CYST ON NECK REMOVED, EGD, VEIN STRIPPING, HEMORRHOIDECTOMY, NASAL SURGERY. Colonoscopy 2020(next after 5yr). LT BREAST BIOPSY and lumpectomy 2018. bunionectomy left foot Past Anesthesia/Blood Transfusion Reactions: Motion Sickness Date of Last Stent Placement:: 2011 Past Psychological History: Anxiety Additional Psychological History / Comment(s): PT LIVES IN OWN HOME WITH HER FAMILY. 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 NO OUTSIDE SERVICES. Smoking Status: Never smoker Past Alcohol Use History: None Reported Past Drug Use History: None Reported - Past Family History Sister(s) Family Medical History: Cancer Additional Family Medical History / Comment(s): breast cancer Father Family Medical History: Cancer, Osteoarthritis (OA) Additional Family Medical History / Comment(s): LEUKEMIA. PaternalAunt had breast cancer Mother Family Medical History: Cancer Additional Family Medical History / Comment(s): BREAST CANCER, AND PT'S SISTER AND AUNT HAD BREAST CANCER WELL. General Exam General appearance: alert, in no apparent distress Head exam: Present: atraumatic, normocephalic, normal inspection Eye exam: Present: normal appearance, PERRL, EOMI. Absent: scleral icterus, conjunctival injection, periorbital swelling ENT exam: Present: normal exam, mucous membranes moist Neck exam: Present: normal inspection. Absent: tenderness, meningismus, lymphadenopathy Respiratory exam: Present: normal lung sounds bilaterally. Absent: respiratory distress, wheezes, rales, rhonchi, stridor Cardiovascular Exam: Present: regular rate, normal rhythm, normal heart sounds. Absent: systolic murmur, diastolic murmur, rubs, gallop, clicks GI/Abdominal exam: Present: soft, normal bowel sounds. Absent: distended, tenderness, guarding, rebound, rigid Extremities exam: Present: normal inspection, full ROM, normal capillary refill. Absent: tenderness, pedal edema, joint swelling, calf tenderness Back exam: Present: normal inspection Neurological exam: Present: alert, oriented X3, CN II-XII intact Psychiatric exam: Present: normal affect, normal mood Skin exam: Present: warm, dry, intact, normal color. Absent: rash Course Vital Signs 02/02/22 02/02/22 02/02/22 00:45 06:16 10:18 Temperature 97.2 F L 98.4 F 97.6 F Pulse Rate 88 133 H 67 Respiratory 18 19 18 Rate Blood Pressure 149/87 119/92 133/74 O2 Sat by Pulse 99 96 98 Oximetry - Reevaluation(s) Reevaluation #1: 02/02/22 medical record is reviewed patient symptoms improved here in the ER patient informed of results and questions answered Chest Pain MDM - MDM 82 female with history of prior stent placement coming in for chest pain today. Patient be admitted for cardiac observation Disposition Clinical Impression: Chest pain, Atypical chest pain Disposition: ADMITTED IP TO THIS HOSP Condition: Good Time of Disposition: 03:30
--- NOTE | 2022-02-02 01:32 | XR ---
EXAMINATION TYPE: XR chest 2V DATE OF EXAM: 02/02/2022 COMPARISON: 03/18/2021 HISTORY: Chest pain TECHNIQUE: FINDINGS: Heart is normal. Lungs are clear of consolidation. There are no hilar masses. Thoracic aort a is atheromatous. Bony thorax is intact. Trachea is midline. There are chest leads. IMPRESSION: No active cardiopulmonary disease. No change.
[2022-02-02 01:34] LABS: Basophils % (A) 0 %; Eosinophils # (A) 0.1 k/uL (0-0.7); Eosinophils % (A) 2 %; HCT 38.6 % (34.0-46.0); HGB 12.9 gm/dL (11.4-16.0); Lymphocytes # (A) 1.5 k/uL (1.0-4.8); Lymphocytes % (A) 22 %; MCH 30.3 pg (25.0-35.0); MCHC 33.5 g/dL (31.0-37.0); MCV 90.3 fL (80.0-100.0); Mean Platelet Volume 7.9; Monocytes # (A) 0.5 k/uL (0-1.0); Monocytes % (A) 7 %; Neutrophils # (A) 4.4 k/uL (1.3-7.7); Neutrophils % (A) 66 %; Platelet Count 243 k/uL (150-450); RBC 4.28 m/uL (3.80-5.40); RDW 12.8 % (11.5-15.5); WBC 6.7 k/uL (3.8-10.6)
[2022-02-02 01:44] LABS: Albumin 4.2 g/dL (3.5-5.0); Calcium 9.2 mg/dL (8.4-10.2); Magnesium 1.9 mg/dL (1.6-2.3); Total Bilirubin 0.7 mg/dL (0.2-1.3); Total Protein 7.2 g/dL (6.3-8.2)
[2022-02-02 01:59] LABS: INR 0.9 (<1.2)
[2022-02-02 02:41] LABS: Potassium 4.9 mmol/L (3.5-5.1)
[2022-02-02] MEDS ORDERED: NITROGLYCERIN SL TABS 0.4 MG TAB SUBLINGUAL PRN (03:24)
--- NOTE | 2022-02-02 05:42 | P.HPIM ---
History of Present Illness H&P Date: 02/02/22 Chief Complaint: chest pain The patient is an 82 y.o female with a history of CAD, stent in 2011. The patient states that over the last week, she has had chest pain rated 5/10 associated with chest pain. The patient states that this pain has been waxing and waning over the week. The patient stated that today she had pain while lying flat. The patient states that her last catherization was 2 years ago. 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 In the emergency room the patient had a T 97.2, P 88, R 18, BP 149/87. The labs showed NA 136, BUN 21, Cr 0.78, Glu 156, WBC 6.7, HB 12.9 The patient was hospitalized for further work-up and management. Review of Systems complete review of systems was done and negative other than as stated above Past Medical History Past Medical History: Asthma, Coronary Artery Disease (CAD), Cancer, Chest Pain / Angina, Eye Disorder, GERD/Reflux, Hyperlipidemia, Hypertension, Sleep Apnea/CPAP/BIPAP Additional Past Medical History / Comment(s): DIVERTICULITS,SINUSITIS,LT EYE MAC DEGENERATION,SMALL HIATAL HERNIA,DDD,SPINAL STENOSIS,SLEEP APNEA USES A CPAP MACHINE, HAS NARROW ARTERY DISEASE. GLUTEN ALLERGY,LACTOSE INTOLERANCE AND EGGS CAUSE NAUSEA AND BLOATING BUT ABLE TO TAKE IMMUNIZATIONS. 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 History of Any Multi-Drug Resistant Organisms: None Reported Past Surgical History: Appendectomy, Bladder Surgery, Breast Surgery, Cholecystectomy, Heart Catheterization With Stent, Hernia Repair, Hysterectomy Additional Past Surgical History / Comment(s): Vaginal hysterectomy 1991. BLADDER SUSPENSION WITH MESH. JUANJOSE CATARACTS, CYST ON NECK REMOVED, EGD, VEIN S TRIPPING, HEMORRHOIDECTOMY, NASAL SURGERY. Colonoscopy 2020(next after 5yr). LT BREAST BIOPSY and lumpectomy 2018. bunionectomy left foot Past Anesthesia/Blood Transfusion Reactions: Motion Sickness Date of Last Stent Placement:: 2011 Past Psychological History: Anxiety Additional Psychological History / Comment(s): PT LIVES IN OWN HOME WITH HER FAMILY. 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 NO OUTSIDE SERVICES. Smoking Status: Never smoker Past Alcohol Use History: None Reported Past Drug Use History: None Reported - Past Family History Sister(s) Family Medical History: Cancer Additional Family Medical History / Comment(s): breast cancer Father Family Medical History: Cancer, Osteoarthritis (OA) Additional Family Medical History / Comment(s): LEUKEMIA. PaternalAunt had breast cancer Mother Family Medical History: Cancer Additional Family Medical History / Comment(s): BREAST CANCER, AND PT'S SISTER AND AUNT HAD BREAST CANCER WELL. Medications and Allergies Home Medications Medication Instructions Recorded Confirmed Type Letrozole 2.5 mg PO DAILY 02/27/19 01/23/22 History ALPRAZolam [Xanax] 0.25 mg PO DAILY PRN 05/20/20 01/23/22 History Nitroglycerin Sl Tabs [Nitrostat] 0.4 mg SL Q5M PRN 05/20/20 01/23/22 History Isosorbide Mononitrate ER [Imdur] 120 mg PO DAILY 08/18/20 01/23/22 History Apixaban [Eliquis] 5 mg PO BID 03/18/21 01/23/22 History Metoprolol Tartrate [Lopressor] 50 mg PO BID 03/18/21 01/23/22 History amLODIPine [Norvasc] 5 mg PO DAILY 03/18/21 01/23/22 History Allergies Allergy/AdvReac Type Severity Reaction Status Date / Time cephalexin [From Keflex] Allergy Rash/Hives Verified 02/02/22 00:49 codeine Allergy Unknown Verified 02/02/22 00:49 iodine Allergy Rash/Hives Verified 02/02/22 00:49 shellfish derived Allergy Rash/Hives Verified 02/02/22 00:49 Sulfa (Sulfonamide Allergy Rash/Hives Verified 02/02/22 00:49 Antibiotics) sulfamethoxazole Allergy Rash/Hives Verified 02/02/22 00:49 [From Bactrim] trimethoprim [From Bactrim] Allergy Rash/Hives Verified 02/02/22 00:49 tree nut [Nut] AdvReac Mild Abdominal Verified 02/02/22 00:49 Pain cat dander AdvReac Wheezing Verified 02/02/22 00:49 dog dander AdvReac Wheezing Verified 02/02/22 00:49 egg AdvReac Nausea & Verified 02/02/22 00:49 Vomiting house dust mite AdvReac Wheezing Verified 02/02/22 00:49 Milk Containing Products AdvReac Nausea & Verified 02/02/22 00:49 [Dairy] Vomiting peanut AdvReac Nausea & Verified 02/02/22 00:49 Vomiting soy AdvReac Nausea & Verified 02/02/22 00:49 Vomiting Physical Exam Vitals: Vital Signs Temp Pulse Resp BP Pulse Ox 02/02/22 00:45 97.2 F L 88 18 149/87 99 Intake and Output 02/01/22 02/01/22 02/02/22 14:59 22:59 06:59 Other: Weight 58.06 kg - Constitutional General appearance: cooperative, no acute distress - EENT Eyes: PERRLA - Respiratory Respiratory: bilateral: CTA - Cardiovascular Rhythm: regular - Gastrointestinal General gastrointestinal: normal bowel sounds - Integumentary Integumentary: normal turgor - Neurologic Neurologic: CNII-XII intact - Musculoskeletal Musculoskeletal: strength equal bilaterally - Psychiatric Psychiatric: A&O x's 3, appropriate affect Results CBC & Chem 7: 02/02/22 01:02 02/02/22 01:02 Labs: Abnormal Lab Results - Last 24 Hours (Table) 02/02/22 Range/Units 01:02 Sodium 136 L (137-145) mmol/L Carbon Dioxide 21 L (22-30) mmol/L BUN 21 H (7-17) mg/dL Glucose 156 H (74-99) mg/dL AST 45 H (14-36) U/L Chest x-ray: report reviewed Assessment and Plan (1) Chest pain Narrative/Plan: serial cardiac enzymes, telemetry, cardiology consult Current Visit: Yes Status: Acute Code(s): R07.9 - CHEST PAIN, UNSPECIFIED SNOMED Code(s): 28511633 (2) HTN (hypertension) Narrative/Plan: continue outpatient regimen and titrate as needed Current Visit: Yes Status: Acute Code(s): I10 - ESSENTIAL (PRIMARY) HYPERTENSION SNOMED Code(s): 02566053 Plan: Monitor in observation, telemetry, STEVEN, trend enzymes
[2022-02-02 06:29] LABS: Appearance,Urine Clear (Clear); Bilirubin,Urine Negative (Negative); Blood,Urine Negative (Negative); Color,Urine Colorless; Glucose,Urine (UA) Negative (Negative); Ketones,Urine Negative (Negative); Leukocyte Esterase,Urine Negative (Negative); Nitrite,Urine Negative (Negative); Protein,Urine Negative (Negative); Specific Gravity,Urine 1.004 (1.001-1.035); Urobilinogen,Urine <2.0 mg/dL (<2.0)
[2022-02-02] MEDS ORDERED: ALPRAZolam 0.25 MG TAB PO PRN (06:35)
[2022-02-02] MEDS ORDERED: DILTIAZEM 5 MG/ML 5 ML VIAL IVP STA (06:35)
[2022-02-02] MEDS ORDERED: METOPROLOL TARTRATE 50 MG TAB PO SCH (09:00)
[2022-02-02] MEDS ORDERED: amLODIPine 5 MG TAB PO SCH (09:00)
[2022-02-02] MEDS ORDERED: APIXABAN 2.5 MG TABLET PO SCH (09:00)
[2022-02-02] MEDS ORDERED: APIXABAN 5 MG TAB PO SCH (09:00)
[2022-02-02] MEDS ORDERED: LETROZOLE 2.5 MG TAB PO SCH (09:00)
[2022-02-02] MEDS ORDERED: ISOSORBIDE MONONITRATE ER 60 MG TAB.ER.24H PO SCH (09:00)
--- NOTE | 2022-02-02 09:31 | P.CRDCN ---
History of Present Illness Consult date: 02/02/22 History of present illness: HISTORY OF PRESENT ILLNESS: This is a 82-year-old female with a past medical history significant for coronary artery disease with previous stenting of the LAD, paroxysmal atrial fibrillation, hypertension, and hyperlipidemia with statin intolerance. Patient follows in the office with Dr. Elias. We have been asked to see the patient in consultation for chest pain. Patient examined at the bedside. patient states she had chest pain yesterday that was in the middle of her chest. She also reports having some shortness of breath. She states the pain has since resolved and she feels better this morning. She denies any dizziness or lightheadedness. The patient was found to be in A. fib with RVR. She has since converted to sinus mechanism. * EKG reveals sinus mechanism with left bundle-branch block, similar to previous EKG * Chest xray negative for acute process * Laboratory data: WBC 6.7. Hemoglobin 12.9. Platelet count 243. Sodium 136. Potassium 4.9. BUN 21. Creatinine 0.78. Troponin negative 2. ProBNP 212. * Current home cardiac medications include amlodipine 5 mg daily, metoprolol tartrate 50 mg twice a day, Imdur 120 mg daily, Eliquis 5mg BID * Most recent echocardiogram obtained in May 2020 revealed ejection fraction 50-55%, mild tricuspid regurgitation * Cardiac catheterization history: March 2021 revealing patent stent in the proximal LAD. Intermediate disease involving the mid LAD. Normal left-sided filling pressures. Medical management was recommended. REVIEW OF SYSTEMS: At the time of my exam: CONSTITUTIONAL: Denies fever or chills. HEENT: Denies blurred vision, vision changes, or eye pain. Denies hemoptysis CARDIOVASCULAR: Denies chest pain. Denies orthopnea. Denies PND. Denies palpitations RESPIRATORY: Denies shortness of breath. GASTROINTESTINAL: Denies abdominal pain. Denies nausea or vomiting. HEMATOLOGIC: Denies bleeding disorders. GENITOURINARY: Denies any blood in urine. SKIN: Denies pruitis. Denies rash. PHYSICAL EXAM: VITAL SIGNS: Reviewed. GENERAL: Well-developed in no acute distress. HEENT: Head is normocephalic. Pupils are equal, round. Sclerae anicteric. Mucous membranes of the mouth are moist. Neck supple. No JVD or thyromegaly LUNGS: Respirations even and unlabored. Lungs essentially clear to auscultation bilaterally. HEART: Regular rate and rhythm. S1 and S2 heard. Systolic murmur noted ABDOMEN: Soft. Nondistended. Nontender. EXTREMITIES: Normal range of motion. No clubbing or cyanosis. Peripheral pulses intact. No lower extremity edema NEUROLOGIC: Awake and alert. Oriented x 3. ASSESSMENT: Chest pain, troponin negative 2. Coronary artery disease with previous stenting of the LAD Paroxysmal atrial fibrillation with RVR, currently maintaining sinus mechanism Hypertension Hyperlipidemia with statin intolerance and also intolerance to Zetia PLAN: An acute coronary event has been ruled out Resume home cardiac medications Decrease Eliquis to 2.5mg BID due to patient's age and weight Obtain 2-D echo to assess cardiac structure and function patient is stable for discharge home this afternoon from a cardiac standpoint with close outpatient follow-up with Dr. Elias Nurse practitioner note has been reviewed by physician. Signing provider agrees with the documented findings, assessment, and plan of care. Past Medical History Past Medical History: Asthma, Coronary Artery Disease (CAD), Cancer, Chest Pain / Angina, Eye Disorder, GERD/Reflux, Hyperlipidemia, Hypertension, Sleep Apnea/CPAP/BIPAP Additional Past Medical History / Comment(s): DIVERTICULITS,SINUSITIS,LT EYE MAC DEGENERATION,SMALL HIATAL HERNIA,DDD,SPINAL STENOSIS,SLEEP APNEA USES A CPAP MACHINE, HAS NARROW ARTERY DISEASE. GLUTEN ALLERGY,LACTOSE INTOLERANCE AND EGGS CAUSE NAUSEA AND BLOATING BUT ABLE TO TAKE IMMUNIZATIONS. 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 History of Any Multi-Drug Resistant Organisms: None Reported Past Surgical History: Appendectomy, Bladder Surgery, Breast Surgery, Cholecystectomy, Heart Catheterization With Stent, Hernia Repair, Hysterectomy Additional Past Surgical History / Comment(s): Vaginal hysterectomy 1991. BLADDER SUSPENSION WITH MESH. JUANJOSE CATARACTS, CYST ON NECK REMOVED, EGD, VEIN STRIPPING, HEMORRHOIDECTOMY, NASAL SURGERY. Colonoscopy 2020(next after 5yr). LT BREAST BIOPSY and lumpectomy 2018. bunionectomy left foot Past Anesthesia/Blood Transfusion Reactions: Motion Sickness Date of Last Stent Placement:: 2011 Past Psychological History: Anxiety Additional Psychological History / Comment(s): PT LIVES IN OWN HOME WITH HER FAMILY. 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 NO OUTSIDE SERVICES. Smoking Status: Never smoker Past Alcohol Use History: None Reported Past Drug Use History: None Reported - Past Family History Sister(s) Family Medical History: Cancer Additional Family Medical History / Comment(s): breast cancer Father Family Medical History: Cancer, Osteoarthritis (OA) Additional Family Medical History / Comment(s): LEUKEMIA. PaternalAunt had breast cancer Mother Family Medical History: Cancer Additional Family Medical History / Comment(s): BREAST CANCER, AND PT'S SISTER AND AUNT HAD BREAST CANCER WELL. Medications and Allergies Home Medications Medication Instructions Recorded Confirmed Type Letrozole 2.5 mg PO HS 02/27/19 02/02/22 History ALPRAZolam [Xanax] 0.25 mg PO HS 05/20/20 02/02/22 History Nitroglycerin Sl Tabs [Nitrostat] 0.4 mg SL Q5M PRN 05/20/20 02/02/22 History Isosorbide Mononitrate ER [Imdur] 60 mg PO DAILY 08/18/20 02/02/22 History Apixaban [Eliquis] 2.5 mg PO BID 03/18/21 02/02/22 History Metoprolol Tartrate [Lopressor] 25 mg PO BID 03/18/21 02/02/22 History amLODIPine [Norvasc] 5 mg PO HS 03/18/21 02/02/22 History Allergies Allergy/AdvReac Type Severity Reaction Status Date / Time cephalexin [From Keflex] Allergy Rash/Hives Verified 02/02/22 08:19 codeine Allergy Unknown Verified 02/02/22 08:19 iodine Allergy Rash/Hives Verified 02/02/22 08:19 shellfish derived Allergy Rash/Hives Verified 02/02/22 08:19 Sulfa (Sulfonamide Allergy Rash/Hives Verified 02/02/22 08:19 Antibiotics) sulfamethoxazole Allergy Rash/Hives Verified 02/02/22 08:19 [From Bactrim] trimethoprim [From Bactrim] Allergy Rash/Hives Verified 02/02/22 08:19 tree nut [Nut] AdvReac Mild Abdominal Verified 02/02/22 08:19 Pain cat dander AdvReac Wheezing Verified 02/02/22 08:19 dog dander AdvReac Wheezing Verified 02/02/22 08:19 egg AdvReac Nausea & Verified 02/02/22 08:19 Vomiting house dust mite AdvReac Wheezing Verified 02/02/22 08:19 Milk Containing Products AdvReac Nausea & Verified 02/02/22 08:19 [Dairy] Vomiting peanut AdvReac Nausea & Verified 02/02/22 08:19 Vomiting soy AdvReac Nausea & Verified 02/02/22 08:19 Vomiting Physical Exam Vitals: Vital Signs Temp Pulse Resp BP Pulse Ox 02/02/22 06:16 98.4 F 133 H 19 119/92 96 02/02/22 00:45 97.2 F L 88 18 149/87 99 Intake and Output 02/01/22 02/02/22 02/02/22 22:59 06:59 14:59 Other: Weight 58.06 kg Results 02/02/22 01:02 02/02/22 01:02 Cardiac Enzymes 02/02/22 02/02/22 02/02/22 Range/Units 01:02 01:02 06:13 AST 45 H (14-36) U/L Troponin I <0.012 0.013 (0.000-0.034) ng/mL Coagulation 02/02/22 Range/Units 01:02 PT 10.0 (9.0-12.0) sec APTT 23.0 (22.0-30.0) sec CBC 02/02/22 Range/Units 01:02 WBC 6.7 (3.8-10.6) k/uL RBC 4.28 (3.80-5.40) m/uL Hgb 12.9 (11.4-16.0) gm/dL Hct 38.6 (34.0-46.0) % Plt Count 243 (150-450) k/uL Comprehensive Metabolic Panel 02/02/22 Range/Units 01:02 Sodium 136 L (137-145) mmol/L Potassium 4.9 (3.5-5.1) mmol/L Chloride 104 (98-107) mmol/L Carbon Dioxide 21 L (22-30) mmol/L BUN 21 H (7-17) mg/dL Creatinine 0.78 (0.52-1.04) mg/dL Glucose 156 H (74-99) mg/dL Calcium 9.2 (8.4-10.2) mg/dL AST 45 H (14-36) U/L ALT 28 (4-34) U/L Alkaline Phosphatase 59 (38-126) U/L Total Protein 7.2 (6.3-8.2) g/dL Albumin 4.2 (3.5-5.0) g/dL Current Medications Generic Name Dose Route Start Last Admin Trade Name Freq PRN Reason Stop Dose Admin Alprazolam 0.25 mg 02/02/22 06:35 Alprazolam 0.25 Mg Tab PO DAILY PRN Anxiety Amlodipine Besylate 5 mg 02/02/22 09:00 Amlodipine 5 Mg Tab PO DAILY [facility] Aspirin 325 mg 02/03/22 09:00 Aspirin 325 Mg Tab PO DAILY [facility] Isosorbide Mononitrate 120 mg 02/02/22 09:00 Isosorbide Mononitrate Er 60 Mg Tab.Er.24h PO DAILY [facility] Letrozole 2.5 mg 02/02/22 09:00 Letrozole 2.5 Mg Tab PO DAILY [facility] Metoprolol Tartrate 50 mg 02/02/22 09:00 Metoprolol Tartrate 50 Mg Tab PO BID [facility] Nitroglycerin 0.4 mg 02/02/22 03:24 Nitroglycerin Sl Tabs 0.4 Mg Tab SUBLINGUAL Q5M PRN Chest Pain Intake and Output 02/01/22 02/02/22 02/02/22 22:59 06:59 14:59 Other: Weight 58.06 kg 02/02/22 01:02 02/02/22 01:02
[2022-02-02 10:21] VITALS: BP 133/74; PULSE 67; RESP 18; TEMP 97.6
--- NOTE | 2022-02-02 13:02 | CA ---
Transthoracic Echo Report Name: Bozena Tellez Age: 82 Gender: F : 1940 Exam Date: 02/02/2022 08:14 Exam Location: [place] Ht (in): 63 Wt (lb): 128 Ordering Physician: Hayley Guaman Attending/Referring Phys: [id number], Rowena Quality Controller iEleen Farr RDCS Procedure CPT: Indications: LV function Cardiac Hx: Technical Quality: Contrast 1: Total Dose (mL): Contrast 2: Total Dose (mL): MEASUREMENTS (Male / Female) Normal Values 2D ECHO LV Diastolic Diameter PLAX 2.1 cm 4.2 - 5.9 / 3.9 - 5.3 cm LV Systolic Diameter PLAX 1.5 cm IVS Diastolic Thickness 1.2 cm 0.6 - 1.0 / 0.6 - 0.9 cm LVPW Diastolic Thickness 1.0 cm 0.6 - 1.0 / 0.6 - 0.9 cm LV Relative Wall Thickness 1.0 RV Internal Dim ED PLAX 2.9 cm LA Volume 41.4 cm??? 18 - 58 / 22 - 52 cm??? M-MODE Aortic Root Diameter MM 3.5 cm LA Systolic Diameter MM 4.0 cm LA Ao Ratio MM 1.1 AV Cusp Separation MM 1.9 cm DOPPLER AV Peak Velocity 98.1 cm/s AV Peak Gradient 3.8 mmHg LVOT Peak Velocity 78.1 cm/s LVOT Peak Gradient 2.4 mmHg MV Area PHT 1.7 cm??? Mitral E Point Velocity 57.0 cm/s Mitral A Point Velocity 119.6 cm/s Mitral E to A Ratio 0.5 MV Deceleration Time 434.6 ms MV E' Velocity 5.9 cm/s Mitral E to MV E' Ratio 9.6 TR Peak Velocity 217.6 cm/s TR Peak Gradient 18.9 mmHg Right Ventricular Systolic Press 23.5 mmHg FINDINGS Left Ventricle Mildly increased left ventricular wall thickness. Normal left ventricular systolic function with no obvious regional wall motion abnormalities. Left ventricular ejection fraction is estimated at 55-60 %. Right Ventricle Normal right ventricular size and function. Right Atrium Normal right atrial size. Left Atrium Normal left atrial size. Mitral Valve Structurally normal mitral valve. No mitral stenosis. Mitral valve thickened. Mild mitral annular calcification. Mild mitral regurgitation. Aortic Valve Trileaflet aortic valve. Aortic valve sclerosis. No aortic valve stenosis or regurgitation. Tricuspid Valve Structurally normal tricuspid valve. Mild tricuspid regurgitation. Pulmonic Valve Trace pulmonic regurgitation. Pericardium No pericardial effusion. Aorta Normal size aortic root and proximal ascending aorta. CONCLUSIONS Normal left ventricular dimension and systolic function Previewed by: Dr. Maninder Elias MD (Electronically Signed) Final Date: 02 February 2022 13:01
--- NOTE | 2022-02-02 16:39 | P.DS ---
Providers Date of admission: 02/02/22 03:24 Expected date of discharge: 02/02/22 Attending physician: Ronald Mishra MD Consults: 02/02/22 03:24 Consult Physician Urgent Consulting Provider: Isaiah Henderson Consult Reason/Comments: cp Do you want consulting provider notified?: Yes Primary care physician: [facility] Course: Chest pain Hypertension Hyperlipidemia CAD status post PCI REAL The patient is an 82 y.o female with a history of CAD, stent in 2011. The patient states that over the last week, she has had chest pain rated 5/10 associated with chest pain. In the emergency room the patient had a T 97.2, P 88, R 18, BP 149/87. The labs showed NA 136, BUN 21, Cr 0.78, Glu 156, WBC 6.7, HB 12.9 The patient was hospitalized for further work-up and management. Pt was seen and evaluated by cardiology after chest pain spontaneously resolved. She expressed wish to go home. Trops were negative. Echo showed preserved EF of 55-60%, no WMA. EKG did not demonstrate ischemia. Pt has follow up in 2 weeks arranged with cardiology, she will be discharged. Gen: awake, alert HEENT: normocephalic, atraumatic, good hearing acuity, moist mucous membranes Resp: good air exchange, breathing comfortably with no accessory muscle use CVS: good distal perfusion x 4, GI: soft, NTTP, ND : no SPT, no CVAT, infante catheter not present MSK: no pitting edema, no clubbing Neuro: non-focal, moving all extremities Psych: cooperative, euthymic mood Patient Condition at Discharge: Good Plan - Discharge Summary New Discharge Prescriptions: Continue Letrozole 2.5 mg PO HS Nitroglycerin Sl Tabs [Nitrostat] 0.4 mg SL Q5M PRN PRN Reason: Chest Pain ALPRAZolam [Xanax] 0.25 mg PO HS amLODIPine [Norvasc] 5 mg PO HS Apixaban [Eliquis] 2.5 mg PO BID Metoprolol Tartrate [Lopressor] 25 mg PO BID Isosorbide Mononitrate ER [Imdur] 60 mg PO DAILY Discharge Medication List Letrozole 2.5 mg PO HS 02/27/19 [History] ALPRAZolam [Xanax] 0.25 mg PO HS 05/20/20 [History] Nitroglycerin Sl Tabs [Nitrostat] 0.4 mg SL Q5M PRN 05/20/20 [History] Isosorbide Mononitrate ER [Imdur] 60 mg PO DAILY 08/18/20 [History] Apixaban [Eliquis] 2.5 mg PO BID 03/18/21 [History] Metoprolol Tartrate [Lopressor] 25 mg PO BID 03/18/21 [History] amLODIPine [Norvasc] 5 mg PO HS 03/18/21 [History] Follow up Appointment(s)/Referral(s): Maninder Elias MD [STAFF PHYSICIAN] - 1 Week Ryan Pires DO [Primary Care Provider] - 1-2 days Patient Instructions/Handouts: Chest Pain (ED) Discharge Disposition: HOME SELF-CARE
[2022-02-03] MEDS ORDERED: ASPIRIN 325 MG TAB PO SCH (09:00)
== END 2022-02-02 10:26 | disposition home or self-care (01) ==
LOC: EC 00:29 → 6NMEDSUR 03:24
PROVIDERS: ADMIT Internal Medicine; ATTEND Internal Medicine
DX: R07.89 Other chest pain (principal); I10 Essential (primary) hypertension; E78.5 Hyperlipidemia, unspecified; I25.10 Atherosclerotic heart disease of native coronary artery without angina pectoris; I48.0 Paroxysmal atrial fibrillation; G47.33 Obstructive sleep apnea (adult) (pediatric); Z95.5 Presence of coronary angioplasty implant and graft; J45.909 Unspecified asthma, uncomplicated; H35.30 Unspecified macular degeneration; Z87.19 Personal history of other diseases of the digestive system; I77.1 Stricture of artery; Z91.012 Allergy to eggs; Z91.011 Allergy to milk products; Z85.3 Personal history of malignant neoplasm of breast; Z90.49 Acquired absence of other specified parts of digestive tract; Z90.710 Acquired absence of both cervix and uterus; Z98.42 Cataract extraction status, left eye; Z98.41 Cataract extraction status, right eye; Z98.890 Other specified postprocedural states; Z80.3 Family history of malignant neoplasm of breast; Z82.61 Family history of arthritis; Z80.6 Family history of leukemia; Z79.01 Long term (current) use of anticoagulants; Z79.811 Long term (current) use of aromatase inhibitors; Z79.899 Other long term (current) drug therapy; Z88.1 Allergy status to other antibiotic agents; Z88.5 Allergy status to narcotic agent; Z91.013 Allergy to seafood; Z88.2 Allergy status to sulfonamides; Z88.8 Allergy status to other drugs, medicaments and biological substances; Z91.048 Other nonmedicinal substance allergy status; Z91.010 Allergy to peanuts
CPT/HCPCS: 96374; 99285; 36415; 93005; 93306; 83880; 80053; 83690; 83735; 84484; 85025; 85610; 85730; 81003; 71046; G0378

== ENCOUNTER 2022-02-05 16:47 | Observation (INO) | payer MEDICARE ==
[2022-02-05] MEDS ORDERED: NALOXONE 0.4 MG/ML 1 ML VIAL IVP PRN (17:19)
[2022-02-05] MEDS ORDERED: ASPIRIN 81 MG PO STA (17:35)
[2022-02-05] MEDS ORDERED: NITROGLYCERIN OINT 1 INCH/GM PACKET TOPICAL STA (17:35)
--- NOTE | 2022-02-05 17:50 | ED ---
General Adult HPI - General Chief complaint: Chest Pain Stated complaint: Chest Pain Time Seen by Provider: 02/05/22 17:10 Source: patient, family, RN notes reviewed, old records reviewed Mode of arrival: wheelchair Limitations: no limitations - History of Present Illness Initial comments: This is an 82-year-old female presents emergency Department complaining of chest pain on and off all week. Patient states it's a pressure sensation. Patient states it radiates to her back. And if she exerts herself and gets worse and she has shortness of breath. Patient states she has a previous stenting was recently in the hospital they did blood work but they did not do a catheterization. Patient states she has a known blockage that they said at some point time we need to start and she believes at this time is now. Patient denies any fever chills or cough per patient denies lightheadedness or dizziness. Patient has abdominal pain patient denies nausea vomiting or diarrhea. Patient denies swelling to the legs or any calf tenderness. - Related Data Home Medications Medication Instructions Recorded Confirmed Letrozole 2.5 mg PO HS 02/27/19 02/05/22 ALPRAZolam [Xanax] 0.25 mg PO HS 05/20/20 02/05/22 Nitroglycerin Sl Tabs [Nitrostat] 0.4 mg SL Q5M PRN 05/20/20 02/05/22 Isosorbide Mononitrate ER [Imdur] 60 mg PO DAILY 08/18/20 02/05/22 Apixaban [Eliquis] 2.5 mg PO BID 03/18/21 02/05/22 Metoprolol Tartrate [Lopressor] 25 mg PO BID 03/18/21 02/05/22 amLODIPine [Norvasc] 5 mg PO HS 03/18/21 02/05/22 Albuterol Sulfate [Proair Hfa] 1 - 2 puff INHALATION RT-QID PRN 02/05/22 02/05/22 Allergies Allergy/AdvReac Type Severity Reaction Status Date / Time cephalexin [From Keflex] Allergy Rash/Hives Verified 02/05/22 18:15 codeine Allergy Unknown Verified 02/05/22 18:15 iodine Allergy Rash/Hives Verified 02/05/22 18:15 shellfish derived Allergy Rash/Hives Verified 02/05/22 18:15 Sulfa (Sulfonamide Allergy Rash/Hives Verified 02/05/22 18:15 Antibiotics) sulfamethoxazole Allergy Rash/Hives Verified 02/05/22 18:15 [From Bactrim] trimethoprim [From Bactrim] Allergy Rash/Hives Verified 02/05/22 18:15 tree nut [Nut] AdvReac Mild Abdominal Verified 02/05/22 18:15 Pain cat dander AdvReac Wheezing Verified 02/05/22 18:15 dog dander AdvReac Wheezing Verified 02/05/22 18:15 egg AdvReac Nausea & Verified 02/05/22 18:15 Vomiting house dust mite AdvReac Wheezing Verified 02/05/22 18:15 Milk Containing Products AdvReac Nausea & Verified 02/05/22 18:15 [Dairy] Vomiting peanut AdvReac Nausea & Verified 02/05/22 18:15 Vomiting soy AdvReac Nausea & Verified 02/05/22 18:15 Vomiting Review of Systems ROS Statement: Those systems with pertinent positive or pertinent negative responses have been documented in the HPI. ROS Other: All systems not noted in ROS Statement are negative. Past Medical History Past Medical History: Asthma, Coronary Artery Disease (CAD), Cancer, Chest Pain / Angina, Eye Disorder, GERD/Reflux, Hyperlipidemia, Hypertension, Sleep Apnea/CPAP/BIPAP Additional Past Medical History / Comment(s): DIVERTICULITS,SINUSITIS,LT EYE MAC DEGENERATION,SMALL HIATAL HERNIA,DDD,SPINAL STENOSIS,SLEEP APNEA USES A CPAP MACHINE, HAS NARROW ARTERY DISEASE. GLUTEN ALLERGY,LACTOSE INTOLERANCE AND EGGS CAUSE NAUSEA AND BLOATING BUT ABLE TO TAKE IMMUNIZATIONS. 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 History of Any Multi-Drug Resistant Organisms: None Reported Past Surgical History: Appendectomy, Bladder Surgery, Breast Surgery, Cholecy stectomy, Heart Catheterization With Stent, Hernia Repair, Hysterectomy Additional Past Surgical History / Comment(s): Vaginal hysterectomy 1991. BLADDER SUSPENSION WITH MESH. JUANJOSE CATARACTS, CYST ON NECK REMOVED, EGD, VEIN STRIPPING, HEMORRHOIDECTOMY, NASAL SURGERY. Colonoscopy 2020(next after 5yr). LT BREAST BIOPSY and lumpectomy 2018. bunionectomy left foot Past Anesthesia/Blood Transfusion Reactions: Motion Sickness Date of Last Stent Placement:: 2011 Past Psychological History: Anxiety Smoking Status: Never smoker Past Alcohol Use History: None Reported Past Drug Use History: None Reported - Past Family History Sister(s) Family Medical History: Cancer Additional Family Medical History / Comment(s): breast cancer Father Family Medical History: Cancer, Osteoarthritis (OA) Additional Family Medical History / Comment(s): LEUKEMIA. PaternalAunt had breast cancer Mother Family Medical History: Cancer Additional Family Medical History / Comment(s): BREAST CANCER, AND PT'S SISTER AND AUNT HAD BREAST CANCER WELL. General Exam - General Exam Comments Initial Comments: GENERAL: Patient is well-developed and well-nourished. Patient is nontoxic and well- hydrated and is in mild distress. ENT: Neck is soft and supple. No significant lymphadenopathy is noted. Oropharynx is clear. Moist mucous membranes. Neck has full range of motion without e liciting any pain. EYES: The sclera were anicteric and conjunctiva were pink and moist. Extraocular movements were intact and pupils were equal round and reactive to light. Eyelids were unremarkable. PULMONARY: Unlabored respirations. Good breath sounds bilaterally. No audible rales rhonchi or wheezing was noted. CARDIOVASCULAR: There is a regular rate and rhythm without any murmurs gallops or rubs. ABDOMEN: Soft and nontender with normal bowel sounds. SKIN: Skin is clear with no lesions or rashes and otherwise unremarkable. NEUROLOGIC: Patient is alert and oriented x3. Cranial nerves II through XII are grossly intact. Motor and sensory are also intact. Normal speech, volume and content. Symmetrical smile. MUSCULOSKELETAL: Normal extremities with adequate strength and full range of motion. No lower extremity swelling or edema. No calf tenderness. LYMPHATICS: No significant lymphadenopathy is noted PSYCHIATRIC: Normal psychiatric evaluation. Limitations: no limitations Course Vital Signs 02/05/22 02/05/22 02/05/22 17:02 17:28 17:45 Temperature 98.1 F Pulse Rate 97 79 89 Respiratory 16 18 18 Rate Blood Pressure 118/67 122/78 O2 Sat by Pulse 98 97 96 Oximetry 02/05/22 18:26 Temperature Pulse Rate 68 Respiratory 15 Rate Blood Pressure 150/84 O2 Sat by Pulse 97 Oximetry Medical Decision Making - Medical Decision Making EKG shows sinus rhythm at 75 bpm. [place] interval is 213 QRS is 149 QT intervals 408 QTC is 437. Patient has a left bundle branch block which is old. Chest x-ray shows no acute abnormality. Patient stated the Nitropaste seem to almost eliminate her pain. I spoke with sounds physician's agreed to admit the patient admitted the patient wrote admitting orders. - Lab Data Result diagrams: 02/05/22 17:29 02/05/22 17:29 Lab Results 02/05/22 02/05/22 02/05/22 Range/Units 17:29 17:29 17:29 WBC 7.3 (3.8-10.6) k/uL RBC 4.37 (3.80-5.40) m/uL Hgb 13.2 (11.4-16.0) gm/dL Hct 39.7 (34.0-46.0) % MCV 90.7 (80.0-100.0) fL MCH 30.3 (25.0-35.0) pg MCHC 33.4 (31.0-37.0) g/dL RDW 12.8 (11.5-15.5) % Plt Count 340 (150-450) k/uL MPV 7.6 Neutrophils % 70 % Lymphocytes % 18 % Monocytes % 7 % Eosinophils % 2 % Basophils % 0 % Neutrophils # 5.1 (1.3-7.7) k/uL Lymphocytes # 1.3 (1.0-4.8) k/uL Monocytes # 0.5 (0-1.0) k/uL Eosinophils # 0.2 (0-0.7) k/uL Basophils # 0.0 (0-0.2) k/uL PT 10.2 (9.0-12.0) sec INR 0.9 (<1.2) APTT 24.2 (22.0-30.0) sec Sodium 140 (137-145) mmol/L Potassium 4.2 (3.5-5.1) mmol/L Chloride 103 (98-107) mmol/L Carbon Dioxide 25 (22-30) mmol/L Anion Gap 12 mmol/L BUN 22 H (7-17) mg/dL Creatinine 0.88 (0.52-1.04) mg/dL Est GFR (CKD-EPI)AfAm 72 (>60 ml/min/1.73 sqM) Est GFR (CKD-EPI)NonAf 62 (>60 ml/min/1.73 sqM) Glucose 194 H (74-99) mg/dL Calcium 9.5 (8.4-10.2) mg/dL Magnesium 2.1 (1.6-2.3) mg/dL Total Bilirubin 0.6 (0.2-1.3) mg/dL AST 32 (14-36) U/L ALT 29 (4-34) U/L Alkaline Phosphatase 66 (38-126) U/L Troponin I (0.000-0.034) ng/mL Total Protein 7.1 (6.3-8.2) g/dL Albumin 4.2 (3.5-5.0) g/dL 02/05/22 Range/Units 17:29 WBC (3.8-10.6) k/uL RBC (3.80-5.40) m/uL Hgb (11.4-16.0) gm/dL Hct (34.0-46.0) % MCV (80.0-100.0) fL MCH (25.0-35.0) pg MCHC (31.0-37.0) g/dL RDW (11.5-15.5) % Plt Count (150-450) k/uL MPV Neutrophils % % Lymphocytes % % Monocytes % % Eosinophils % % Basophils % % Neutrophils # (1.3-7.7) k/uL Lymphocytes # (1.0-4.8) k/uL Monocytes # (0-1.0) k/uL Eosinophils # (0-0.7) k/uL Basophils # (0-0.2) k/uL PT (9.0-12.0) sec INR (<1.2) APTT (22.0-30.0) sec Sodium (137-145) mmol/L Potassium (3.5-5.1) mmol/L Chloride (98-107) mmol/L Carbon Dioxide (22-30) mmol/L Anion Gap mmol/L BUN (7-17) mg/dL Creatinine (0.52-1.04) mg/dL Est GFR (CKD-EPI)AfAm (>60 ml/min/1.73 sqM) Est GFR (CKD-EPI)NonAf (>60 ml/min/1.73 sqM) Glucose (74-99) mg/dL Calcium (8.4-10.2) mg/dL Magnesium (1.6-2.3) mg/dL Total Bilirubin (0.2-1.3) mg/dL AST (14-36) U/L ALT (4-34) U/L Alkaline Phosphatase (38-126) U/L Troponin I <0.012 (0.000-0.034) ng/mL Total Protein (6.3-8.2) g/dL Albumin (3.5-5.0) g/dL Disposition Clinical Impression: Chest pain Disposition: ADMITTED IP TO THIS HOSP Referrals: Ryan Pires DO [Primary Care Provider] - 1-2 days Time of Disposition: 18:48
[2022-02-05 17:58] LABS: Basophils % (A) 0 %; Eosinophils # (A) 0.2 k/uL (0-0.7); Eosinophils % (A) 2 %; HCT 39.7 % (34.0-46.0); HGB 13.2 gm/dL (11.4-16.0); Lymphocytes # (A) 1.3 k/uL (1.0-4.8); Lymphocytes % (A) 18 %; MCH 30.3 pg (25.0-35.0); MCHC 33.4 g/dL (31.0-37.0); MCV 90.7 fL (80.0-100.0); Mean Platelet Volume 7.6; Monocytes # (A) 0.5 k/uL (0-1.0); Monocytes % (A) 7 %; Neutrophils # (A) 5.1 k/uL (1.3-7.7); Neutrophils % (A) 70 %; Platelet Count 340 k/uL (150-450); RBC 4.37 m/uL (3.80-5.40); RDW 12.8 % (11.5-15.5); WBC 7.3 k/uL (3.8-10.6)
[2022-02-05] MEDS ORDERED: methylPREDNISolone SOD SUCCI 125 MG/2 ML VIAL IV SCH (18:00)
[2022-02-05 18:08] LABS: INR 0.9 (<1.2); Partial Thromboplastin Time 24.2 sec (22.0-30.0); Prothrombin Time 10.2 sec (9.0-12.0)
[2022-02-05 18:15] LABS: Albumin 4.2 g/dL (3.5-5.0); Calcium 9.5 mg/dL (8.4-10.2); Total Bilirubin 0.6 mg/dL (0.2-1.3); Total Protein 7.1 g/dL (6.3-8.2)
--- NOTE | 2022-02-05 18:21 | XR ---
EXAMINATION TYPE: XR chest 2V DATE OF EXAM: 02/05/2022 5:57 PM COMPARISON: Chest radiographs from 02/02/2022 TECHNIQUE: XR chest 2V Frontal and lateral views of the chest. CLINICAL INDICATION:Female, 82 years old with history of Chest Pain; FINDINGS: Lungs/Pleura: There is flattening of the diaphragm with increased lucency of the lungs. No evidence o f pneumothorax, pleural effusion or focal consolidation. Pulmonary vascularity: Unremarkable. Heart/mediastinum: Cardiomediastinal silhouette is unremarkable. Atherosclerotic calcifications are seen in the aorta. Musculoskeletal: No acute osseous pathology. IMPRESSION: 1. No acute cardiopulmonary disease process. 2. COPD changes.
[2022-02-05 18:36] LABS: Magnesium 2.1 mg/dL (1.6-2.3); Potassium 4.2 mmol/L (3.5-5.1)
[2022-02-05] MEDS ORDERED: NITROGLYCERIN SL TABS 0.4 MG TAB SUBLINGUAL PRN (18:48)
[2022-02-05] MEDS ORDERED: ALPRAZolam 0.5 MG TAB PO PRN (23:11)
[2022-02-06] MEDS ORDERED: NITROGLYCERIN OINT 1 INCH/GM PACKET TOPICAL SCH
--- NOTE | 2022-02-06 03:11 | P.HPIM ---
History of Present Illness H&P Date: 02/05/22 Chief Complaint: chest pain 82 year old female with h/o CAD, s/p stents 2011, hyperlipidemia , hypertension patient comes in with complaint of repeated episodes of chest pain, felt pressure like centrally radiating to the back , worse with exertion, associated with difficulty in breathing, palpitations and feeling warm, denies any nausea or vomting, or profuse sweating, theses episodes lasts minutes to an hour. she denies any fever, chills, cough, sore throat, GI bleeding, abd pain , changes in bowel or urinary habits. she was hospitalized few days ago, for similar problems, but elected to be discharged and follow up OP with cardiology . Echocardiogram was done during that admission with LVEF 55-60%. workup in the ED unremarkable , trops negative , vital signs stable , labs unremarkable Review of Systems Pertinent positives as noted in HPI. All other systems were reviewed and are negative Past Medical History Past Medical History: Asthma, Coronary Artery Disease (CAD), Cancer, Chest Pain / Angina, Eye Disorder, GERD/Reflux, Hyperlipidemia, Hypertension, Sleep Apnea/CPAP/BIPAP Additional Past Medical History / Comment(s): DIVERTICULITS,SINUSITIS,LT EYE MAC DEGENERATION,SMALL HIATAL HERNIA,DDD,SPINAL STENOSIS,SLEEP APNEA USES A CPAP MACHINE, HAS NARROW ARTERY DISEASE. GLUTEN ALLERGY,LACTOSE INTOLERANCE AND EGGS CAUSE NAUSEA AND BLOATING BUT ABLE TO TAKE IMMUNIZATIONS. 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 History of Any Multi-Drug Resistant Organisms: None Reported Past Surgical History: Appendectomy, Bladder Surgery, Breast Surgery, Cholecyst ectomy, Heart Catheterization With Stent, Hernia Repair, Hysterectomy Additional Past Surgical History / Comment(s): Vaginal hysterectomy 1991. BLADDER SUSPENSION WITH MESH. JUANJOSE CATARACTS, CYST ON NECK REMOVED, EGD, VEIN STRIPPING, HEMORRHOIDECTOMY, NASAL SURGERY. Colonoscopy 2020(next after 5yr). LT BREAST BIOPSY and lumpectomy 2018. bunionectomy left foot Past Anesthesia/Blood Transfusion Reactions: Motion Sickness Date of Last Stent Placement:: 2011 Past Psychological History: Anxiety Additional Psychological History / Comment(s): PT LIVES IN OWN HOME WITH HER FAM SUSY. 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 NO OUTSIDE SERVICES. Smoking Status: Never smoker Past Alcohol Use History: None Reported Past Drug Use History: None Reported - Past Family History Sister(s) Family Medical History: Cancer Additional Family Medical History / Comment(s): breast cancer Father Family Medical History: Cancer, Osteoarthritis (OA) Additional Family Medical History / Comment(s): LEUKEMIA. PaternalAunt had breast cancer Mother Family Medical History: Cancer Additional Family Medical History / Comment(s): BREAST CANCER, AND PT'S SISTER AND AUNT HAD BREAST CANCER WELL. Medications and Allergies Home Medications Medication Instructions Recorded Confirmed Type Letrozole 2.5 mg PO HS 02/27/19 02/05/22 History ALPRAZolam [Xanax] 0.25 mg PO HS 05/20/20 02/05/22 History Nitroglycerin Sl Tabs [Nitrostat] 0.4 mg SL Q5M PRN 05/20/20 02/05/22 History Isosorbide Mononitrate ER [Imdur] 60 mg PO DAILY 08/18/20 02/05/22 History Apixaban [Eliquis] 2.5 mg PO BID 03/18/21 02/05/22 History Metoprolol Tartrate [Lopressor] 25 mg PO BID 03/18/21 02/05/22 History amLODIPine [Norvasc] 5 mg PO HS 03/18/21 02/05/22 History Albuterol Sulfate [Proair Hfa] 1 - 2 puff INHALATION RT-QID PRN 02/05/22 02/05/22 History Allergies Allergy/AdvReac Type Severity Reaction Status Date / Time cephalexin [From Keflex] Allergy Rash/Hives Verified 02/05/22 18:15 codeine Allergy Unknown Verified 02/05/22 18:15 iodine Allergy Rash/Hives Verified 02/05/22 18:15 shellfish derived Allergy Rash/Hives Verified 02/05/22 18:15 Sulfa (Sulfonamide Allergy Rash/Hives Verified 02/05/22 18:15 Antibiotics) sulfamethoxazole Allergy Rash/Hives Verified 02/05/22 18:15 [From Bactrim] trimethoprim [From Bactrim] Allergy Rash/Hives Verified 02/05/22 18:15 tree nut [Nut] AdvReac Mild Abdominal Verified 02/05/22 18:15 Pain cat dander AdvReac Wheezing Verified 02/05/22 18:15 dog dander AdvReac Wheezing Verified 02/05/22 18:15 egg AdvReac Nausea & Verified 02/05/22 18:15 Vomiting house dust mite AdvReac Wheezing Verified 02/05/22 18:15 Milk Containing Products AdvReac Nausea & Verified 02/05/22 18:15 [Dairy] Vomiting peanut AdvReac Nausea & Verified 02/05/22 18:15 Vomiting soy AdvReac Nausea & Verified 02/05/22 18:15 Vomiting Physical Exam Vitals: Vital Signs Temp Pulse Resp BP Pulse Ox 02/05/22 19:42 72 16 148/93 98 02/05/22 18:26 68 15 150/84 97 02/05/22 17:45 89 18 96 02/05/22 17:28 79 18 122/78 97 02/05/22 17:02 98.1 F 97 16 118/67 98 Intake and Output 02/05/22 02/05/22 02/06/22 14:59 22:59 06:59 Other: # Voids 1 Weight 58.06 kg Constitutional: No acute distress, conversant, pleasant Eyes: Anicteric sclerae, moist conjunctiva, Pupils equal round reactive to light ENMT: NC/AT Oropharynx clear, no erythema, or exudates Neck: Supple , no masses, or JVD No carotid bruits No thyromegaly Lungs: Clear to auscultation Clear to percussion Normal respiratory effort, no accessory muscle use Cardiovascular: Heart regular in rate and rhythm, No murmurs, gallops, or rubs No peripheral edema Abdominal: Soft Nontender, no guarding, rebound or rigidity Abdomen moving with respiration Normoactive bowel sounds No hepatomegaly, No splenomegaly No palpable mass No abdominal wall hernia noted Skin: Normal temperature, tone, texture, turgor No induration No subcutaneous nodules No rash, lesions No ulcers Extremities: No digital cyanosis No clubbing Pedal pulses intact and symmetrical Radial pulses intact and symmetrical No calf tenderness Psychiatric: Alert and oriented to person, place and time Appropriate affect fair judgement Neuro Muscles Strength 5/5 in all 4 extremities Sensation to light touch grossly present throughout Cranial nerves II-XII grossly intact No focal sensory deficits Lymphatics: no palpable cervical or supraclavicular , or inguinal lymph nodes Results CBC & Chem 7: 02/05/22 17:29 02/05/22 17:29 Labs: Abnormal Lab Results - Last 24 Hours (Table) 02/05/22 Range/Units 17:29 BUN 22 H (7-17) mg/dL Glucose 194 H (74-99) mg/dL Assessment and Plan Assessment: atypical chest pain rule out ACS EKG no acute changes CXR no acute pathology trops negative 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
[2022-02-06 05:35] VITALS: RESP 16; TEMP 97.8
[2022-02-06] MEDS ORDERED: REGADENOSON 0.4 MG/5 ML SYRINGE IV PRN (08:02)
[2022-02-06] MEDS ORDERED: AMINOPHYLLINE 500 MG/20 ML VIAL IV PRN (08:02)
[2022-02-06] MEDS ORDERED: CAFFEINE CITRATE 60 MG/3 ML VIAL IV PRN (08:02)
[2022-02-06 08:18] VITALS: BP 157/72; PULSE 63
[2022-02-06] MEDS ORDERED: ASPIRIN 325 MG TAB PO SCH (09:00)
[2022-02-06] MEDS ORDERED: APIXABAN 2.5 MG TABLET PO SCH (09:00)
[2022-02-06] MEDS ORDERED: ISOSORBIDE MONONITRATE ER 60 MG TAB.ER.24H PO SCH (09:00)
[2022-02-06] MEDS ORDERED: METOPROLOL TARTRATE 25 MG TAB PO SCH (09:00)
--- NOTE | 2022-02-06 09:06 | P.CRDCN ---
History of Present Illness History of present illness: This is a 82-year-old female with a past medical history significant for coronary artery disease with previous stenting of the LAD, paroxysmal atrial fibrillation on Eliquis, hypertension, and hyperlipidemia with statin intolerance. Patient follows in the office with Dr. Elias. We have been asked to see the patient in consultation for chest pain. Patient presents to the ER with complaints of palpitations and chest discomfort. She states yesterday, she was doing her daily activities and resting, she had acute onset palpitations, felt her heart racing. She had associated shortness of breath. Some radiation to her back. She was concerned that this was similar to her prior stent placement and presented to the ER for further evaluation. She denied any nausea, vomiting, diaphoresis, lightheadedness, dizziness, syncope or near syncope. She did have some discomfort in her chest. She denies any exertional chest discomfort. Her symptoms have resolved and she is feeling much better. DIAGNOSTICS * EKG reveals sinus rhythm with first-degree AV block, heart rate 75, left bundle branch block. Prior EKG with similar findings * Chest xray negative for acute process * Laboratory data: Troponin negative 3, CBC unremarkable, sodium 140, potassium 4.2, BUN 22, serum current 0.8, magnesium 2.1 * Current home cardiac medications include amlodipine 5 mg daily, metoprolol tartrate 25 mg twice a day, Imdur 60 mg daily, Eliquis 2.5mg BID * Recent echocardiogram 02/02/2022 revealed an EF 5560 percent, mild mitral regurgitation, mild tricuspid regurgitation * Cardiac catheterization history: March 2021 revealing patent stent in the proximal LAD. Intermediate disease involving the mid LAD. Normal left-sided filling pressures. Medical management was recommended. REVIEW OF SYSTEMS: CONSTITUTIONAL: Denies fever or chills. HEENT: Denies blurred vision, vision changes, or eye pain. Denies hemoptysis CARDIOVASCULAR: Denies chest pain. Denies orthopnea. Denies PND. Reports palpitations RESPIRATORY: +shortness of breath. GASTROINTESTINAL: Denies abdominal pain. Denies nausea or vomiting. HEMATOLOGIC: Denies bleeding disorders. GENITOURINARY: Denies any blood in urine. SKIN: Denies pruitis. Denies rash. PHYSICAL EXAM: VITAL SIGNS: Reviewed. GENERAL: Well-developed in no acute distress. HEENT: Head is normocephalic. Pupils are equal, round. Sclerae anicteric. Mucous membranes of the mouth are moist. Neck supple. No JVD LUNGS: Respirations even and unlabored. Lungs essentially clear to auscultation bilaterally. HEART: Regular rate and rhythm. S1 and S2 heard. ABDOMEN: Soft. Nondistended. Nontender. EXTREMITIES: Normal range of motion. No clubbing or cyanosis. Peripheral pulses intact. No lower extremity edema NEUROLOGIC: Awake and alert. Oriented x 3. ASSESSMENT: Chest discomfort and palpitations, troponin negative 3, acute coronary syndrome has been ruled out, possibly patient was in/out of A fib with RVR. Coronary artery disease with previous stenting of the LAD Paroxysmal atrial fibrillation, currently maintaining sinus mechanism Hypertension Hyperlipidemia with statin intolerance and also intolerance to Zetia PLAN: An acute coronary event has been ruled out Perform lexiscan stress test Resume home cardiac medications Continue Eliquis to 2.5mg BID due to patient's age and weight If stress test with no evidence of reversible ischemia, no further inpatient workup from a cardiology perspective Close outpatient follow-up with Dr. Elias appointment rescheduled 02/12/2022, event monitor will be discussed as an outpatient Nurse practitioner note has been reviewed by physician. Signing provider agrees with the documented findings, assessment, and plan of care. Past Medical History Past Medical History: Asthma, Coronary Artery Disease (CAD), Cancer, Chest Pain / Angina, Eye Disorder, GERD/Reflux, Hyperlipidemia, Hypertension, Sleep Apnea/CPAP/BIPAP Additional Past Medical History / Comment(s): DIVERTICULITS,SINUSITIS,LT EYE MAC DEGENERATION,SMALL HIATAL HERNIA,DDD,SPINAL STENOSIS,SLEEP APNEA USES A CPAP MACHINE, HAS NARROW ARTERY DISEASE. GLUTEN ALLERGY,LACTOSE INTOLERANCE AND EGGS CAUSE NAUSEA AND BLOATING BUT ABLE TO TAKE IMMUNIZATIONS. 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 History of Any Multi-Drug Resistant Organisms: None Reported Past Surgical History: Appendectomy, Bladder Surgery, Breast Surgery, Cholecystectomy, Heart Catheterization With Stent, Hernia Repair, Hysterectomy Additional Past Surgical History / Comment(s): Vaginal hysterectomy 1991. BLADDER SUSPENSION WITH MESH. JUANJOSE CATARACTS, CYST ON NECK REMOVED, EGD, VEIN STRIPPING, HEMORRHOIDECTOMY, NASAL SURGERY. Colonoscopy 2020(next after 5yr). LT BREAST BIOPSY and lumpectomy 2018. bunionectomy left foot Past Anesthesia/Blood Transfusion Reactions: Motion Sickness Date of Last Stent Placement:: 2011 Past Psychological History: Anxiety Additional Psychological History / Comment(s): PT LIVES IN OWN HOME WITH HER FAMILY. 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 NO OUTSIDE SERVICES. Smoking Status: Never smoker Past Alcohol Use History: None Reported Past Drug Use History: None Reported - Past Family History Sister(s) Family Medical History: Cancer Additional Family Medical History / Comment(s): breast cancer Father Family Medical History: Cancer, Osteoarthritis (OA) Additional Family Medical History / Comment(s): LEUKEMIA. PaternalAunt had breast cancer Mother Family Medical History: Cancer Additional Family Medical History / Comment(s): BREAST CANCER, AND PT'S SISTER AND AUNT HAD BREAST CANCER WELL. Medications and Allergies Home Medications Medication Instructions Recorded Confirmed Type Letrozole 2.5 mg PO HS 02/27/19 02/05/22 History ALPRAZolam [Xanax] 0.25 mg PO HS 05/20/20 02/05/22 History Nitroglycerin Sl Tabs [Nitrostat] 0.4 mg SL Q5M PRN 05/20/20 02/05/22 History Isosorbide Mononitrate ER [Imdur] 60 mg PO DAILY 08/18/20 02/05/22 History Apixaban [Eliquis] 2.5 mg PO BID 03/18/21 02/05/22 History Metoprolol Tartrate [Lopressor] 25 mg PO BID 03/18/21 02/05/22 History amLODIPine [Norvasc] 5 mg PO HS 03/18/21 02/05/22 History Albuterol Sulfate [Proair Hfa] 1 - 2 puff INHALATION RT-QID PRN 02/05/22 02/05/22 History Allergies Allergy/AdvReac Type Severity Reaction Status Date / Time cephalexin [From Keflex] Allergy Rash/Hives Verified 02/05/22 18:15 codeine Allergy Unknown Verified 02/05/22 18:15 iodine Allergy Rash/Hives Verified 02/05/22 18:15 shellfish derived Allergy Rash/Hives Verified 02/05/22 18:15 Sulfa (Sulfonamide Allergy Rash/Hives Verified 02/05/22 18:15 Antibiotics) sulfamethoxazole Allergy Rash/Hives Verified 02/05/22 18:15 [From Bactrim] trimethoprim [From Bactrim] Allergy Rash/Hives Verified 02/05/22 18:15 tree nut [Nut] AdvReac Mild Abdominal Verified 02/05/22 18:15 Pain cat dander AdvReac Wheezing Verified 02/05/22 18:15 dog dander AdvReac Wheezing Verified 02/05/22 18:15 egg AdvReac Nausea & Verified 02/05/22 18:15 Vomiting house dust mite AdvReac Wheezing Verified 02/05/22 18:15 Milk Containing Products AdvReac Nausea & Verified 02/05/22 18:15 [Dairy] Vomiting peanut AdvReac Nausea & Verified 02/05/22 18:15 Vomiting soy AdvReac Nausea & Verified 02/05/22 18:15 Vomiting Physical Exam Vitals: Vital Signs Temp Pulse Pulse Resp BP BP Pulse Ox 02/06/22 03:26 97.8 F 62 16 120/65 98 02/05/22 21:50 97.6 F 73 17 152/62 97 02/05/22 19:42 72 16 148/93 98 02/05/22 18:26 68 15 150/84 97 02/05/22 17:45 89 18 96 02/05/22 17:28 79 18 122/78 97 02/05/22 17:02 98.1 F 97 16 118/67 98 Intake and Output 02/05/22 02/06/22 02/06/22 22:59 06:59 14:59 Other: # Voids 1 2 Weight 58.06 kg Results 02/05/22 17:29 02/05/22 17:29 Cardiac Enzymes 02/05/22 02/05/22 02/05/22 Range/Units 17:29 17:29 19:21 AST 32 (14-36) U/L Troponin I <0.012 <0.012 (0.000-0.034) ng/mL 02/05/22 Range/Units 22:07 AST (14-36) U/L Troponin I <0.012 (0.000-0.034) ng/mL Coagulation 02/05/22 Range/Units 17:29 PT 10.2 (9.0-12.0) sec APTT 24.2 (22.0-30.0) sec CBC 02/05/22 Range/Units 17:29 WBC 7.3 (3.8-10.6) k/uL RBC 4.37 (3.80-5.40) m/uL Hgb 13.2 (11.4-16.0) gm/dL Hct 39.7 (34.0-46.0) % Plt Count 340 (150-450) k/uL Comprehensive Metabolic Panel 02/05/22 Range/Units 17:29 Sodium 140 (137-145) mmol/L Potassium 4.2 (3.5-5.1) mmol/L Chloride 103 (98-107) mmol/L Carbon Dioxide 25 (22-30) mmol/L BUN 22 H (7-17) mg/dL Creatinine 0.88 (0.52-1.04) mg/dL Glucose 194 H (74-99) mg/dL Calcium 9.5 (8.4-10.2) mg/dL AST 32 (14-36) U/L ALT 29 (4-34) U/L Alkaline Phosphatase 66 (38-126) U/L Total Protein 7.1 (6.3-8.2) g/dL Albumin 4.2 (3.5-5.0) g/dL Current Medications Generic Name Dose Route Start Last Admin Trade Name Freq PRN Reason Stop Dose Admin Alprazolam 0.5 mg 02/05/22 23:11 02/05/22 23:22 Alprazolam 0.5 Mg Tab PO 0.5 mg TID PRN Administration Anxiety Amlodipine Besylate 5 mg 02/06/22 21:00 Amlodipine 5 Mg Tab PO HS [facility] Apixaban 2.5 mg 02/06/22 09:00 Apixaban 2.5 Mg Tablet PO BID [facility] Protocol Aspirin 325 mg 02/06/22 09:00 Aspirin 325 Mg Tab PO DAILY [facility] Isosorbide Mononitrate 60 mg 02/06/22 09:00 Isosorbide Mononitrate Er 60 Mg Tab.Er.24h PO DAILY [facility] Letrozole 2.5 mg 02/06/22 21:00 Letrozole 2.5 Mg Tab PO HS [facility] Metoprolol Tartrate 25 mg 02/06/22 09:00 Metoprolol Tartrate 25 Mg Tab PO BID [facility] Nitroglycerin 0.4 mg 02/05/22 18:48 02/05/22 19:23 Nitroglycerin Sl Tabs 0.4 Mg Tab SUBLINGUAL 0.4 mg Q5M PRN Administration Chest Pain Intake and Output 02/05/22 02/06/22 02/06/22 22:59 06:59 14:59 Other: # Voids 1 2 Weight 58.06 kg 02/05/22 17:29 02/05/22 17:29
[2022-02-06 09:25] LABS: Chol/HDL Ratio 5.11 Ratio; LDL Cholesterol,Calculated 143.3 mg/dL (0.0-131.0)
--- NOTE | 2022-02-06 10:58 | CA ---
Lexiscan Nuclear Stress Test Report Name: Bozena Tellez Exam Date: 02/06/2022 10:00 Exam Location: [facility] Ht (in): 63 Wt (lb): 128 BSA: 1.60 Ordering Phys: Astrid Andre Referring Phys: DEANN,, Technologist: Kevon Garcia Age: 82 Gender: F : 1940 Procedure CPT: Indications: Reflex order-Stress test ICD-10 Codes: Patient History: Medications: SEE CHART Meds past 24 hrs: Pretest Chest Pain: STRESS TEST Lexiscan Protocol Exercise Duration (min:sec): 02:[address] Depressions (mm): Angina Score: Nadino Score: Resting HR (bpm): 70 Peak HR (bpm): 104 Resting BP (mmHg): 150 / 81 Peak BP (mmHg): 160 / 69 MPHR: 139 Target HR: 118 % MPHR: 75 METS: 1.0 Total Dose: Peak Dose: Atropine: Double Product: 94318 BP Response: Stress Termination: PROTOCOL COMPLETED Stress Symptoms: NAUSEA AND LIGHT HEADEDNESS. 100 mg of AMINOPHYLLINE GIVEN Stress Summary: ECG ANALYSIS Resting ECG: Sinus rhythm. Left bundle branch block. Atrial premature contraction. Stress ECG: No ECG changes from baseline with Lexiscan infusion. CONCLUSIONS No ECG evidence of ischemia with Lexiscan infusion. Nuclear test results to follow. Dr. Isaiah Henderson MD (Electronically Signed) Final Date: 06 February 2022 10:57
--- NOTE | 2022-02-06 11:53 | NM ---
EXAMINATION TYPE: NM stress lexiscan cardiolite DATE OF EXAM: 02/06/2022 COMPARISON: Prior stress test January 03, 2016 HISTORY: Chest discomfort and pain. History of hypertension and hypercholesterolemia along with asthm a. Prior catheterization and angioplasty. TECHNIQUE: After the intravenous administration of 9.37 mCi Tc 99m Sestamibi - Cardiolite resting SP ECT images acquired 70 minutes post injection. The patient received 0.4mg Lexiscan, 25.3 mCi Tc 99m Sestamibi - Stress images obtained [address] injection FINDINGS: Review of stress and rest SPECT images demonstrates larger area of diminished radiotracer uptake invo lving the inferior left ventricular wall extending towards the septal wall suspicious for old infarct . Difficult to exclude some reversible ischemia as there is some radiotracer uptake in the inferior l eft ventricular wall towards the base on the rest images is not seen on stress images though artifact is also present on rest images. Gated analysis shows overall estimated left ventricular ejection fra ction of 61 %. 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 Cannot exclude r eversible ischemia in the basilar portion as detailed above. Correlate clinically and with EKG corina black
--- NOTE | 2022-02-06 15:23 | P.DS ---
Providers Date of admission: 02/05/22 18:48 Expected date of discharge: 02/06/22 Attending physician: Ubaldo Rothman MD Consults: 02/05/22 18:48 Consult Physician Urgent Consulting Provider: [facility] Consult Reason/Comments: Chest pain Do you want consulting provider notified?: Yes [facility] Course: Discharge Diagnosis: Chest pain, acute coronary event ruled out. History of CAD status post stenting. Paroxysmal atrial fibrillation on anticoagulation with Eliquis Hypertension Hospital Course: Patient is a very pleasant 82-year-old female with a past medical history of CAD status post stents, paroxysmal atrial fibrillation, hypertension, hyperlipidemia, and GERD. She presented to the emergency department on 02/05/22 with a chief complaint of chest pain. Patient reported pain to midsternal chest radiating into her back accompanied by palpitations and mild shortness of breath. Patient reported having repeated episodes throughout the day and states they have now resolved. She underwent full evaluation in the emergency department. CBC unremarkable. Coags unremarkable. CMP also unremarkable. Troponin negative at less than 0.012. Chest x-ray negative for acute cardiopulmonary process revealing mild COPD changes. EKG revealing normal sinus rhythm at 75 bpm with a left bundle branch block. Patient was admitted under our services with consultation to cardiology. Troponins trended overnight all negative at less than 0.0123 draws. Patient underwent a Lexiscan stress test. Stress test reviewed by machine zipper trimmer, Dr. Henderson whom stated no evidence of reversible ischemia upon review clearing patient from cardiac perspective recommending pt stable follow up outpatient in their office in one week to further discuss event monitor.. Patient medically stable for discharge home at this time. Physical exam: Patient seen and examined at bedside. Vital signs reviewed and stable. General: Nontoxic, no distress and appears stated age. Derm: Skin warm and dry, normal coloration for ethnicity. Head: Atraumatic, normocephalic and symmetric. Eyes: EOMs intact, no lid lag, and anicteric sclera Mouth: no lip lesions, mucus membranes moist Cardiovascular: regular rate and rhythm with normal S1S2, no murmur, positive posterior tibial pulses bilaterally, and cap refill < 2 seconds. Lungs: Respirations even, regular, and unlabored on room air. Lungs CTA bilate rally, no rhonchi, no rales, no wheezing, and no accessory muscle usage. Abdominal: soft, nontender to palpation, no guarding, no appreciable organomegaly Ext: ROM intact. No gross muscle atrophy, no edema, no contractures Neuro: Speech clear, face symmetrical and CN II-XII grossly intact with no noted focal neuro deficits Psych: Alert and oriented to person, place, time, and situation. Appropriate and pleasant affect. A total of 35 minutes of time were spent preparing this complex discharge summary. Pt was discharged on 02/06/22 at 3:22 PM. Patient Condition at Discharge: Stable Plan - Discharge Summary New Discharge Prescriptions: Continue Letrozole 2.5 mg PO HS Nitroglycerin Sl Tabs [Nitrostat] 0.4 mg SL Q5M PRN PRN Reason: Chest Pain ALPRAZolam [Xanax] 0.25 mg PO HS amLODIPine [Norvasc] 5 mg PO HS Apixaban [Eliquis] 2.5 mg PO BID Metoprolol Tartrate [Lopressor] 25 mg PO BID Albuterol Sulfate [Proair Hfa] 1 - 2 puff INHALATION RT-QID PRN PRN Reason: Shortness Of Breath Isosorbide Mononitrate ER [Imdur] 60 mg PO DAILY Discharge Medication List Letrozole 2.5 mg PO HS 02/27/19 [History] ALPRAZolam [Xanax] 0.25 mg PO HS 05/20/20 [History] Nitroglycerin Sl Tabs [Nitrostat] 0.4 mg SL Q5M PRN 05/20/20 [History] Isosorbide Mononitrate ER [Imdur] 60 mg PO DAILY 08/18/20 [History] Apixaban [Eliquis] 2.5 mg PO BID 03/18/21 [History] Metoprolol Tartrate [Lopressor] 25 mg PO BID 03/18/21 [History] amLODIPine [Norvasc] 5 mg PO HS 03/18/21 [History] Albuterol Sulfate [Proair Hfa] 1 - 2 puff INHALATION RT-QID PRN 02/05/22 [History] Follow up Appointment(s)/Referral(s): Maninder Elias MD [STAFF PHYSICIAN] - 02/12/22 1:00 pm Ryan Pires DO [Primary Care Provider] - 1-2 days Patient Instructions/Handouts: Chest Pain (DC) Activity/Diet/Wound Care/Special Instructions: Activity: As tolerated. Take breaks as needed. Diet: Heart healthy and carb consistent diet. Avoid salts, or foods with hidden salts such as canned or boxed foods and frozen dinners. Extra salt makes your heart work harder and traps the fluid in your body for longer. Special Instructions: Take all of your medications as directed and remember to keep all of your doctor's appointments and follow-up as needed. You will need to follow up with Dr. Elias, machine zipper trimmer on 02/12/22 at 1:00 PM for reevaluation and for further discussion of an event monitor. Thank you for allowing us to participate in your care, it was truly a pleasure having you for our patient!!! Discharge Disposition: HOME SELF-CARE
[2022-02-06] MEDS ORDERED: LETROZOLE 2.5 MG TAB PO SCH (21:00)
[2022-02-06] MEDS ORDERED: amLODIPine 5 MG TAB PO SCH (21:00)
== END 2022-02-06 15:50 | disposition home or self-care (01) ==
LOC: EC 16:47 → 6NMEDSUR 18:48
PROVIDERS: ADMIT Family Medicine; ATTEND Family Medicine
DX: R07.89 Other chest pain (principal); I48.0 Paroxysmal atrial fibrillation; Z95.5 Presence of coronary angioplasty implant and graft; I44.0 Atrioventricular block, first degree; I10 Essential (primary) hypertension; I25.10 Atherosclerotic heart disease of native coronary artery without angina pectoris; I49.1 Atrial premature depolarization; I08.1 Rheumatic disorders of both mitral and tricuspid valves; K21.9 Gastro-esophageal reflux disease without esophagitis; J44.9 Chronic obstructive pulmonary disease, unspecified; R10.9 Unspecified abdominal pain; E78.5 Hyperlipidemia, unspecified; G47.30 Sleep apnea, unspecified; I44.7 Left bundle-branch block, unspecified; F41.9 Anxiety disorder, unspecified; H35.30 Unspecified macular degeneration; K44.9 Diaphragmatic hernia without obstruction or gangrene; M48.00 Spinal stenosis, site unspecified; K57.90 Diverticulosis of intestine, part unspecified, without perforation or abscess without bleeding; Z79.01 Long term (current) use of anticoagulants; Z79.899 Other long term (current) drug therapy; Z88.1 Allergy status to other antibiotic agents; Z91.012 Allergy to eggs; Z91.011 Allergy to milk products; Z88.5 Allergy status to narcotic agent; Z91.018 Allergy to other foods; Z91.010 Allergy to peanuts; Z91.013 Allergy to seafood; Z91.02 Food additives allergy status; Z88.2 Allergy status to sulfonamides; Z91.048 Other nonmedicinal substance allergy status; Z88.8 Allergy status to other drugs, medicaments and biological substances; Z85.3 Personal history of malignant neoplasm of breast; Z90.710 Acquired absence of both cervix and uterus; Z90.49 Acquired absence of other specified parts of digestive tract; Z98.42 Cataract extraction status, left eye; Z98.41 Cataract extraction status, right eye; Z98.890 Other specified postprocedural states; Z80.3 Family history of malignant neoplasm of breast; Z80.6 Family history of leukemia; Z82.61 Family history of arthritis
CPT/HCPCS: 99285; 36415; 94760; 93005; 93017; 80061; 80053; 83735; 84484; 85025; 85610; 85730; 71046; 78452; G0378 ×2; A9500; J2785

== ENCOUNTER → 2022-02-16 | Day surgery (SDC) | payer MEDICARE ==
[~2022-02-16] MED LIST changes: +ALPRAZolam 0.25 MG TAB ONE; +ALPRAZolam 0.25 MG TAB PO PRN; +ALPRAZolam 0.5 MG TAB PO PRN; +ASPIRIN 325 MG TAB PO STA; +ATORVASTATIN 80 MG TAB PO STA; -DEXAMETHASONE SOD PHOSPHATE 10 MG/ML 1 ML VIAL IV ONE; +HEPARIN SODIUM 1,000 UN/ML (10ML VL) IV ONE; +HEPARIN SODIUM,PORCINE 10,000 UNIT in SODIUM CHLORIDE 0.9% 1,000 ML IRRIGATION PRN; +HEPARIN SODIUM,PORCINE 2,500 UNIT in SODIUM CHLORIDE 0.9% 250 ML IRRIGATION PRN; -HEPARIN SODIUM,PORCINE 5,000 UNIT/ML 1 ML VIAL SQ ONE; -HYDROmorphone 1 MG/ML 1 ML SYRINGE IVP PRN; +IOPAMIDOL-370 100ML BTL INJ ONE; -LACTATED RINGERS 1,000 ML IV SCH; -LIDOCAINE 1% 20 ML VIAL (10MG/ML) FOR IV START INTRADERMA PRN; +LIDOCAINE 1% INJ 10MG/ML (30 ML VIAL-PF) SQ ONE; +MIDAZOLAM 2 MG/2 ML VIAL IV ONE; +NITROGLYCERIN SL TABS 0.4 MG TAB SUBLINGUAL PRN; -ONDANSETRON 4 MG/2 ML VIAL IVP ONE; -Pre Op ABX Message 1 EACH MISC MISCELLANE ONE; +RX INFO: IV CONTRAST WAS GIVEN 1 EACH MISC MISCELLANE PRN; +SODIUM CHLORIDE 0.9% 1,000 ML IV ONE; +SODIUM CHLORIDE 0.9% 1,000 ML IV SCH; +SODIUM CHLORIDE 0.9% 1,000 ML in EMPTY BAG 1 BAG IV SCH; +VERAPAMIL SYRINGE (5 MG/10 ML) INTRAARTER ONE; -fentaNYL (PF) 50 MCG/ML 2 ML AMP IV PRN
[2022-02-16 06:59] VITALS: RESP 16; TEMP 97.8
--- NOTE | 2022-02-16 08:18 | P.PCN ---
Date of Procedure: 02/16/22 Operative Findings: CARDIAC CATHETERIZATION PERFORMING PHYSICIAN: Maninder Elias MD, RPVI PROCEDURE PERFORMED: 1. Selective right and left coronary angiogram 2. Left heart catheterization INDICATION: This is an 82-year-old female patient was coronary artery disease unknown stenting of the LAD the past as well as hypertension and dyslipidemia was admitted to the hospital recently with chest discomfort and underwent myocardial perfusion imaging stress test revealed an inferior ischemia. In the light of that and because she continues to have ongoing chest discomfort concerning for angina and heart catheterization was advised COMPLICATION: None APPROACH: Right radial artery LEVEL OF SEDATION: Moderate with a sedation length of 15 minutes PROCEDURE DESCRIPTION: After obtaining an informed consent, the patient was brought to cardiac laboratory associate. Local anesthesia was performed using lidocaine subcutaneously. The right radial artery was cannulated using Seldinger technique, the guidewire passed easily, following that we advanced a 5-Surinamese sheath dilator assembly, the wire and dilator were removed and sheath was flushed. Following that, 2 mg of verapamil along with 5000 unit heparin were given. Selective right and left coronary angiogram using a 6-Surinamese JR4 and JL 3.5 catheters. The procedure was completed there was no complication. SELECTIVE CORONARY ANGIOGRAM: The right coronary artery: Large caliber vessel and a dominant vessel. The RCA has mild disease only. Distally bifurcates into PDA and PLV branches both appeared to be angiographically normal. Left main: Is angiographically normal The left circumflex: Medium caliber vessel nondominant vessel. The LCx has mild disease only The left anterior descending artery: The proximal LAD stented and the stent is patent. The LAD in the midportion has a lesion appeared to be in the range of 30-40% has not changed compared to before. The LAD gives rises into multiple diagonal branches appeared to be angiographically normal CONCLUSION: 1. Patent stent in the proximal LAD. The mid LAD has a lesion appeared to be in the range of 30-40% has not changed compared to before POSTPROCEDURE MANAGEMENT: Medical treatment and follow-up with the
[2022-02-16 14:04] VITALS: BP 142/75; PULSE 58
== END ==
LOC: CATHCVL 06:11
PROVIDERS: ATTEND Internal Medicine Interventional Cardiology
DX: I48.0 Paroxysmal atrial fibrillation (principal); I25.10 Atherosclerotic heart disease of native coronary artery without angina pectoris; E78.5 Hyperlipidemia, unspecified; I10 Essential (primary) hypertension; Z95.5 Presence of coronary angioplasty implant and graft
CPT/HCPCS: 93458; C1769; C1894; J2250; J2001; J1644; Q9967; 93454

== ENCOUNTER → 2022-08-03 | Outpatient (CLI) | payer MEDICARE ==
[2022-08-03 14:44] VITALS: BP 148/76; PULSE 60; RESP 18; TEMP 97.4
--- NOTE | 2022-08-03 15:32 | P.PN ---
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 2018 Bozena is an 82 year old white female status post a left breast lumpectomy and sentinel node biopsy in April 2018. She was seen by radiation oncology and she opted for no radiation therapy. She was also seen by medical oncology and is on Letrazole. The patient had a stage IA T1N0 M0 G1 ER /NH positive and HER-2 negative tumor. She had genetic testing performed and this was negative for BRCA1 and BRCA2. A right breast mammogram was performed on . This revealed an area which shows suspicious calcifications and she was recommended to undergo stereotactic core biopsy of this area. This was performed on 03-13-19. Her pathology revealed fibroadenoma/fibroadenomatoid hyperplasia with calcifications and the background of fibrocystic changes. She underwent a bilateral mammogram on 01-12-22 She has not noted any lumps masses or nodules of concern in either breast. The patient is had a recent computed tomography scan which noted a cyst on her kidney. She is recommended to have a biopsy and this is scheduled for August 14. The patient dates the lesion is on the right although the CT report states it is on the left. Family history: 1. Mother: Breast cancer 70 years old, this recurred at approximately 74, and she as a result of treatment 2. Sister: Breast cancer at 55 of metastatic disease 3. Father: Leukemia 4. Maternal cousin: Breast cancer Hormonal history: Menarche: 13 Pregnancies: 5, 5 children, first born at 27, did not breast-feed Menopause: Hysterectomy in 4 days for fibroids control pills: Negative Hormones: Negative Past surgical history: 1. Hysterectomy 2. Appendectomy 3. Varicose veins left side 4. Laser varicose veins 5. Cholecystectomy 6. Hernia repair 7. Bladder sling 8. Hemorrhoids 9. Cardiac stents 10. Cataracts surgery 11. Nasal surgery 12. Bunion 13. left breast lumpectomy and sentinel node biopsy Medical history: 1. Hypertension 2. High cholesterol 3. CPAP/asthma/narrow airway 4. cyst on kidney Social history: Smoke: Negative Alcohol: Negative Drugs: Negative Review of systems: Constitutional: Negative HEENT: Cataracts surgery narrow airway and nasal surgery tinnitus decreased hearing Breasts: As per HPI, left breast cancer stage IA Cardiovascular: Cardiac stent Respiratory: CPAP GI: Colonoscopy 4 years ago benign polyp removed : Negative Musculoskeletal: Arthritis in her back Integument: Negative Neurologic: Right leg numbness/sciatica Psychiatric: Anxiety Endocrine: Negative Hematologic: Uses aspirin ALLERGY: stopped allergy shots Objective - Vital Signs Vital signs: Vital Signs Temp 97.4 F L 08/03/22 14:40 Pulse 60 08/03/22 14:40 Resp 18 08/03/22 14:40 BP 148/76 08/03/22 14:40 Pulse Ox 99 08/03/22 14:40 FiO2 Intake & Output 08/02/22 08/03/22 08/03/22 18:59 06:59 18:59 Weight 56.245 kg - Constitutional General appearance: Present: cooperative - EENT Eyes: Present: EOMI - Neck Neck: Present: normal ROM - Respiratory Respiratory: bilateral: CTA - Cardiovascular Rhythm: regular Heart sounds: normal: S1, S2 - Gastrointestinal General gastrointestinal: Present: soft - Integumentary Integumentary: Present: normal turgor - Psychiatric Psychiatric: Present: A&O x's 3, appropriate affect, intact judgment & insight - Additional findings Additional findings: Breast Exam: BRA: XL sports inspection: Bilateral grade 3 ptosis, well healed scars left breast from prior surgery Palpation: Right breast: Multi-positional exam fibrocystic changes no dominant masses or nodules of concern Right axilla: No adenopathy of concern Left breast: Well-healed scars from prior surgery, no dominant masses or nodules of concern Left axilla: No adenopathy of concern Assessment and Plan Assessment: Impression: Patient with stage IA invasive ductal carcinoma left breast status post lumpectomy, patient has not had radiation she is presently on letrazole No evidence of recurrent cancer Hypertension High cholesterol CPAP/asthma/narrow airway Plan: Continue letrazole Bilateral mammogram in 6 months Follow-up exam in 6 months CC: Dr. Llanes
== END ==
LOC: WWCWWP 14:22
PROVIDERS: ATTEND Surgery
DX: D05.12 Intraductal carcinoma in situ of left breast (principal); R92.8 Other abnormal and inconclusive findings on diagnostic imaging of breast; Z85.3 Personal history of malignant neoplasm of breast; E78.00 Pure hypercholesterolemia, unspecified; I10 Essential (primary) hypertension; J45.909 Unspecified asthma, uncomplicated; N60.11 Diffuse cystic mastopathy of right breast; Z17.0 Estrogen receptor positive status [ER+]; Z80.3 Family history of malignant neoplasm of breast; Z87.19 Personal history of other diseases of the digestive system; Z90.49 Acquired absence of other specified parts of digestive tract; Z95.5 Presence of coronary angioplasty implant and graft; Z88.1 Allergy status to other antibiotic agents; Z88.5 Allergy status to narcotic agent; Z91.013 Allergy to seafood; Z88.2 Allergy status to sulfonamides; Z91.048 Other nonmedicinal substance allergy status; Z91.02 Food additives allergy status; Z91.011 Allergy to milk products; Z91.010 Allergy to peanuts; Z91.018 Allergy to other foods; Z91.012 Allergy to eggs

== ENCOUNTER → 2022-08-03 | Outpatient (CLI) | payer MEDICARE ==
[2022-08-03 16:35] LABS: HCT 37.9 % (34.0-46.0); HGB 12.6 gm/dL (11.4-16.0); MCH 30.6 pg (25.0-35.0); MCHC 33.3 g/dL (31.0-37.0); MCV 91.9 fL (80.0-100.0); Platelet Count 321 k/uL (150-450); RBC 4.12 m/uL (3.80-5.40); RDW 12.8 % (11.5-15.5); WBC 6.4 k/uL (3.8-10.6)
[2022-08-03 16:43] LABS: INR 0.9 (<1.2)
== END | disposition home or self-care (01) ==
LOC: LABWHC1 15:36
PROVIDERS: ATTEND Urology
DX: N28.89 Other specified disorders of kidney and ureter (principal)
CPT/HCPCS: 36415; 85027; 85610

== ENCOUNTER → 2022-11-28 | Outpatient (CLI) | payer MEDICARE ==
--- NOTE | 2022-11-28 14:56 | BD ---
EXAMINATION TYPE: Axial Bone Density DATE OF EXAM: 11/28/2022 CLINICAL HISTORY: 82 years old Female. ICD-10 CODE: C50.412 Breast cancer Height: 61 in Weight: 120 lbs RISK FACTORS HISTORY OF: Active: yes Postmenopausal woman: age 51 partial hysterectomy Lost more than 2 inches in height since high school: yes 4" MEDICATIONS: Additional Medications: high blood pressure meds, blood thinner, letrizole Additional History: breast cancer, kidney cancer EXAM MEASUREMENTS: Bone mineral densitometry was performed using the [employer] System. Bone mineral density as measured about the Lumbar spine is: ----- L1-L4(G/cm2): 1.097 T Score Values are as follows: ----- L1: -1.0 ----- L2: -0.8 ----- L3: -0.8 ----- L4: -0.3 ----- L1-L4: -0.7 Z Score Values are as follows: ----- L1: 1.2 ----- L2: 1.4 ----- L3: 1.4 ----- L4: 1.9 ----- L1-L4: 1.5 Bone mineral density has: Decreased -2.8% since study of: 08/08/2020 Bone mineral density about the R hip (g/cm2): 0.759 Bone mineral density about the L hip (g/cm2): 0.852 T Score values are as follows: -----R Neck: -2.2 -----L Neck: -1.3 -----R Total: -2.0 -----L Total: -1.2 Z Score values are as follows: -----R Neck: 0.3 -----L Neck: 1.1 -----R Total: 1.1 -----L Total: 0.4 Bone mineral density has: Decreased -6.5% since study of: 08/08/2020 FRAX%s: The graph provided illustrates a 16.0% chance for a major osteoporotic fx and a 5.5% chance f or the hips probability for fx in 10 years time. IMPRESSION: Osteopenia (T Score between -2.5 and -1). There is slightly increased risk of fracture and the patient may be considered for treatment. Re-Screen 2-5 years. NOTE: T-SCORE=SD OF THE YOUNG ADULT MEAN.
== END | disposition home or self-care (01) ==
LOC: RADBDWWP 13:00
PROVIDERS: ATTEND Internal Medicine Hematology & Oncology
DX: C50.412 Malignant neoplasm of upper-outer quadrant of left female breast (principal); M85.89 Other specified disorders of bone density and structure, multiple sites; E78.5 Hyperlipidemia, unspecified; I10 Essential (primary) hypertension; J45.909 Unspecified asthma, uncomplicated
CPT/HCPCS: 77080

== ENCOUNTER → 2023-01-17 | Outpatient (CLI) | payer MEDICARE ==
--- NOTE | 2023-01-17 13:54 | MM ---
Reason for Exam: Additional evaluation requested from prior study. Last screening mammogram was performed 12 month(s) ago. Patient History: Menarche at age 13. First Full-Term at age 28. Hysterectomy at age 51. Postmenopausal. Breast cancer, bilateral, age 78. 04/15/2018, Lumpectomy on the Left side. 1989, Benign Excisional Biopsy on the left side. 03/13/2019, Benign Core Biopsy on the right side. 04/15/2018, Malignant Core Biopsy on the left side. 03/10/2018, Malignant Core Biopsy on the left side. Maternal cousin had breast cancer at or over age 50. Sister had breast cancer, age 54. Mother had breast cancer, age 70. Prior Study Comparison: 03/10/2018 Left Diagnostic Mammogram, [facility]. 01/21/2019 Left Diagnostic Mammogram, [facility]. 02/10/2019 Right Diagnostic Mammogram, [facility]. 01/08/2020 Bilateral Diagnostic Mammogram, [facility]. 01/11/2021 Bilateral Diagnostic Mammogram, [facility]. 01/12/2022 Bilateral MG 3D screening mammo w/cad, [facility]. Tissue Density: There are scattered fibroglandular densities. Findings: Analyzed By CAD. Postsurgical change left breast with surgical scar and clips. Microcalcifications posterior upper outer quadrant right breast with microclip from prior biopsy. Asymmetric density subareolar left cc view does not persist on additional views. No significant change from prior exams. Overall Assessment: Benign, BI-RAD 2 Management: Screening Mammogram of both breasts in 1 year. . Results were given to the patient verbally at the time of exam. Patient should continue monthly self-breast exams. A clinical breast exam by your physician is recommended on an annual basis. This exam should not preclude additional follow-up of suspicious palpable abnormalities. Note on Karyn scores and lifetime risk: 1. A Karyn score greater than 3% is considered moderate risk. If this is the case, consider specialist referral to assess eligibility for a risk reducing agent. 2. If overall lifetime risk for the development of breast cancer is 20% or higher, the patient may qualify for future screening with alternating mammogram and breast MRI. Electronically signed and approved by: Femi Haney M.D. Radiologist
== END | disposition home or self-care (01) ==
LOC: RADMAMWWP 12:44
PROVIDERS: ATTEND Surgery
DX: R92.8 Other abnormal and inconclusive findings on diagnostic imaging of breast (principal); Z85.3 Personal history of malignant neoplasm of breast; Z78.0 Asymptomatic menopausal state; Z80.3 Family history of malignant neoplasm of breast
CPT/HCPCS: 77066; G0279; 77062

== ENCOUNTER 2023-04-17 14:17 | Emergency (ER) | payer MEDICARE ==
--- NOTE | 2023-04-17 14:24 | ED ---
General Adult HPI - General Source: patient, RN notes reviewed Mode of arrival: ambulatory Limitations: no limitations <Janet Rios - Last Filed: 04/17/23 14:24> - General Source: RN notes reviewed, old records reviewed Limitations: no limitations - History of Present Illness -: hour(s) Location: chest Radiation: non-radiation Severity scale (1-10): 3 Consistency: constant Improves with: none Worsens with: none Associated Symptoms: chest pain Treatments Prior to Arrival: none <Darci Knight - Last Filed: 04/24/23 14:05> - General Chief complaint: Chest Pain Stated complaint: chest pain Time Seen by Provider: 04/17/23 14:23 - History of Present Illness Initial comments: 83-year-old female presents emergency department chief complaint of central chest pain that started yesterday. She states that it is a pressure sensation. She states that it feels like heartburn. She states she took a nitro with no relief. (Janet Rios) 81-year-old female to the emergency department for evaluation of chest pain with history of CAD. An severe headache chest pain she did take nitro without help. Patient did come the ER for evaluation secondary to level she states feels like heartburn burning in her chest. No shortness of breath no sweating no recent fever cough or congestion no other complaints (Darci Knight) - Related Data Home Medications Medication Instructions Recorded Confirmed Letrozole 2.5 mg PO HS 02/27/19 04/22/23 Nitroglycerin Sl Tabs [Nitrostat] 0.4 mg SL Q5M PRN 05/20/20 04/22/23 Isosorbide Mononitrate ER [Imdur] 60 mg PO DAILY 08/18/20 04/22/23 Apixaban [Eliquis] 2.5 mg PO BID 03/18/21 04/22/23 Metoprolol Tartrate [Lopressor] 50 mg PO BID 03/18/21 04/22/23 amLODIPine [Norvasc] 5 mg PO QAM 03/18/21 04/22/23 Albuterol Sulfate [Proair Hfa] 1 - 2 puff INHALATION RT-QID PRN 02/05/22 04/22/23 Bismuth Subsalicylate 1 dose PO DIRECTED PRN 04/22/23 04/22/23 [Pepto-Bismol] Cholecalciferol [Vitamin D3 (25 25 mcg PO DAILY 04/22/23 04/22/23 Mcg = 1000 Iu)] Magnesium Citrate 250 mg PO DIRECTED 04/22/23 04/22/23 Milk Thistle 1,000 mg PO DIRECTED 04/22/23 04/22/23 Potassium Citrate 99 mg PO DIRECTED 04/22/23 04/22/23 Rutin/Quercetin/Bioflav/Bilber 1 each PO DIRECTED 04/22/23 04/22/23 [Bilberry Extract] Sea Kelp 1 dose PO DIRECTED 04/22/23 Allergies Allergy/AdvReac Type Severity Reaction Status Date / Time exemestane [From Aromasin] Allergy Unknown Unknown Verified 04/22/23 15:52 cephalexin [From Keflex] Allergy Rash/Hives Verified 04/22/23 15:51 codeine Allergy Nausea & Verified 04/22/23 15:51 Vomiting Sulfa (Sulfonamide Allergy Rash/Hives Verified 04/22/23 15:51 Antibiotics) sulfamethoxazole Allergy Rash/Hives Verified 04/22/23 15:51 [From Bactrim] trimethoprim [From Bactrim] Allergy Rash/Hives Verified 04/22/23 15:51 tree nut [Nut] AdvReac Mild Abdominal Verified 04/22/23 15:51 Pain cat dander AdvReac Wheezing Verified 04/22/23 15:51 dog dander AdvReac Wheezing Verified 04/22/23 15:51 egg AdvReac upset Verified 04/22/23 15:51 stomach house dust mite AdvReac Wheezing Verified 04/22/23 15:51 iodine AdvReac Itching Verified 04/22/23 15:51 Milk Containing Products AdvReac upset Verified 04/22/23 15:51 (Dairy) stomach [Dairy] and bloating peanut AdvReac upset Verified 04/22/23 15:51 stomach shellfish derived AdvReac Itching Verified 04/22/23 15:51 soy AdvReac Nausea & Verified 04/22/23 15:51 Vomiting Review of Systems ROS Other: All systems not noted in ROS Statement are negative. <Janet Rios - Last Filed: 04/17/23 14:24> ROS Other: All systems not noted in ROS Statement are negative. <Darci Knight - Last Filed: 04/24/23 14:05> ROS Statement: Those systems with pertinent positive or pertinent negative responses have been documented in the HPI. Past Medical History Past Medical History: Asthma, Coronary Artery Disease (CAD), Cancer, Chest Pain / Angina, Eye Disorder, GERD/Reflux, Hyperlipidemia, Hypertension, Sleep Apnea/CPAP/BIPAP Additional Past Medical History / Comment(s): DIVERTICULITS,SINUSITIS,LT EYE MAC DEGENERATION,SMALL HIATAL HERNIA,DDD,SPINAL STENOSIS,SLEEP APNEA USES A CPAP MACHINE, HAS NARROW ARTERY DISEASE. GLUTEN ALLERGY,LACTOSE INTOLERANCE AND EGGS CAUSE NAUSEA AND BLOATING BUT ABLE TO TAKE IMMUNIZATIONS. 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 History of Any Multi-Drug Resistant Organisms: None Reported Past Surgical History: Appendectomy, Bladder Surgery, Breast Surgery, Cholecystectomy, Heart Catheterization With Stent, Hernia Repair, Hysterectomy Additional Past Surgical History / Comment(s): Vaginal hysterectomy 1991. BLADDER SUSPENSION WITH MESH. JUANJOSE CATARACTS, CYST ON NECK REMOVED, EGD, VEIN STRIPPING, HEMORRHOIDECTOMY, NASAL SURGERY. Colonoscopy 2020(next after 5yr). LT BREAST BIOPSY and lumpectomy 2018. bunionectomy left foot, umbilical hernia repair Past Anesthesia/Blood Transfusion Reactions: Motion Sickness Date of Last Stent Placement:: 2011 Past Psychological History: Anxiety Smoking Status: Never smoker Past Alcohol Use History: None Reported Past Drug Use History: None Reported - Past Family History Sister(s) Family Medical History: Cancer Additional Family Medical History / Comment(s): breast cancer Father Family Medical History: Cancer, Osteoarthritis (OA) Additional Family Medical History / Comment(s): LEUKEMIA. PaternalAunt had breast cancer Mother Family Medical History: Cancer Additional Family Medical History / Comment(s): BREAST CANCER, AND PT'S SISTER AND AUNT HAD BREAST CANCER WELL. <Janet Rios - Last Filed: 04/17/23 14:24> General Exam Limitations: no limitations <Janet Rios - Last Filed: 04/17/23 14:24> General appearance: anxious Head exam: Present: atraumatic, normocephalic, normal inspection Eye exam: Present: normal appearance, PERRL, EOMI. Absent: scleral icterus, conjunctival injection, periorbital swelling ENT exam: Present: normal exam, mucous membranes moist Neck exam: Present: normal inspection. Absent: tenderness, meningismus, lymphadenopathy Respiratory exam: Present: normal lung sounds bilaterally. Absent: respiratory distress, wheezes, rales, rhonchi, stridor Cardiovascular Exam: Present: regular rate, normal rhythm, normal heart sounds. Absent: systolic murmur, diastolic murmur, rubs, gallop, clicks GI/Abdominal exam: Present: soft, normal bowel sounds. Absent: distended, ten derness, guarding, rebound, rigid Extremities exam: Present: normal inspection, full ROM, normal capillary refill. Absent: tenderness, pedal edema, joint swelling, calf tenderness Back exam: Present: normal inspection Neurological exam: Present: alert, oriented X3, CN II-XII intact Psychiatric exam: Present: normal affect, normal mood Skin exam: Present: warm, dry, intact, normal color. Absent: rash <Darci Knight - Last Filed: 04/24/23 14:05> - General Exam Comments Initial Comments: Visual Physical Exam Vital signs reviewed General: Well-appearing, nontoxic, no acute distress. Head: Normocephalic, atraumatic Eyes: PERRLA, EOMI ENT: Airway patent Chest: Nonlabored breathing Skin: No visual rash, normal skin tone Neuro: Alert and oriented 3 Musculoskeletal: No gross abnormalities (KayleighkaJanet) Course <Darci Knight - Last Filed: 04/24/23 14:05> Vital Signs 04/17/23 04/17/23 04/17/23 14:18 15:29 16:20 Temperature 98.2 F 97.8 F Pulse Rate 73 61 59 L Respiratory 18 16 18 Rate Blood Pressure 150/64 167/69 129/65 O2 Sat by Pulse 98 98 97 Oximetry - Reevaluation(s) Reevaluation #1: Medical records reviewed (Darci Knight) Reevaluation #2: Patient chest pain is resolved (Darci Knight) Reevaluation #3: informed results and questions answered (Darci Knight) Reevaluation #4: Was pt. sent in by a medical professional or institution (, PA, INFORMATION SECURITY ASSOCIATE, urgent care, hospital, or assisted...) When possible be specific @ -no Did you speak to anyone other than the patient for history (EMS, parent, family, police, friend...)? What history was obtained from this source @ -no Did you review nursing and triage notes (agree or disagree)? Why? @ -agree Are old charts reviewed (outside hosp., previous admission, EMS record, old EKG, old radiological studies, urgent care reports/EKG's, assisted records)? Report findings @ -yes Differential Diagnosis (chest pain, altered mental status, abdominal pain women, abdominal pain men, vaginal bleeding, weakness, fever, dyspnea, syncope, headache, dizziness, GI bleed, back pain, seizure, CVA, palpatations, mental hea lth, musculoskeletal)? @ -prior EKG interpreted by me (3pts min.). @ -yes X-rays interpreted by me (1pt min.). @ -yes CT interpreted by me (1pt min.). @ -no U/S interpreted by me (1pt. min.). @ -no What testing was considered but not performed or refused? (CT, X-rays, U/S, labs)? Why? @ -none What meds were considered but not given or refused? Why? @ -none Did you discuss the management of the patient with other professionals (professionals i.e. , PA, INFORMATION SECURITY ASSOCIATE, lab, RT, psych nurse, hospice social worker, loan broker, teacher, wildlife officer, case management social worker)? Give summary @ -no Was smoking cessation discussed for >3mins.? @ -no Was critical care preformed (if so, how long)? @ -no Were there social determinants of health that impacted care today? How? (Homelessness, low income, unemployed, alcoholism, drug addiction, transportation, low edu. Level, literacy, decrease access to med. care, assisted, r ehab)? @ -none Was there de-escalation of care discussed even if they declined (Discuss DNR or withdrawal of care, Hospice)? DNR status @ -no What co-morbidities impacted this encounter? (DM, HTN, Smoking, COPD, CAD, Cancer, CVA, ARF, Chemo, Hep., AIDS, mental health diagnosis, sleep apnea, morbid obesity)? @ -none Was patient admitted / discharged? Hospital course, mention meds given and route , prescriptions, significant lab abnormalities, going to OR and other pertinent info. @ - 83 female to the emergency department for evaluation of chest pain history of CAD. Patient has normal EKG and troponin here in the ER, patient [facility] for further evaluation and will be discharged home and she is currently chest pain-free Discharge for acute disease Undiagnosed new problem with uncertain prognosis? @ -no Drug Therapy requiring intensive monitoring for toxicity (Heparin, Nitro, Insulin, Cardizem)? @ -no Were any procedures done? @ -no Diagnosis/symptom? @ -Chest pain history of CAD Acute, or Chronic, or Acute on Chronic? @ -Acute Uncomplicated (without systemic symptoms) or Complicated (systemic symptoms)? @ -Complicated Side effects of treatment? @ -no Exacerbation, Progression, or Severe Exacerbation? @ -exacerbation Poses a threat to life or bodily function? How? (Chest pain, USA, PA, pneumonia, PE, COPD, DKA, ARF, appy, cholecystitis, CVA, Diverticulitis, Homicidal, Suicidal, threat to staff... and all critical care pts) @ -yes with acute ACS (Darci Knight) Reevaluation #5: Differential Chest Pain: Stable Angina, Unstable Angina, STEMI, NSTEMI Aortic Dissection, Pneumothorax, Musculoskeletal, Esophageal Spasm GERD, Cholecystitis, Pancreatitis, Zoster, this is not meant to be an all-inclusive list. (Darci Knight) EKG Findings - EKG Comments: EKG Findings:: EKG is sinus 64 NM 225 QRS 152 QTC 448 - EKG Results: EKG: interpreted by ERMD <Darci Knight - Last Filed: 04/24/23 14:05> Medical Decision Making <Janet Rios - Last Filed: 04/17/23 14:24> - Lab Data Result diagrams: 04/17/23 14:26 04/17/23 14:26 - EKG Data -: EKG Interpreted by Pr - Radiology Data Radiology results: report reviewed (Chest x-rays negative for acute disease), image reviewed <Darci Knight - Last Filed: 04/24/23 14:05> - Medical Decision Making Quick note preformed by Janet Rios PA-C (Janet Rios) 83 female to the emergency department for evaluation of chest pain history of CAD. Patient has normal EKG and troponin here in the ER, patient [facility] for further evaluation and will be discharged home and she is currently chest pain-free (Darci Knight) - Lab Data Lab Results 04/17/23 04/17/23 04/17/23 Range/Units 14:26 14:26 14:26 WBC 7.1 (3.8-10.6) k/uL RBC 4.02 (3.80-5.40) m/uL Hgb 12.5 (11.4-16.0) gm/dL Hct 36.6 (34.0-46.0) % MCV 91.1 (80.0-100.0) fL MCH 31.1 (25.0-35.0) pg MCHC 34.2 (31.0-37.0) g/dL RDW 12.5 (11.5-15.5) % Plt Count 296 (150-450) k/uL MPV 7.0 Neutrophils % 66 % Lymphocytes % 22 % Monocytes % 6 % Eosinophils % 4 % Basophils % 1 % Neutrophils # 4.7 (1.3-7.7) k/uL Lymphocytes # 1.5 (1.0-4.8) k/uL Monocytes # 0.4 (0-1.0) k/uL Eosinophils # 0.3 (0-0.7) k/uL Basophils # 0.0 (0-0.2) k/uL PT 10.4 (10.0-12.5) sec INR 0.9 (<1.2) APTT 25.5 (22.0-30.0) sec Sodium 139 (137-145) mmol/L Potassium 3.8 (3.5-5.1) mmol/L Chloride 102 (98-107) mmol/L Carbon Dioxide 25 (22-30) mmol/L Anion Gap 12 mmol/L BUN 22 H (7-17) mg/dL Creatinine 0.86 (0.52-1.04) mg/dL Est GFR (CKD-EPI)AfAm 73 (>60 ml/min/1.73 sqM) Est GFR (CKD-EPI)NonAf 64 (>60 ml/min/1.73 sqM) Glucose 152 H (74-99) mg/dL Calcium 9.6 (8.4-10.2) mg/dL Magnesium 2.0 (1.6-2.3) mg/dL Total Bilirubin 0.6 (0.2-1.3) mg/dL AST 28 (14-36) U/L ALT 21 (4-34) U/L Alkaline Phosphatase 78 (38-126) U/L Troponin I (0.000-0.034) ng/mL Total Protein 7.3 (6.3-8.2) g/dL Albumin 4.3 (3.5-5.0) g/dL 04/17/23 Range/Units 14:26 WBC (3.8-10.6) k/uL RBC (3.80-5.40) m/uL Hgb (11.4-16.0) gm/dL Hct (34.0-46.0) % MCV (80.0-100.0) fL MCH (25.0-35.0) pg MCHC (31.0-37.0) g/dL RDW (11.5-15.5) % Plt Count (150-450) k/uL MPV Neutrophils % % Lymphocytes % % Monocytes % % Eosinophils % % Basophils % % Neutrophils # (1.3-7.7) k/uL Lymphocytes # (1.0-4.8) k/uL Monocytes # (0-1.0) k/uL Eosinophils # (0-0.7) k/uL Basophils # (0-0.2) k/uL PT (10.0-12.5) sec INR (<1.2) APTT (22.0-30.0) sec Sodium (137-145) mmol/L Potassium (3.5-5.1) mmol/L Chloride (98-107) mmol/L Carbon Dioxide (22-30) mmol/L Anion Gap mmol/L BUN (7-17) mg/dL Creatinine (0.52-1.04) mg/dL Est GFR (CKD-EPI)AfAm (>60 ml/min/1.73 sqM) Est GFR (CKD-EPI)NonAf (>60 ml/min/1.73 sqM) Glucose (74-99) mg/dL Calcium (8.4-10.2) mg/dL Magnesium (1.6-2.3) mg/dL Total Bilirubin (0.2-1.3) mg/dL AST (14-36) U/L ALT (4-34) U/L Alkaline Phosphatase (38-126) U/L Troponin I <0.012 (0.000-0.034) ng/mL Total Protein (6.3-8.2) g/dL Albumin (3.5-5.0) g/dL Disposition <Janet Rios - Last Filed: 04/17/23 14:24> Is patient prescribed a controlled substance at d/c from ED?: No Time of Disposition: 15:55 <Darci Knight - Last Filed: 04/24/23 14:05> Clinical Impression: Chest pain, CAD (coronary artery disease), HTN (hypertension) Disposition: HOME SELF-CARE Condition: Undetermined Instructions (If sedation given, give patient instructions): Chest Pain (ED) Referrals: Ryan Pires DO [Primary Care Provider] - 1-2 days
[2023-04-17 14:46] LABS: Basophils % (A) 1 %; Eosinophils # (A) 0.3 k/uL (0-0.7); Eosinophils % (A) 4 %; HCT 36.6 % (34.0-46.0); HGB 12.5 gm/dL (11.4-16.0); Lymphocytes # (A) 1.5 k/uL (1.0-4.8); Lymphocytes % (A) 22 %; MCH 31.1 pg (25.0-35.0); MCHC 34.2 g/dL (31.0-37.0); MCV 91.1 fL (80.0-100.0); Monocytes # (A) 0.4 k/uL (0-1.0); Monocytes % (A) 6 %; Neutrophils # (A) 4.7 k/uL (1.3-7.7); Neutrophils % (A) 66 %; Platelet Count 296 k/uL (150-450); RBC 4.02 m/uL (3.80-5.40); RDW 12.5 % (11.5-15.5); WBC 7.1 k/uL (3.8-10.6)
[2023-04-17 14:55] LABS: INR 0.9 (<1.2); Partial Thromboplastin Time 25.5 sec (22.0-30.0); Prothrombin Time 10.4 sec (10.0-12.5)
[2023-04-17 15:00] LABS: ALT 21 U/L (4-34); AST 28 U/L (14-36); African American GFR (CKD) 73 (>60 ml/min/1.73 sqM); Albumin 4.3 g/dL (3.5-5.0); Alkaline Phosphatase 78 U/L (38-126); Anion Gap 12 mmol/L; Blood Urea Nitrogen 22 mg/dL (7-17); Calcium 9.6 mg/dL (8.4-10.2); Carbon Dioxide 25 mmol/L (22-30); Chloride 102 mmol/L (98-107); Glucose 152 mg/dL (74-99); Non-African American GFR(CKD) 64 (>60 ml/min/1.73 sqM); Potassium 3.8 mmol/L (3.5-5.1); Sodium 139 mmol/L (137-145); Total Bilirubin 0.6 mg/dL (0.2-1.3); Total Protein 7.3 g/dL (6.3-8.2)
--- NOTE | 2023-04-17 15:07 | XR ---
EXAMINATION TYPE: XR chest 2V DATE OF EXAM: 04/17/2023 COMPARISON: 02/05/2022 INDICATION: Chest pain TECHNIQUE: Frontal and lateral views of the chest are obtained. FINDINGS: The heart size is normal. The pulmonary vasculature is normal. The lungs are clear. IMPRESSION: 1. No acute pulmonary process.
[2023-04-17 16:41] VITALS: BP 129/65; PULSE 59; RESP 18; TEMP 97.8
== END 2023-04-17 16:22 | disposition home or self-care (01) ==
LOC: EC 14:17
DX: R07.89 Other chest pain (principal); I25.10 Atherosclerotic heart disease of native coronary artery without angina pectoris; I10 Essential (primary) hypertension; J45.909 Unspecified asthma, uncomplicated; K21.9 Gastro-esophageal reflux disease without esophagitis; F41.9 Anxiety disorder, unspecified; Z88.2 Allergy status to sulfonamides; Z91.012 Allergy to eggs; Z91.011 Allergy to milk products; Z91.010 Allergy to peanuts; Z91.013 Allergy to seafood; Z88.5 Allergy status to narcotic agent; Z88.8 Allergy status to other drugs, medicaments and biological substances; Z91.018 Allergy to other foods; Z91.041 Radiographic dye allergy status; Z88.1 Allergy status to other antibiotic agents; Z79.01 Long term (current) use of anticoagulants; Z79.899 Other long term (current) drug therapy
CPT/HCPCS: 36415; 71046; 80053; 83735; 84484; 85025; 85610; 85730; 93005; 99285

== ENCOUNTER → 2023-04-19 | Outpatient (CLI) | payer MEDICARE ==
[2023-04-19 15:40] LABS: BUN/Creat Ratio 19.33 Ratio (12.00-20.00); Blood Urea Nitrogen 17.4 mg/dL (9.0-27.0); Calcium 9.7 mg/dL (8.7-10.3); Carbon Dioxide 25.8 mmol/L (21.6-31.8); Chloride 104 mmol/L (96-109); Glucose 120 mg/dL (70-110); Potassium 3.9 mmol/L (3.5-5.5); Sodium 142 mmol/L (135-145)
[2023-04-19 16:06] LABS: Appearance,Urine Clear (Clear); Bilirubin,Urine Negative (Negative); Blood,Urine Negative (Negative); Color,Urine Yellow (Yellow); Ketones,Urine Negative (Negative); Nitrite,Urine Negative (Negative); PH, Urine 5.5; Specific Gravity,Urine 1.019 (1.001-1.030); Urobilinogen,Urine 0.2 E.U./DL
[2023-04-19 16:14] LABS: Bacteria,Urine None Seen (None Seen)
[2023-04-19 16:46] LABS: Basophils # (A) 0.06 X 10*3/uL (0.00-0.10); Eosinophils % (A) 4.8 %; HCT 40.3 % (37.2-46.3); HGB 12.7 g/dL (12.0-15.0); Lymphocytes % (A) 20.6 %; MCH 30.2 pg (27.0-32.0); MCHC 31.5 g/dL (32.0-37.0); MCV 95.7 FL (80.0-97.0); Mean Platelet Volume 9.8 FL (9.5-12.2); Monocytes % (A) 7.9 %; NRBC Per 100 WBC 0 X 10*3/uL (0.00-0.01); Neutrophils # (A) 4.12 X 10*3/uL (1.80-7.70); Neutrophils % (A) 65.4 %; Platelet Count 290 X 10*3/uL (140-440); RBC 4.21 X 10*6/uL (4.10-5.20); RDW 12.8 % (11.5-14.5)
== END | disposition home or self-care (01) ==
LOC: LABPAT 09:36
PROVIDERS: ATTEND Urology
DX: Z01.812 Encounter for preprocedural laboratory examination (principal); D41.02 Neoplasm of uncertain behavior of left kidney; R31.29 Other microscopic hematuria
CPT/HCPCS: 80048; 81001; 85025; 86850; 86900; 86901; 87086

== ENCOUNTER → 2023-05-27 | Outpatient (CLI) | payer MEDICARE ==
[2023-05-27 15:02] LABS: Basophils # (A) 0.05 X 10*3/uL (0.00-0.10); Basophils % (A) 0.8 %; Blood Urea Nitrogen 22.6 mg/dL (9.0-27.0); Calcium 9.5 mg/dL (8.7-10.3); Carbon Dioxide 26.3 mmol/L (21.6-31.8); Chloride 107 mmol/L (96-109); Eosinophils # (A) 0.34 X 10*3/uL (0.04-0.35); Eosinophils % (A) 5.1 %; Glucose 96 mg/dL (70-110); HCT 37.1 % (37.2-46.3); HGB 12.3 g/dL (12.0-15.0); Lymphocytes # (A) 1.39 X 10*3/uL (0.90-5.00); Lymphocytes % (A) 20.9 %; MCH 30.5 pg (27.0-32.0); MCHC 33.2 g/dL (32.0-37.0); MCV 92.1 FL (80.0-97.0); Mean Platelet Volume 9.9 FL (9.5-12.2); Monocytes # (A) 0.53 X 10*3/uL (0.20-1.00); NRBC Per 100 WBC 0 X 10*3/uL (0.00-0.01); Neutrophils # (A) 4.32 X 10*3/uL (1.80-7.70); Neutrophils % (A) 64.9 %; Platelet Count 291 X 10*3/uL (140-440); Potassium 4.2 mmol/L (3.5-5.5); RBC 4.03 X 10*6/uL (4.10-5.20); RDW 12.7 % (11.5-14.5); Sodium 144 mmol/L (135-145); WBC 6.65 X 10*3/uL (4.50-10.00)
--- NOTE | 2023-05-27 15:26 | XR ---
EXAMINATION TYPE: XR chest 2V DATE OF EXAM: 05/27/2023 COMPARISON: 04/17/2023 HISTORY: 83-year-old female D4 1.02, presurgery for neoplasm of uncertain behavior of left kidney TECHNIQUE: Frontal and lateral views FINDINGS: Heart upper limits of normal in size. Atherosclerotic arch calcifications. Surgical clips projecting at the left thoracolumbar junction, possibly within the left breast. This can be correlated clinicall y. Hyperinflation. No consolidation or pleural effusion. IMPRESSION: COPD. No acute process seen.
[2023-05-27 17:13] LABS: Appearance,Urine Clear (Clear); Bilirubin,Urine Small (Negative); Blood,Urine Negative (Negative); Color,Urine Dark Yellow (Yellow); Ketones,Urine Trace (Negative); Nitrite,Urine Negative (Negative); Specific Gravity,Urine 1.026 (1.001-1.030)
[2023-05-27 17:19] LABS: Bacteria,Urine None Seen (None Seen)
== END | disposition home or self-care (01) ==
LOC: LABWHC1 08:53
PROVIDERS: ATTEND Urology
DX: Z01.812 Encounter for preprocedural laboratory examination (principal); D41.02 Neoplasm of uncertain behavior of left kidney; J44.9 Chronic obstructive pulmonary disease, unspecified
CPT/HCPCS: 36415; 71046; 80048; 81001; 85025; 86850; 86900; 86901; 87086

== ENCOUNTER 2023-05-31 05:42 | Inpatient (IN) | payer MEDICARE ==
[2023-05-28 09:33] VITALS: BMI 21.6
[~2023-05-31 05:42] MED LIST changes: -ALPRAZolam 0.25 MG TAB ONE; -ALPRAZolam 0.25 MG TAB PO PRN; -ALPRAZolam 0.5 MG TAB PO PRN; -ASPIRIN 325 MG TAB PO STA; -ATORVASTATIN 80 MG TAB PO STA; +GENTAMICIN 120 MG in SODIUM CHLORIDE 0.9% 100 ML IVPB PRN; -HEPARIN SODIUM 1,000 UN/ML (10ML VL) IV ONE; -HEPARIN SODIUM,PORCINE 10,000 UNIT in SODIUM CHLORIDE 0.9% 1,000 ML IRRIGATION PRN; -HEPARIN SODIUM,PORCINE 2,500 UNIT in SODIUM CHLORIDE 0.9% 250 ML IRRIGATION PRN; -IOPAMIDOL-370 100ML BTL INJ ONE; -LIDOCAINE 1% INJ 10MG/ML (30 ML VIAL-PF) SQ ONE; -MIDAZOLAM 2 MG/2 ML VIAL IV ONE; -NITROGLYCERIN SL TABS 0.4 MG TAB SUBLINGUAL PRN; -RX INFO: IV CONTRAST WAS GIVEN 1 EACH MISC MISCELLANE PRN; -SODIUM CHLORIDE 0.9% 1,000 ML IV ONE; -SODIUM CHLORIDE 0.9% 1,000 ML IV SCH; -SODIUM CHLORIDE 0.9% 1,000 ML in EMPTY BAG 1 BAG IV SCH; -VERAPAMIL SYRINGE (5 MG/10 ML) INTRAARTER ONE
[2023-05-31] MEDS ORDERED: CLINDAMYCIN 600 MG in DEXTROSE 5% IN WATER 50 ML IVPB PRN ×2 (06:00)
[2023-05-31] MEDS ORDERED: LIDOCAINE 1% (10MG/ML) FOR IV START INTRADERMA PRN (06:12)
[2023-05-31] MEDS ORDERED: DEXAMETHASONE SOD PHOSPHATE 4 MG/ML 1 ML VIAL IV ONE (06:12)
[2023-05-31] MEDS ORDERED: ONDANSETRON 4 MG/2 ML VIAL IVP ONE (06:12)
[2023-05-31] MEDS: LACTATED RINGERS 1,000 ML IV SCH (06:27)
[2023-05-31] MEDS ORDERED: MIDAZOLAM 2 MG/2 ML VIAL IVP ONE (06:51)
[2023-05-31] MEDS ORDERED: HYDROmorphone 0.5 MG/0.5 ML SYRINGE IVP PRN (07:00)
[2023-05-31] MEDS ORDERED: MIDAZOLAM 2 MG/2 ML VIAL IV PRN (07:00)
--- NOTE | 2023-05-31 07:15 | P.HPIHPCON ---
History of Present Illness H&P Date: 05/31/23 Chief Complaint: Left renal mass This is a 83-year-old female with a history of a 3 cm left-sided renal mass. 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 Option of active surveillance versus a partial nephrectomy versus cryoablation was discussed with her in detail. She agreed to proceed with a robotic left- sided partial nephrectomy aware of the risk which includes but not limited to bleeding, infection, injury to nearby organs. Discussed also potential for converting into a radical nephrectomy. Discussed potential of needing hemodialysis in the short and long-term. Discussed need for cancer surveillance in the postoperative period and potential of cancer recurrence. She understood all the risk and agreed to proceed with a left-sided partial nephrectomy Consent for Procedure: I have explained the operation/procedure to the patient, including the risks, benefits, side effects, alternative therapies (including not receiving the proposed treatment or service), the likelihood of the patient achieving his/her goals, and potential recuperation problems for the procedure/sedation/analgesia, as well as any blood products, if indicated. I also explained to the patient the risks, benefits and side effects of the alternatives, as well as the risks related to not receiving the proposed procedure, care, treatment, or services. Past Medical History Past Medical History: Asthma, Coronary Artery Disease (CAD), Cancer, Chest Pain / Angina, Eye Disorder, GERD/Reflux, Hyperlipidemia, Hypertension, Sleep Apnea/CPAP/BIPAP Additional Past Medical History / Comment(s): DIVERTICULITS,SINUSITIS,LT EYE MAC DEGENERATION,SMALL HIATAL HERNIA,DDD,SPINAL STENOSIS,DOES NOT USE A CPAP MACHINE, HAS NARROW ARTERY DISEASE. GLUTEN ALLERGY,LACTOSE INTOLERANCE AND EGGS CAUSE NAUSEA AND BLOATING BUT ABLE TO TAKE IMMUNIZATIONS. 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 LT KIDNEY CANCER History of Any Multi-Drug Resistant Organisms: None Reported Past Surgical History: Appendectomy, Bladder Surgery, Breast Surgery, Cholecystectomy, Heart Catheterization With Stent, Hernia Repair, Hysterectomy Additional Past Surgical History / Comment(s): Vaginal hysterectomy 1991. BLADDER SUSPENSION WITH MESH. JUANJOSE CATARACTS, CYST ON NECK REMOVED, EGD, VEIN STRIPPING, HEMORRHOIDECTOMY, NASAL SURGERY. Colonoscopy 2020(next after 5yr). LT BREAST BIOPSY and lumpectomy 2018. bunionectomy left foot, umbilical hernia repair Past Anesthesia/Blood Transfusion Reactions: Motion Sickness Date of Last Stent Placement:: 2011 Smoking Status: Never smoker - Past Family History Sister(s) Family Medical History: Cancer Additional Family Medical History / Comment(s): breast cancer Father Family Medical History: Cancer, Osteoarthritis (OA) Additional Family Medical History / Comment(s): LEUKEMIA. Mother Family Medical History: Cancer Additional Family Medical History / Comment(s): BREAST CANCER Medications and Allergies Home Medications Medication Instructions Recorded Confirmed Type Letrozole 2.5 mg PO HS 02/27/19 05/31/23 History Nitroglycerin Sl Tabs [Nitrostat] 0.4 mg SL Q5M PRN 05/20/20 05/28/23 History Isosorbide Mononitrate ER [Imdur] 60 mg PO DAILY 08/18/20 05/31/23 History Apixaban [Eliquis] 2.5 mg PO BID 03/18/21 05/28/23 History Metoprolol Tartrate [Lopressor] 50 mg PO BID 03/18/21 05/31/23 History amLODIPine [Norvasc] 5 mg PO QAM 03/18/21 05/31/23 History Albuterol Sulfate [Proair Hfa] 1 - 2 puff INHALATION RT-QID PRN 02/05/22 05/31/23 History Bismuth Subsalicylate 1 dose PO DIRECTED PRN 04/22/23 05/28/23 History [Pepto-Bismol] Cholecalciferol [Vitamin D3 (25 25 mcg PO DAILY 04/22/23 05/28/23 History Mcg = 1000 Iu)] Magnesium Citrate 250 mg PO DIRECTED 04/22/23 05/28/23 History Milk Thistle 1,000 mg PO DIRECTED 04/22/23 05/28/23 History Potassium Citrate 99 mg PO DIRECTED 04/22/23 05/28/23 History Rutin/Quercetin/Bioflav/Bilber 1 each PO DIRECTED 04/22/23 05/28/23 History [Bilberry Extract] Sea Kelp 1 dose PO DIRECTED 04/22/23 05/31/23 History Allergies Allergy/AdvReac Type Severity Reaction Status Date / Time exemestane [From Aromasin] Allergy Unknown Unknown Verified 05/31/23 06:23 cephalexin [From Keflex] Allergy Rash/Hives Verified 05/31/23 06:23 codeine Allergy Nausea & Verified 05/31/23 06:23 Vomiting Sulfa (Sulfonamide Allergy Rash/Hives Verified 05/31/23 06:23 Antibiotics) sulfamethoxazole Allergy Rash/Hives Verified 05/31/23 06:23 [From Bactrim] trimethoprim [From Bactrim] Allergy Rash/Hives Verified 05/31/23 06:23 tree nut [Nut] AdvReac Mild Abdominal Verified 05/31/23 06:23 Pain cat dander AdvReac Wheezing Verified 05/31/23 06:23 dog dander AdvReac Wheezing Verified 05/31/23 06:23 egg AdvReac upset Verified 05/31/23 06:23 stomach house dust mite AdvReac Wheezing Verified 05/31/23 06:23 iodine AdvReac Itching Verified 05/31/23 06:23 Milk Containing Products AdvReac upset Verified 05/31/23 06:23 (Dairy) stomach [Dairy] and bloating peanut AdvReac upset Verified 05/31/23 06:23 stomach shellfish derived AdvReac Itching Verified 05/31/23 06:23 soy AdvReac Nausea & Verified 05/31/23 06:23 Vomiting Surgical - Exam Vital Signs Temp Pulse Resp BP Pulse Ox 98.1 F 64 18 192/82 99 05/31/23 06:39 05/31/23 06:39 05/31/23 06:39 05/31/23 06:39 05/31/23 06:39 - General no distress, no pain - Eyes normal ocular movement, no pale - ENT normal nares, normal mucosa - Respiratory normal expansion, normal respiratory effort - Abdomen Abdomen: soft, non tender Assessment and Plan Assessment: OR for left-sided robotic partial nephrectomy,
[2023-05-31] MEDS ORDERED: NEOSTIGMINE 1 MG/ML 10 ML VIAL ONE (07:24)
[2023-05-31] MEDS ORDERED: LIDOCAINE 1% INJ 10MG/ML (20 ML MDV) ONE (07:24)
[2023-05-31] MEDS ORDERED: ROPIVACAINE 5 MG/ML 30 ML VIAL ONE (07:24)
[2023-05-31] MEDS ORDERED: PROPOFOL 10 MG/ML 20 ML VIAL IV ONE (07:24)
[2023-05-31] MEDS ORDERED: MANNITOL 25% 12.5 GM/50 ML VIAL ONE (07:24)
[2023-05-31] MEDS ORDERED: fentaNYL (PF) 50 MCG/ML 2 ML AMP ONE (07:24)
[2023-05-31] MEDS ORDERED: ROCURONIUM 10 MG/ML (5 ML VIAL) IV ONE (07:24)
[2023-05-31] MEDS ORDERED: SODIUM CHLORIDE 0.9% (PF) 10 ML VIAL ONE (07:24)
[2023-05-31] MEDS ORDERED: SUCCINYLCHOLINE CHLORIDE 200 MG/10 ML VIAL IV ONE (07:24)
[2023-05-31] MEDS ORDERED: GLYCOPYRROLATE 0.2 MG/ML 2 ML VIAL ONE (07:24)
[2023-05-31] MEDS ORDERED: HYDROmorphone (PF) 1 MG/ML ONE (07:24)
[2023-05-31] MEDS ORDERED: DEXAMETHASONE SOD PHOSPHATE 4 MG/ML 1 ML VIAL ONE (07:24)
[2023-05-31] MEDS ORDERED: LACTATED RINGERS 1,000 ML IV ONE ×3 (07:30→10:49)
[2023-05-31] MEDS ORDERED: BUPIVACAINE (PF) 0.5% 30 ML VIAL SQ ONE (07:30)
--- NOTE | 2023-05-31 08:30 | P.ANPRN ---
Procedure Note - Anesthesia - Nerve Block Performed Bilateral Erector Spinae Single Time Out Performed: Yes Date of Procedure: 05/31/23 Procedure Start Time: 06:50 Procedure Stop Time: 07:01 Location of Patient: PreOp Indication: Acute Post-Operative Pain, Requested by Surgeon Sedation Type: Sedate with meaningful contact maintained Preparation: Sterile Prep Position: Sitting Needle Types: Pajunk Needle Gauge: 21 Ultrasound used to visualize needle placement: Yes Ultrasound used to observe medication spread: Yes Injectate: 0.5% Ropivacaine (see comment for volume) (15 ml + 10 ml NS + 4 mg Dexamethasone per side) Blood Aspirated: No Pain Paresthesia on Injection Noted: No Resistance on Injection: Normal Image Stored and Saved: Yes Events: Uneventful and Well Tolerated
[2023-05-31] MEDS ORDERED: NITROGLYCERIN SL TABS 0.4 MG TAB SUBLINGUAL PRN (10:47)
--- NOTE | 2023-05-31 10:58 | P.OP ---
Date of Procedure: 05/31/23 Preoperative Diagnosis: Left renal mass Postoperative Diagnosis: Same Procedure(s) Performed: Left robotic partial nephrectomy, with intraoperative ultrasound Implants: none Anesthesia: KUNAL Surgeon: Dorian Sanders Switcher #1: Isidro Ragsdale Estimated Blood Loss (ml): 50 Pathology: other (Left renal mass) Condition: stable Disposition: PACU Indications for Procedure: This is a 83-year-old female with a history of a 3 cm left-sided renal mass. 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 Option of active surveillance versus a partial nephrectomy versus cryoablation was discussed with her in detail. She agreed to proceed with a robotic left- sided partial nephrectomy aware of the risk which includes but not limited to bleeding, infection, injury to nearby organs. Discussed also potential for converting into a radical nephrectomy. Discussed potential of needing hemodialysis in the short and long-term. Discussed need for cancer surveillance in the postoperative period and potential of cancer recurrence. She understood all the risk and agreed to proceed with a left-sided partial nephrectomy Description of Procedure: The patient was taken to the operating room . General anesthesia was induced. She was prepped and draped in sterile fashion, she was placed in modified flank position . All pressure points were padded. The abdominal insufflation was achieved with the Veress needle. A 8 mm camera port was placed. Robotic trocars and licensed loan officer assistant ports were placed under direct vision. The robot was docked into place. The colon was mobilized medially by incising along the white line of Toldt. Next the spleen and the pancrease were mobilized. Once the bowel, spleen and pancreas were mobilized. At this time the gonadal vessel was visualized. On ce the gonadal vessel and ureter was visualized , next after the psoas plane was developed the ureter and gonadal vessel was retracted anteriorly off the psoas muscle. Dissection proceeded cranially towards the renal hilum. The upper pole attachments were dissected. Care was taken to safely mobilize the kidney free of all visceral structures.The renal vessels were dissected. The renal artery and the vein was dissected in preparation for clamping. Patient had 2 renal veins, smaller renal vein was clipped using the robotic clips in order to visualize the artery. next attention was carried to the tumor, the area around the tumor was defatted, insuring adequate defatting to identify a normal parenchyma. Using the robotic ultrasound the tumor margins were clearly defined. Manitol was administered. The renal artery was clamped using 2 bulldogs. After clamping the renal artery the tumor was excised sharply with adequate margin, and cautery was used in areas of bleeding. There was a thickened area of the tumor base and this was sent as a separate specimen and labeled as a tumor base margin. next the defect was closed in 2 layers using -30V lock for the inner layer, 2-0V lock in interrupted fashion for the outer layer. Sliding clip technique was used. Next the clamps were removed, there was no evidence of bleeding from the defect. Hemostatic agents were applied The kidney tumor was placed in an Endo Catch bag. the gerota fascia was closed using 3-0 V lock A YOSSI drain was placed through the lower robotic trocor incision. The robot was then de-docked and the specimen was then removed by extending the licensed loan officer assistant port. Fascia was closed with one layer using #1 PDS. Skin was closed with subcuticular sutures and dermabond. The patient was awoken from general anesthesia in stable condition. all counts were correct Please refer to the final pathology report for final diagnosis
[2023-05-31] MEDS ORDERED: NON FORMULARY DRUG (Potassium Citrate [Potassium Citrate] 99 MG Capsule) PO SCH (11:00)
[2023-05-31] MEDS ORDERED: NON FORMULARY DRUG (Magnesium Citrate [Magnesium Citrate] 125 MG Capsule) PO SCH (11:00)
[2023-05-31] MEDS: KETOROLAC 15 MG/ML 1 ML VIAL IVP SCH ×2 (13:13→16:54)
[2023-05-31] MEDS: ONDANSETRON 4 MG/2 ML VIAL IVP PRN (15:07)
[2023-05-31] MEDS: D5-0.45% NACL WITH KCL 20MEQ/L 1,000 ML IV SCH ×2 (16:55→20:20)
[2023-05-31] MEDS: BISMUTH SUBSALICYLATE 4,192 MG/240 ML BOTTLE PO PRN (18:26)
[2023-05-31] MEDS ORDERED: ALBUTEROL NEBULIZED 2.5 MG/3 ML INHALATION PRN (18:41)
[2023-05-31] MEDS: ZOLPIDEM 5 MG TAB PO PRN (21:43)
[2023-05-31] MEDS: METOPROLOL TARTRATE 50 MG TAB PO SCH (21:43)
[2023-05-31] MEDS: LETROZOLE 2.5 MG TAB PO SCH (21:45)
[2023-06-01] MEDS: KETOROLAC 15 MG/ML 1 ML VIAL IVP SCH ×4 (00:15→17:37)
[2023-06-01] MEDS: BISMUTH SUBSALICYLATE 4,192 MG/240 ML BOTTLE PO PRN (00:55)
[2023-06-01] MEDS: D5-0.45% NACL WITH KCL 20MEQ/L 1,000 ML IV SCH ×3 (00:58→17:56)
[2023-06-01] MEDS: MAG HYDROX/AL HYDROX/SIMETH 30 ML CUP PO PRN (01:33)
--- NOTE | 2023-06-01 03:37 | P.CONS ---
History of Present Illness - Reason for Consult Consult date: 05/31/23 medical management - Chief Complaint renal mass - History of Present Illness 83-year-old female with asthma coronary artery disease hypertension Patient coming in for scheduled left-sided partial nephrectomy she tolerated procedure well no observed immediate postoperative complication, patient denies any chest pain trouble breathing nausea vomiting. Pain is tolerated postop. Patient denies tobacco smoking illicit drugs or heavy alcohol review of systems Pertinent positives as noted in HPI. All other systems were reviewed and are negative on exam Constitutional: No acute distress, conversant, pleasant Eyes: Anicteric sclerae, moist conjunctiva, Pupils equal round reactive to light ENMT: NC/AT Oropharynx clear, no erythema, or exudates Neck: Supple, no masses, or JVD No carotid bruits No thyromegaly Lungs: Clear to auscultation Clear to percussion Normal respiratory effort, no accessory muscle use Cardiovascular: Heart regular in rate and rhythm, No murmurs, gallops, or rubs No peripheral edema Abdominal: Soft Mild tenderness over the left lower quadrant around the site of surgery, no guarding, rebound or rigidity Abdomen moving with respiration Normoactive bowel sounds No hepatomegaly, No splenomegaly No palpable mass No abdominal wall hernia noted Extremities: No digital cyanosis No clubbing Pedal pulses intact and symmetrical Radial pulses intact and symmetrical No calf tenderness Psychiatric: Alert and oriented to person, place and time Appropriate affect fair judgement Neuro Muscles Strength 4/5 in all 4 extremities Sensation to light touch grossly present throughout Cranial nerves II-XII grossly intact Lymphatics: no palpable cervical or supraclavicular lymph nodes Past Medical History Past Medical History: Asthma, Coronary Artery Disease (CAD), Cancer, Chest Pain / Angina, Eye Disorder, GERD/Reflux, Hyperlipidemia, Hypertension, Sleep Apnea/CPAP/BIPAP Additional Past Medical History / Comment(s): DIVERTICULITS,SINUSITIS,LT EYE MAC DEGENERATION,SMALL HIATAL HERNIA,DDD,SPINAL STENOSIS,DOES NOT USE A CPAP MACHINE, HAS NARROW ARTERY DISEASE. GLUTEN ALLERGY,LACTOSE INTOLERANCE AND EGGS CAUSE NAUSEA AND BLOATING BUT ABLE TO TAKE IMMUNIZATIONS. 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 LT KIDNEY CANCER, Left nephrectomy 05/31/23 History of Any Multi-Drug Resistant Organisms: None Reported Past Surgical History: Appendectomy, Bladder Surgery, Breast Surgery, Cholecystectomy, Heart Catheterization With Stent, Hernia Repair, Hysterectomy Additional Past Surgical History / Comment(s): Vaginal hysterectomy 1991. BLADDER SUSPENSION WITH MESH. JUANJOSE CATARACTS, CYST ON NECK REMOVED, EGD, VEIN STRIPPING, HEMORRHOIDECTOMY, NASAL SURGERY. Colonoscopy 2020(next after 5yr). LT BREAST BIOPSY and lumpectomy 2017. bunionectomy left foot, umbilical hernia repair Past Anesthesia/Blood Transfusion Reactions: Motion Sickness Date of Last Stent Placement:: 2011 Past Psychological History: Anxiety Additional Psychological History / Comment(s): PT LIVES IN OWN HOME WITH HER FAMILY. 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 NO OUTSIDE SERVICES. Smoking Status: Never smoker Past Alcohol Use History: None Reported Past Drug Use History: None Reported - Past Family History Sister(s) Family Medical History: Cancer Additional Family Medical History / Comment(s): breast cancer Father Family Medical History: Cancer, Osteoarthritis (OA) Additional Family Medical History / Comment(s): LEUKEMIA. Mother Family Medical History: Cancer Additional Family Medical History / Comment(s): BREAST CANCER Medications and Allergies Home Medications Medication Instructions Recorded Confirmed Type Letrozole 2.5 mg PO HS 02/27/19 05/31/23 History Nitroglycerin Sl Tabs [Nitrostat] 0.4 mg SL Q5M PRN 05/20/20 05/28/23 History Isosorbide Mononitrate ER [Imdur] 60 mg PO DAILY 08/18/20 05/31/23 History Apixaban [Eliquis] 2.5 mg PO BID 03/18/21 05/28/23 History Metoprolol Tartrate [Lopressor] 50 mg PO BID 03/18/21 05/31/23 History amLODIPine [Norvasc] 5 mg PO QAM 03/18/21 05/31/23 History Albuterol Sulfate [Proair Hfa] 1 - 2 puff INHALATION RT-QID PRN 02/05/22 05/31/23 History Bismuth Subsalicylate 1 dose PO DIRECTED PRN 04/22/23 05/28/23 History [Pepto-Bismol] Cholecalciferol [Vitamin D3 (25 25 mcg PO DAILY 04/22/23 05/28/23 History Mcg = 1000 Iu)] Magnesium Citrate 250 mg PO DIRECTED 04/22/23 05/28/23 History Milk Thistle 1,000 mg PO DIRECTED 04/22/23 05/28/23 History Potassium Citrate 99 mg PO DIRECTED 04/22/23 05/28/23 History Rutin/Quercetin/Bioflav/Bilber 1 each PO DIRECTED 04/22/23 05/28/23 History [Bilberry Extract] Sea Kelp 1 dose PO DIRECTED 04/22/23 05/31/23 History Allergies Allergy/AdvReac Type Severity Reaction Status Date / Time exemestane [From Aromasin] Allergy Unknown Unknown Verified 05/31/23 06:23 cephalexin [From Keflex] Allergy Rash/Hives Verified 05/31/23 06:23 codeine Allergy Nausea & Verified 05/31/23 06:23 Vomiting Sulfa (Sulfonamide Allergy Rash/Hives Verified 05/31/23 06:23 Antibiotics) sulfamethoxazole Allergy Rash/Hives Verified 05/31/23 06:23 [From Bactrim] trimethoprim [From Bactrim] Allergy Rash/Hives Verified 05/31/23 06:23 tree nut [Nut] AdvReac Mild Abdominal Verified 05/31/23 06:23 Pain cat dander AdvReac Wheezing Verified 05/31/23 06:23 dog dander AdvReac Wheezing Verified 05/31/23 06:23 egg AdvReac upset Verified 05/31/23 06:23 stomach house dust mite AdvReac Wheezing Verified 05/31/23 06:23 iodine AdvReac Itching Verified 05/31/23 06:23 Milk Containing Products AdvReac upset Verified 05/31/23 06:23 (Dairy) stomach [Dairy] and bloating peanut AdvReac upset Verified 05/31/23 06:23 stomach shellfish derived AdvReac Itching Verified 05/31/23 06:23 soy AdvReac Nausea & Verified 05/31/23 06:23 Vomiting Physical Exam Vitals: Vital Signs Temp Pulse Pulse Resp BP BP BP 06/01/23 01:15 97.3 F L 68 18 156/69 05/31/23 19:20 98.4 F 67 18 132/65 05/31/23 14:05 97.8 F 51 L 18 128/60 05/31/23 13:50 51 L 123/57 05/31/23 13:34 54 L 135/68 05/31/23 13:19 61 141/68 05/31/23 13:12 67 18 152/70 05/31/23 12:45 55 L 16 130/63 05/31/23 12:30 64 16 142/68 05/31/23 12:15 58 L 16 134/64 05/31/23 12:00 53 L 16 111/53 05/31/23 11:45 56 L 16 112/56 05/31/23 11:32 60 16 120/59 05/31/23 11:15 60 16 140/69 05/31/23 11:10 97.6 F 63 16 134/68 05/31/23 07:20 66 18 165/75 05/31/23 07:10 62 16 173/80 05/31/23 06:39 98.1 F 64 18 192/82 Pulse Ox 06/01/23 01:15 97 05/31/23 19:20 96 05/31/23 14:05 90 L 05/31/23 13:50 05/31/23 13:34 05/31/23 13:19 05/31/23 13:12 05/31/23 12:45 96 05/31/23 12:30 98 05/31/23 12:15 99 05/31/23 12:00 100 05/31/23 11:45 100 05/31/23 11:32 100 05/31/23 11:15 100 05/31/23 11:10 100 05/31/23 07:20 100 05/31/23 07:10 100 05/31/23 06:39 99 Intake and Output 05/31/23 05/31/23 06/01/23 14:59 22:59 06:59 Intake Total 2757 Output Total 430 800 60 Balance 2327 -800 -60 Intake: IV 2757 Output: Drainage 100 60 Lower Abdomen 100 60 Urine 415 700 Estimated Blood Loss 15 Other: Voiding Method Indwelling Catheter Indwelling Catheter Weight 55.1 kg Assessment and Plan Assessment: Renal cancer status post left partial nephrectomy postoperative day 0 Further management per primary urology team pain control, DVT prophylaxis. Mild persistent asthma Continue with inhalers as needed Paroxysmal A-fib Continue with metoprolol Consider resuming Eliquis once cleared by surgery History of coronary artery disease Hypertension Continue with Imdur Continue with lisinopril History of breast cancer Continue with letrozole Patient stable from medical standpoint Thank you for this consultation we will continue to follow-up along with you Follow-up CBC BMP in the morning
[2023-06-01] MEDS: LACTATED RINGERS 1,000 ML IV SCH (04:52)
[2023-06-01] MEDS: METOPROLOL TARTRATE 50 MG TAB PO SCH ×2 (08:45→21:48)
[2023-06-01] MEDS: ISOSORBIDE MONONITRATE ER 60 MG TAB.ER.24H PO SCH (08:45)
[2023-06-01] MEDS: amLODIPine 5 MG TAB PO SCH (08:45)
[2023-06-01 09:00] LABS: Basophils # (A) 0.01 X 10*3/uL (0.00-0.10); Basophils % (A) 0.1 %; Eosinophils # (A) 0 X 10*3/uL (0.04-0.35); Eosinophils % (A) 0 %; HGB 10.5 g/dL (12.0-15.0); Lymphocytes # (A) 0.75 X 10*3/uL (0.90-5.00); Lymphocytes % (A) 6.8 %; MCH 30.7 pg (27.0-32.0); MCHC 33.9 g/dL (32.0-37.0); MCV 90.6 FL (80.0-97.0); Mean Platelet Volume 9.6 FL (9.5-12.2); Monocytes # (A) 1.03 X 10*3/uL (0.20-1.00); Monocytes % (A) 9.3 %; NRBC Per 100 WBC 0 X 10*3/uL (0.00-0.01); Neutrophils # (A) 9.23 X 10*3/uL (1.80-7.70); Neutrophils % (A) 83.3 %; Platelet Count 223 X 10*3/uL (140-440); RBC 3.42 X 10*6/uL (4.10-5.20); RDW 12.7 % (11.5-14.5); WBC 11.07 X 10*3/uL (4.50-10.00)
--- NOTE | 2023-06-01 10:07 | P.PN ---
Subjective Progress Note Date: 06/01/23 Postop day 1 status post left robotic partial nephrectomy doing well this morning Objective - Vital Signs Vital signs: Vital Signs Temp 97.5 F L 06/01/23 07:31 Pulse 68 06/01/23 07:31 Resp 18 06/01/23 07:31 BP 175/77 06/01/23 07:31 Pulse Ox 97 06/01/23 07:31 FiO2 Intake & Output 05/31/23 06/01/23 06/01/23 18:59 06:59 18:59 Intake Total 2757 Output Total 1230 2069 Balance 1527 -2069 Weight 55.1 kg Intake: IV 2757 Output: Drainage 100 70 Lower Abdomen 100 70 Urine 1115 2000 Estimated Blood Loss 15 Other: Voiding Method Indwelling Catheter Indwelling Catheter # Voids 1 - Constitutional General appearance: Present: no acute distress - Gastrointestinal General gastrointestinal: Present: soft. Absent: distended, tenderness - Psychiatric Psychiatric: Present: A&O x's 3 - Labs CBC & Chem 7: 06/01/23 04:54 Labs: Abnormal Lab Results - Last 24 Hours (Table) 06/01/23 Range/Units 04:54 WBC 11.07 H (4.50-10.00) X 10*3/uL RBC 3.42 L (4.10-5.20) X 10*6/uL Hgb 10.5 L (12.0-15.0) g/dL Hct 31.0 L (37.2-46.3) % Immature Gran # 0.05 H (0.00-0.04) X 10*3/uL Neutrophils # 9.23 H (1.80-7.70) X 10*3/uL Lymphocytes # 0.75 L (0.90-5.00) X 10*3/uL Monocytes # 1.03 H (0.20-1.00) X 10*3/uL Eosinophils # 0 L (0.04-0.35) X 10*3/uL Assessment and Plan Assessment: Status post left robotic partial nephrectomy -ambulate -remove infante catheter this am -plan on discharge home tomorrow
[2023-06-01 11:12] LABS: BUN/Creat Ratio 13.33 Ratio (12.00-20.00); Carbon Dioxide 23.3 mmol/L (21.6-31.8); Chloride 103 mmol/L (96-109); Glucose 193 mg/dL (70-110); Potassium 4.7 mmol/L (3.5-5.5); Sodium 138 mmol/L (135-145)
--- NOTE | 2023-06-01 13:26 | P.PN ---
Subjective Progress Note Date: 06/01/23 Hospital course: Patient is a very pleasant 83-year-old female with a past medical history of CAD with narrow artery disease and previous stent placement, hypertension, hyperlipidemia, obstructive sleep apnea does not use a CPAP, glaucoma, breast cancer status postlumpectomy and renal cancer. She is currently admitted to the hospital status post scheduled left-sided partial nephrectomy. Surgical procedure was completed by Dr. Sanders on 05/31/2023. We are consulted for medical management throughout patient's hospitalization. Physical exam: Patient seen and fully evaluated at bedside this morning. She appeared to be resting comfortably. She is postoperative day 1. She reports postoperative pain is controlled but does increase with movement. Patient reports initially having postoperative nausea and vomiting along with heartburn but states today she is doing much better. Patient tolerated breakfast and denies any other needs or complaints at this time. Vital signs reviewed and stable. General: Nontoxic, no distress and appears stated age. Derm: Skin warm and dry, normal coloration for ethnicity. Head: Atraumatic, normocephalic and symmetric. Eyes: EOMs intact, no lid lag, and anicteric sclera Mouth: no lip lesions, mucus membranes moist Cardiovascular: regular rate and rhythm with normal S1S2, no murmur, positive posterior tibial pulses bilaterally, and cap refill < 2 seconds. Lungs: Respirations even, regular, and unlabored on room air. Lungs CTA bilaterally, no rhonchi, no rales, no wheezing, and no accessory muscle usage. Abdominal: soft, nontender to palpation, no guarding, no appreciable organomegaly. Laparoscopic wounds left lower abdomen and groin. Dressings showing some shadowing, however no active bleeding noted. Ext: ROM intact. No gross muscle atrophy, no edema, no contractures Neuro: Speech clear, face symmetrical and CN II-XII grossly intact with no noted focal neuro deficits Psych: Alert and oriented to person, place, time, and situation. Appropriate and pleasant affect. Assessment and Plan of Care: Acute postoperative blood loss anemia Preoperative hemoglobin 12.3 with postoperative hemoglobin 10.5. This is an expected and stable finding with no needs for transfusion or further intervention at this time. We will continue to monitor for any signs/symptoms of bleeding and repeat CBC tomorrow morning. Renal carcinoma Status post left robotic partial nephrectomy -Management per primary admitting urology team including pain management, wound/dressing care, and DVT prophylaxis. -Currently DVT prophylaxis with SCDs and DARVIN kidd. Coronary artery disease with neuro artery disease and previous stent placement Hypertension Hyperlipidemia -Patient to continue daily medication regimen with amlodipine 5 mg daily, i sosorbide mononitrate, and metoprolol 50 mg twice daily. Recommend resumption of Eliquis once cleared by primary admitting urology team to safely resume. Data reviewed: Vital signs reviewed. Blood pressure 156/69, heart rate 68, respiratory rate 18, temp 97.3 F, and SpO2 of 97% on room air. Morning labs reviewed. Postoperative hemoglobin 10.5 WBC count of 11.07. BMP showing BUN of 16, creatinine 1.2, GFR 45. Documented urinary output over the past 24 hours 3115 mL. Thank you for allowing us to participate in the care of this pleasant patient. Do not hesitate to contact us with questions. Someone can be reached from the [facility] all hours of the day at [phone] or via [employer]. Patient was seen independently by Nurse Pracitioner. This document was prepared using [employer] dictation software. Please allow for errors in farmworker [employer], while rare they do occur. Rasheed Mathew NP rendered care for this patient independently, reviewed the findings and plan as documented in the note above. I did not physically speak with or examine the patient on this date. Objective - Vital Signs Vital signs: Vital Signs Temp 97.3 F L 06/01/23 01:15 Pulse 68 06/01/23 01:15 Resp 18 06/01/23 01:15 BP 156/69 06/01/23 01:15 Pulse Ox 97 06/01/23 01:15 FiO2 Intake & Output 05/31/23 06/01/23 06/01/23 18:59 06:59 18:59 Intake Total 2757 Output Total 1230 2070 Balance 1527 -2070 Weight 55.1 kg Intake: IV 2757 Output: Drainage 100 70 Lower Abdomen 100 70 Urine 1115 2000 Estimated Blood Loss 15 Other: Voiding Method Indwelling Catheter Indwelling Catheter # Voids 1 - Labs CBC & Chem 7: 06/04/23 07:20 06/04/23 07:20
[2023-06-01] MEDS ORDERED: ACETAMINOPHEN TAB 325 MG TAB PO STA (20:34)
[2023-06-01] MEDS: LETROZOLE 2.5 MG TAB PO SCH (21:47)
[2023-06-01] MEDS: ZOLPIDEM 5 MG TAB PO PRN (21:48)
[2023-06-02] MEDS ORDERED: DILTIAZEM ORAL 60 MG TAB PO STA (01:36)
[2023-06-02] MEDS: KETOROLAC 15 MG/ML 1 ML VIAL IVP SCH ×5 (02:33→23:35)
[2023-06-02 04:52] LABS: HCT 34.8 % (34.0-46.0); HGB 11.7 gm/dL (11.4-16.0); MCH 30.9 pg (25.0-35.0); MCHC 33.6 g/dL (31.0-37.0); MCV 91.9 fL (80.0-100.0); Mean Platelet Volume 7.2; Platelet Count 241 k/uL (150-450); RBC 3.79 m/uL (3.80-5.40); RDW 12.6 % (11.5-15.5); WBC 12.2 k/uL (3.8-10.6)
[2023-06-02 05:07] LABS: ALT 33 U/L (4-34); AST 46 U/L (14-36); African American GFR (CKD) 50 (>60 ml/min/1.73 sqM); Albumin 3.2 g/dL (3.5-5.0); Albumin/Globulin Ratio 1.2; Alkaline Phosphatase 64 U/L (38-126); Anion Gap 7 mmol/L; Blood Urea Nitrogen 19 mg/dL (7-17); Calcium 8.7 mg/dL (8.4-10.2); Carbon Dioxide 23 mmol/L (22-30); Chloride 108 mmol/L (98-107); Globulin 2.6 g/dL; Glucose 135 mg/dL (74-99); Magnesium 1.8 mg/dL (1.6-2.3); Non-African American GFR(CKD) 43 (>60 ml/min/1.73 sqM); Sodium 138 mmol/L (137-145); Total Bilirubin 0.7 mg/dL (0.2-1.3); Total Protein 5.8 g/dL (6.3-8.2)
[2023-06-02] MEDS: D5-0.45% NACL WITH KCL 20MEQ/L 1,000 ML IV SCH ×2 (05:49→16:58)
[2023-06-02] MEDS: ISOSORBIDE MONONITRATE ER 60 MG TAB.ER.24H PO SCH (09:39)
[2023-06-02] MEDS: LACTATED RINGERS 1,000 ML IV SCH (09:39)
[2023-06-02] MEDS: amLODIPine 5 MG TAB PO SCH (09:39)
[2023-06-02] MEDS: METOPROLOL TARTRATE 50 MG TAB PO SCH ×2 (09:39→20:59)
[2023-06-02] MEDS: ONDANSETRON 4 MG/2 ML VIAL IVP PRN (09:45)
--- NOTE | 2023-06-02 14:25 | P.PN ---
Subjective Progress Note Date: 06/02/23 Last night patient was in A-fib with RVR. She denies any lightheadedness dizziness her blood pressure is stable. Hemoglobin is stable at 11.7. Denies any abdominal pain, nausea or vomiting. Objective - Vital Signs Vital signs: Vital Signs Temp 98.9 F 06/02/23 13:44 Pulse 78 06/02/23 13:44 Resp 18 06/02/23 13:44 BP 99/50 06/02/23 13:44 Pulse Ox 96 06/02/23 13:44 FiO2 Intake & Output 06/01/23 06/02/23 06/02/23 18:59 06:59 18:59 Output Total 1465 50 50 Balance -1465 -50 -50 Output: Drainage 120 50 50 Lower Abdomen 120 50 50 Urine 1345 Other: Voiding Method Toilet Bedside Commode # Voids 2 2 - Constitutional General appearance: Present: no acute distress - Gastrointestinal General gastrointestinal: Present: soft. Absent: distended, tenderness - Psychiatric Psychiatric: Present: A&O x's 3 - Labs CBC & Chem 7: 06/02/23 04:01 06/02/23 04:01 Labs: Abnormal Lab Results - Last 24 Hours (Table) 06/02/23 06/02/23 Range/Units 04:01 04:01 WBC 12.2 H (3.8-10.6) k/uL RBC 3.79 L (3.80-5.40) m/uL Chloride 108 H (98-107) mmol/L BUN 19 H (7-17) mg/dL Creatinine 1.18 H (0.52-1.04) mg/dL Glucose 135 H (74-99) mg/dL AST 46 H (14-36) U/L Total Protein 5.8 L (6.3-8.2) g/dL Albumin 3.2 L (3.5-5.0) g/dL Assessment and Plan Assessment: Status post left robotic partial nephrectomy, surgically she is doing well, hemoglobin is stable. Patient is having A-fib with RVR last night and this a.m. -Will obtain a cardiology consult -Surgically she is cleared for discharge we will plan on removing YOSSI drain prior to discharge. Given her recent partial nephrectomy she will need to be off anticoagulation for 1 week
--- NOTE | 2023-06-02 15:15 | P.PN ---
Subjective Progress Note Date: 06/02/23 Hospital course: Patient is a very pleasant 83-year-old female with a past medical history of CAD with narrow artery disease and previous stent placement, paroxysmal atrial fibrillation on anticoagulation with Eliquis, Hypertension, hyperlipidemia, obstructive sleep apnea does not use a CPAP, glaucoma, breast cancer status postlumpectomy and renal cancer. She is currently admitted to the hospital status post scheduled left-sided partial nephrectomy. Surgical procedure was completed by Dr. Sanders on 05/31/2023. We are consulted for medical management throughout patient's hospitalization. Physical exam: Patient seen and fully evaluated at bedside this morning. She appeared to be resting comfortably. She is postoperative day 2. Patient having episodes of atrial fibrillation with RVR. She does have history of paroxysmal atrial fibrillation. Vital signs reviewed and stable. General: Nontoxic, no distress and appears stated age. Derm: Skin warm and dry, normal coloration for ethnicity. Head: Atraumatic, normocephalic and symmetric. Eyes: EOMs intact, no lid lag, and anicteric sclera Mouth: no lip lesions, mucus membranes moist Cardiovascular: Irregularly irregular with normal S1S2, no murmur, positive posterior tibial pulses bilaterally, and cap refill < 2 seconds. Lungs: Respirations even, regular, and unlabored on room air. Lungs CTA bilaterally, no rhonchi, no rales, no wheezing, and no accessory muscle usage. Abdominal: soft, nontender to palpation, no guarding, no appreciable organomegaly. Laparoscopic wounds left lower abdomen and groin. Dressings showing some shadowing, however no active bleeding noted. Ext: ROM intact. No gross muscle atrophy, no edema, no contractures Neuro: Speech clear, face symmetrical and CN II-XII grossly intact with no noted focal neuro deficits Psych: Alert and oriented to person, place, time, and situation. Appropriate and pleasant affect. Assessment and Plan of Care: Atrial fibrillation with RVR -Patient with history of paroxysmal atrial fibrillation. Per nursing documentation patient went into A-fib RVR overnight and was given Cardizem 60 mg p.o. x 1 dose initially resulting in control of ventricular rate. However today patient again in A-fib RVR with rates in 140s. -Order was placed for Cardizem bolus followed by infusion and transferred to 3 . -Continue telemetry monitoring. -Cardiology consulted. -Patient may resume Eliquis as recommended below once cleared by urology team to safely resume status post partial nephrectomy. Acute postoperative blood loss anemia, stable and expected finding Cytosis, reactive Preoperative hemoglobin 12.3 with initial postoperative hemoglobin 10.5 and now improving to 11.7. This is an expected and stable finding with no needs for transfusion or further intervention at this time. Hemoglobin stable, no need for transfusion or interventions, no need for further testing. Leukocytosis with WBC count of 12.2, no signs of infection this is likely reactive secondary to surgical procedure. No need for intervention or further testing at this time. Renal carcinoma Status post left robotic partial nephrectomy -Management per primary admitting urology team including pain management, wound/dressing care, and DVT prophylaxis. -Currently DVT prophylaxis with SCDs and DARVIN hose. Coronary artery disease with neuro artery disease and previous stent placement Paroxysmal atrial fibrillation Hypertension Hyperlipidemia -Patient to continue daily medication regimen with amlodipine 5 mg daily, isosorbide mononitrate, and metoprolol 50 mg twice daily. Recommend resumption of Eliquis once cleared by primary admitting urology team to safely resume. Data reviewed: Vital signs reviewed. Blood pressure 148/79, heart rate 83, respiratory rate 18, temp 99.5 F, SpO2 of 96% on room air. Morning labs reviewed. CBC showing mild leukocytosis with WBC count of 12.2, hemoglobin normal findings at 11.7, and platelet count also normal findings at 241. BMP showing stable renal function with BUN of 19, creatinine 1.18, GFR 43. Documented urinary output over the past 24 hours 1345 mL. Thank you for allowing us to participate in the care of this pleasant patient. Do not hesitate to contact us with questions. Someone can be reached from the [facility] hospitalist group all hours of the day at [phone] or via [employer]. Patient was seen independently by Nurse Pracitioner. This document was prepared using [employer] dictation software. Please allow for errors in gas regulator repairer, while rare they do occur Rasheed Mathew NP rendered care for this patient independently, reviewed the f indings and plan as documented in the note above. I did not physically speak with or examine the patient on this date. Objective - Vital Signs Vital signs: Vital Signs Temp 99.5 F 06/02/23 07:22 Pulse 83 06/02/23 07:22 Resp 18 06/02/23 07:22 BP 148/79 06/02/23 07:22 Pulse Ox 96 06/02/23 07:22 FiO2 Intake & Output 06/01/23 06/02/23 06/02/23 18:59 06:59 18:59 Output Total 1465 50 Balance -1465 -50 Output: Drainage 120 50 Lower Abdomen 120 50 Urine 1345 Other: Voiding Method Toilet # Voids 2 2 - Labs CBC & Chem 7: 06/04/23 07:20 06/04/23 07:20 Labs: Abnormal Lab Results - Last 24 Hours (Table) 06/01/23 06/01/23 06/02/23 Range/Units 04:54 04:54 04:01 WBC 11.07 H 12.2 H (4.50-10.00) X 10*3/uL RBC 3.42 L 3.79 L (4.10-5.20) X 10*6/uL Hgb 10.5 L (12.0-15.0) g/dL Hct 31.0 L (37.2-46.3) % Immature Gran # 0.05 H (0.00-0.04) X 10*3/uL Neutrophils # 9.23 H (1.80-7.70) X 10*3/uL Lymphocytes # 0.75 L (0.90-5.00) X 10*3/uL Monocytes # 1.03 H (0.20-1.00) X 10*3/uL Eosinophils # 0 L (0.04-0.35) X 10*3/uL Chloride (98-107) mmol/L BUN (7-17) mg/dL Creatinine (0.52-1.04) mg/dL Est GFR (CKD-EPI) 45 L (>=60) Glucose 193 H (70-110) mg/dL AST (14-36) U/L Total Protein (6.3-8.2) g/dL Albumin (3.5-5.0) g/dL 06/02/23 Range/Units 04:01 WBC (4.50-10.00) X 10*3/uL RBC (4.10-5.20) X 10*6/uL Hgb (12.0-15.0) g/dL Hct (37.2-46.3) % Immature Gran # (0.00-0.04) X 10*3/uL Neutrophils # (1.80-7.70) X 10*3/uL Lymphocytes # (0.90-5.00) X 10*3/uL Monocytes # (0.20-1.00) X 10*3/uL Eosinophils # (0.04-0.35) X 10*3/uL Chloride 108 H (98-107) mmol/L BUN 19 H (7-17) mg/dL Creatinine 1.18 H (0.52-1.04) mg/dL Est GFR (CKD-EPI) (>=60) Glucose 135 H (70-110) mg/dL AST 46 H (14-36) U/L Total Protein 5.8 L (6.3-8.2) g/dL Albumin 3.2 L (3.5-5.0) g/dL
[2023-06-02] MEDS: DILTIAZEM 125 MG in SODIUM CHLORIDE 0.9% 100 ML IV SCH (16:58)
[2023-06-02] MEDS: polyethylene glycoL 3350 17 GM POWD.PACK PO SCH (17:07)
[2023-06-02] MEDS: LETROZOLE 2.5 MG TAB PO SCH (20:57)
[2023-06-03] MEDS: LACTATED RINGERS 1,000 ML IV SCH (06:13)
[2023-06-03] MEDS: KETOROLAC 15 MG/ML 1 ML VIAL IVP SCH (06:14)
--- NOTE | 2023-06-03 08:07 | P.PN ---
Subjective Progress Note Date: 06/03/23 The patient is in the hospital status post partial nephrectomy, left. She is recuperating nicely. She went into atrial fibrillation with a rapid ventricular rate last night. She feels better this morning and appears to be back in sinus rhythm. Objective - Vital Signs Vital signs: Vital Signs Temp 98.5 F 06/03/23 04:00 Pulse 60 06/03/23 04:00 Resp 18 06/03/23 04:00 BP 131/62 06/03/23 04:00 Pulse Ox 97 06/03/23 04:00 FiO2 Intake & Output 06/02/23 06/03/23 06/03/23 18:59 06:59 18:59 Intake Total 0 Output Total 90 20 Balance -90 -20 Intake: Oral 0 Output: Drainage 90 20 Lower Abdomen 90 20 Other: Voiding Method Bedside Commode Bedside Commode # Voids 1 - Labs CBC & Chem 7: 06/02/23 04:01 06/02/23 04:01 Assessment and Plan Assessment: Impression: Status post partial nephrectomy left. Postoperative atrial fibrillation. Recommendations: The patient appears to be back in sinus rhythm this morning.Dr Sanders does not want any anticoagulation for 10 days due to the recent surgical procedure. From a urologic standpoint she can be discharged home when cleared from a cardiac and medical standpoint.
[2023-06-03] MEDS: amLODIPine 5 MG TAB PO SCH (08:52)
[2023-06-03] MEDS: polyethylene glycoL 3350 17 GM POWD.PACK PO SCH (08:52)
[2023-06-03] MEDS: ISOSORBIDE MONONITRATE ER 60 MG TAB.ER.24H PO SCH (08:52)
[2023-06-03] MEDS: METOPROLOL TARTRATE 50 MG TAB PO SCH ×2 (08:52→20:18)
[2023-06-03 10:49] LABS: HCT 39.3 % (34.0-46.0); MCH 31.1 pg (25.0-35.0); Mean Platelet Volume 7.6; Platelet Count 249 k/uL (150-450); RBC 4.18 m/uL (3.80-5.40); RDW 12.5 % (11.5-15.5); WBC 10.1 k/uL (3.8-10.6)
[2023-06-03 11:19] LABS: ALT 31 U/L (4-34); AST 37 U/L (14-36); African American GFR (CKD) 35 (>60 ml/min/1.73 sqM); Albumin 3.7 g/dL (3.5-5.0); Alkaline Phosphatase 67 U/L (38-126); Anion Gap 5 mmol/L; Blood Urea Nitrogen 24 mg/dL (7-17); Calcium 8.9 mg/dL (8.4-10.2); Carbon Dioxide 29 mmol/L (22-30); Chloride 103 mmol/L (98-107); Glucose 124 mg/dL (74-99); Magnesium 2.1 mg/dL (1.6-2.3); Non-African American GFR(CKD) 30 (>60 ml/min/1.73 sqM); Potassium 4.1 mmol/L (3.5-5.1); Sodium 137 mmol/L (137-145); Total Bilirubin 0.9 mg/dL (0.2-1.3); Total Protein 6.5 g/dL (6.3-8.2)
--- NOTE | 2023-06-03 11:43 | P.PN ---
Subjective Progress Note Date: 06/03/23 Hospital course: Patient is a very pleasant 83-year-old female with a past medical history of CAD with narrow artery disease and previous stent placement, paroxysmal atrial fibrillation on anticoagulation with Eliquis, Hypertension, hyperlipidemia, obstructive sleep apnea does not use a CPAP, glaucoma, breast cancer status postlumpectomy and renal cancer. She is currently admitted to the hospital status post scheduled left-sided partial nephrectomy. Surgical procedure was completed by Dr. Sanders on 05/31/2023. We are consulted for medical management throughout patient's hospitalization. Physical exam: Patient seen and fully evaluated at bedside this morning. She appeared to be resting comfortably. She is postoperative day 3. Patient currently resting comfortably. She reports controlled postoperative pain management. She denies having any needs, concerns, or complaints at this time. Morning labs did reveal slight elevation in renal function. Discussed with urologist. Dr. Sosa was in agreement with gentle IV fluid hydration. Orders placed for 0.9% normal saline at 100 cc/h. We will repeat BMP tomorrow morning to monitor for improvement. Vital signs reviewed and stable. General: Nontoxic, no distress and appears stated age. Derm: Skin warm and dry, normal coloration for ethnicity. Head: Atraumatic, normocephalic and symmetric. Eyes: EOMs intact, no lid lag, and anicteric sclera Mouth: no lip lesions, mucus membranes moist Cardiovascular: Irregularly irregular with normal S1S2, no murmur, positive posterior tibial pulses bilaterally, and cap refill < 2 seconds. Lungs: Respirations even, regular, and unlabored on room air. Lungs CTA bilaterally, no rhonchi, no rales, no wheezing, and no accessory muscle usage. Abdominal: soft, nontender to palpation, no guarding, no appreciable organomegaly. Laparoscopic wounds left lower abdomen and groin. Dressings showing some shadowing, however no active bleeding noted. Ext: ROM intact. No gross muscle atrophy, no edema, no contractures Neuro: Speech clear, face symmetrical and CN II-XII grossly intact with no noted focal neuro deficits Psych: Alert and oriented to person, place, time, and situation. Appropriate and pleasant affect. Assessment and Plan of Care: Acute kidney injury -BMP revealing acute kidney injury with BUN of 24, creatinine 1.58, and GFR of 30. -Order placed for strict I's and O's. -Discussed with urologist. Dr. Sosa was in agreement with gentle IV fluid hydration. -Orders placed for 0.9% normal saline at 100 cc/h. - Toradol discontinued -We will repeat BMP tomorrow morning to monitor for improvement/resolution of DANILO. Atrial fibrillation with RVR, now maintaining sinus mechanism. -Cardizem infusion discontinued and patient to continue with metoprolol 50 mg twice daily. -Continue telemetry monitoring. -Cardiology evaluated, recommending resumption of patient's Eliquis once cleared by urology team to safely resume. -Per urology, Eliquis to be held for 10 days and patient may then safely resume .. Renal carcinoma Status post left robotic partial nephrectomy -Management per primary admitting urology team including pain management, wound/dressing care, and DVT prophylaxis. -Currently DVT prophylaxis with SCDs and DARVIN fostere. Coronary artery disease with neuro artery disease and previous stent placement Paroxysmal atrial fibrillation Hypertension Hyperlipidemia -Patient to continue daily medication regimen with amlodipine 5 mg daily, isosorbide mononitrate, and metoprolol 50 mg twice daily. Recommend resumption of Eliquis once cleared by primary admitting urology team to safely resume. Data reviewed: Vital signs reviewed. Blood pressure 135/67, heart rate 60, respiratory rate 18, temp 98.5 F, and SpO2 of 97% on room air.. Morning labs reviewed. CBC unremarkable. BMP revealing acute kidney injury with BUN of 24, creatinine 1.58, and GFR of 30. Urinary output amount was not documented over the past 24 hours. Thank you foamount r allowing us to participate in the care of this pleasant patient. Do not hesitate to contact us with questions. Someone can be reached from the [facility]Note 3] hospitalist group all hours of the day at [phone] or via [employer]. Patient was seen independently by Nurse Pracitioner. This document was prepared using [email or web address] dictation software. Please allow for errors in pricing clerk, while rare they do occur Rasheed Mathew NP rendered care for this patient independently, reviewed the findings and plan as documented in the note above. I did not physically speak with or examine the patient on this date. Objective - Vital Signs Vital signs: Vital Signs Temp 98.5 F 06/03/23 04:00 Pulse 60 06/03/23 04:00 Resp 18 06/03/23 04:00 BP 131/62 06/03/23 04:00 Pulse Ox 97 06/03/23 04:00 FiO2 Intake & Output 06/02/23 06/03/23 06/03/23 18:59 06:59 18:59 Intake Total 0 Output Total 90 20 Balance -90 -20 Intake: Oral 0 Output: Drainage 90 20 Lower Abdomen 90 20 Other: Voiding Method Bedside Commode Bedside Commode # Voids 1 - Labs CBC & Chem 7: 06/03/23 09:13 06/03/23 09:13
--- NOTE | 2023-06-03 12:30 | P.CRDCN ---
History of Present Illness Consult date: 06/03/23 Consult reason: atrial fibrillation (w RVR) History of present illness: History of present illness: This is an 83-year-old female patient of Dr. Elias with past uncle history of coronary artery disease status post setting of the LAD, hypertension, dyslipidemia paroxysmal atrial fibrillation, statin intolerance, valvular heart disease with regurgitation. Patient was recently diagnosed with renal cell carcinoma and was last in the office for preop clearance. She has been brought to the hospital under the care of of Dr. Lugo status post left robotic partial nephrectomy. Yesterday, patient states that she was feeling a lot better pain was better hard to get up but she was feeling her heart beating fast. It started yesterday morning and seem to resolve by around 2 PM yesterday. Patient went into atrial fibrillation is converted to sinus rhythm. Patient is expecting discharge home today. Telemetry was reviewed. WBC 10.1, hemoglobin 13, blood count 249 electrolytes normal. BUN 24 creatinine 1.58. Blood sugar 124. AST 37, otherwise liver function test are normal. Magnesium 2.1. Home cardiac medications: Amlodipine 5 mg daily, Eliquis 2.5 mg twice daily, Imdur 60 mg daily,Lopressor 50 mg twice daily, Nitrostat as needed. Cardiac catheterization history. Patent stent in the LAD, mild disease in the mid LAD 02/16/2022 Echocardiogram performed 02/02/2022 revealed normal EF, mild MR. Lexiscan stress test performed 02/06/2022 revealed inferior ischemia. Review Of Systems: At the time of my evaluation: Constitutional: No fever, no chills. No weakness, fatigue or lethargy. EENT: No headache. No dizziness. Lungs: No shortness of breath, cough, no sputum production. No wheezing. Cardiovascular: No chest pain, no lower extremity edema. No palpitations. No paroxysmal nocturnal dyspnea. No orthopnea. No lightheadedness or dizziness. No syncopal episodes. Abdominal: No abdominal pain. No nausea, vomiting. No diarrhea. No constipation. Musculoskeletal: No myalgias. No muscle weakness, no frequent falls. Integumentary: No wounds. No rash. No unusual bruising. Neurologic: No aphasia. No facial droop. No change in mentation. Physical examination: Gen: This is an 83-year-old female resting bed appears be comfortable and in no acute distress VS: reviewed 135/67, heart rate 60 HEENT: Head is atraumatic, normocephalic. Pupils equal, round. Sclerae is anicteric. NECK: Supple. No JVD. LUNGS: Clear to auscultation. No wheezes or rhonchi. No intercostal retractions. HEART: Regular rate and rhythm. Systolic murmur at the apex. ABDOMEN: Soft No tenderness. EXTREMITIES: No pedal edema. No calf tenderness. NEUROLOGICAL: Patient is awake, alert and oriented x3. Assessment: Paroxysmal atrial fibrillation, currently in sinus rhythm Hypertension Dyslipidemia History of coronary artery disease status post patent stent in the LAD Renal cell carcinoma status post left robotic partial nephrectomy Plan: Patient is cleared for cardiology for discharge and may follow-up with Dr. Elias in 1 to 2 weeks. Patient to resume Eliquis once cleared by urology. Thank you kindly for this consultation. Nurse practitioner note has been reviewed, I agree with documented findings and plan of care. Patient was seen and examined. Past Medical History Past Medical History: Asthma, Coronary Artery Disease (CAD), Cancer, Chest Pain / Angina, Eye Disorder, GERD/Reflux, Hyperlipidemia, Hypertension, Sleep Apnea/CPAP/BIPAP Additional Past Medical History / Comment(s): DIVERTICULITS,SINUSITIS,LT EYE MAC DEGENERATION,SMALL HIATAL HERNIA,DDD,SPINAL STENOSIS,DOES NOT USE A CPAP MACHINE, HAS NARROW ARTERY DISEASE. GLUTEN ALLERGY,LACTOSE INTOLERANCE AND EGGS CAUSE NAUSEA AND BLOATING BUT ABLE TO TAKE IMMUNIZATIONS. 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 LT KIDNEY CANCER, Left nephrectomy 05/31/23 History of Any Multi-Drug Resistant Organisms: None Reported Past Surgical History: Appendectomy, Bladder Surgery, Breast Surgery, Cholecystectomy, Heart Catheterization With Stent, Hernia Repair, Hysterectomy Additional Past Surgical History / Comment(s): Vaginal hysterectomy 1991. BLADDER SUSPENSION WITH MESH. JUANJOSE CATARACTS, CYST ON NECK REMOVED, EGD, VEIN STRIPPING, HEMORRHOIDECTOMY, NASAL SURGERY. Colonoscopy 2020(next after 5yr). LT BREAST BIOPSY and lumpectomy 2018. bunionectomy left foot, umbilical hernia repair Past Anesthesia/Blood Transfusion Reactions: Motion Sickness Date of Last Stent Placement:: 2011 Past Psychological History: Anxiety Additional Psychological History / Comment(s): PT LIVES IN OWN HOME WITH HER FAMILY. 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 NO OUTSIDE SERVICES. Smoking Status: Never smoker Past Alcohol Use History: None Reported Past Drug Use History: None Reported - Past Family History Sister(s) Family Medical History: Cancer Additional Family Medical History / Comment(s): breast cancer Father Family Medical History: Cancer, Osteoarthritis (OA) Additional Family Medical History / Comment(s): LEUKEMIA. Mother Family Medical History: Cancer Additional Family Medical History / Comment(s): BREAST CANCER Medications and Allergies Home Medications Medication Instructions Recorded Confirmed Type Letrozole 2.5 mg PO HS 02/27/19 05/31/23 History Nitroglycerin Sl Tabs [Nitrostat] 0.4 mg SL Q5M PRN 05/20/20 05/28/23 History Isosorbide Mononitrate ER [Imdur] 60 mg PO DAILY 08/18/20 05/31/23 History Apixaban [Eliquis] 2.5 mg PO BID 03/18/21 05/28/23 History Metoprolol Tartrate [Lopressor] 50 mg PO BID 03/18/21 05/31/23 History amLODIPine [Norvasc] 5 mg PO QAM 03/18/21 05/31/23 History Albuterol Sulfate [Proair Hfa] 1 - 2 puff INHALATION RT-QID PRN 02/05/22 05/31/23 History Bismuth Subsalicylate 1 dose PO DIRECTED PRN 04/22/23 05/28/23 History [Pepto-Bismol] Cholecalciferol [Vitamin D3 (25 25 mcg PO DAILY 04/22/23 05/28/23 History Mcg = 1000 Iu)] Magnesium Citrate 250 mg PO DIRECTED 04/22/23 05/28/23 History Milk Thistle 1,000 mg PO DIRECTED 04/22/23 05/28/23 History Potassium Citrate 99 mg PO DIRECTED 04/22/23 05/28/23 History Rutin/Quercetin/Bioflav/Bilber 1 each PO DIRECTED 04/22/23 05/28/23 History [Bilberry Extract] Sea Kelp 1 dose PO DIRECTED 04/22/23 05/31/23 History Allergies Allergy/AdvReac Type Severity Reaction Status Date / Time exemestane [From Aromasin] Allergy Unknown Unknown Verified 05/31/23 06:23 cephalexin [From Keflex] Allergy Rash/Hives Verified 05/31/23 06:23 codeine Allergy Nausea & Verified 05/31/23 06:23 Vomiting Sulfa (Sulfonamide Allergy Rash/Hives Verified 05/31/23 06:23 Antibiotics) sulfamethoxazole Allergy Rash/Hives Verified 05/31/23 06:23 [From Bactrim] trimethoprim [From Bactrim] Allergy Rash/Hives Verified 05/31/23 06:23 tree nut [Nut] AdvReac Mild Abdominal Verified 05/31/23 06:23 Pain cat dander AdvReac Wheezing Verified 05/31/23 06:23 dog dander AdvReac Wheezing Verified 05/31/23 06:23 egg AdvReac upset Verified 05/31/23 06:23 stomach house dust mite AdvReac Wheezing Verified 05/31/23 06:23 iodine AdvReac Itching Verified 05/31/23 06:23 Milk Containing Products AdvReac upset Verified 05/31/23 06:23 (Dairy) stomach [Dairy] and bloating peanut AdvReac upset Verified 05/31/23 06:23 stomach shellfish derived AdvReac Itching Verified 05/31/23 06:23 soy AdvReac Nausea & Verified 05/31/23 06:23 Vomiting Physical Exam Vitals: Vital Signs Temp Pulse Resp BP Pulse Ox 06/03/23 04:00 98.5 F 60 18 131/62 97 06/03/23 00:00 98.4 F 62 18 104/59 96 06/02/23 20:00 98.3 F 79 18 121/63 97 06/02/23 16:21 98.2 F 66 18 108/58 96 06/02/23 13:44 98.9 F 78 18 99/50 96 06/02/23 11:14 103 H Intake and Output 06/02/23 06/03/23 06/03/23 22:59 06:59 14:59 Intake Total 0 180 Output Total 20 Balance 0 -20 180 Intake: Oral 0 180 Output: Drainage 20 Lower Abdomen 20 Other: Voiding Method Bedside Commode Bedside Commode # Voids 1 Results 06/03/23 09:13 06/03/23 09:13 Current Medications Generic Name Dose Route Start Last Admin Trade Name Freq PRN Reason Stop Dose Admin Al Hydroxide/Mg Hydroxide 30 ml 06/01/23 01:25 06/01/23 01:33 Mag Hydrox/Al Hydrox/Simeth 30 Ml Cup PO 30 ml Q4HR PRN Administration GI Upset Albuterol Sulfate 2.5 mg 05/31/23 18:41 Albuterol Nebulized 2.5 Mg/3 Ml INHALATION RT-QID PRN Shortness Of Breath Amlodipine Besylate 5 mg 06/01/23 09:00 06/03/23 08:52 Amlodipine 5 Mg Tab PO 07/01/23 09:01 5 mg QAM TANIKA Administration Lactated Ringer's 1,000 mls @ 20 mls/hr 05/31/23 06:12 06/03/23 06:13 Lactated Ringers IV 06/30/23 06:13 Not Given .Q24H TANIKA Diltiazem HCl 125 mg/ Sodium 125 mls @ 5 mls/hr 06/02/23 14:45 06/02/23 16:58 Chloride IV Not Given .Q24H TANIKA 5 MG/HR Isosorbide Mononitrate 60 mg 06/01/23 09:00 06/03/23 08:52 Isosorbide Mononitrate Er 60 Mg Tab.Er.24h PO 07/01/23 09:01 60 mg DAILY TANIKA Administration Ketorolac Tromethamine 15 mg 05/31/23 12:00 06/03/23 06:14 Ketorolac 15 Mg/Ml 1 Ml Vial IVP 06/03/23 10:50 Not Given Q6HR TANIKA Letrozole 2.5 mg 05/31/23 21:00 06/02/23 20:57 Letrozole 2.5 Mg Tab PO 06/30/23 21:01 Not Given HS TANIKA Lidocaine HCl 0.1 ml 05/31/23 06:12 Lidocaine 1% (10mg/Ml) For Iv Start INTRADERMA 06/30/23 06:13 PER PROTOCOL PRN IV Start Metoprolol Tartrate 50 mg 05/31/23 21:00 06/03/23 08:52 Metoprolol Tartrate 50 Mg Tab PO 06/30/23 21:01 50 mg BID TANIKA Administration Nitroglycerin 0.4 mg 05/31/23 10:47 Nitroglycerin Sl Tabs 0.4 Mg Tab SUBLINGUAL 06/30/23 10:48 Q5M PRN Chest Pain Ondansetron HCl 4 mg 05/31/23 10:48 06/02/23 09:45 Ondansetron 4 Mg/2 Ml Vial IVP 06/30/23 10:49 4 mg Q8HR PRN Administration Nausea Polyethylene Glycol 17 gm 06/02/23 16:00 06/03/23 08:52 Polyethylene Glycol 3350 17 Gm Powd.Pack PO 17 gm DAILY TANIKA Administration Zolpidem Tartrate 5 mg 05/31/23 20:26 06/01/23 21:48 Zolpidem 5 Mg Tab PO 5 mg HS PRN Administration Insomnia Intake and Output 06/02/23 06/03/23 06/03/23 22:59 06:59 14:59 Intake Total 0 180 Output Total 20 Balance 0 -20 180 Intake: Oral 0 180 Output: Drainage 20 Lower Abdomen 20 Other: Voiding Method Bedside Commode Bedside Commode # Voids 1 06/02/23 04:01 06/02/23 04:01
[2023-06-03] MEDS: SODIUM CHLORIDE 0.9% 1,000 ML IV SCH ×2 (12:52→20:51)
[2023-06-03] MEDS: ACETAMINOPHEN TAB 325 MG TAB PO PRN (12:52)
[2023-06-03] MEDS: DILTIAZEM 125 MG in SODIUM CHLORIDE 0.9% 100 ML IV SCH (18:56)
[2023-06-03] MEDS: LETROZOLE 2.5 MG TAB PO SCH (20:18)
[2023-06-03] MEDS: ZOLPIDEM 5 MG TAB PO PRN (21:31)
[2023-06-04] MEDS: MAG HYDROX/AL HYDROX/SIMETH 30 ML CUP PO PRN (03:56)
[2023-06-04] MEDS: LACTATED RINGERS 1,000 ML IV SCH (05:27)
[2023-06-04] MEDS: SODIUM CHLORIDE 0.9% 1,000 ML IV SCH (06:05)
[2023-06-04] MEDS: ACETAMINOPHEN TAB 325 MG TAB PO PRN (06:10)
[2023-06-04 07:36] LABS: HCT 32.6 % (34.0-46.0); HGB 11.1 gm/dL (11.4-16.0); MCH 31.3 pg (25.0-35.0); MCHC 34.2 g/dL (31.0-37.0); MCV 91.6 fL (80.0-100.0); Mean Platelet Volume 7.7; Platelet Count 254 k/uL (150-450); RBC 3.55 m/uL (3.80-5.40); RDW 12.4 % (11.5-15.5); WBC 9.3 k/uL (3.8-10.6)
[2023-06-04 07:52] LABS: African American GFR (CKD) 57 (>60 ml/min/1.73 sqM); Anion Gap 8 mmol/L; Blood Urea Nitrogen 17 mg/dL (7-17); Calcium 8.4 mg/dL (8.4-10.2); Carbon Dioxide 23 mmol/L (22-30); Chloride 107 mmol/L (98-107); Glucose 126 mg/dL (74-99); Non-African American GFR(CKD) 49 (>60 ml/min/1.73 sqM); Potassium 3.8 mmol/L (3.5-5.1); Sodium 138 mmol/L (137-145)
--- NOTE | 2023-06-04 08:23 | P.PN ---
Subjective Progress Note Date: 06/04/23 Hospital course: Patient is a very pleasant 83-year-old female with a past medical history of CAD with narrow artery disease and previous stent placement, paroxysmal atrial fibrillation on anticoagulation with Eliquis, Hypertension, hyperlipidemia, obstructive sleep apnea does not use a CPAP, glaucoma, breast cancer status postlumpectomy and renal cancer. She is currently admitted to the hospital status post scheduled left-sided partial nephrectomy. Surgical procedure was completed by Dr. Sanders on 05/31/2023. We are consulted for medical management throughout patient's hospitalization. Physical exam: Patient seen and fully evaluated at bedside this morning. She appeared to be resting comfortably. She is postoperative day 4 and denies having any complaints. Vital signs reviewed and stable. General: Nontoxic, no distress and appears stated age. Derm: Skin warm and dry, normal coloration for ethnicity. Head: Atraumatic, normocephalic and symmetric. Eyes: EOMs intact, no lid lag, and anicteric sclera Mouth: no lip lesions, mucus membranes moist Cardiovascular: Regular rate and rhythm with normal S1S2, no murmur, positive posterior tibial pulses bilaterally, and cap refill < 2 seconds. Lungs: Respirations even, regular, and unlabored on room air. Lungs CTA bilaterally, no rhonchi, no rales, no wheezing, and no accessory muscle usage. Abdominal: soft, nontender to palpation, no guarding, no appreciable organomegaly. Laparoscopic wounds left lower abdomen and groin. Dressings clean dry and intact. Ext: ROM intact. No gross muscle atrophy, no edema, no contractures Neuro: Speech clear, face symmetrical and CN II-XII grossly intact with no noted focal neuro deficits Psych: Alert and oriented to person, place, time, and situation. Appropriate and pleasant affect. Assessment and Plan of Care: Acute kidney injury, resolved after IV fluid hydration -BMP showing resolution of DANILO with BUN decreasing to 17, creatinine to 1.06 and GFR increasing to 49. -Order placed for strict I's and O's. Patient had documented urinary output of 2400 cc over the past 24 hours. -DANILO resolving after IV fluid hydration, okay to discontinue IV fluids at this time.. -Toradol was discontinued Atrial fibrillation with RVR, now maintaining sinus mechanism. -Continue metoprolol 50 mg twice daily. -Continue telemetry monitoring. -Cardiology evaluated, recommending resumption of patient's Eliquis once cleared by urology team to safely resume. -Per urology, Eliquis to be held for 10 days and patient may then safely resume on 06/11/2023.. Renal carcinoma Status post left robotic partial nephrectomy -Management per primary admitting urology team including pain management, wound/dressing care, and DVT prophylaxis. -Currently DVT prophylaxis with SCDs and DARVIN hose. Coronary artery disease with neuro artery disease and previous stent placement Paroxysmal atrial fibrillation Hypertension Hyperlipidemia -Patient to continue daily medication regimen with amlodipine 5 mg daily, isosorbide mononitrate, and metoprolol 50 mg twice daily. Recommend resumption of Eliquis once cleared by primary admitting urology team to safely resume on 06/11/2023. Data reviewed: Vital signs reviewed. Blood pressure 133/74, heart rate 73, respiratory rate 18, temp 98.1 F, and SpO2 of 97% on room air. Morning labs reviewed. CBC showing mild Citic anemia with hemoglobin stable at 11.1. BMP showing resolution of DANILO with BUN decreasing to 17, creatinine 1.06, and GFR increasing to 49. Urinary output over the past 24 hours was 2400 cc.. Patient is clear from medical perspective for discharge with no further recommendations, she was cleared from cardiac standpoint for discharge, patient may be discharged once cleared by primary admitting urology team. Thank you foamount r allowing us to participate in the care of this pleasant patient. Do not hesitate to contact us with questions. Someone can be reached from the [facility] hospitalist group all hours of the day at [phone] or via [employer] serve. Patient was seen independently by Nurse Pracitioner. This document was prepared using [employer] dictation software. Please allow for errors in machine engineer, while rare they do occur Rasheed Mathew NP rendered care for this patient independently, reviewed the findings and plan as documented in the note above. I did not physically speak with or examine the patient on this date. Objective - Vital Signs Vital signs: Vital Signs Temp 97.9 F 06/04/23 04:00 Pulse 89 06/04/23 04:00 Resp 19 06/04/23 04:00 BP 162/73 06/04/23 04:00 Pulse Ox 97 06/04/23 04:00 FiO2 Intake & Output 0106/04/23 06/04/23 18:59 06:59 18:59 Intake Total 360 Output Total 900 1515 1600 Balance -540 -6230 -1600 Intake: Oral 360 Output: Drainage 15 Lower Abdomen 15 Urine 900 1500 1600 Other: Voiding Method Toilet - Labs CBC & Chem 7: 06/04/23 07:20 06/04/23 07:20 Labs: Abnormal Lab Results - Last 24 Hours (Table) 06/03/23 06/04/23 Range/Units 09:13 07:20 RBC 3.55 L (3.80-5.40) m/uL Hgb 11.1 L (11.4-16.0) gm/dL Hct 32.6 L (34.0-46.0) % BUN 24 H (7-17) mg/dL Creatinine 1.58 H (0.52-1.04) mg/dL Glucose 124 H (74-99) mg/dL AST 37 H (14-36) U/L
[2023-06-04 08:48] VITALS: RESP 18
[2023-06-04] MEDS: polyethylene glycoL 3350 17 GM POWD.PACK PO SCH (09:24)
[2023-06-04] MEDS: METOPROLOL TARTRATE 50 MG TAB PO SCH (09:24)
[2023-06-04] MEDS: ISOSORBIDE MONONITRATE ER 60 MG TAB.ER.24H PO SCH (09:24)
[2023-06-04] MEDS: amLODIPine 5 MG TAB PO SCH (09:24)
--- NOTE | 2023-06-04 10:51 | P.DS ---
Providers Date of admission: 06/03/23 12:11 Attending physician: Dorian Sanders MD Consults: 05/31/23 18:44 Consult Physician Routine Consulting Provider: Alexander Menon Consult Reason/Comments: medical management Do you want consulting provider notified?: Yes 06/02/23 11:10 Consult Physician Routine Consulting Provider: Andrei Titus Consult Reason/Comments: a-fib RVR Do you want consulting provider notified?: Yes Primary care physician: Ryan [place] Hospital Course: This is an 83-year-old female with history of left-sided renal mass. Underwent a left-sided robotic partial nephrectomy on May 31, please see op note dated May 30 for surgery details. Internal medicine service, was consulted during the admission for medical management. Pedroza catheter was removed on postop day #1, patient developed A-fib with RVR on postop day #2, cardiology was consulted and she was cleared for discharge on postop day #4. YOSSI drain was removed on postop day #4. She was discharged home on postop day #4, at time of discharge she was tolerating a diet, ambulating, pain was controlled Plan - Discharge Summary Discharge Rx Participant: No New Discharge Prescriptions: New Ketorolac [Toradol] 10 mg PO Q6HR PRN #15 tab PRN Reason: Pain Continue Letrozole 2.5 mg PO HS Nitroglycerin Sl Tabs [Nitrostat] 0.4 mg SL Q5M PRN PRN Reason: Chest Pain amLODIPine [Norvasc] 5 mg PO QAM Metoprolol Tartrate [Lopressor] 50 mg PO BID Albuterol Sulfate [Proair Hfa] 1 - 2 puff INHALATION RT-QID PRN PRN Reason: Shortness Of Breath Rutin/Quercetin/Bioflav/Bilber [Bilberry Extract] 1 each PO DIRECTED Potassium Citrate 99 mg PO DIRECTED Magnesium Citrate 250 mg PO DIRECTED Bismuth Subsalicylate [Pepto-Bismol] 1 dose PO DIRECTED PRN PRN Reason: Heartburn Isosorbide Mononitrate ER [Imdur] 60 mg PO DAILY Cholecalciferol [Vitamin D3 (25 Mcg = 1000 Iu)] 25 mcg PO DAILY Sea Kelp 1 dose PO DIRECTED Milk Thistle 1,000 mg PO DIRECTED No Action Apixaban [Eliquis] 2.5 mg PO BID Discharge Medication List Letrozole 2.5 mg PO HS 02/27/19 [History] Nitroglycerin Sl Tabs [Nitrostat] 0.4 mg SL Q5M PRN 05/20/20 [History] Isosorbide Mononitrate ER [Imdur] 60 mg PO DAILY 08/18/20 [History] Apixaban [Eliquis] 2.5 mg PO BID 03/18/21 [History] Metoprolol Tartrate [Lopressor] 50 mg PO BID 03/18/21 [History] amLODIPine [Norvasc] 5 mg PO QAM 03/18/21 [History] Albuterol Sulfate [Proair Hfa] 1 - 2 puff INHALATION RT-QID PRN 02/05/22 [History] Bismuth Subsalicylate [Pepto-Bismol] 1 dose PO DIRECTED PRN 04/22/23 [History] Cholecalciferol [Vitamin D3 (25 Mcg = 1000 Iu)] 25 mcg PO DAILY 04/22/23 [History] Magnesium Citrate 250 mg PO DIRECTED 04/22/23 [History] Milk Thistle 1,000 mg PO DIRECTED 04/22/23 [History] Potassium Citrate 99 mg PO DIRECTED 04/22/23 [History] Rutin/Quercetin/Bioflav/Bilber [Bilberry Extract] 1 each PO DIRECTED 04/22/23 [History] Sea Kelp 1 dose PO DIRECTED 04/22/23 [History] Ketorolac [Toradol] 10 mg PO Q6HR PRN #15 tab 06/04/23 [Rx] Follow up Appointment(s)/Referral(s): Ryan Pires DO [Primary Care Provider] - 1-2 Days Activity/Diet/Wound Care/Special Instructions: Activity: As tolerated. Take breaks as needed. Diet: Heart healthy and carb consistent diet. Avoid salts, or foods with hidden salts such as canned or boxed foods and frozen dinners. Extra salt makes your heart work harder and traps the fluid in your body for longer. Special Instructions: Take all of your medications as directed and remember to keep all of your doctor's appointments and follow-up as needed. Recommend resumption of your Eliquis to once cleared to safely resume by urologist. Urology stated hold for 10 days, therefore you may resume your Eliquis on 06/11/2023. Thank you for allowing us to participate in your care, it was truly a pleasure having you for our patient!!!
[2023-06-04 11:43] VITALS: BP 141/67; PULSE 87; TEMP 97.9
--- NOTE | 2023-06-04 15:57 | P.PN ---
Subjective Progress Note Date: 06/04/23 Consult reason: atrial fibrillation (w RVR) History of present illness: History of present illness: This is an 83-year-old female patient of Dr. Elias with past uncle history of coronary artery disease status post setting of the LAD, hypertension, dyslipid emia paroxysmal atrial fibrillation, statin intolerance, valvular heart disease with regurgitation. Patient was recently diagnosed with renal cell carcinoma and was last in the office for preop clearance. She has been brought to the hospital under the care of of Dr. Lugo status post left robotic partial nephrectomy. Yesterday, patient states that she was feeling a lot better pain was better hard to get up but she was feeling her heart beating fast. It started yesterday morning and seem to resolve by around 2 PM yesterday. Patient went into atrial fibrillation is converted to sinus rhythm. Patient is expecting discharge home today. Telemetry was reviewed. WBC 10.1, hemoglobin 13, blood count 249 electrolytes normal. BUN 24 creatinine 1.58. Blood sugar 124. AST 37, otherwise liver function test are normal. Magnesium 2.1. Home cardiac medications: Amlodipine 5 mg daily, Eliquis 2.5 mg twice daily, Imdur 60 mg daily,Lopressor 50 mg twice daily, Nitrostat as needed. Cardiac catheterization history. Patent stent in the LAD, mild disease in the mid LAD 02/16/2022 Echocardiogram performed 02/02/2022 revealed normal EF, mild MR. Lexiscan stress test performed 02/06/2022 revealed inferior ischemia. 06/04 Patient is currently in sinus rhythm. She denies having any chest pain. She states she is eating okay. Neurology has cleared her to resume Eliquis on 06/11. Patient is scheduled for discharge home today. Patient may follow-up with Dr. Elias in 1 to 2 weeks. Physical examination: Gen: This is an 83-year-old female resting bed appears be comfortable and in no acute distress VS: reviewed 135/67, heart rate 60 HEENT: Head is atraumatic, normocephalic. Pupils equal, round. Sclerae is anicteric. NECK: Supple. No JVD. LUNGS: Clear to auscultation. No wheezes or rhonchi. No intercostal retractions. HEART: Regular rate and rhythm. Systolic murmur at the apex. ABDOMEN: Soft No tenderness. EXTREMITIES: No pedal edema. No calf tenderness. NEUROLOGICAL: Patient is awake, alert and oriented x3. Assessment: Paroxysmal atrial fibrillation, currently in sinus rhythm Hypertension Dyslipidemia History of coronary artery disease status post patent stent in the LAD Renal cell carcinoma status post left robotic partial nephrectomy Plan: Patient is cleared for cardiology for discharge and may follow-up with Dr. Elias in 1 to 2 weeks. Patient to resume Eliquis once cleared by urology. Thank you kindly for this consultation. Nurse practitioner note has been reviewed, I agree with documented findings and plan of care. Patient was seen and examined. Objective - Vital Signs Vital signs: Vital Signs Temp 97.9 F 06/04/23 11:32 Pulse 87 06/04/23 11:32 Resp 18 06/04/23 11:32 BP 141/67 06/04/23 11:32 Pulse Ox 97 06/04/23 11:32 FiO2 Intake & Output 06/03/23 06/04/23 06/04/23 18:59 06:59 18:59 Intake Total 360 118 Output Total 900 1515 2400 Balance -452 -2264 -3365 Intake: Oral 360 118 Output: Drainage 15 Lower Abdomen 15 Urine 900 1500 2400 Other: Voiding Method Toilet Toilet - Labs CBC & Chem 7: 06/04/23 07:20 06/04/23 07:20 Labs: Abnormal Lab Results - Last 24 Hours (Table) 06/04/23 06/04/23 Range/Units 07:20 07:20 RBC 3.55 L (3.80-5.40) m/uL Hgb 11.1 L (11.4-16.0) gm/dL Hct 32.6 L (34.0-46.0) % Creatinine 1.06 H (0.52-1.04) mg/dL Glucose 126 H (74-99) mg/dL
== END 2023-06-04 16:09 | disposition home or self-care (01) | DRG 982 ==
LOC: OR 05:42 → 4SSUR 10:57 → 3SCARD 06-02 15:21 → OR 06-03 12:11 → 3SCARD 06-03 12:11
PROVIDERS: ADMIT Urology; ATTEND Urology
DX: I48.0 Paroxysmal atrial fibrillation (principal); C64.2 Malignant neoplasm of left kidney, except renal pelvis; N17.9 Acute kidney failure, unspecified; I25.10 Atherosclerotic heart disease of native coronary artery without angina pectoris; J45.30 Mild persistent asthma, uncomplicated; E78.5 Hyperlipidemia, unspecified; K44.9 Diaphragmatic hernia without obstruction or gangrene; G47.33 Obstructive sleep apnea (adult) (pediatric); K21.9 Gastro-esophageal reflux disease without esophagitis; I10 Essential (primary) hypertension; H40.9 Unspecified glaucoma; F41.9 Anxiety disorder, unspecified; M48.00 Spinal stenosis, site unspecified; H35.30 Unspecified macular degeneration; I34.0 Nonrheumatic mitral (valve) insufficiency; Z80.3 Family history of malignant neoplasm of breast; Z85.3 Personal history of malignant neoplasm of breast; Z79.01 Long term (current) use of anticoagulants; Z79.899 Other long term (current) drug therapy; Z88.2 Allergy status to sulfonamides; Z88.1 Allergy status to other antibiotic agents; Z91.012 Allergy to eggs; Z91.011 Allergy to milk products; Z88.5 Allergy status to narcotic agent; Z91.010 Allergy to peanuts; Z91.013 Allergy to seafood; Z88.8 Allergy status to other drugs, medicaments and biological substances; Z95.5 Presence of coronary angioplasty implant and graft; Z82.49 Family history of ischemic heart disease and other diseases of the circulatory system
CPT/HCPCS: 64999; 80048; 83735; 85025; 85027; 88305; 88307

== ENCOUNTER → 2023-06-10 | Outpatient (CLI) | payer MEDICARE ==
--- NOTE | 2023-06-10 14:40 | US ---
EXAMINATION TYPE: US venous doppler duplex LE DATE OF EXAM: 06/10/2023 2:25 PM COMPARISON: NONE CLINICAL INDICATION: Female, 83 years old with history of M79.66 PAIN IN UNSPECIFIED LOWER LEG; No hx of DVT. Patient takes eliquis. Pain in both calves x a couple days. SIDE PERFORMED: Bilateral TECHNIQUE: The lower extremity deep venous system is examined utilizing real time linear array sonog venus with graded compression, doppler sonography and color-flow sonography. VESSELS IMAGED: Common Femoral Vein Deep Femoral Vein Greater Saphenous Vein * Femoral Vein Popliteal Vein Small Saphenous Vein * Proximal Calf Veins (* superficial vessels) Right Leg: No evidence of DVT. *Varicose veins noted within right thigh. Left Leg: No evidence of DVT. *Anechoic fluid-appearing area seen within left medial popliteal area: 1.5 x 1.2 x 0.9 cm. IMPRESSION:
== END | disposition home or self-care (01) ==
LOC: RADUSWWP 13:11
PROVIDERS: ATTEND Urology
DX: M79.661 Pain in right lower leg (principal); M79.662 Pain in left lower leg
CPT/HCPCS: 93970

== ENCOUNTER → 2023-11-26 | Outpatient (CLI) | payer MEDICARE ==
[2023-11-26 14:10] LABS: African American GFR (CKD) 64 (>60 ml/min/1.73 sqM); Blood Urea Nitrogen 27 mg/dL (7-17); Non-African American GFR(CKD) 55 (>60 ml/min/1.73 sqM)
--- NOTE | 2023-11-26 14:24 | XR ---
EXAMINATION TYPE: XR chest 2V DATE OF EXAM: 11/26/2023 COMPARISON: 05/27/2023 HISTORY: Shortness of breath TECHNIQUE: Frontal and lateral views of the chest are obtained. FINDINGS: Scattered senescent parenchymal changes noted. Hyperinflation compatible with COPD. No evidence for infiltrate. No evidence for atelectasis. Heart size is stable. Mediastinal structures are stable and grossly unremarkable. No evidence for hilar prominence. Degenerative changes dorsal spine. IMPRESSION: 1. No evidence for acute pulmonary disease.
--- NOTE | 2023-11-27 15:25 | CT ---
EXAMINATION TYPE: CT abdomen wo/w con CT DLP: 479.9 mGycm, Automated exposure control for dose reduction was used. DATE OF EXAM: 11/26/2023 4:19 PM COMPARISON: None CLINICAL INDICATION:Female, 83 years old with history of C34.2 renal ca; Renal Ca. TECHNIQUE: Axial CT abdomen wo/w con;Sagittal and coronal reformats were created on a separate works tation. Contrast used:80ml mL of Isovue 300 without and with IV Contrast, (none if empty) Oral contrast used: with Oral Contrast (none if empty) FINDINGS: LOWER CHEST: Unremarkable ABDOMEN LIVER: Unremarkable GALLBLADDER AND BILE DUCTS: Gallbladder surgically absent. PANCREAS: Unremarkable. SPLEEN: Unremarkable. ADRENAL GLANDS: Unremarkable. KIDNEYS AND URETERS: Posttreatment changes to left kidney along the renal cortex. Posttreatment dupont es along the capsule on the left kidney. There is a suspicious area of enhancement within the left tolliver perior renal pelvis measuring 11 mm. No enhancing right renal mass. Extrarenal pelves noted bilaterally. Nonobstructing calculus. PELVIS BLADDER: Unremarkable REPRODUCTIVE: Unremarkable. ABDOMEN & PELVIS STOMACH AND BOWEL: No evidence of bowel obstruction. PERITONEUM/RETROPERITONEUM: No evidence of pneumoperitoneum or free fluid. VASCULATURE: No evidence of aortic aneurysm. MUSCULOSKELETAL: No acute osseous abnormalities LYMPH NODES: No gross evidence for lymphadenopathy. SOFT TISSUE/ABDOMINAL WALL: Unremarkable IMPRESSION: Suspicious area left superior pole enhancing lesion measuring 11 mm. No evidence for lymphadenopathy or signs of metastatic disease.
== END | disposition home or self-care (01) ==
LOC: RADCTMAIN 13:28
PROVIDERS: ATTEND Urology
DX: C64.2 Malignant neoplasm of left kidney, except renal pelvis (principal); R06.02 Shortness of breath
CPT/HCPCS: 82565; 84520; 71046; 74170; 36415; Q9967

== ENCOUNTER → 2024-01-28 | Outpatient (CLI) | payer MEDICARE ==
[2024-01-28 14:15] VITALS: BP 152/67; PULSE 59; RESP 16; TEMP 98.2
--- NOTE | 2024-01-28 15:18 | P.HPOB ---
History of Present Illness H&P Date: 01/28/24 Chief Complaint: The patient is here for her routine gynecologic exam and ma mmogram. This is a 84-year-old G5, P5 with an LMP of 1991. The patient is status post vaginal hysterectomy for benign reasons. Patient thinks she feels a lump just anterior to the vaginal opening in the midline. She states it feels long and measures about an inch. She is wondering if this is normal or not. She denies any pain. She has noticed it for about 1 year. She is otherwise without g ynecologic complaints. Review of Systems She has lost about 6 pounds over the past year. She denies respiratory, cardiac, or GI problems. : She does get up frequently at night. She denies any significant frequency during the day. At night when she has to go there are times when she cannot get to the bathroom fast enough and can have an accident. She denies dysuria or postvoiding urgency. Past Medical History Past Medical History: Asthma, Coronary Artery Disease (CAD), Cancer, Chest Pain / Angina, Eye Disorder, GERD/Reflux, Hyperlipidemia, Hypertension, Sleep Apnea/CPAP/BIPAP Additional Past Medical History / Comment(s): LT KIDNEY CANCER, Left nephrectomy 05/31/23. LT BREAST CANCER 2018status post lumpectomy. DIVERTICULITS,SINUSITIS,LT EYE MAC DEGENERATION,SMALL HIATAL HERNIA,DDD,SPINAL STENOSIS,DOES NOT USE A CPAP MACHINE, HAS NARROW ARTERY DISEASE. GLUTEN ALLERGY,LACTOSE INTOLERANCE AND EGGS CAUSE NAUSEA AND BLOATING BUT ABLE TO TAKE IMMUNIZATIONS. . 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 History of Any Multi-Drug Resistant Organisms: None Reported Past Surgical History: Appendectomy, Bladder Surgery, Breast Surgery, Cholecystectomy, Heart Catheterization With Stent, Hernia Repair, Hysterectomy Additional Past Surgical History / Comment(s): Vaginal hysterectomy 1991. BLADDER SUSPENSION WITH MESH. JUANJOSE CATARACTS, CYST ON NECK REMOVED, EGD, VEIN STRIPPING, HEMORRHOIDECTOMY, NASAL SURGERY. Colonoscopy 2020(next after 5yr). LT BREAST BIOPSY and lumpectomy 2018. bunionectomy left foot, umbilical hernia repair. Partial left nephrectomy. Past Anesthesia/Blood Transfusion Reactions: Motion Sickness Date of Last Stent Placement:: 2011 Past Psychological History: Anxiety Additional Psychological History / Comment(s): PT LIVES IN OWN HOME WITH HER FAMILY. 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 NO OUTSIDE SERVICES. Smoking Status: Never smoker Past Alcohol Use History: None Reported Past Drug Use History: None Reported Additional History: She is a and is not sexually active. - Past Family History Sister(s) Family Medical History: Cancer Additional Family Medical History / Comment(s): breast cancer Father Family Medical History: Cancer, Osteoarthritis (OA) Additional Family Medical History / Comment(s): LEUKEMIA. Mother Family Medical History: Cancer Additional Family Medical History / Comment(s): BREAST CANCER Medications and Allergies Home Medications Medication Instructions Recorded Confirmed Type Nitroglycerin Sl Tabs [Nitrostat] 0.4 mg SL Q5M PRN 05/20/20 01/28/24 History Isosorbide Mononitrate ER [Imdur] 60 mg PO DAILY 08/18/20 01/28/24 History Apixaban [Eliquis] 2.5 mg PO BID 03/18/21 01/28/24 History Metoprolol Tartrate [Lopressor] 50 mg PO BID 03/18/21 01/28/24 History amLODIPine [Norvasc] 5 mg PO QAM 03/18/21 01/28/24 History Albuterol Sulfate [Proair Hfa] 1 - 2 puff INHALATION RT-QID PRN 02/05/22 01/28/24 History Bismuth Subsalicylate 1 dose PO DIRECTED PRN 04/22/23 01/28/24 History [Pepto-Bismol] Cholecalciferol [Vitamin D3 (25 25 mcg PO DAILY 04/22/23 01/28/24 History Mcg = 1000 Iu)] Magnesium Citrate 250 mg PO DIRECTED 04/22/23 01/28/24 History Milk Thistle 1,000 mg PO DIRECTED 04/22/23 01/28/24 History Ketorolac [Toradol] 10 mg PO Q6HR PRN #15 tab 06/04/23 01/28/24 Rx Allergies Allergy/AdvReac Type Severity Reaction Status Date / Time exemestane [From Aromasin] Allergy Unknown Unknown Verified 01/28/24 14:13 cephalexin [From Keflex] Allergy Rash/Hives Verified 01/28/24 14:13 codeine Allergy Nausea & Verified 01/28/24 14:13 Vomiting Sulfa (Sulfonamide Allergy Rash/Hives Verified 01/28/24 14:13 Antibiotics) sulfamethoxazole Allergy Rash/Hives Verified 01/28/24 14:13 [From Bactrim] trimethoprim [From Bactrim] Allergy Rash/Hives Verified 01/28/24 14:13 tree nut [Nut] AdvReac Mild Abdominal Verified 01/28/24 14:13 Pain cat dander AdvReac Wheezing Verified 01/28/24 14:13 dog dander AdvReac Wheezing Verified 01/28/24 14:13 egg AdvReac upset Verified 01/28/24 14:13 stomach house dust mite AdvReac Wheezing Verified 01/28/24 14:13 iodine AdvReac Itching Verified 01/28/24 14:13 Milk Containing Products AdvReac upset Verified 01/28/24 14:13 (Dairy) stomach [Dairy] and bloating peanut AdvReac upset Verified 01/28/24 14:13 stomach shellfish derived AdvReac Itching Verified 01/28/24 14:13 soy AdvReac Nausea & Verified 01/28/24 14:13 Vomiting Exam Vital Signs Temp Pulse Resp BP Pulse Ox 01/28/24 14:13 98.2 F 59 L 16 152/67 99 Intake and Output 01/28/24 01/28/24 01/28/24 06:59 14:59 22:59 Other: Weight 55.338 kg Height 5 feet 3 inches, weight 122 pounds, BMI 21.6. This is a well-developed well-nourished white female who is alert and oriented times 3 in no acute distress. HEENT: Within normal limits. NECK: Supple without mass or thyromegaly. CHEST AND LUNGS: Clear to auscultation. HEART: Regular rate and rhythm. BREASTS: Are without mass or discharge. AXILLARY EXAM: Negative for adenopathy. BACK: Negative for CVA tenderness. ABDOMEN: Soft, nontender, without palpable masses. PELVIC EXAM: External genitalia appears normal with moderate atrophy. The lump that the patient is feeling is the supportive tissue to the clitoris in the midline. This appears completely benign and feels like the normal structure. There are no abnormal masses. Vagina appears normal with mild to moderate atrophy. There is no evidence of prolapse. Bimanual examination is negative for mass or tenderness. RECTAL EXAM: Rectovaginal exam is negative for mass or tenderness and is negative for occult blood. EXTREMITIES: Nontender. IMPRESSION: 1. 84-year-old menopausal female with normal gynecologic exam. 2. The lump that the patient has been feeling for the past year seems to be normal tissue in the midline superior to the clitoris and seems to be the structural tissue going to the clitoris area. 3. History of left breast cancer in 2018 with no evidence of recurrence on exam today. 4. Nocturia without urinary frequency during the day. 5. History of osteopenia. Patient states she has lactose intolerance and does not tolerate calcium carbonate. PLAN: 1. Pap smears have been discontinued. 2. Self breast awareness was discussed with the patient. We have also discussed symptoms associated with inflammatory breast cancer. 3. Diagnostic bilateral mammogram was done today and was benign. 4. I have reassured the patient that the structural findings in the midline are normal. She was instructed to call to be seen again if she is noticing changes with this. 5. I recommended that she do Kegel exercises and try to empty the bladder as completely as possible she does urinate. I also recommended that she avoid significant fluid intake after 6 PM in the evening. She will also further discuss her symptoms with her urologist. So I do not believe she has a UTI based on her description. 6. Osteoporosis prevention was discussed. I have stressed the importance of adequate calcium, vitamin D and regular exercise. Recommended amounts of calcium and vitamin D were also discussed. She will repeat the bone density test in 1 year. 7. The patient was advised to return in 1-2 years for her well woman examination and as needed.
== END ==
LOC: WWCWWP 13:15
PROVIDERS: ATTEND Obstetrics & Gynecology
DX: Z01.419 Encounter for gynecological examination (general) (routine) without abnormal findings (principal); M85.80 Other specified disorders of bone density and structure, unspecified site; E73.9 Lactose intolerance, unspecified; R35.1 Nocturia; Z78.0 Asymptomatic menopausal state; Z80.3 Family history of malignant neoplasm of breast; Z85.3 Personal history of malignant neoplasm of breast; Z88.1 Allergy status to other antibiotic agents; Z88.2 Allergy status to sulfonamides; Z88.5 Allergy status to narcotic agent; Z88.8 Allergy status to other drugs, medicaments and biological substances; Z91.09 Other allergy status, other than to drugs and biological substances; Z91.013 Allergy to seafood; Z91.018 Allergy to other foods; Z91.012 Allergy to eggs; Z91.048 Other nonmedicinal substance allergy status

== ENCOUNTER → 2024-01-28 | Outpatient (CLI) | payer MEDICARE ==
--- NOTE | 2024-01-28 13:59 | MM ---
Reason for Exam: Hx of breast cancer, conservation therapy. Last screening mammogram was performed 12 month(s) ago. Patient History: Menarche at age 13. First Full-Term at age 28. Hysterectomy at age 51. Postmenopausal. Breast cancer, left, age 78. 04/15/2018, Lumpectomy on the Left side. 1989, Benign Excisional Biopsy on the left side. 03/13/2019, Benign Core Biopsy on the right side. 04/15/2018, Malignant Core Biopsy on the left side. 03/10/2018, Malignant Core Biopsy on the left side. Maternal cousin had breast cancer at or over age 50. Sister had breast cancer, age 54. Mother had breast cancer, age 70. Prior Study Comparison: 01/10/1989 Screening Mammogram, Unknown. 01/05/2015 Bilateral Screening Mammogram, [facility]. 01/11/2016 Bilateral Screening Mammogram, [facility]. 01/16/2017 Bilateral Screening Mammogram, [facility]. 02/04/2018 Bilateral Screening Mammogram, [facility]. 02/07/2018 Bilateral Diagnostic Mammogram, [facility]. 02/07/2018 Left Diagnostic Ultrasound, [facility]. 03/10/2018 Left Diagnostic Mammogram, [facility]. 01/21/2019 Left Diagnostic Mammogram, [facility]. 02/10/2019 Right Diagnostic Mammogram, [facility]. 01/08/2020 Bilateral Diagnostic Mammogram, [facility] 01/11/2021 Bilateral Diagnostic Mammogram, [facility]. 01/12/2022 Bilateral MG 3D screening mammo w/cad, [facility]. 01/17/2023 Bilateral MG 3D diag mammo w/cad [facility], [facility]. Tissue Density: The breasts are heterogeneously dense, which may obscure small masses. Findings: Analyzed By CAD. The pattern is symmetrical. Post lumpectomy changes are on the left breast. There are calcifications within the upper outer right breast adjacent to a biopsy marker. These appear similar to prior study. Benign vascular calcifications within the right breast. No suspicious groups of microcalcifications, spiculated or lobular masses, architectural distortion or other secondary signs of malignancy are mammographically apparent. Overall Assessment: Benign, BI-RAD 2 Management: Diagnostic Mammogram of both breasts in 1 year. A negative mammogram report should not preclude additional follow up of suspicious palpable abnormalities. Patient should continue monthly self breast exam. A clinical breast exam by your physician is recommended on an annual basis and results should be correlated with mammographic findings. Note on Karyn scores and lifetime risk: 1. A Karyn score greater than 3% is considered moderate risk. If this is the case, consider specialist referral to assess eligibility for a risk reducing agent. 2. If overall lifetime risk for the development of breast cancer is 20% or higher, the patient may qualify for future screening with alternating mammogram and breast MRI. [facility], , 01/28/2024 1:43 PM. Electronically signed and approved by: Julio Grullon D.O. Radiologis
== END | disposition home or self-care (01) ==
LOC: RADMAMWWP 13:11
PROVIDERS: ATTEND Surgery
DX: Z85.3 Personal history of malignant neoplasm of breast
CPT/HCPCS: 77062; 77066

== ENCOUNTER → 2024-02-17 | Outpatient (CLI) | payer MEDICARE ==
[2024-02-17 10:33] LABS: African American GFR (CKD) 57 (>60 ml/min/1.73 sqM); Blood Urea Nitrogen 31 mg/dL (7-17); Non-African American GFR(CKD) 49 (>60 ml/min/1.73 sqM)
--- NOTE | 2024-02-17 16:39 | CT ---
EXAMINATION TYPE: CT urogram wo/w con CT DLP: 1193.1 mGycm, Automated exposure control for dose reduction was used. DATE OF EXAM: 02/17/2024 11:36 AM COMPARISON: CT abdomen pelvis 11/27/2023 CLINICAL INDICATION:Female, 84 years old with history of C64.2 renal ca; PHH, left renal CA TECHNIQUE: Urogram of the abdomen and pelvis was performed before and after the administration of 100 cc of IV c ontrast Isovue 300 contrast. Delayed imaging was performed. Coronal and sagittal reformats were perfo rmed. One or more CT dose reduction strategies were utilized during this examination. 2D and 3D recon structions are performed to assist visualization of the urinary tract on a separate workstation. FINDINGS: GENITOURINARY: RIGHT KIDNEY AND URETER: No calculi. No hydronephrosis or hydroureter. Prominent extrarenal pelvis. M alrotated appearance. No renal mass or other lesions. No urothelial lesions: no filling defect, dilat ion, stricture or wall thickening. LEFT KIDNEY AND URETER: No calculi. No hydronephrosis or hydroureter. Prominent extrarenal pelvis. Ma lrotated appearance. Posttreatment changes to the left kidney along the renal cortex medially and pos teriorly. There is a 0.9 cm enhancing lesion within the left renal sinus (series 12 image 20). Slight ly smaller than prior exam when it measured 1.1 cm. Demonstrates homogeneous enhancement with similar enhancement as vasculature. No urothelial lesions: no filling defect, dilation, stricture or wall th ickening. URINARY BLADDER: Mildly distended. Normal, no calculi, mass or other lesions. REPRODUCTIVE: Uterus is surgically absent. ABDOMEN LIVER: Unremarkable. GALLBLADDER AND BILE DUCTS: Gallbladder is surgically absent. No biliary ductal dilatation. PANCREAS: Unremarkable. SPLEEN: Unremarkable. ADRENAL GLANDS: Unremarkable. STOMACH AND BOWEL: Proximal duodenal diverticulum. No focal bowel wall thickening or surrounding infl ammatory changes. Sigmoid diverticulosis. The appendix appears surgically absent. No evidence of alex l obstruction. PERITONEUM: No evidence of pneumoperitoneum, free fluid, or adenopathy. VASCULATURE: Moderate atherosclerotic calcifications are present throughout the abdominal aorta and i ts branches. No abdominal aortic aneurysm. Pelvic phleboliths. Collateral vessels within the right or bital region. MUSCULOSKELETAL: No acute osseous abnormalities. Degenerative changes of the SI joints. Multilevel de generative changes of the visualized spine. SOFT TISSUE/ABDOMINAL WALL: Unremarkable. LOWER CHEST: Bilateral lower lobe dependent subsegmental atelectasis. Coronary artery calcifications. IMPRESSION: No evidence of urolithiasis. Postsurgical changes from partial left nephrectomy with an enhancing 0.9 cm lesion within the superior pole left kidney. Previously 1.1 cm. Only one prior available from Nov. No other previous priors available for comparison. Decreased size from prior exam suggests less li scott renal cell carcinoma recurrence. 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 Correlation with verna or imaging is recommended. [facility], , 02/17/2024 4:36 PM
== END ==
LOC: RADCTMAIN 09:54
PROVIDERS: ATTEND Urology
DX: C64.2 Malignant neoplasm of left kidney, except renal pelvis
CPT/HCPCS: 36415; 74178; 74400; 82565; 84520

== ENCOUNTER 2024-02-25 13:42 | Observation (INO) | payer MEDICARE ==
--- NOTE | 2024-02-25 14:06 | ED ---
General Adult HPI - General Chief complaint: Chest Pain Stated complaint: Chest pain Time Seen by Provider: 02/25/24 13:59 Source: patient Mode of arrival: ambulatory Limitations: no limitations - History of Present Illness Initial comments: Dictation was produced using [employer] dictation software. please excuse any grammatical, word or spelling errors. Chief Complaint: 84-year-old female coronary artery disease presents to the emergency department chest pressure History of Present Illness: Patient is 84-year-old female presents with chest pressure. She has been having symptoms for the last 1 to 2 days. She has a history of coronary artery disease and stent. She states that her stent [place] [address] Lou. Patient complains of some clamminess with the symptoms. States that it sometimes radiates down the left upper extremity. She was told that she had a culprit vessel that has not been stented during her most recent catheterization. The ROS documented in this emergency department record has been reviewed and confirmed by me. Those systems with pertinent positive or negative responses have been documented in the HPI. All other systems are other negative and/or noncontributory. - Related Data Home Medications Medication Instructions Recorded Confirmed Nitroglycerin Sl Tabs [Nitrostat] 0.4 mg SL Q5M PRN 05/20/20 02/25/24 Apixaban [Eliquis] 2.5 mg PO BID 03/18/21 02/25/24 Metoprolol Tartrate [Lopressor] 50 mg PO BID 03/18/21 02/25/24 amLODIPine [Norvasc] 5 mg PO DAILY 03/18/21 02/25/24 Isosorbide Mononitrate ER [Imdur] 60 mg PO DAILY 02/25/24 02/25/24 Multivitamins, Thera [Multivitamin 1 tab PO DAILY 02/25/24 02/25/24 (formulary)] [place]-3/Dha/Epa/Fish Oil [Fish Oil 1 cap PO DAILY 02/25/24 02/25/24 1,000 mg Softgel] Ubidecarenone [Coenzyme Q10] 100 mg PO DAILY 02/25/24 02/25/24 Allergies Allergy/AdvReac Type Severity Reaction Status Date / Time exemestane [From Aromasin] Allergy Unknown Unknown Verified 02/25/24 14:57 cephalexin [From Keflex] Allergy Rash/Hives Verified 02/25/24 14:57 codeine Allergy Nausea & Verified 02/25/24 14:57 Vomiting Sulfa (Sulfonamide Allergy Rash/Hives Verified 02/25/24 14:57 Antibiotics) sulfamethoxazole Allergy Rash/Hives Verified 02/25/24 14:57 [From Bactrim] trimethoprim [From Bactrim] Allergy Rash/Hives Verified 02/25/24 14:57 tree nut [Nut] AdvReac Mild Abdominal Verified 02/25/24 14:57 Pain cat dander AdvReac Wheezing Verified 02/25/24 14:57 dog dander AdvReac Wheezing Verified 02/25/24 14:57 egg AdvReac upset Verified 02/25/24 14:57 stomach house dust mite AdvReac Wheezing Verified 02/25/24 14:57 iodine AdvReac Itching Verified 02/25/24 14:57 Milk Containing Products AdvReac upset Verified 02/25/24 14:57 (Dairy) stomach [Dairy] and bloating peanut AdvReac upset Verified 02/25/24 14:57 stomach shellfish derived AdvReac Itching Verified 02/25/24 14:57 soy AdvReac Nausea & Verified 02/25/24 14:57 Vomiting Review of Systems ROS Statement: Those systems with pertinent positive or pertinent negative responses have been documented in the HPI. ROS Other: All systems not noted in ROS Statement are negative. Past Medical History Past Medical History: Asthma, Coronary Artery Disease (CAD), Cancer, Chest Pain / Angina, Eye Disorder, GERD/Reflux, Hyperlipidemia, Hypertension, Sleep Apnea/CPAP/BIPAP Additional Past Medical History / Comment(s): LT KIDNEY CANCER, Left nephrectomy 05/31/23. LT BREAST CANCER 2018status post lumpectomy. DIVERTICULITS,SINUSITIS,LT EYE MAC DEGENERATION,SMALL HIATAL HERNIA,DDD,SPINAL S TENOSIS,DOES NOT USE A CPAP MACHINE, HAS NARROW ARTERY DISEASE. GLUTEN ALLERGY,LACTOSE INTOLERANCE AND EGGS CAUSE NAUSEA AND BLOATING BUT ABLE TO TAKE IMMUNIZATIONS. . 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 History of Any Multi-Drug Resistant Organisms: None Reported Past Surgical History: Appendectomy, Bladder Surgery, Breast Surgery, Dalia cystectomy, Heart Catheterization With Stent, Hernia Repair, Hysterectomy Additional Past Surgical History / Comment(s): Vaginal hysterectomy 1991. BLADDER SUSPENSION WITH MESH. JUANJOSE CATARACTS, CYST ON NECK REMOVED, EGD, VEIN STRIPPING, HEMORRHOIDECTOMY, NASAL SURGERY. Colonoscopy 2020(next after 5yr). LT BREAST BIOPSY and lumpectomy 2017. bunionectomy left foot, umbilical hernia repair. Partial left nephrectomy. Past Anesthesia/Blood Transfusion Reactions: Motion Sickness Date of Last Stent Placement:: 2011 Past Psychological History: Anxiety Smoking Status: Never smoker Past Alcohol Use History: None Reported Past Drug Use History: None Reported - Past Family History Sister(s) Family Medical History: Cancer Additional Family Medical History / Comment(s): breast cancer Father Family Medical History: Cancer, Osteoarthritis (OA) Additional Family Medical History / Comment(s): LEUKEMIA. Mother Family Medical History: Cancer Additional Family Medical History / Comment(s): BREAST CANCER General Exam - General Exam Comments Initial Comments: PHYSICAL EXAM: General Impression: Alert and oriented x3, not in acute distress HEENT: Normocephalic atraumatic, extra-ocular movements intact, pupils equal and reactive to light bilaterally, mucous membranes moist. Cardiovascular: Heart regular rate and rhythm Chest: Able to complete full sentences, no retractions, no tachypnea Abdomen: abdomen soft, non-tender, non-distended, no organomegaly Musculoskeletal: Pulses present and equal in all extremities, no peripheral edema Motor: no focal deficits noted Neurological: CN II-XII grossly intact, no focal motor or sensory deficits noted Skin: Intact with no visualized rashes Psych: Normal affect and mood Limitations: no limitations Course Vital Signs 02/25/24 13:51 Temperature 98.4 F Pulse Rate 64 Respiratory 20 Rate Blood Pressure 151/78 O2 Sat by Pulse 98 Oximetry EKG Findings - EKG Comments: EKG Findings:: My EKG interpretation: Ventricular rate 63, sinus rhythm,. Normal 230, QRS 155, QTc 456. No OH prolongation, no QTC prolongation, no ST or T-wave changes noted. EKG compared to April 17, 2023 showing no changes. Overall, this EKG is unremarkable Medical Decision Making - Medical Decision Making Was pt. sent in by a medical professional or institution (, PA, STRAW HAT MACHINE OPERATOR, urgent care, hospital, or senior living...) When possible be specific @ -No Did you speak to anyone other than the patient for history (EMS, parent, family, police, friend...)? What history was obtained from this source @ -No Did you review nursing and triage notes (agree or disagree)? Why? @ -I reviewed and agree with nursing and triage notes Were old charts reviewed (outside hosp., previous admission, EMS record, old EKG, old radiological studies, urgent care reports/EKG's, senior living records)? Report findings @ -No old charts were reviewed Differential Diagnosis (chest pain, altered mental status, abdominal pain women, abdominal pain men, vaginal bleeding, musculoskeletal, weakness, fever, dyspnea, syncope, headache, dizziness, GI bleed, back pain, seizure, CVA, palpatations, mental health)? @ -Differential Chest Pain: Stable Angina, Unstable Angina, STEMI, NSTEMI Aortic Dissection, Pneumothorax, Musculoskeletal, Esophageal Spasm GERD, Cholecystitis, Pancreatitis, Zoster, this is not meant to be an all-inclusive list. EKG interpreted by me (3pts min.). @ -Pending X-rays interpreted by me (1pt min.). @ -Pending CT interpreted by me (1pt min.). @ -None done U/S interpreted by me (1pt. min.). @ -None done What testing was considered but not performed or refused? (CT, X-rays, U/S, labs)? Why? @ -None What meds were considered but not given or refused? Why? @ -None Was smoking cessation discussed for >3mins.? @ -No Were there social determinants of health that impacted care today? How? (Homelessness, low income, unemployed, alcoholism, drug addiction, transportation, low edu. Level, literacy, decrease access to med. care, retirement, rehab)? @ -No Was there de-escalation of care discussed even if they declined (Discuss DNR or withdrawal of care, Hospice)? DNR status @ -No What co-morbidities impacted this encounter? (DM, HTN, Smoking, COPD, CAD, Cancer, CVA, ARF, Chemo, Hep., AIDS, mental health diagnosis, sleep apnea, morbid obesity)? @ -Coronary artery disease Was patient admitted / discharged? Hospital course, mention meds given and route, prescriptions, significant lab abnormalities, going to OR and other pertinent info. @ -84-year-old female presents emergency department with symptoms concerning for acute coronary syndrome. Vital signs upon arrival are within acceptable limits. Patient is nondistressed. Physical examination is benign. Patient has history of coronary artery disease. EKG is unremarkable. Troponin is negative. Rest of labs unremarkable. Patient reevaluated bedside at 3:05 PM found to be stable condition. Patient to be admitted observation. Case discussed with hospitalist for admission. Diagnosis/symptom? @ -Acute coronary syndrome Acute, or Chronic, or Acute on Chronic? @ -Acute Uncomplicated (without systemic symptoms) or Complicated (systemic symptoms)? @ -Uncomplicated Side effects of treatment? @ -None Exacerbation, Progression, or Severe Exacerbation] @ -No Poses a threat to life or bodily function? @ -Yes - Lab Data Result diagrams: 02/25/24 14:13 02/25/24 14:13 Lab Results 02/25/24 02/25/24 02/25/24 Range/Units 14:13 14:13 14:13 WBC 7.0 (3.8-10.6) k/uL RBC 4.03 (3.80-5.40) m/uL Hgb 12.5 (11.4-16.0) gm/dL Hct 36.8 (34.0-46.0) % MCV 91.3 (80.0-100.0) fL MCH 31.0 (25.0-35.0) pg MCHC 33.9 (31.0-37.0) g/dL RDW 12.9 (11.5-15.5) % Plt Count 296 (150-450) k/uL MPV 7.3 Neutrophils % 69 % Lymphocytes % 18 % Monocytes % 6 % Eosinophils % 4 % Basophils % 0 % Neutrophils # 4.8 (1.3-7.7) k/uL Lymphocytes # 1.3 (1.0-4.8) k/uL Monocytes # 0.4 (0-1.0) k/uL Eosinophils # 0.3 (0-0.7) k/uL Basophils # 0.0 (0-0.2) k/uL PT 10.5 (10.0-12.5) sec INR 0.9 (<1.2) APTT 25.5 (22.0-30.0) sec Sodium 138 (137-145) mmol/L Potassium 4.1 (3.5-5.1) mmol/L Chloride 108 H (98-107) mmol/L Carbon Dioxide 25 (22-30) mmol/L Anion Gap 5 mmol/L BUN 29 H (7-17) mg/dL Creatinine 1.02 (0.52-1.04) mg/dL Est GFR (CKD-EPI)AfAm 59 (>60 ml/min/1.73 sqM) Est GFR (CKD-EPI)NonAf 51 (>60 ml/min/1.73 sqM) Glucose 118 H (74-99) mg/dL Calcium 9.3 (8.4-10.2) mg/dL Magnesium 1.9 (1.6-2.3) mg/dL Total Bilirubin 0.6 (0.2-1.3) mg/dL AST 24 (14-36) U/L ALT 20 (4-34) U/L Alkaline Phosphatase 65 (38-126) U/L Troponin I (0.000-0.034) ng/mL Total Protein 6.7 (6.3-8.2) g/dL Albumin 3.9 (3.5-5.0) g/dL 02/25/24 Range/Units 14:13 WBC (3.8-10.6) k/uL RBC (3.80-5.40) m/uL Hgb (11.4-16.0) gm/dL Hct (34.0-46.0) % MCV (80.0-100.0) fL MCH (25.0-35.0) pg MCHC (31.0-37.0) g/dL RDW (11.5-15.5) % Plt Count (150-450) k/uL MPV Neutrophils % % Lymphocytes % % Monocytes % % Eosinophils % % Basophils % % Neutrophils # (1.3-7.7) k/uL Lymphocytes # (1.0-4.8) k/uL Monocytes # (0-1.0) k/uL Eosinophils # (0-0.7) k/uL Basophils # (0-0.2) k/uL PT (10.0-12.5) sec INR (<1.2) APTT (22.0-30.0) sec Sodium (137-145) mmol/L Potassium (3.5-5.1) mmol/L Chloride (98-107) mmol/L Carbon Dioxide (22-30) mmol/L Anion Gap mmol/L BUN (7-17) mg/dL Creatinine (0.52-1.04) mg/dL Est GFR (CKD-EPI)AfAm (>60 ml/min/1.73 sqM) Est GFR (CKD-EPI)NonAf (>60 ml/min/1.73 sqM) Glucose (74-99) mg/dL Calcium (8.4-10.2) mg/dL Magnesium (1.6-2.3) mg/dL Total Bilirubin (0.2-1.3) mg/dL AST (14-36) U/L ALT (4-34) U/L Alkaline Phosphatase (38-126) U/L Troponin I <0.012 (0.000-0.034) ng/mL Total Protein (6.3-8.2) g/dL Albumin (3.5-5.0) g/dL Disposition Clinical Impression: Chest pain Disposition: ADMITTED IP TO THIS HOSP Condition: Fair Referrals: Ryan Pires DO [Primary Care Provider] - 1-2 days Decision Time: 14:36
[2024-02-25] MEDS: ASPIRIN 81 MG PO STA (14:21)
[2024-02-25] MEDS: NITROGLYCERIN SL TABS 0.4 MG TAB SUBLINGUAL STA (14:22)
[2024-02-25 14:39] LABS: Basophils % (A) 0 %; Eosinophils # (A) 0.3 k/uL (0-0.7); Eosinophils % (A) 4 %; HCT 36.8 % (34.0-46.0); HGB 12.5 gm/dL (11.4-16.0); Lymphocytes # (A) 1.3 k/uL (1.0-4.8); Lymphocytes % (A) 18 %; MCHC 33.9 g/dL (31.0-37.0); MCV 91.3 fL (80.0-100.0); Mean Platelet Volume 7.3; Monocytes # (A) 0.4 k/uL (0-1.0); Monocytes % (A) 6 %; Neutrophils # (A) 4.8 k/uL (1.3-7.7); Neutrophils % (A) 69 %; Platelet Count 296 k/uL (150-450); RBC 4.03 m/uL (3.80-5.40); RDW 12.9 % (11.5-15.5)
[2024-02-25 14:54] LABS: ALT 20 U/L (4-34); AST 24 U/L (14-36); African American GFR (CKD) 59 (>60 ml/min/1.73 sqM); Albumin 3.9 g/dL (3.5-5.0); Alkaline Phosphatase 65 U/L (38-126); Anion Gap 5 mmol/L; Blood Urea Nitrogen 29 mg/dL (7-17); Calcium 9.3 mg/dL (8.4-10.2); Carbon Dioxide 25 mmol/L (22-30); Chloride 108 mmol/L (98-107); Glucose 118 mg/dL (74-99); Magnesium 1.9 mg/dL (1.6-2.3); Non-African American GFR(CKD) 51 (>60 ml/min/1.73 sqM); Potassium 4.1 mmol/L (3.5-5.1); Sodium 138 mmol/L (137-145); Total Bilirubin 0.6 mg/dL (0.2-1.3); Total Protein 6.7 g/dL (6.3-8.2)
[2024-02-25 15:01] LABS: INR 0.9 (<1.2); Partial Thromboplastin Time 25.5 sec (22.0-30.0); Prothrombin Time 10.5 sec (10.0-12.5)
[2024-02-25] MEDS ORDERED: NITROGLYCERIN SL TABS 0.4 MG TAB SUBLINGUAL PRN ×2 (15:03→15:42)
--- NOTE | 2024-02-25 15:30 | XR ---
EXAMINATION TYPE: XR chest 2V DATE OF EXAM: 02/25/2024 3:23 PM CLINICAL INDICATION: Female, 84 years old with history of Chest Pain; H COMPARISON: Chest radiographs from 11/26/2023 TECHNIQUE: XR chest 2V Frontal view of the chest. FINDINGS: Lungs/Pleura: There is flattening of the diaphragm with increased lucency of the lungs. No evidence o f pneumothorax, pleural effusion or focal consolidation. Pulmonary vascularity: Unremarkable. Heart/mediastinum: Cardiomediastinal silhouette is unremarkable. Musculoskeletal: No acute osseous pathology. IMPRESSION: 1. No acute cardiopulmonary disease process. 2. COPD changes. [facility], , 02/25/2024 3:28 PM
--- NOTE | 2024-02-25 19:29 | P.HPIM ---
History of Present Illness H&P Date: 02/25/24 History of Presenting Illness: Patient is a pleasant 84-year-old female with a past medical history of CAD status post stenting with LAD stent reported to be placed in [address] Elias, hypertension, and hyperlipidemia. Patient presented to the emergency department with a chief complaint of chest pain. She reports chest pain began approximately 2 to 3 days ago while she was standing at the kitchen doing dishes. She reports it is accompanied by exertional shortness of breath requiring her to sit down and attempt to catch her breath. Patient states over the past 2 days this pain has progressively worsened and seems to be present with any exertion. She denies having any recent infections or exposure to known ill contacts, fevers, chills, headache, lightheadedness, dizziness, palpitations, cough or congestion, abdominal pain, nausea, vomiting, or experiencing any numbness/tingling/weakness/swelling in her extremities. Upon arrival to our facility, patient underwent evaluation in the emergency department. Vital signs upon arrival show blood pressure 151/78, heart rate 64, respiratory rate 20, temp 98.4 F, and SpO2 of 98% on room air. EKG showing normal sinus rhythm at 63 bpm with a left bundle branch block. Chest x-ray completed negative for acute cardiopulmonary process showing changes of COPD. Labs completed and reviewed. CBC unremarkable. Coagulation profile normal findings. BMP showing hyperchloremia with chloride of 108 otherwise normal findings. Glucose 118. Liver profile unremarkable. Troponin negative at less than 0.012. Admitted under services with consultation to cardiology. Review of systems: Pertinent positives and negatives as discussed in HPI, a complete review of systems was performed and all other systems are negative. Physical exam: Vital signs reviewed and stable. General: Nontoxic, no distress and appears stated age. Derm: Skin warm and dry, normal coloration for ethnicity. Head: Atraumatic, normocephalic and symmetric. Eyes: EOM's intact, no lid lag, and anicteric sclera Mouth: no lip lesions, mucus membranes moist Cardiovascular: regular rate and rhythm with normal S1S2, systolic murmur, positive posterior tibial pulses bilaterally, and cap refill < 2 seconds. Lungs: Respirations even, regular, and unlabored on room air. Lungs CTA bilaterally, no rhonchi, no rales, no wheezing, and no accessory muscle usage. Abdominal: soft, nontender to palpation, no guarding, no appreciable organomegaly Ext: ROM intact. No gross muscle atrophy, no edema, no contractures Neuro: Speech clear, face symmetrical and CN II-XII grossly intact with no noted focal neuro deficits Psych: Alert and oriented to person, place, time, and situation. Appropriate and pleasant affect. Assessment and Plan of Care: Chest pain, rule out acute coronary event History of CAD status post stenting Hypertension Hyperlipidemia -Cardiology consulted, appreciate recommendations -Telemetry monitoring -Trend troponins -Cardiac diet, NPO at midnight -Continue cardiac medication regimen with aspirin 81 mg daily, Eliquis 2.5 mg twice daily, isosorbide mononitrate 60 mg daily, metoprolol 50 mg twice daily, and amlodipine 5 mg daily. -Lipid profile with a.m. labs. Data and imaging reviewed: -As stated above in HPI The patient is admitted with an anticipated less than 2 midnight stay for evaluation of chest pain CODE STATUS: Full code DVT prophylaxis: Eliquis Anticipated discharge date: 24 to [address]: home Patient was seen independently by Nurse Practitioner. This document was prepared using [employer] dictation software. Please allow for errors in mobile device developer while rare they do occur. I reviewed the documentation as provided by the VANIA above, who is the original author of this note. I agree with the documented assessment and plan, with the following changes: none Past Medical History Past Medical History: Asthma, Coronary Artery Disease (CAD), Cancer, Chest Pain / Angina, Eye Disorder, GERD/Reflux, Hyperlipidemia, Hypertension, Sleep Apnea/CPAP/BIPAP Additional Past Medical History / Comment(s): LT KIDNEY CANCER, Left nephrectomy 05/31/23. LT BREAST CANCER 2018status post lumpectomy. DIVERTICULITS,SINUSITIS,LT EYE MAC DEGENERATION,SMALL HIATAL HERNIA,DDD,SPINAL STENOSIS,DOES NOT USE A CPAP MACHINE, HAS NARROW ARTERY DISEASE. GLUTEN ALLERGY,LACTOSE INTOLERANCE AND EGGS CAUSE NAUSEA AND BLOATING BUT ABLE TO TAKE IMMUNIZATIONS. . 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 History of Any Multi-Drug Resistant Organisms: None Reported Past Surgical History: Appendectomy, Bladder Surgery, Breast Surgery, Cholecystectomy, Heart Catheterization With Stent, Hernia Repair, Hysterectomy Additional Past Surgical History / Comment(s): Vaginal hysterectomy 1991. BLADDER SUSPENSION WITH MESH. JUANJOSE CATARACTS, CYST ON NECK REMOVED, EGD, VEIN STRIPPING, HEMORRHOIDECTOMY, NASAL SURGERY. Colonoscopy 2020(next after 5yr). LT BREAST BIOPSY and lumpectomy 2018. bunionectomy left foot, umbilical hernia repair. Partial left nephrectomy. Past Anesthesia/Blood Transfusion Reactions: Motion Sickness Date of Last Stent Placement:: 2011 Past Psychological History: Anxiety Smoking Status: Never smoker Past Alcohol Use History: None Reported Past Drug Use History: None Reported - Past Family History Sister(s) Family Medical History: Cancer Additional Family Medical History / Comment(s): breast cancer Father Family Medical History: Cancer, Osteoarthritis (OA) Additional Family Medical History / Comment(s): LEUKEMIA. Mother Family Medical History: Cancer Additional Family Medical History / Comment(s): BREAST CANCER Medications and Allergies Home Medications Medication Instructions Recorded Confirmed Type Nitroglycerin Sl Tabs [Nitrostat] 0.4 mg SL Q5M PRN 05/20/20 02/25/24 History Apixaban [Eliquis] 2.5 mg PO BID 03/18/21 02/25/24 History Metoprolol Tartrate [Lopressor] 50 mg PO BID 03/18/21 02/25/24 History amLODIPine [Norvasc] 5 mg PO DAILY 03/18/21 02/25/24 History Isosorbide Mononitrate ER [Imdur] 60 mg PO DAILY 02/25/24 02/25/24 History Multivitamins, Thera [Multivitamin 1 tab PO DAILY 02/25/24 02/25/24 History (formulary)] [place]-3/Dha/Epa/Fish Oil [Fish Oil 1 cap PO DAILY 02/25/24 02/25/24 History 1,000 mg Softgel] Ubidecarenone [Coenzyme Q10] 100 mg PO DAILY 02/25/24 02/25/24 History Allergies Allergy/AdvReac Type Severity Reaction Status Date / Time exemestane [From Aromasin] Allergy Unknown Unknown Verified 02/25/24 14:57 cephalexin [From Keflex] Allergy Rash/Hives Verified 02/25/24 14:57 codeine Allergy Nausea & Verified 02/25/24 14:57 Vomiting Sulfa (Sulfonamide Allergy Rash/Hives Verified 02/25/24 14:57 Antibiotics) sulfamethoxazole Allergy Rash/Hives Verified 02/25/24 14:57 [From Bactrim] trimethoprim [From Bactrim] Allergy Rash/Hives Verified 02/25/24 14:57 tree nut [Nut] AdvReac Mild Abdominal Verified 02/25/24 14:57 Pain cat dander AdvReac Wheezing Verified 02/25/24 14:57 dog dander AdvReac Wheezing Verified 02/25/24 14:57 egg AdvReac upset Verified 02/25/24 14:57 stomach house dust mite AdvReac Wheezing Verified 02/25/24 14:57 iodine AdvReac Itching Verified 02/25/24 14:57 Milk Containing Products AdvReac upset Verified 02/25/24 14:57 (Dairy) stomach [Dairy] and bloating peanut AdvReac upset Verified 02/25/24 14:57 stomach shellfish derived AdvReac Itching Verified 02/25/24 14:57 soy AdvReac Nausea & Verified 02/25/24 14:57 Vomiting Physical Exam Osteopathic Statement: *. No significant issues noted on an osteopathic structural exam other than those noted in the History and Physical/Consult. Vitals: Vital Signs Temp Pulse Resp BP Pulse Ox 02/25/24 15:30 57 L 16 150/76 94 L 02/25/24 15:00 57 L 14 117/69 94 L 02/25/24 14:33 62 17 140/85 94 L 02/25/24 13:51 98.4 F 64 20 151/78 98 Intake and Output 02/25/24 02/25/24 02/25/24 06:59 14:59 22:59 Other: Weight 55.338 kg Results CBC & Chem 7: 02/25/24 14:13 02/25/24 14:13 Labs: Abnormal Lab Results - Last 24 Hours (Table) 02/25/24 Range/Units 14:13 Chloride 108 H (98-107) mmol/L BUN 29 H (7-17) mg/dL Glucose 118 H (74-99) mg/dL
[2024-02-25] MEDS: METOPROLOL TARTRATE 50 MG TAB PO SCH (20:07)
[2024-02-25] MEDS: APIXABAN 2.5 MG TABLET PO SCH (20:07)
[2024-02-26 08:44] LABS: Chol/HDL Ratio 4.92 Ratio; LDL Cholesterol,Calculated 145.1 mg/dL (0.0-131.0)
[2024-02-26] MEDS ORDERED: NON FORMULARY DRUG (Omega-3/Dha/Epa/Fish Oil [Fish Oil 1,000 Mg Softgel] 1 EACH Capsule) PO SCH (09:00)
[2024-02-26] MEDS ORDERED: ASPIRIN 325 MG TAB PO SCH (09:00)
[2024-02-26] MEDS ORDERED: amLODIPine 5 MG TAB PO SCH (09:00)
[2024-02-26] MEDS ORDERED: NON FORMULARY DRUG (Ubidecarenone [Coenzyme Q10] 50 MG Capsule) PO SCH (09:00)
[2024-02-26] MEDS: amLODIPine 10 MG TAB PO SCH (09:12)
[2024-02-26] MEDS: MULTIVITAMINS, THERA 1 EACH TAB PO SCH (09:13)
[2024-02-26] MEDS: ASPIRIN 81 MG PO SCH (09:13)
[2024-02-26] MEDS: ISOSORBIDE MONONITRATE ER 60 MG TAB.ER.24H PO SCH (09:13)
--- NOTE | 2024-02-26 10:57 | P.CRDCN ---
History of Present Illness History of present illness: HISTORY OF PRESENT ILLNESS: This is a 84-year-old female with a past medical history significant for coronary artery disease with previous stenting, paroxysmal atrial fibrillation, hypertension, hyperlipidemia with statin intolerance, and renal cell carcinoma with left partial nephrectomy. Patient follows in the office with Dr. Bhatti. We have been asked to see the patient in consultation for chest pain. Patient examined at the bedside. Patient states over the past couple days she has been having chest discomfort. When patient points to her chest pain is located she points to the epigastric region and lower sternum. She reports associated shortness of breath with exertion. She also reports feeling generalized weakness. She does report episodes of diaphoresis as well. Patient's blood pressures have been elevated during admission. Blood pressure this morning 166/80. DIAGNOSTICS: - EKG reveals sinus mechanism with left bundle branch block. - Chest xray negative for acute process. COPD changes. - Laboratory data: WBC 7.0. Hemoglobin 12.5. Platelet count 296. Sodium 138. Potassium 4.1. BUN 29. Creatinine 1.02. Magnesium 1.9. Troponin negative x 3. - Current home cardiac medications include Eliquis 2.5 mg twice a day, amlodipine 5 mg daily, Imdur 60 mg daily, metoprolol tartrate 50 mg twice a day - Most recent echocardiogram obtained in January 2022 revealing ejection fraction 55 to 60%, mild MR and mild TR - Cardiac catheterization history: February 2022 revealing patent stent in the LAD. Mild disease in the mid LAD. 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 Cannot exclude reversible ischemia in the basilar portion. REVIEW OF SYSTEMS: At the time of my exam: CONSTITUTIONAL: Denies fever or chills. HEENT: Denies blurred vision, vision changes, or eye pain. Denies hemoptysis CARDIOVASCULAR: Denies chest pain. Denies orthopnea. Denies PND. Denies palpitations RESPIRATORY: Denies shortness of breath. GASTROINTESTINAL: Denies abdominal pain. Denies nausea or vomiting. HEMATOLOGIC: Denies bleeding disorders. GENITOURINARY: Denies any blood in urine. SKIN: Denies pruitis. Denies rash. PHYSICAL EXAM: VITAL SIGNS: Reviewed. GENERAL: Well-developed in no acute distress. HEENT: Head is normocephalic. Pupils are equal, round. Sclerae anicteric. Mucous membranes of the mouth are moist. Neck supple. No JVD or thyromegaly LUNGS: Respirations even and unlabored. Lungs essentially clear to auscultation bilaterally. HEART: Regular rate and rhythm. S1 and S2 heard. ABDOMEN: Soft. Nondistended. Nontender. EXTREMITIES: Normal range of motion. No clubbing or cyanosis. Peripheral pulses intact. No lower extremity edema NEUROLOGIC: Awake and alert. Oriented x 3. ASSESSMENT: Chest pain, troponin negative x 3 Coronary artery disease with previous stenting of the LAD Known left bundle branch block Paroxysmal atrial fibrillation Hypertension Hyperlipidemia with statin intolerance Renal cell carcinoma with left partial nephrectomy, 05/2023 PLAN: An acute coronary event has been ruled out Obtain 2D echo to assess cardiac structure and function Resume home cardiac medications Increase amlodipine to 10 mg daily for optimal blood pressure control N.p.o. at midnight Patient to undergo Lexiscan stress test tomorrow Further recommendations pending patient course Nurse practitioner note has been reviewed by physician. Signing provider agrees with the documented findings, assessment, and plan of care documented by HOME IMPROVEMENT ADVISOR as a scribe. Past Medical History Past Medical History: Asthma, Coronary Artery Disease (CAD), Cancer, Chest Pain / Angina, Eye Disorder, GERD/Reflux, Hyperlipidemia, Hypertension, Sleep Apnea/CPAP/BIPAP Additional Past Medical History / Comment(s): LT KIDNEY CANCER, Left nephrectomy 05/31/23. LT BREAST CANCER 2018status post lumpectomy. DIVERTICULITS,SINUSITIS,LT EYE MAC DEGENERATION,SMALL HIATAL HERNIA,DDD,SPINAL STENOSIS,DOES NOT USE A CPAP MACHINE, HAS NARROW ARTERY DISEASE. GLUTEN ALLERGY,LACTOSE INTOLERANCE AND EGGS CAUSE NAUSEA AND BLOATING BUT ABLE TO TAKE IMMUNIZATIONS. . 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 History of Any Multi-Drug Resistant Organisms: None Reported Past Surgical History: Appendectomy, Bladder Surgery, Breast Surgery, Cholecystectomy, Heart Catheterization With Stent, Hernia Repair, Hysterectomy Additional Past Surgical History / Comment(s): Vaginal hysterectomy 1991. BLADDER SUSPENSION WITH MESH. JUANJOSE CATARACTS, CYST ON NECK REMOVED, EGD, VEIN STRIPPING, HEMORRHOIDECTOMY, NASAL SURGERY. Colonoscopy 2020(next after 5yr). LT BREAST BIOPSY and lumpectomy 2018. bunionectomy left foot, umbilical hernia repair. Partial left nephrectomy. Past Anesthesia/Blood Transfusion Reactions: Motion Sickness Date of Last Stent Placement:: 2011 Past Psychological History: Anxiety Smoking Status: Never smoker Past Alcohol Use History: None Reported Past Drug Use History: None Reported - Past Family History Sister(s) Family Medical History: Cancer Additional Family Medical History / Comment(s): breast cancer Father Family Medical History: Cancer, Osteoarthritis (OA) Additional Family Medical History / Comment(s): LEUKEMIA. Mother Family Medical History: Cancer Additional Family Medical History / Comment(s): BREAST CANCER Medications and Allergies Home Medications Medication Instructions Recorded Confirmed Type Nitroglycerin Sl Tabs [Nitrostat] 0.4 mg SL Q5M PRN 05/20/20 02/25/24 History Apixaban [Eliquis] 2.5 mg PO BID 03/18/21 02/25/24 History Metoprolol Tartrate [Lopressor] 50 mg PO BID 03/18/21 02/25/24 History amLODIPine [Norvasc] 5 mg PO DAILY 03/18/21 02/25/24 History Isosorbide Mononitrate ER [Imdur] 60 mg PO DAILY 02/25/24 02/25/24 History Multivitamins, Thera [Multivitamin 1 tab PO DAILY 02/25/24 02/25/24 History (formulary)] [place]-3/Dha/Epa/Fish Oil [Fish Oil 1 cap PO DAILY 02/25/24 02/25/24 History 1,000 mg Softgel] Ubidecarenone [Coenzyme Q10] 100 mg PO DAILY 02/25/24 02/25/24 History Allergies Allergy/AdvReac Type Severity Reaction Status Date / Time exemestane [From Aromasin] Allergy Unknown Unknown Verified 02/25/24 14:57 cephalexin [From Keflex] Allergy Rash/Hives Verified 02/25/24 14:57 codeine Allergy Nausea & Verified 02/25/24 14:57 Vomiting Sulfa (Sulfonamide Allergy Rash/Hives Verified 02/25/24 14:57 Antibiotics) sulfamethoxazole Allergy Rash/Hives Verified 02/25/24 14:57 [From Bactrim] trimethoprim [From Bactrim] Allergy Rash/Hives Verified 02/25/24 14:57 tree nut [Nut] AdvReac Mild Abdominal Verified 02/25/24 14:57 Pain cat dander AdvReac Wheezing Verified 02/25/24 14:57 dog dander AdvReac Wheezing Verified 02/25/24 14:57 egg AdvReac upset Verified 02/25/24 14:57 stomach house dust mite AdvReac Wheezing Verified 02/25/24 14:57 iodine AdvReac Itching Verified 02/25/24 14:57 Milk Containing Products AdvReac upset Verified 02/25/24 14:57 (Dairy) stomach [Dairy] and bloating peanut AdvReac upset Verified 02/25/24 14:57 stomach shellfish derived AdvReac Itching Verified 02/25/24 14:57 soy AdvReac Nausea & Verified 02/25/24 14:57 Vomiting Physical Exam Vitals: Vital Signs Temp Pulse Pulse Resp BP BP Pulse Ox 02/26/24 07:15 98.3 F 59 L 15 166/80 98 02/26/24 02:19 98.0 F 51 L 16 154/81 97 02/25/24 19:32 98.0 F 55 L 16 131/71 97 02/25/24 16:05 97.4 F L 56 L 16 168/73 98 02/25/24 15:30 57 L 16 150/76 94 L 02/25/24 15:00 57 L 14 117/69 94 L 02/25/24 14:33 62 17 140/85 94 L 02/25/24 13:51 98.4 F 64 20 151/78 98 Intake and Output 02/25/24 02/26/24 02/26/24 22:59 06:59 14:59 Intake Total 118 Balance 118 Intake: Oral 118 Other: # Voids 1 2 Weight 55.338 kg Results 02/25/24 14:13 02/25/24 14:13 Cardiac Enzymes 02/25/24 02/25/24 02/25/24 Range/Units 14:13 14:13 17:26 AST 24 (14-36) U/L Troponin I <0.012 <0.012 (0.000-0.034) ng/mL 02/25/24 Range/Units 20:28 AST (14-36) U/L Troponin I <0.012 (0.000-0.034) ng/mL Coagulation 02/25/24 Range/Units 14:13 PT 10.5 (10.0-12.5) sec APTT 25.5 (22.0-30.0) sec Lipids 02/26/24 Range/Units 04:35 Triglycerides 119.00 (0.00-149.00) mg/dL Cholesterol 212.00 H (0.00-200.00) mg/dL HDL Cholesterol 43.10 (40.00-60.00) mg/dL Cholesterol/HDL Ratio 4.92 Ratio CBC 02/25/24 Range/Units 14:13 WBC 7.0 (3.8-10.6) k/uL RBC 4.03 (3.80-5.40) m/uL Hgb 12.5 (11.4-16.0) gm/dL Hct 36.8 (34.0-46.0) % Plt Count 296 (150-450) k/uL Comprehensive Metabolic Panel 02/25/24 Range/Units 14:13 Sodium 138 (137-145) mmol/L Potassium 4.1 (3.5-5.1) mmol/L Chloride 108 H (98-107) mmol/L Carbon Dioxide 25 (22-30) mmol/L BUN 29 H (7-17) mg/dL Creatinine 1.02 (0.52-1.04) mg/dL Glucose 118 H (74-99) mg/dL Calcium 9.3 (8.4-10.2) mg/dL AST 24 (14-36) U/L ALT 20 (4-34) U/L Alkaline Phosphatase 65 (38-126) U/L Total Protein 6.7 (6.3-8.2) g/dL Albumin 3.9 (3.5-5.0) g/dL Current Medications Generic Name Dose Route Start Last Admin Trade Name Titiq PRN Reason Stop Dose Admin Amlodipine Besylate 10 mg 02/26/24 09:00 02/26/24 09:12 Amlodipine 10 Mg Tab PO 10 mg DAILY TANIKA Administration Apixaban 2.5 mg 02/25/24 21:00 02/26/24 09:13 Apixaban 2.5 Mg Tablet PO 2.5 mg BID TANIKA Administration Protocol Aspirin 81 mg 02/26/24 09:00 02/26/24 09:13 Aspirin 81 Mg PO 81 mg DAILY TANIKA Administration Isosorbide Mononitrate 60 mg 02/26/24 09:00 02/26/24 09:13 Isosorbide Mononitrate Er 60 Mg Tab.Er.24h PO 60 mg DAILY TANIKA Administration Metoprolol Tartrate 50 mg 02/25/24 21:00 02/26/24 09:12 Metoprolol Tartrate 50 Mg Tab PO 50 mg BID TANIKA Administration Multivitamins 1 each 02/26/24 09:00 02/26/24 09:13 Multivitamins, Thera 1 Each Tab PO 1 each DAILY TANIKA Administration Nitroglycerin 0.4 mg 02/25/24 15:03 Nitroglycerin Sl Tabs 0.4 Mg Tab SUBLINGUAL Q5M PRN Chest Pain Nitroglycerin 0.4 mg 02/25/24 15:42 Nitroglycerin Sl Tabs 0.4 Mg Tab SUBLINGUAL Q5M PRN Chest Pain Intake and Output 02/25/24 02/26/24 02/26/24 22:59 06:59 14:59 Intake Total 118 Balance 118 Intake: Oral 118 Other: # Voids 1 2 Weight 55.338 kg 02/25/24 14:13 02/25/24 14:13
[2024-02-26] MEDS ORDERED: CAFFEINE CITRATE 60 MG/3 ML VIAL IV PRN (10:58)
[2024-02-26] MEDS ORDERED: AMINOPHYLLINE 500 MG/20 ML VIAL IV PRN (10:58)
[2024-02-26] MEDS ORDERED: REGADENOSON 0.4 MG/5 ML SYRINGE IV PRN (10:58)
[2024-02-26] MEDS: MAG HYDROX/AL HYDROX/SIMETH 30 ML, HYOSCYAMINE ELIXIR 10 ML, LIDOCAINE VISCOUS 2% 10 ML PO ONE (12:50)
--- NOTE | 2024-02-26 16:10 | P.PN ---
Subjective Progress Note Date: 02/26/24 Hospital course:: Patient is a pleasant 84-year-old female with a past medical history of CAD status post stenting with LAD stent reported to be placed in [address] Elias, hypertension, and hyperlipidemia. Patient presented to the emergency department with a chief complaint of chest pain. She reports chest pain began approximately 2 to 3 days ago while she was standing at the kitchen doing dishes. She reports it is accompanied by exertional shortness of breath requiring her to sit down and attempt to catch her breath. Patient state s over the past 2 days this pain has progressively worsened and seems to be present with any exertion. She denies having any recent infections or exposure to known ill contacts, fevers, chills, headache, lightheadedness, dizziness, palpitations, cough or congestion, abdominal pain, nausea, vomiting, or experiencing any numbness/tingling/weakness/swelling in her extremities. Upon arrival to our facility, patient underwent evaluation in the emergency department. Vital signs upon arrival show blood pressure 151/78, heart rate 64, respiratory rate 20, temp 98.4 F, and SpO2 of 98% on room air. EKG showing normal sinus rhythm at 63 bpm with a left bundle branch block. Chest x-ray completed negative for acute cardiopulmonary process showing changes of COPD. Labs completed and reviewed. CBC unremarkable. Coagulation profile normal findings. BMP showing hyperchloremia with chloride of 108 otherwise normal findings. Glucose 118. Liver profile unremarkable. Troponin negative at less than 0.012. Admitted under our services with consultation to cardiology. Physical exam: Patient seen and fully evaluated at bedside she continues to report intermittent episodes of midsternal chest pain. She was somewhat of a poor historian when describing how the pain felt. She does report that she thought it worsened after eating, but states she really was not sure. Discussed with patient will administer her a GI cocktail and monitor for improvement. Vital signs reviewed and stable. General: Nontoxic, no distress and appears stated age. Derm: Skin warm and dry, normal coloration for ethnicity. Head: Atraumatic, normocephalic and symmetric. Eyes: EOM's intact, no lid lag, and anicteric sclera Mouth: no lip lesions, mucus membranes moist Cardiovascular: regular rate and rhythm with normal S1S2, systolic murmur, positive posterior tibial pulses bilaterally, and cap refill < 2 seconds. Lungs: Respirations even, regular, and unlabored on room air. Lungs CTA bilaterally, no rhonchi, no rales, no wheezing, and no accessory muscle usage. Abdominal: soft, nontender to palpation, no guarding, no appreciable organomegaly Ext: ROM intact. No gross muscle atrophy, no edema, no contractures Neuro: Speech clear, face symmetrical and CN II-XII grossly intact with no noted focal neuro deficits Psych: Alert and oriented to person, place, time, and situation. Appropriate and pleasant affect. Assessment and Plan of Care: Chest pain, acute coronary event ruled out History of CAD status post stenting Hypertension Hyperlipidemia -Cardiology consulted, planning to take patient for Lexiscan stress test tomorrow. -Telemetry monitoring -Troponins trended all negative at less than 0.012 x 3 draws. -Cardiac diet, NPO at midnight -Continue cardiac medication regimen with aspirin 81 mg daily, Eliquis 2.5 mg twice daily, isosorbide mononitrate 60 mg daily, metoprolol 50 mg twice daily, and amlodipine was increased to 10 mg daily. -Lipid profile showing total cholesterol of 212 and LDL of 145.1. -Echocardiogram completed and currently pending results. Data and imaging reviewed: -Troponins trended all negative at less than 0.012 x 3 draws. Lipid profile showing total cholesterol of 212 and LDL of 145.1. -Repeat EKG was completed showing sinus bradycardia at 51 bpm with a first- degree AV block with NH interval of 260 ms previously known left bundle branch block upon personal review and interpretation. -Vital signs reviewed. Blood pressure 166/80, heart rate 59, respiratory rate 15, temp 98.3 F, and SpO2 of 90% on room air. CODE STATUS: Full code DVT prophylaxis: Eliquis Anticipated discharge date: 24 to [address]: home Patient was seen independently by Nurse Practitioner. This document was prepared using [employer] dictation software. Please allow for errors in grease press helper while rare they do occur. I reviewed the documentation as provided by the VANIA above, who is the original author of this note. I agree with the documented assessment and plan, with the following changes: none Objective - Vital Signs Vital signs: Vital Signs Temp 98.3 F 02/26/24 07:15 Pulse 59 L 02/26/24 07:15 Resp 15 02/26/24 07:15 BP 166/80 02/26/24 07:15 Pulse Ox 98 02/26/24 07:15 FiO2 Intake & Output 02/25/24 02/26/24 02/26/24 18:59 06:59 18:59 Intake Total 118 Balance 118 Weight 55.338 kg Intake: Oral 118 Other: # Voids 2 - Labs CBC & Chem 7: 02/27/24 06:29 02/27/24 06:29 Labs: Abnormal Lab Results - Last 24 Hours (Table) 02/25/24 02/26/24 Range/Units 14:13 04:35 Chloride 108 H (98-107) mmol/L BUN 29 H (7-17) mg/dL Glucose 118 H (74-99) mg/dL Cholesterol 212.00 H (0.00-200.00) mg/dL LDL Cholesterol, Calc 145.1 H (0.0-131.0) mg/dL
[2024-02-26] MEDS: METOPROLOL TARTRATE 50 MG TAB PO SCH (20:09)
[2024-02-27] MEDS ORDERED: AMINOPHYLLINE 500 MG/20 ML VIAL IV PRN (07:26)
[2024-02-27] MEDS ORDERED: REGADENOSON 0.4 MG/5 ML SYRINGE IV PRN (07:26)
[2024-02-27] MEDS ORDERED: CAFFEINE CITRATE 60 MG/3 ML VIAL IV PRN (07:26)
[2024-02-27 08:02] VITALS: BP 118/63; PULSE 49; RESP 15; TEMP 97.7
--- NOTE | 2024-02-27 08:43 | CA ---
Transthoracic Echo Report Name: Bozena Tellez Age: 84 Gender: F : 1940 Exam Date: 02/26/2024 15:10 Exam Location: [facility] Ht (in): 63 Wt (lb): 122 Ordering Physician: Hayley Guaman Attending/Referring Phys: [id number], Rowena Scientific Helper Daphney Eaton, WENDY Procedure CPT: Indications: LV function, CP, SOB Cardiac Hx: Cath, COPD, LBBB, Stent Technical Quality: Fair Contrast 1: Total Dose (mL): Contrast 2: Total Dose (mL): MEASUREMENTS (Male / Female) Normal Values 2D ECHO LV Diastolic Diameter PLAX 4.2 cm 4.2 - 5.9 / 3.9 - 5.3 cm LV Systolic Diameter PLAX 2.5 cm IVS Diastolic Thickness 1.0 cm 0.6 - 1.0 / 0.6 - 0.9 cm LVPW Diastolic Thickness 1.1 cm 0.6 - 1.0 / 0.6 - 0.9 cm LV Relative Wall Thickness 0.5 RV Internal Dim ED PLAX 1.7 cm LA Systolic Diameter LX 3.2 cm 3.0 - 4.0 / 2.7 - 3.8 cm LV Diastolic Volume MOD BP 46.4 cm??? 67 - 155 / 56 - 104 cm??? LV Systolic Volume MOD BP 20.1 cm??? 22 - 58 / 19 - 49 cm??? LV Ejection Fraction MOD BP 56.6 % >= 55 % LV Cardiac Index MOD BP 803.3 cm???/min???m??? LV Diastolic Volume MOD 4C 46.2 cm??? LV Systolic Volume MOD 4C 19.8 cm??? LV Ejection Fraction MOD 4C 57.1 % LV Cardiac Index MOD 4C 805.7 cm???/min???m??? LV Diastolic Length 4C 7.1 cm LV Systolic Length 4C 5.2 cm LV Diastolic Volume MOD 2C 43.1 cm??? LV Systolic Volume MOD 2C 20.0 cm??? LV Ejection Fraction MOD 2C 53.6 % LV Cardiac Index MOD 2C 705.1 cm???/min???m??? LV Diastolic Length 2C 6.5 cm LV Systolic Length 2C 5.4 cm LA Volume 38.5 cm??? 18 - 58 / 22 - 52 cm??? LA Volume Index 24.5 cm???/m??? 16 - 28 cm???/m??? M-MODE Aortic Root Diameter MM 3.2 cm LA Systolic Diameter MM 4.2 cm LA Ao Ratio MM 1.3 AV Cusp Separation MM 1.7 cm DOPPLER MV Area PHT 2.2 cm??? Mitral E Point Velocity 62.6 cm/s Mitral A Point Velocity 99.8 cm/s Mitral E to A Ratio 0.6 MV Deceleration Time 344.9 ms TR Peak Velocity 238.0 cm/s TR Peak Gradient 22.7 mmHg Right Ventricular Systolic Press 26.9 mmHg FINDINGS Left Ventricle Left ventricular ejection fraction is estimated at 50-55 %. Mildly increased septal wall thickness. Mildly increased posterior wall thickness. No obvious regional wall motion abnormalities. Left ventricular cavity size normal. Right Ventricle Normal right ventricular size and function. Right ventricular systolic pressure within normal limits. Right Atrium Normal right atrial size. Left Atrium Mild left atrial dilatation. Mitral Valve Mitral valve thickened. Mitral annular calcification. Mild mitral regurgitation. Aortic Valve Trileaflet aortic valve. No aortic valve stenosis or regurgitation. Tricuspid Valve Structurally normal tricuspid valve. [id number] tricuspid regurgitation. No tricuspid stenosis. Pulmonic Valve Structurally normal pulmonic valve. Trace pulmonic regurgitation. No pulmonic stenosis. Pericardium No pericardial or pleural effusion. Aorta Normal size aortic root and proximal ascending aorta. CONCLUSIONS Normal LV size fair systolic function mild to moderate concentric LVH. Mild mitral and tricuspid regurgitation. No pericardial effusion. Mitral annular calcification and aortic valve sclerosis without restriction. No pulmonary hypertension Previewed by: Dr. Eleni Bhatti MD (Electronically Signed) Final Date: 27 February 2024 08:42
[2024-02-27 10:34] LABS: HGB 12.5 g/dL (12.0-15.0); MCH 30.6 pg (27.0-32.0); MCHC 32.9 g/dL (32.0-37.0); MCV 93.1 FL (80.0-97.0); Mean Platelet Volume 9.9 FL (9.5-12.2); NRBC Per 100 WBC 0 X 10*3/uL (0.00-0.01); Platelet Count 265 X 10*3/uL (140-440); RBC 4.08 X 10*6/uL (4.10-5.20); RDW 12.6 % (11.5-14.5); WBC 7.13 X 10*3/uL (4.50-10.00)
[2024-02-27 10:51] LABS: BUN/Creat Ratio 27.27 Ratio (12.00-20.00); Calcium 9.2 mg/dL (8.7-10.3); Carbon Dioxide 22.7 mmol/L (21.6-31.8); Chloride 106 mmol/L (96-109); Glucose 100 mg/dL (70-110); Potassium 4.3 mmol/L (3.5-5.5); Sodium 140 mmol/L (135-145)
[2024-02-27 10:52] LABS: Magnesium 2.2 mg/dL (1.5-2.4)
--- NOTE | 2024-02-27 11:01 | CA ---
Lexiscan Nuclear Stress Test Report Name: Bozena Tellez Exam Date: 02/27/2024 09:48 Exam Location: [facility] Ht (in): 63 Wt (lb): 122 BSA: 1.57 Ordering Phys: Hayley Guaman Referring Phys: BULL Technologist: Jeremi Powell Age: 84 Gender: F : 1940 Procedure CPT: Indications: Reflex order-Stress test ICD-10 Codes: Patient History: Medications: see chart Meds past 24 hrs: Pretest Chest Pain: STRESS TEST Lexiscan Protocol Exercise Duration (min:sec): 01:[address] Depressions (mm): Angina Score: Andino Score: Resting HR (bpm): 64 Peak HR (bpm): 107 Resting BP (mmHg): 190 / 74 Peak BP (mmHg): 158 / 72 MPHR: 137 Target HR: 116 % MPHR: 78 METS: 1.0 Total Dose: Peak Dose: Atropine: Double Product: 26624 BP Response: Stress Termination: INFUSION COMPLETE Stress Symptoms: CHEST PRESSURE Stress Summary: ECG ANALYSIS Resting ECG: Stress ECG: CONCLUSIONS Baseline EKG revealed a normal sinus rhythm with IVCD LBBB type. With Lexiscan administration the heart rate went up from 64-106 bpm and the blood pressure changed from 180/70-159/60. Patient had mild chest discomfort. EKG remained inconclusive. By EKG criteria this is a inconclusive Lexiscan stress test because of resting EKG changes. The nuclear scan results will be reported by the radiologist Dr. Eleni Bhatti MD (Electronically Signed) Final Date: 27 February 2024 11:00
--- NOTE | 2024-02-27 11:05 | P.PN ---
Subjective HISTORY OF PRESENT ILLNESS: This is a 84-year-old female with a past medical history significant for coronary artery disease with previous stenting, paroxysmal atrial fibrillation, hypertension, hyperlipidemia with statin intolerance, and renal cell carcinoma with left partial nephrectomy. Patient follows in the office with Dr. Elias. We have been asked to see the patient in consultation for chest pain. Patient examined at the bedside. Patient states over the past couple days she has been having chest discomfort. When patient points to her chest pain is located she points to the epigastric region and lower sternum. She reports associated shortness of breath with exertion. She also reports feeling generalized weakness. She does report episodes of diaphoresis as well. Patient's blood pressures have been elevated during admission. Blood pressure this morning 166/80. DIAGNOSTICS: - EKG reveals sinus mechanism with left bundle branch block. - Chest xray negative for acute process. COPD changes. - Laboratory data: WBC 7.0. Hemoglobin 12.5. Platelet count 296. Sodium 138. Potassium 4.1. BUN 29. Creatinine 1.02. Magnesium 1.9. Troponin negative x 3. - Current home cardiac medications include Eliquis 2.5 mg twice a day, amlodipine 5 mg daily, Imdur 60 mg daily, metoprolol tartrate 50 mg twice a day - Most recent echocardiogram obtained in January 2022 revealing ejection fraction 55 to 60%, mild MR and mild TR - Cardiac catheterization history: February 2022 revealing patent stent in the LAD. Mild disease in the mid LAD. 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 Cannot exclude reversible ischemia in the basilar portion. 02/27/2024 Patient examined this morning at the bedside. Patient currently denies chest pain or pressure. She denies shortness of breath. Vital signs are stable. Echocardiogram completed revealing ejection fraction 50 to 55%, mild MR, mild to moderate TR PHYSICAL EXAM: VITAL SIGNS: Reviewed. GENERAL: Well-developed in no acute distress. HEENT: Head is normocephalic. Pupils are equal, round. Sclerae anicteric. Mucous membranes of the mouth are moist. Neck supple. No JVD or thyromegaly LUNGS: Respirations even and unlabored. Lungs essentially clear to auscultation bilaterally. HEART: Regular rate and rhythm. S1 and S2 heard. ABDOMEN: Soft. Nondistended. Nontender. EXTREMITIES: Normal range of motion. No clubbing or cyanosis. Peripheral pulses intact. No lower extremity edema NEUROLOGIC: Awake and alert. Oriented x 3. ASSESSMENT: Chest pain, troponin negative x 3 Coronary artery disease with previous stenting of the LAD Known left bundle branch block Paroxysmal atrial fibrillation Hypertension Hyperlipidemia with statin intolerance Renal cell carcinoma with left partial nephrectomy, 05/2023 PLAN: Continue current cardiac medications Patient scheduled to undergo Lexiscan stress test today If negative, she may be discharged home from a cardiac standpoint Nurse practitioner note has been reviewed by physician. Signing provider agrees with the documented findings, assessment, and plan of care documented by CORRUGATOR SUPERVISOR as a scribe. Objective - Vital Signs Vital signs: Vital Signs Temp 97.7 F 02/27/24 06:47 Pulse 49 L 02/27/24 08:00 Resp 15 02/27/24 06:47 BP 118/63 02/27/24 06:47 Pulse Ox 98 02/27/24 06:47 FiO2 Intake & Output 02/26/24 02/27/24 02/27/24 18:59 06:59 18:59 Intake Total 468 Balance 468 Intake: Oral 468 Other: Voiding Method Toilet Toilet # Voids 2 2 - Labs CBC & Chem 7: 02/27/24 06:29 02/27/24 06:29 Labs: Abnormal Lab Results - Last 24 Hours (Table) 02/27/24 02/27/24 Range/Units 06:29 06:29 RBC 4.08 L (4.10-5.20) X 10*6/uL BUN 30.0 H (9.0-27.0) mg/dL Est GFR (CKD-EPI) 50 L (>=60) BUN/Creatinine Ratio 27.27 H (12.00-20.00) Ratio
--- NOTE | 2024-02-27 12:02 | NM ---
EXAMINATION TYPE: NM stress lexiscan cardiolite DATE OF EXAM: 02/27/2024 COMPARISON: NONE CLINICAL INDICATION: Female, 84 years old with history of CP; TECHNIQUE: After the intravenous administration of 8.66 mCi Tc 99m Sestamibi - Cardiolite resting SP ECT images acquired 45 minutes post injection. The patient received 0.4mg Lexiscan, 25.3 mCi Tc 99m Sestamibi - Stress images obtained [address] injection FINDINGS: Review of stress and rest SPECT images demonstrates areas of fixed perfusion abnormality involving th e cardiac septum, apex, apical inferior and lateral hall. Within the inferior wall there is an area of reversible ischemia noted. Gated analysis shows normal wall motion with an estimated left ventricu lar ejection fraction of 90 %. IMPRESSION: Within the inferior wall there is an area of reversible ischemia noted. [facility], , 02/27/2024 12:00 PM
[2024-02-27] MEDS: MAG HYDROX/AL HYDROX/SIMETH 30 ML, HYOSCYAMINE ELIXIR 10 ML, LIDOCAINE VISCOUS 2% 10 ML PO ONE (13:16)
--- NOTE | 2024-02-27 13:37 | P.DS ---
Providers Date of admission: 02/25/24 15:03 Expected date of discharge: 02/27/24 Attending physician: Karyn Real MD Consults: 02/25/24 15:03 Consult Physician Urgent Consulting Provider: Maninder Elias Consult Reason/Comments: chest pain Do you want consulting provider notified?: Yes Primary care physician: [facility] Course: Discharge Diagnosis: Chest pain, acute coronary event ruled out. History of CAD status post stenting. Continue cardiac medication regimen with aspirin 81 mg daily, Eliquis 2.5 mg twice daily, isosorbide mononitrate 60 mg daily, metoprolol 50 mg twice daily, and amlodipine was increased to 10 mg daily. Hypertension. Continue medication regimen with isosorbide mononitrate 60 mg daily, metoprolol 50 mg twice daily, and amlodipine was increased to 10 mg daily. Blood pressure at time of discharge 118/63. Hyperlipidemia Hospital course:: Patient is a pleasant 84-year-old female with a past medical history of CAD status post stenting with LAD stent reported to be placed in [address] Elias, hypertension, and hyperlipidemia. Patient presented to the emergency department with a chief complaint of chest pain. She reports chest pain began approximately 2 to 3 days ago while she was standing at the kitchen doing dishes. She reports it is accompanied by exertional shortness of breath requiring her to sit down and attempt to catch her breath. Patient states over the past 2 days this pain has progressively worsened and seems to be present with any exertion. She denies having any recent infections or exposure to known ill contacts, fevers, chills, headache, lightheadedness, dizziness, palpitations, cough or congestion, abdominal pain, nausea, vomiting, or experiencing any numbness/tingling/weakness/swelling in her extremities. Upon arrival to our facility, patient underwent evaluation in the emergency department. Vital signs upon arrival show blood pressure 151/78, heart rate 64, respiratory rate 20, temp 98.4 F, and SpO2 of 98% on room air. EKG showing normal sinus rhythm at 63 bpm with a left bundle branch block. Chest x-ray completed negative for acute cardiopulmonary process showing changes of COPD. Labs completed and reviewed. CBC unremarkable. Coagulation profile normal findings. BMP showing hyperchloremia with chloride of 108 otherwise normal findings. Glucose 118. Liver profile unremarkable. Troponin negative at less than 0.012. Patient was admitted under our services with consultation to cardiology. Troponins were trended all negative at less than 0.012 x 3 draws. Amlodipine was increased from 5 mg daily up to 10 mg daily. Echocardiogram was completed showing a preserved EF of 50 to 55% with mild mitral and tricuspid regurgitation mild annular calcification and aortic valve sclerosis without restriction. Patient was evaluated by apartment coordinator and was taken for Lexiscan stress test which revealed area within the inferior wall suggestive of reversible ischemia. Discussed with cardiology whom stated this is his baseline finding and on previous [place] scan a stress test from 2021 in which patient underwent cath which was negative. Cardiology stated patient is cleared from cardiac perspective for discharge and recommending outpatient follow-up in their office in 1 week. Patient is medically optimized at this time and currently free from any complaints. She does report improvement of her chest pain after receiving GI cocktail yesterday and requested a second dose of this medication. Patient will receive a second dose of GI cocktail and to be discharged home at this time. Prescription sent for increased dose of amlodipine to the pharmacy. Patient being discharged home and to follow-up outpatient with PCP in 1 to 2 days and with cardiology in 1 week. Physical exam: Vital signs reviewed and stable. General: Nontoxic, no distress and appears stated age. Derm: Skin warm and dry, normal coloration for ethnicity. Head: Atraumatic, normocephalic and symmetric. Eyes: EOM's intact, no lid lag, and anicteric sclera Mouth: no lip lesions, mucus membranes moist Cardiovascular: regular rate and rhythm with normal S1S2, systolic murmur, positive posterior tibial pulses bilaterally, and cap refill < 2 seconds. Lungs: Respirations even, regular, and unlabored on room air. Lungs CTA bilaterally, no rhonchi, no rales, no wheezing, and no accessory muscle usage. Abdominal: soft, nontender to palpation, no guarding, no appreciable organomegaly Ext: ROM intact. No gross muscle atrophy, no edema, no contractures Neuro: Speech clear, face symmetrical and CN II-XII grossly intact with no noted focal neuro deficits Psych: Alert and oriented to personPatient was a place, time, and situation. Appropriate and pleasant affect. A total of 35 minutes of time were spent preparing this complex discharge summary. Pt was discharged on 02/27/2024 at 12:31 PM. Patient was seen independently by Nurse Practitioner. This document was prepared using [employer] dictation software. Please allow for errors in punch operator while rare they do occur. I reviewed the documentation as provided by the VANIA above, who is the original author of this note. I agree with the documented assessment and plan, with the following changes: none Patient Condition at Discharge: Stable Plan - Discharge Summary Discharge Rx Participant: No New Discharge Prescriptions: New Mag Hydrox/Al Hydrox/Simeth [Maalox] 30 ml PO Q6H PRN #180 ml PRN Reason: Heartburn amLODIPine [Norvasc] 10 mg PO DAILY 30 Days #30 tab Continue Nitroglycerin Sl Tabs [Nitrostat] 0.4 mg SL Q5M PRN PRN Reason: Chest Pain Apixaban [Eliquis] 2.5 mg PO BID Metoprolol Tartrate [Lopressor] 50 mg PO BID Isosorbide Mononitrate ER [Imdur] 60 mg PO DAILY Ubidecarenone [Coenzyme Q10] 100 mg PO DAILY [place]-3/Dha/Epa/Fish Oil [Fish Oil 1,000 mg Softgel] 1 cap PO DAILY Multivitamins, Thera [Multivitamin (formulary)] 1 tab PO DAILY Discontinued amLODIPine [Norvasc] 5 mg PO DAILY Discharge Medication List Nitroglycerin Sl Tabs [Nitrostat] 0.4 mg SL Q5M PRN 05/20/20 [History] Apixaban [Eliquis] 2.5 mg PO BID 03/18/21 [History] Metoprolol Tartrate [Lopressor] 50 mg PO BID 03/18/21 [History] Isosorbide Mononitrate ER [Imdur] 60 mg PO DAILY 02/25/24 [History] Multivitamins, Thera [Multivitamin (formulary)] 1 tab PO DAILY 02/25/24 [History] [place]-3/Dha/Epa/Fish Oil [Fish Oil 1,000 mg Softgel] 1 cap PO DAILY 02/25/24 [History] Ubidecarenone [Coenzyme Q10] 100 mg PO DAILY 02/25/24 [History] Mag Hydrox/Al Hydrox/Simeth [Maalox] 30 ml PO Q6H PRN #180 ml 02/27/24 [Rx] amLODIPine [Norvasc] 10 mg PO DAILY 30 Days #30 tab 02/27/24 [Rx] Follow up Appointment(s)/Referral(s): Maninder Elias MD [STAFF PHYSICIAN] - 02/28/24 2:30 pm (Please keep previous appointment made. If unable to keep appointment please call office to reschedule.) Ryan Pires DO [Primary Care Provider] - 1-2 days Patient Instructions/Handouts: Chest Pain (DC) Activity/Diet/Wound Care/Special Instructions: Activity: As tolerated. Take breaks as needed. Diet: Heart healthy and carb consistent diet. Avoid salts, or foods with hidden salts such as canned or boxed foods and frozen dinners. Extra salt makes your heart work harder and traps the fluid in your body for longer. Special Instructions: Take all of your medications as directed and remember to keep all of your doctor's appointments and follow-up as needed. Thank you for allowing us to participate in your care, it was truly a pleasure having you for our patient!!! Discharge Disposition: HOME SELF-CARE
[2024-02-27] MEDS ORDERED: METOPROLOL TARTRATE 50 MG TAB PO SCH (21:00)
== END 2024-02-27 16:17 | disposition home or self-care (01) ==
LOC: EC 13:42 → 6NMEDSUR 15:03
PROVIDERS: ADMIT Internal Medicine; ATTEND Internal Medicine
DX: R07.9 Chest pain, unspecified (principal); R07.89 Other chest pain; I48.0 Paroxysmal atrial fibrillation; I25.10 Atherosclerotic heart disease of native coronary artery without angina pectoris; I08.3 Combined rheumatic disorders of mitral, aortic and tricuspid valves; I44.0 Atrioventricular block, first degree; I44.7 Left bundle-branch block, unspecified; J44.89 Other specified chronic obstructive pulmonary disease; E78.5 Hyperlipidemia, unspecified; E87.8 Other disorders of electrolyte and fluid balance, not elsewhere classified; F41.9 Anxiety disorder, unspecified; I10 Essential (primary) hypertension; J30.81 Allergic rhinitis due to animal (cat) (dog) hair and dander; J30.2 Other seasonal allergic rhinitis; R61 Generalized hyperhidrosis; Z79.01 Long term (current) use of anticoagulants; Z79.82 Long term (current) use of aspirin; Z79.899 Other long term (current) drug therapy; Z88.2 Allergy status to sulfonamides; Z88.5 Allergy status to narcotic agent; Z88.8 Allergy status to other drugs, medicaments and biological substances; Z88.1 Allergy status to other antibiotic agents; Z91.012 Allergy to eggs; Z91.011 Allergy to milk products; Z91.018 Allergy to other foods; Z91.010 Allergy to peanuts; Z91.013 Allergy to seafood; Z95.5 Presence of coronary angioplasty implant and graft; Z85.528 Personal history of other malignant neoplasm of kidney; Z90.5 Acquired absence of kidney
CPT/HCPCS: 99285; 36415; 93005; 93017; 93306; 80061; 80053; 80048; 83735 ×2; 84484; 85025; 85027; 85610; 85730; 71046; 78452; G0378 ×3; A9500; J2785

== ENCOUNTER 2024-04-01 17:10 | Emergency (ER) | payer MEDICARE ==
[2024-04-01 17:23] VITALS: RESP 17
--- NOTE | 2024-04-01 17:33 | ED ---
Abdominal Pain HPI - General Chief Complaint: Abdominal Pain Stated Complaint: Abd pain Time Seen by Provider: 04/01/24 17:13 Source: patient, family, EMS, RN notes reviewed, old records reviewed Mode of arrival: EMS Limitations: no limitations - History of Present Illness Initial Comments: This is a 74-year-old female to the ER for evaluation abdominal pain. Positive nausea no vomiting significant abdominal pain and cramping with no fever. Positive bowel movement today noted diarrhea no blood. Patient believes she may have recurrent diverticulitis MD Complaint: abdominal pain -: days(s) Location: LLQ, epigastric, suprapubic Radiation: suprapubic Migration to: suprapubic Severity: moderate Severity scale (1-10): 4 Quality: cramping, stabbing Consistency: constant Improves With: nothing Worsens With: nothing Associated Symptoms: nausea, vomiting Treatments Prior to Arrival: other (0) - Related Data Home Medications Medication Instructions Recorded Confirmed Nitroglycerin Sl Tabs [Nitrostat] 0.4 mg SL Q5M PRN 05/20/20 04/01/24 Apixaban [Eliquis] 2.5 mg PO BID 03/18/21 04/01/24 Metoprolol Tartrate [Lopressor] 50 mg PO BID 03/18/21 04/01/24 Isosorbide Mononitrate ER [Imdur] 60 mg PO DAILY 02/25/24 04/01/24 Previous Rx's Medication Instructions Recorded amLODIPine [Norvasc] 10 mg PO DAILY 30 Days #30 tab 02/27/24 Allergies Allergy/AdvReac Type Severity Reaction Status Date / Time exemestane [From Aromasin] Allergy Unknown Unknown Verified 04/01/24 17:47 cephalexin [From Keflex] Allergy Rash/Hives Verified 04/01/24 17:47 codeine Allergy Nausea & Verified 04/01/24 17:47 Vomiting Sulfa (Sulfonamide Allergy Rash/Hives Verified 04/01/24 17:47 Antibiotics) sulfamethoxazole Allergy Rash/Hives Verified 04/01/24 17:47 [From Bactrim] trimethoprim [From Bactrim] Allergy Rash/Hives Verified 04/01/24 17:47 tree nut [Nut] AdvReac Mild Abdominal Verified 04/01/24 17:47 Pain cat dander AdvReac Wheezing Verified 04/01/24 17:47 dog dander AdvReac Wheezing Verified 04/01/24 17:47 egg AdvReac upset Verified 04/01/24 17:47 stomach house dust mite AdvReac Wheezing Verified 04/01/24 17:47 iodine AdvReac Itching Verified 04/01/24 17:47 Milk Containing Products AdvReac upset Verified 04/01/24 17:47 (Dairy) stomach [Dairy] and bloating peanut AdvReac upset Verified 04/01/24 17:47 stomach shellfish derived AdvReac Itching Verified 04/01/24 17:47 soy AdvReac Nausea & Verified 04/01/24 17:47 Vomiting Review of Systems ROS Statement: Those systems with pertinent positive or pertinent negative responses have been documented in the HPI. ROS Other: All systems not noted in ROS Statement are negative. Past Medical History Past Medical History: Asthma, Coronary Artery Disease (CAD), Cancer, Chest Pain / Angina, Eye Disorder, GERD/Reflux, Hyperlipidemia, Hypertension, Sleep Apnea/CPAP/BIPAP Additional Past Medical History / Comment(s): LT KIDNEY CANCER, Left nephrectomy 05/31/23. LT BREAST CANCER 2018status post lumpectomy. DIVERTICULITS,SINUSITIS,LT EYE MAC DEGENERATION,SMALL HIATAL HERNIA,DDD,SPINAL STENOSIS,DOES NOT USE A CPAP MACHINE, HAS NARROW ARTERY DISEASE. GLUTEN ALLERGY,LACTOSE INTOLERANCE AND EGGS CAUSE NAUSEA AND BLOATING BUT ABLE TO TAKE IMMUNIZATIONS. . 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 History of Any Multi-Drug Resistant Organisms: None Reported Past Surgical History: Appendectomy, Bladder Surgery, Breast Surgery, Cholecystectomy, Heart Catheterization With Stent, Hernia Repair, Hysterectomy Additional Past Surgical History / Comment(s): Vaginal hysterectomy 1991. BLADDER SUSPENSION WITH MESH. JUANJOSE CATARACTS, CYST ON NECK REMOVED, EGD, VEIN STRIPPING, HEMORRHOIDECTOMY, NASAL SURGERY. Colonoscopy 2020(next after 5yr). LT BREAST BIOPSY and lumpectomy 2018. bunionectomy left foot, umbilical hernia repair. Partial left nephrectomy. Past Anesthesia/Blood Transfusion Reactions: Motion Sickness Date of Last Stent Placement:: 2011 Past Psychological History: Anxiety Smoking Status: Never smoker Past Alcohol Use History: None Reported Past Drug Use History: None Reported - Past Family History Sister(s) Family Medical History: Cancer Additional Family Medical History / Comment(s): breast cancer Father Family Medical History: Cancer, Osteoarthritis (OA) Additional Family Medical History / Comment(s): LEUKEMIA. Mother Family Medical History: Cancer Additional Family Medical History / Comment(s): BREAST CANCER General Exam Limitations: no limitations General appearance: alert, in no apparent distress Head exam: Present: atraumatic, normocephalic, normal inspection Eye exam: Present: normal appearance, PERRL, EOMI. Absent: scleral icterus, conjunctival injection, periorbital swelling ENT exam: Present: normal exam, mucous membranes moist Neck exam: Present: normal inspection. Absent: tenderness, meningismus, lymphadenopathy Respiratory exam: Present: normal lung sounds bilaterally. Absent: respiratory distress, wheezes, rales, rhonchi, stridor Cardiovascular Exam: Present: regular rate, normal rhythm, normal heart sounds. Absent: systolic murmur, diastolic murmur, rubs, gallop, clicks GI/Abdominal exam: Present: soft, normal bowel sounds. Absent: distended, tenderness, guarding, rebound, rigid Extremities exam: Present: normal inspection, full ROM, normal capillary refill. Absent: tenderness, pedal edema, joint swelling, calf tenderness Back exam: Present: normal inspection Neurological exam: Present: alert, oriented X3, CN II-XII intact Psychiatric exam: Present: normal affect, normal mood Skin exam: Present: warm, dry, intact, normal color. Absent: rash Course Vital Signs 04/01/24 04/01/24 17:14 19:13 Temperature 98.0 F 97.9 F Pulse Rate 66 70 Respiratory 17 17 Rate Blood Pressure 141/69 153/74 O2 Sat by Pulse 96 97 Oximetry - Reevaluation(s) Reevaluation #1: 04/01/24 18:36 Medical records reviewed Reevaluation #2: 04/01/24 19:31 Patient symptoms improved Reevaluation #3: 04/01/24 19:31 Patient informed of results questions answered Reevaluation #4: Was pt. sent in by a medical professional or institution (, PA, SALVAGE WORKER, urgent care, hospital, or usp...) When possible be specific @ -no Did you speak to anyone other than the patient for history (EMS, parent, family, police, friend...)? What history was obtained from this source @ -no Did you review nursing and triage notes (agree or disagree)? Why? @ -agree Are old charts reviewed (outside hosp., previous admission, EMS record, old EKG, old radiological studies, urgent care reports/EKG's, usp records)? Report findings @ -yes Differential Diagnosis (chest pain, altered mental status, abdominal pain women, abdominal pain men, vaginal bleeding, weakness, fever, dyspnea, syncope, headache, dizziness, GI bleed, back pain, seizure, CVA, palpatations, mental health, musculoskeletal)? @ -prior EKG interpreted by me (3pts min.). @ -yes X-rays interpreted by me (1pt min.). @ -yes negative for acute disease CT interpreted by me (1pt min.). @ -no U/S interpreted by me (1pt. min.). @ -no What testing was considered but not performed or refused? (CT, X-rays, U/S, labs)? Why? @ -none What meds were considered but not given or refused? Why? @ -none Did you discuss the management of the patient with other professionals (pr ofessionals i.e. , PA, SALVAGE WORKER, lab, RT, psych nurse, social science analyst, neck band operator, teacher, college service officer, patient case coordinator)? Give summary @ -no Was smoking cessation discussed for >3mins.? @ -no Was critical care preformed (if so, how long)? @ -no Were there social determinants of health that impacted care today? How? (Homelessness, low income, unemployed, alcoholism, drug addiction, transportation, low edu. Level, literacy, decrease access to med. care, correction, rehab)? @ -none Was there de-escalation of care discussed even if they declined (Discuss DNR or withdrawal of care, Hospice)? DNR status @ -no What co-morbidities impacted this encounter? (DM, HTN, Smoking, COPD, CAD, Cancer, CVA, ARF, Chemo, Hep., AIDS, mental health diagnosis, sleep apnea, morbid obesity)? @ -none Was patient admitted / discharged? Hospital course, mention meds given and route, prescriptions, significant lab abnormalities, going to OR and other pertinent info. @ - Undiagnosed new problem with uncertain prognosis? @ -no Drug Therapy requiring intensive monitoring for toxicity (Heparin, Nitro, Insulin, Cardizem)? @ -no Were any procedures done? @ -no Diagnosis/symptom? @ - Acute, or Chronic, or Acute on Chronic? @ -Acute Uncomplicated (without systemic symptoms) or Complicated (systemic symptoms)? @ -Complicated Side effects of treatment? @ -no Exacerbation, Progression, or Severe Exacerbation? @ -exacerbation Poses a threat to life or bodily function? How? (Chest pain, [place], [place], pneumonia, PE, COPD, DKA, ARF, appy, cholecystitis, CVA, Diverticulitis, Homicidal, Suicidal, threat to staff... and all critical care pts) @ -yes Reevaluation #5: Differential Abdominal Pain Women: Appendicitis, Cholecystitis, diverticulosis, ischemic bowel, pancreatitis, hepatitis, UTI, gastroenteritis, AAA, incarcerated hernia, bowel obstruction, constipation, inflammatory bowel, hepatitis, peptic ulcer disease, splenic infarction, perforated viscus, vulvitis, ovarian torsion, PID, kidney stone, placenta abruption, this is not meant to be an all-inclusive list Medical Decision Making - Medical Decision Making 84 female to ER for evaluation of abdominal pain with some anxiety and constipation. Rodrigue on CT scan, patient will attempt liquid diet give bowel regimen patient can be discharged home - Lab Data Result diagrams: 04/01/24 17:53 04/01/24 17:53 Lab Results 04/01/24 04/01/24 04/01/24 Range/Units 17:53 17:53 17:53 WBC 11.6 H (3.8-10.6) k/uL RBC 4.27 (3.80-5.40) m/uL Hgb 13.0 (11.4-16.0) gm/dL Hct 39.2 (34.0-46.0) % MCV 91.8 (80.0-100.0) fL MCH 30.5 (25.0-35.0) pg MCHC 33.2 (31.0-37.0) g/dL RDW 12.5 (11.5-15.5) % Plt Count 287 (150-450) k/uL MPV 6.9 Neutrophils % 87 % Lymphocytes % 7 % Monocytes % 4 % Eosinophils % 1 % Basophils % 0 % Neutrophils # 10.1 H (1.3-7.7) k/uL Lymphocytes # 0.8 L (1.0-4.8) k/uL Monocytes # 0.4 (0-1.0) k/uL Eosinophils # 0.1 (0-0.7) k/uL Basophils # 0.0 (0-0.2) k/uL PT 10.5 (10.0-12.5) sec INR 0.9 (<1.2) APTT 26.5 (22.0-30.0) sec Sodium (137-145) mmol/L Potassium (3.5-5.1) mmol/L Chloride (98-107) mmol/L Carbon Dioxide (22-30) mmol/L Anion Gap mmol/L BUN (7-17) mg/dL Creatinine (0.52-1.04) mg/dL Est GFR (CKD-EPI)AfAm (>60 ml/min/1.73 sqM) Est GFR (CKD-EPI)NonAf (>60 ml/min/1.73 sqM) Glucose (74-99) mg/dL Plasma Lactic Acid Travis (0.7-2.0) mmol/L Calcium (8.4-10.2) mg/dL Total Bilirubin (0.2-1.3) mg/dL AST (14-36) U/L ALT (4-34) U/L Alkaline Phosphatase (38-126) U/L Total Protein (6.3-8.2) g/dL Albumin (3.5-5.0) g/dL Amylase (30-110) U/L Lipase (23-300) U/L Urine Color Colorless Urine Appearance Clear (Clear) Urine pH 5.5 (5.0-8.0) Ur Specific [place] 1.015 (1.001-1.035) Urine Protein Negative (Negative) Urine Glucose (UA) Negative (Negative) Urine Ketones Negative (Negative) Urine Blood Negative (Negative) Urine Nitrite Negative (Negative) Urine Bilirubin Negative (Negative) Urine Urobilinogen <2.0 (<2.0) mg/dL Ur Leukocyte Esterase Negative (Negative) 04/01/24 04/01/24 Range/Units 17:53 17:53 WBC (3.8-10.6) k/uL RBC (3.80-5.40) m/uL Hgb (11.4-16.0) gm/dL Hct (34.0-46.0) % MCV (80.0-100.0) fL MCH (25.0-35.0) pg MCHC (31.0-37.0) g/dL RDW (11.5-15.5) % Plt Count (150-450) k/uL MPV Neutrophils % % Lymphocytes % % Monocytes % % Eosinophils % % Basophils % % Neutrophils # (1.3-7.7) k/uL Lymphocytes # (1.0-4.8) k/uL Monocytes # (0-1.0) k/uL Eosinophils # (0-0.7) k/uL Basophils # (0-0.2) k/uL PT (10.0-12.5) sec INR (<1.2) APTT (22.0-30.0) sec Sodium 136 L (137-145) mmol/L Potassium 3.5 (3.5-5.1) mmol/L Chloride 116 H (98-107) mmol/L Carbon Dioxide 15 L (22-30) mmol/L Anion Gap 5 mmol/L BUN 22 H (7-17) mg/dL Creatinine 0.79 (0.52-1.04) mg/dL Est GFR (CKD-EPI)AfAm 81 (>60 ml/min/1.73 sqM) Est GFR (CKD-EPI)NonAf 70 (>60 ml/min/1.73 sqM) Glucose 106 H (74-99) mg/dL Plasma Lactic Acid Travis 0.9 (0.7-2.0) mmol/L Calcium 7.0 L (8.4-10.2) mg/dL Total Bilirubin 0.6 (0.2-1.3) mg/dL AST 23 (14-36) U/L ALT 15 (4-34) U/L Alkaline Phosphatase 48 (38-126) U/L Total Protein 5.6 L (6.3-8.2) g/dL Albumin 2.8 L (3.5-5.0) g/dL Amylase 66 (30-110) U/L Lipase 102 (23-300) U/L Urine Color Urine Appearance (Clear) Urine pH (5.0-8.0) Ur Specific [place] (1.001-1.035) Urine Protein (Negative) Urine Glucose (UA) (Negative) Urine Ketones (Negative) Urine Blood (Negative) Urine Nitrite (Negative) Urine Bilirubin (Negative) Urine Urobilinogen (<2.0) mg/dL Ur Leukocyte Esterase (Negative) - Radiology Data Radiology results: report reviewed (CT abdomen pelvis positive for proctitis), image reviewed Disposition Clinical Impression: Abdominal colic, Abdominal pain, Constipation Disposition: HOME SELF-CARE Condition: Good Instructions (If sedation given, give patient instructions): Abdominal Pain (ED) Is patient prescribed a controlled substance at d/c from ED?: No Referrals: Ryan Pires DO [Primary Care Provider] - 1-2 days Time of Disposition: 19:30
[2024-04-01 18:08] LABS: Basophils % (A) 0 %; Eosinophils # (A) 0.1 k/uL (0-0.7); Eosinophils % (A) 1 %; HCT 39.2 % (34.0-46.0); Lymphocytes # (A) 0.8 k/uL (1.0-4.8); Lymphocytes % (A) 7 %; MCH 30.5 pg (25.0-35.0); MCHC 33.2 g/dL (31.0-37.0); MCV 91.8 fL (80.0-100.0); Mean Platelet Volume 6.9; Monocytes # (A) 0.4 k/uL (0-1.0); Monocytes % (A) 4 %; Neutrophils # (A) 10.1 k/uL (1.3-7.7); Neutrophils % (A) 87 %; Platelet Count 287 k/uL (150-450); RBC 4.27 m/uL (3.80-5.40); RDW 12.5 % (11.5-15.5); WBC 11.6 k/uL (3.8-10.6)
[2024-04-01] MEDS: PANTOPRAZOLE 40 MG/10 ML VIAL IVP STA (18:14)
[2024-04-01] MEDS: SODIUM CHLORIDE 0.9% 1,000 ML IV STA (18:15)
[2024-04-01 18:17] LABS: INR 0.9 (<1.2); Partial Thromboplastin Time 26.5 sec (22.0-30.0); Prothrombin Time 10.5 sec (10.0-12.5)
[2024-04-01] MEDS: MORPHINE SULFATE 4 MG/ML SYRINGE IVP STA (18:17)
[2024-04-01 18:36] LABS: Appearance,Urine Clear (Clear); Bilirubin,Urine Negative (Negative); Blood,Urine Negative (Negative); Color,Urine Colorless; Glucose,Urine (UA) Negative (Negative); Ketones,Urine Negative (Negative); Leukocyte Esterase,Urine Negative (Negative); Nitrite,Urine Negative (Negative); PH, Urine 5.5 (5.0-8.0); Protein,Urine Negative (Negative); Specific Gravity,Urine 1.015 (1.001-1.035); Urobilinogen,Urine <2.0 mg/dL (<2.0)
[2024-04-01 18:48] LABS: ALT 15 U/L (4-34); African American GFR (CKD) 81 (>60 ml/min/1.73 sqM); Albumin 2.8 g/dL (3.5-5.0); Amylase 66 U/L (30-110); Anion Gap 5 mmol/L; Blood Urea Nitrogen 22 mg/dL (7-17); Carbon Dioxide 15 mmol/L (22-30); Chloride 116 mmol/L (98-107); Glucose 106 mg/dL (74-99); Lipase 102 U/L (23-300); Non-African American GFR(CKD) 70 (>60 ml/min/1.73 sqM); Sodium 136 mmol/L (137-145); Total Bilirubin 0.6 mg/dL (0.2-1.3); Total Protein 5.6 g/dL (6.3-8.2)
[2024-04-01 18:50] LABS: AST 23 U/L (14-36); Alkaline Phosphatase 48 U/L (38-126); Potassium 3.5 mmol/L (3.5-5.1)
--- NOTE | 2024-04-01 19:11 | CT ---
EXAMINATION TYPE: CT abdomen pelvis wo con DATE OF EXAM: 04/01/2024 6:37 PM COMPARISON: 02/17/2024 CLINICAL INDICATION: Female, 84 years old with history of abdominal pain; Patient began having abdomi nal pain this am, history of diverticulitis, year ago infection, lower abdominal pain. TECHNIQUE: Axial CT abdomen pelvis wo con;Sagittal and coronal reformats were created on a separate workstation. Contrast used: mL of , (none if empty) Oral contrast used: without Oral Contrast (none if empty) CT DLP: 366.9 mGycm, Automated exposure control for dose reduction was used. FINDINGS: LOWER CHEST: Heart is mildly enlarged for size. ABDOMEN LIVER: Unremarkable GALLBLADDER AND BILE DUCTS: The gallbladder is surgically absent. PANCREAS: Unremarkable. SPLEEN: Unremarkable. ADRENAL GLANDS: Unremarkable. KIDNEYS AND URETERS: No evidence of hydronephrosis or renal calculus. The ureters are unremarkable. Suspected postsurgical changes to the left kidney unchanged from priors. PELVIS BLADDER: No evidence for wall thickening or mass given limitations of exam. REPRODUCTIVE: Unremarkable. ABDOMEN & PELVIS STOMACH AND BOWEL: There may be some circumferential wall thickening of the rectum with moderate stoo l burden in the sigmoid colon. The appendix appears surgically absent with suture in place. Scattered colonic diverticula are present. No evidence for diverticulitis. Large third portion duodenal divert iculum. PERITONEUM/RETROPERITONEUM: No evidence of pneumoperitoneum or free fluid. VASCULATURE: Severe atherosclerotic calcifications are present throughout the abdominal aorta and its branches. No evidence of aortic aneurysm. MUSCULOSKELETAL: No acute osseous abnormalities LYMPH NODES: No gross evidence for lymphadenopathy. SOFT TISSUE/ABDOMINAL WALL: Unremarkable IMPRESSION: 1. Circumferential wall thickening of the rectum correlate for proctitis. There is upstream moderate stool burden in the sigmoid colon. 2. Colonic diverticulosis without evidence for diverticulitis. 3. Large third portion duodenal diverticulum suggested. [facility], , 04/01/2024 7:09 PM
[2024-04-01 19:16] VITALS: BP 153/74; PULSE 70; TEMP 97.9
[2024-04-01] MEDS: SENNOSIDES-DOCUSATE SODIUM 1 EACH TAB PO STA (19:39)
[2024-04-01] MEDS: traMADol 50 MG STARTER PACK 3 TAB BTL PO STA (19:42)
[2024-04-01] MEDS: IBUPROFEN 600 MG STARTER PACK 4 TAB BTL PO STA (19:43)
[2024-04-01] MEDS: ONDANSETRON 4 MG ODT STARTER PACK 2 TAB BTL PO STA (19:44)
== END 2024-04-01 19:55 | disposition home or self-care (01) ==
LOC: EC 17:10
DX: K59.00 Constipation, unspecified (principal); K57.50 Diverticulosis of both small and large intestine without perforation or abscess without bleeding; Z91.041 Radiographic dye allergy status; Z91.018 Allergy to other foods; Z88.2 Allergy status to sulfonamides; Z88.1 Allergy status to other antibiotic agents; Z88.8 Allergy status to other drugs, medicaments and biological substances; Z88.5 Allergy status to narcotic agent; Z91.013 Allergy to seafood; Z91.011 Allergy to milk products
CPT/HCPCS: 36415; 80053; 82150; 83605; 83690; 85025; 85610; 85730; 81003; 74176; 99285; 96374; 96375; 96361; J2270; S0119; J2470

== ENCOUNTER 2024-04-14 05:45 | Day surgery (SDC) | payer MEDICARE ==
[2024-04-14] MEDS ORDERED: NITROGLYCERIN SL TABS 0.4 MG TAB SUBLINGUAL PRN ×2 (05:53→08:43)
[2024-04-14] MEDS ORDERED: ALPRAZolam 0.5 MG TAB PO PRN (05:53)
[2024-04-14] MEDS: SODIUM CHLORIDE 0.9% 1,000 ML in EMPTY BAG 1 BAG IV ONE (06:26)
[2024-04-14] MEDS: ALPRAZolam 0.25 MG TAB PO PRN (06:27)
[2024-04-14] MEDS: ASPIRIN 325 MG TAB PO STA (06:29)
[2024-04-14] MEDS: ATORVASTATIN 80 MG TAB PO STA (06:30)
[2024-04-14] MEDS: IV FLUID CONTINUATION 1,000 ML IV ONE (06:41)
[2024-04-14] MEDS: MIDAZOLAM 2 MG/2 ML VIAL IVP ONE (07:46)
[2024-04-14] MEDS: LIDOCAINE 1% INJ 10MG/ML (20 ML MDV) SQ ONE (07:47)
[2024-04-14] MEDS: VERAPAMIL SYRINGE (5 MG/10 ML) INTRAARTER ONE (07:49)
[2024-04-14] MEDS: HEPARIN SODIUM 1,000 UN/ML (10ML VL) IVP ONE (07:56)
[2024-04-14] MEDS: fentaNYL (PF) 50 MCG/ML 2 ML AMP IVP ONE (08:08)
[2024-04-14] MEDS: IOPAMIDOL-370 100ML BTL INJ ONE ×2 (08:21→08:41)
[2024-04-14] MEDS: TICAGRELOR 90 MG TAB PO ONE (08:27)
[2024-04-14] MEDS: NITROGLYCERIN 1000MCG/10ML SYRINGE INTRACORON ONE (08:35)
[2024-04-14] MEDS: SODIUM CHLORIDE 0.9% 1,000 ML IV ONE (08:35)
[2024-04-14] MEDS: HEPARIN SODIUM,PORCINE 10,000 UNIT in SODIUM CHLORIDE 0.9% 1,000 ML IRRIGATION PRN (08:36)
[2024-04-14] MEDS: HEPARIN SODIUM,PORCINE (1 ML) 2,500 UNIT in SODIUM CHLORIDE 0.9% 250 ML IRRIGATION PRN (08:36)
[2024-04-14] MEDS ORDERED: ZOLPIDEM 5 MG TAB PO PRN (08:43)
[2024-04-14] MEDS ORDERED: ATROPINE SULFATE 0.1 MG/ML 10ML SYRINGE IV PRN (08:43)
[2024-04-14] MEDS ORDERED: RX INFO: IV CONTRAST WAS GIVEN 1 EACH MISC MISCELLANE PRN (08:43)
[2024-04-14] MEDS ORDERED: MAG HYDROX/AL HYDROX/SIMETH 30 ML CUP PO PRN (08:43)
[2024-04-14] MEDS: SODIUM CHLORIDE 0.9% 1,000 ML in EMPTY BAG 1 BAG IV SCH (08:59)
[2024-04-14] MEDS ORDERED: NON FORMULARY DRUG (Milk Thistle [Milk Thistle] 150 MG Capsule) PO SCH (09:00)
[2024-04-14] MEDS ORDERED: NON FORMULARY DRUG (Omega-3/Dha/Epa/Fish Oil [Fish Oil 1,000 Mg Softgel] 1 EACH Capsule) PO SCH (09:00)
--- NOTE | 2024-04-14 12:06 | P.PCN ---
Date of Procedure: 04/14/24 Operative Findings: CARDIAC CATHETERIZATION AND PERCUTANEOUS CORONARY INTERVENTION PERFORMING PHYSICIAN: Maninder Elias MD, [facility] PROCEDURE PERFORMED: 1. Selective right and left coronary angiogram 2. Left heart catheterization 3. Successful stenting of mid LAD using 2.25 x 18 mm Xience OSITO with an exce llent angiographic results 4. Adjunctive use of IFR and Dobler wire 5. Ultrasound-guided access of the right radial artery INDICATION: Symptomatic 84-year-old female patient with known history of CAD with prior stenting of the LAD COMPLICATION: None APPROACH: Right radial art LEVEL OF SEDATION: Moderate with the sedation time off 38 minutes PROCEDURE DESCRIPTION: After obtaining informed consent the patient was brought to the cardiac Upper Cutter with right radial artery was cannulated using micropuncture technique under ultrasound guidance a micropuncture wire passed easily then I placed a 6 Arabic 11 cm sheath at the right radial artery with after that I gave the patient 2 mg of verapamil intra-arterial and heparin intravenous with continuous ACT monitoring did selective right and left coronary angiogram performed using JR4 and JL 3.5 catheters. Left heart catheterization was performed using pigtail catheter. After that we decided to do an IFR of the LAD with after zeroing the valvular wire and equalizing between the gallbladder and guiding catheter which was JL 3.5 guiding catheter the left main was engaged and subsequently the LAD was wired. We did an IFR and that came to be at 0.82. After that I decided to intervene on the LAD. I did wired the LAD using a whisper wire and I kept the Dobler wire as a cherry wire. I did IVUS which showed a diameter around 2.5 mm. I did balloon angioplasty using 2.5 mm balloon before I deployed 2.75 x 18 mm stent where the stent was positioned under fluoroscopy guidance and deployed under fluoroscopy guidance. The following angiogram showed good angiographic results and the procedure was completed with no complication please note that also I did postdilatation before I ended the procedure SELECTIVE CORONARY ANGIOGRAM: The right coronary artery: Large-caliber vessel and a dominant vessel with intermediate disease involving the midportion Left main: Appears to be angiographically normal The left circumflex: Has mild disease only and is nondominant vessel The left anterior descending artery: The proximal LAD stent appeared to be patent. The mid LAD stent just before the bifurcation of a diagonal branch has intermediate lesion documented to be flow- limiting by Doppler wire HEMODYNAMICS: LVEDP was about 12 mmHg with no significant gradient across aortic valve CONCLUSION: Patent stent in the proximal LAD with intermediate disease involving the mid LAD documented to be flow-limiting by Doppler wire but I did PCI of the LAD Mild to moderate disease involving the right coronary artery POSTPROCEDURE MANAGEMENT: 1. Dual antiplatelet therapy using aspirin and Brilinta for at least 6 month 2. Aggressive cholesterol control 3. Follow-up with the patient
[2024-04-14] MEDS: ASCORBIC ACID 500 MG TAB PO SCH (15:16)
[2024-04-14] MEDS: NON FORMULARY DRUG (Magnesium [Magnesium] 200 MG Tablet) PO SCH (15:16)
[2024-04-14] MEDS: MULTIVITAMINS, THERA 1 EACH TAB PO SCH (15:17)
[2024-04-14] MEDS: METOPROLOL TARTRATE 50 MG TAB PO SCH (20:41)
[2024-04-14] MEDS: TICAGRELOR 90 MG TAB PO SCH (20:41)
[2024-04-15] MEDS: amLODIPine 10 MG TAB PO SCH (08:57)
[2024-04-15] MEDS: ISOSORBIDE MONONITRATE ER 60 MG TAB.ER.24H PO SCH (08:58)
[2024-04-15 09:00] VITALS: BP 131/60; PULSE 57; RESP 17; TEMP 97.5
[2024-04-15 10:03] LABS: African American GFR (CKD) 52 (>60 ml/min/1.73 sqM); Non-African American GFR(CKD) 45 (>60 ml/min/1.73 sqM)
--- NOTE | 2024-04-15 10:08 | P.DS ---
Providers Attending physician: Maninder Elias Consults: 04/14/24 08:43 Consult Physician Routine Consulting Provider: [facility] Consult Reason/Comments: Post Interventional patient Do you want consulting provider notified?: Already Contacted [facility] Course: The patient is a pleasant 84-year-old female patient 84-year-old female patient who underwent yesterday heart catheterization and PCI of the LAD She was seen and evaluated this morning which she is asymptomatic and hemodynamically stable. The patient is going to be discharged home on triple therapy including low-dose oral anticoagulation as well as dual antiplatelet therapy. Will keep her on the current medical regimen for 4 weeks and subsequently she will be on P2 Y12 inhibitors along with low-dose oral anticoagu lation The right radial artery is soft and nontender with no bruises The patient will be followed in the office in a week Plan - Discharge Summary Discharge Rx Participant: No New Discharge Prescriptions: New Ticagrelor [Brilinta] 90 mg PO BID #180 tab Continue Nitroglycerin Sl Tabs [Nitrostat] 0.4 mg SL Q5M PRN PRN Reason: Chest Pain Metoprolol Tartrate [Lopressor] 50 mg PO BID Isosorbide Mononitrate ER [Imdur] 60 mg PO DAILY Multivitamins, Thera [Multivitamin (formulary)] 1 tab PO DAILY Albuterol Inhaler [Ventolin Hfa Inhaler] 1 - 2 puff INHALATION Q6H PRN PRN Reason: Shortness Of Breath Milk Thistle 150 mg PO DAILY Magnesium 200 mg PO DAILY Aspirin 81 mg PO ONCE amLODIPine [Norvasc] 10 mg PO DAILY 30 Days #30 tab Ascorbic Acid [Vitamin C] 500 mg PO DAILY Holland-3/Dha/Epa/Fish Oil [Fish Oil 1,000 mg Softgel] 1 each PO DAILY Kale 1 tab PO DAILY Discontinued Apixaban [Eliquis] 2.5 mg PO BID Discharge Medication List Nitroglycerin Sl Tabs [Nitrostat] 0.4 mg SL Q5M PRN 05/20/20 [History] Metoprolol Tartrate [Lopressor] 50 mg PO BID 03/18/21 [History] Isosorbide Mononitrate ER [Imdur] 60 mg PO DAILY 02/25/24 [History] amLODIPine [Norvasc] 10 mg PO DAILY 30 Days #30 tab 02/27/24 [Rx] Albuterol Inhaler [Ventolin Hfa Inhaler] 1 - 2 puff INHALATION Q6H PRN 04/10/24 [History] Ascorbic Acid [Vitamin C] 500 mg PO DAILY 04/10/24 [History] Kale 1 tab PO DAILY 04/10/24 [History] Magnesium 200 mg PO DAILY 04/10/24 [History] Milk Thistle 150 mg PO DAILY 04/10/24 [History] Multivitamins, Thera [Multivitamin (formulary)] 1 tab PO DAILY 04/10/24 [History] Holland-3/Dha/Epa/Fish Oil [Fish Oil 1,000 mg Softgel] 1 each PO DAILY 04/10/24 [History] Aspirin 81 mg PO ONCE 04/14/24 [History] Ticagrelor [Brilinta] 90 mg PO BID #180 tab 04/15/24 [Rx] Follow up Appointment(s)/Referral(s): Maninder Elias MD [STAFF PHYSICIAN] - 04/21/24 3:30 pm (POST HOSPITAL VISIT APPOINTMENT MADE. ) Patient Instructions/Handouts: Moderate Sedation (DC), After Radial Heart Catheterization (GEN) Activity/Diet/Wound Care/Special Instructions: NO DRIVING FOR TWO DAYS. OK TO REMOVE DRESSING TOMORROW AFTERNOON AND THEN SHOWER. NO SOAKING IN TUBS, POOLS, OR DOING DISHES FOR FIVE DAYS TO AVOID RISK OF INFECTION. SIGNS OF INFECTION IE: FEVER RASH UNUSUAL DRAINAGE HARD KNOT OR SWELLING CONTACT DR TO BE EVALUATED OR GO TO ER. IF PUNCTURE SITE BLEEDS, HOLD FIRM PRESSURE AND GO TO ER. DO NOT DRIVE SELF. AVOID PUSHING PULLING LIFTING MORE THAN 5 LBS FOR FIVE DAYS TO AVOID BLEED RISK. FALL PRECAUTIONS TODAY RELATED TO SEDATION MEDICATIONS DIRECTED BY CARDIOLOGY.
== END 2024-04-15 11:15 | disposition home or self-care (01) ==
LOC: CATHCVL 05:45 → 3SCARD 08:40 → CATHCVL 04-15 11:15
PROVIDERS: ATTEND Internal Medicine Interventional Cardiology
DX: I25.10 Atherosclerotic heart disease of native coronary artery without angina pectoris (principal); Z95.5 Presence of coronary angioplasty implant and graft; I48.0 Paroxysmal atrial fibrillation; I10 Essential (primary) hypertension; E78.5 Hyperlipidemia, unspecified; I08.3 Combined rheumatic disorders of mitral, aortic and tricuspid valves; Z79.01 Long term (current) use of anticoagulants; Z79.899 Other long term (current) drug therapy; Z85.528 Personal history of other malignant neoplasm of kidney; Z90.5 Acquired absence of kidney; Z88.5 Allergy status to narcotic agent; Z88.8 Allergy status to other drugs, medicaments and biological substances; Z82.49 Family history of ischemic heart disease and other diseases of the circulatory system
CPT/HCPCS: 92978; 93458; 82565; C9600; J2250; J1644 ×3; J2003; J3010; Q9967; J2305

== ENCOUNTER → 2024-08-21 | Outpatient (CLI) | payer MEDICARE ==
[2024-08-21 14:38] LABS: African American GFR (CKD) 44 (>60 ml/min/1.73 sqM); Blood Urea Nitrogen 28 mg/dL (7-17); Non-African American GFR(CKD) 38 (>60 ml/min/1.73 sqM)
--- NOTE | 2024-08-21 14:38 | XR ---
EXAMINATION TYPE: XR chest 2V DATE OF EXAM: 08/21/2024 2:10 PM COMPARISON: Chest radiographs from 07/09/2024 TECHNIQUE: XR chest 2V Frontal and lateral views of the chest. CLINICAL INDICATION:Female, 84 years old with history of C64.2 MALIGNANT NEOPLASM OF LEFT KIDNEY; FINDINGS: Lungs/Pleura: There is flattening of the diaphragm with increased lucency of the lungs. No evidence o f pneumothorax, pleural effusion or focal consolidation. Pulmonary vascularity: Unremarkable. Heart/mediastinum: Cardiomediastinal silhouette is unremarkable. Atherosclerotic calcifications are seen in the aorta. Musculoskeletal: Multiple level degenerative disc disease changes seen throughout the spine. IMPRESSION: 1. No acute cardiopulmonary disease process. 2. COPD changes. [facility], , 08/21/2024 2:36 PM
--- NOTE | 2024-08-21 15:42 | CT ---
EXAMINATION TYPE: CT abdomen wo/w con DATE OF EXAM: 08/21/2024 COMPARISON: 11/26/2023 CLINICAL INDICATION: Female, 84 years old with history of C64.2 MALIGNANT NEOPLASM OF LEFT KIDNEY; PH H, f/u kidney ca TECHNIQUE: Performed with Oral Contrast and without and with IV Contrast, patient injected with 80 ml mL of Isov ue 300. CT DLP: 517.[address] CTDI: mGy Automated exposure control for dose reduction was used. FINDINGS: The lung bases are clear. There is surgical absence of the gallbladder. There is no biliary ductal dilatation. There is no focal mass or organomegaly involving the liver, pancreas, spleen or adrenal glands. In the mid anterior right kidney, 11 mm enhancing nodule seen on the prior study is no longer present . There is a focal area of ill-defined decreased density in this site which enhances slightly followi ng contrast administration. The possibility of residual neoplasm cannot be excluded. Findings could b e related to treatment and correlation with treatment history is recommended. The right kidney is normal. There is no hydronephrosis. There is no retroperitoneal adenopathy. Calib er of the abdominal aorta is normal. The bowel loops are normal in caliber and there is no evidence of dilatation or obstruction. No infl ammatory changes are identified in the bowel wall or mesentery. There is no free intraperitoneal air or fluid. The visualized osseous structures are intact. IMPRESSION: 1. 11 mm enhancing nodule in the left kidney seen on the prior study has resolved. 2. Ill-defined hypodensity within the region of the previous nodule with slight enhancement. Findings could be secondary to mild residual neoplasm or posttreatment changes. Correlate with treatment hist ory. Continued short-term follow-up is recommended. 3. No other significant abnormality seen. [facility], , 08/21/2024 3:40 PM
== END | disposition home or self-care (01) ==
LOC: RADCTMAIN 13:45
PROVIDERS: ATTEND Urology
DX: C64.2 Malignant neoplasm of left kidney, except renal pelvis (principal); N28.89 Other specified disorders of kidney and ureter; J44.9 Chronic obstructive pulmonary disease, unspecified
CPT/HCPCS: 82565; 84520; 71046; 74170; 36415; Q9967